=== PATIENT | female | born 1950 | race Caucasian/White ===

== ENCOUNTER 2024-04-16 15:10 | Inpatient (IN) ==
[2024-04-16 16:25] LABS: Basophils # (auto) 0.02 K/uL (0.00-0.20); Basophils % (auto) 0.2 %; Hematocrit (blood only) 40.9 % (37.0-47.0); Hemoglobin 13.5 g/dl (12.0-16.0); Immature Granulocytes # (auto) 0.09 K/uL (0.01-0.20); Immature Granulocytes % (auto) 0.8 %; Lymphocytes # (auto) 1.42 K/uL (1.20-3.40); Mean Corpuscular Volume 90.9 fL (80.0-100.0); Mean Platelet Volume 10.4 fL (9.4-12.4); Monocytes # (auto) 0.54 K/uL (0.11-0.59); Monocytes % (auto) 4.9 %; Neutrophils # (auto) 8.89 K/uL (1.40-6.50); Neutrophils % (auto) 81.1 %; Platelet Count 352 K/uL (130-400); RDW Coefficient of Variation 14.5 % (11.5-14.5); RDW Standard Deviation 48.3 fL (36.4-46.3); White Blood Count 10.96 K/ul (4.8-10.8)
--- NOTE | 2024-04-16 16:29 | XRay Report ---
Exam: Chest AP only. Reason for exam: Cough. Chest (AP only): No previous studies currently available. The heart is mildly enlarged. Lungs show no evidence of acute infiltrate, collapse or edema. No pleural effusion or pneumothorax is noted. IMPRESSION: Mild cardiomegaly. Otherwise negative for acute disease. Electronically signed by Rodrigo Pham 04-16-2024 4:29 PM
[2024-04-16 16:34] LABS: Albumin Globulin Ratio 1.5 (0.9-2); Albumin Level 4.6 gm/dl (3.4-5.0); BUN Creatinine Ratio 29.9 (10-20); Bilirubin,Total 1.1 mg/dl (0.2-1.0); Calcium 9.7 mg/dl (8.6-10.3); Creatinine Clr Calc Pharmacy 55.8 ml/min; Globulin 3.1 gm/dl (2.5-4.0); Potassium 3.7 mmol/L (3.5-5.1); Total Protein 7.7 gm/dl (6.0-8.3)
[2024-04-16 16:39] LABS: Troponin I High Sensitivity 7.1 pg/ml (0-14)
[2024-04-16 16:47] LABS: INR 0.9 (0.9-1.1); Partial Thromboplastin Ratio 0.8; Partial Thromboplastin Time 21 Seconds (21-31); Prothrombin Time 10.2 Seconds (9.0-12.0)
--- NOTE | 2024-04-16 17:18 | Cardiology Consultation ---
Date of Consultation April 16, 2024 Assessment & Plan (1) Acute heart failure with preserved ejection fraction (HFpEF): (2) Mitral valve prolapse: (3) Mitral regurgitation: Patient describes 5 to 6-week history of progressive dyspnea but also intermittent fevers. She was treated for pneumonia as an outpatient receiving course of antibiotics (azithromycin) on 03/21/2024, and recently prescribed a second course of (Augmentin and fluconazole) on 04/12/2024. The patient denies having had a past history of murmur until it had been detected at the time of recent PCP visit on 04/12/2024. A previous echocardiogram performed in 2018 revealed no significant mitral valve abnormality at that time per my review of the report. Sinus tachycardia noted on telemetry. EKG currently pending. Troponin negative x 1. Although the chest x-ray performed in the emergency department today has not overwhelmingly convincing for congestive heart failure, I reviewed the image of the previous chest x-ray performed as an outpatient on 04/12/2024 and I do think it was consistent with mild pulmonary edema. Will plan on admission to the telemetry unit. The patient describes nauseousness and currently has an emesis bag. I would like to administer 20 mg of IV furosemide for symptomatic relief however her potassium is a bit low to begin with. Will therefore start with supplementing her potassium with potassium chloride extended release 20 mill equivalents x 1 and a dose of Zofran to suppress her nauseousness. Proceed with metoprolol succinate 25 mg twice daily, first dose now, second dose tomorrow morning. If she tolerates the potassium Zofran and metoprolol, will reassess feasibility of starting furosemide this evening. She is hemodynamically stable at present, but I am concerned that her presentation is tenuous. Will plan on transesophageal echocardiogram once her respiratory status is stable enough to allow for sedation. Will plan to have her n.p.o. after midnight tonight, and she will be reassessed tomorrow to see whether or not her status allows for procedure tomorrow or if it needs to be delayed another 24 to 48 hours. Questions answered the patient and family's satisfaction. History of Present Illness History of Present Illness Julianna Dotson is a 73 year old female seen in cardiology consultation in the emergency department per the request of Dr Rogerio Heart for the evaluation of dyspnea on exertion and abnormal echocardiogram. The patient's with whom she lives as well as her daughter and son were present during my interview and examination. She denies any past cardiac history. Her recent symptoms date back to November, when she started noticing occasional lightheadedness and nauseousness. Right around the new year in March, she started experiencing progressive shortness of breath and would note that her heart would race especially when she was trying to lie flat. She had initially been treated as an outpatient for pneumonia with medications prescribed on 03/21/2024 including prednisone, a course of azithromycin, and a Xopenex inhaler. Her symptoms improved to a mild degree but have recurred prompting repeat evaluation that included a chest x-ray performed on 04/12/2024 at [facility] concerning for mild pulmonary edema versus atypical pneumonia. She went on to have a transthoracic echocardiogram performed at [facility] today. During the echocardiogram sinus tachycardia with rate around 110 bpm observed along with hyperdynamic left ventricular systolic function, LVEF in the range of 65-69%, with a partially flail posterior mitral valve leaflet visualized as well as focal calcification of the posterior annulus of the mitral valve. The study was somewhat technically limited but an eccentric mitral regurgitation jet was observed concerning for severe mitral regurgitation. Moderate tricuspid regurgitation was also noted with dilated inferior vena cava consistent with elevated right atrial pressure in the pulmonary artery systolic pressure was estimated to be over 60 mmHg (severely elevated). The patient was since referred to the emergency department for further assessment. Conversational dyspnea noted during my evaluation patient felt most comfortable sitting Upright. She notes recent concerns of feeling warm and cold at home and noted saturation of her bed clothes over the last few weeks with perspiration. Past Medical History Vitamin D deficiency Fibromyalgia Prediabetes Dyslipidemia for which patient is on rosuvastatin, most recent fasting lipid panel 03/28/2024 included total cholesterol 159, triglycerides 246, HDL 51, LDL 69 mg/dL Family History History of cancer in both of her parents, no history of heart disease Social History Non-smoker Works performing landscaping chores in the summertime Rare alcohol use Allergies Allergy/AdvReac Type Severity Reaction Status Date / Time Sulfa (Sulfonamide Allergy Mild Unverified 04/10/09 03:33 Antibiotics) Home Medications Medication Instructions Recorded Confirmed Type Diphenoxylate/Atropine (Lomotil) 1 - 2 tab PO Q8HR PRN ##10 07/02/07 Rx Estrogens, Conjugated Vag TW ##0 07/02/07 History (Premarin Vag *) Patient History Social History Smoking Status: Never smoker Preferred Language: Bulgarian Feels Safe at Home: Yes Review of Systems Review of Systems: All systems reviewed & are unremarkable except as noted in HPI & below Physical Exam Physical Exam: Temp Pulse Resp BP Pulse Ox O2 Del Method 36.6 C 112 H 24 145/90 H 93 Room Air 04/16/24 15:21 04/16/24 16:48 04/16/24 16:11 04/16/24 16:11 04/16/24 16:11 04/16/24 16:11 General:Ill in appearance without acute distress Eyes: conjunctiva are pink and non-injected, sclera clear Neck: normal jugular venous pulse, no hepatojugular reflux Chest: normal shape and normal respiratory effort, Tachypnea noted Lungs:Mildly decreased breath sounds at the bases Cardiac Exam: - Regular rhythm, tachycardic, 3/6 systolic murmur heard best over left sternal border and left apex, no jugular venous distention sitting straight up Abdomen: abdomen soft, non-tender, no abnormal masses and no hepatosplenomegaly Musculoskeletal: no gait disturbance, no weakness Extremities: no edema and no cyanosis Neuro:awake, conversant, follows commands, no focal motor deficits Psych: appropriate affect and insight. Results & Data Vital Signs (Past 12 Hours) Vital Signs Temp Pulse Pulse Resp BP BP Pulse Ox 04/16/24 16:48 112 H 04/16/24 16:11 111 H 24 145/90 H 93 04/16/24 15:21 36.6 C 114 H 22 146/78 H 95 O2 Del Method 04/16/24 16:48 04/16/24 16:11 Room Air 04/16/24 15:21 Room Air Laboratory Results Cardiac Enzymes 04/16/24 Range/Units 16:00 AST 29 (13-39) U/L Troponin I High Sens 7.1 (0-14) pg/ml Coagulation 04/16/24 Range/Units 16:00 PT 10.2 (9.0-12.0) Seconds APTT 21 (21-31) Seconds CBC 04/16/24 Range/Units 16:00 WBC 10.96 H (4.8-10.8) K/ul RBC 4.50 (4.20-5.40) M/uL Hgb 13.5 (12.0-16.0) g/dl Hct 40.9 (37.0-47.0) % Plt Count 352 (130-400) K/uL Neut # (Auto) 8.89 H (1.40-6.50) K/uL Lymph # (Auto) 1.42 (1.20-3.40) K/uL [place] # (Auto) 0.54 (0.11-0.59) K/uL Eos # (Auto) 0.00 (0.00-0.50) K/uL Baso # (Auto) 0.02 (0.00-0.20) K/uL Comprehensive Metabolic Panel 04/16/24 Range/Units 16:00 Sodium 141 (136-145) mmol/L Potassium 3.7 (3.5-5.1) mmol/L Chloride 106 (98-107) mmol/L Carbon Dioxide 23 (21-32) mmol/L BUN 23 (6-23) mg/dl Creatinine 0.77 (0.6-1.2) mg/dl Glucose 134 H (70-99(Fasting)) mg/dl Calcium 9.7 (8.6-10.3) mg/dl AST 29 (13-39) U/L ALT 35 (7-52) U/L Alkaline Phosphatase 81 (34-104) U/L Total Protein 7.7 (6.0-8.3) gm/dl Albumin 4.6 (3.4-5.0) gm/dl Intake and Output 04/16/24 04/16/24 04/16/24 06:59 14:59 22:59 Other: Weight 62.7 kg Weight Measurement Method Chair Scale Patient Weight 04/17/24 06:59 Weight 62.7 kg Diagnostic Findings Summary of echocardiogram performed as an outpatient today 04/16/2024 with images reviewed/interpreted independently: Sinus tachycardia Study of fair technical quality with echocardiogram window limitations The left ventricular cavity size is normal. The LV wall thickness is normal. The left ventricular wall motion is normal. The qualitative LV ejection fraction is 65-69% (normal). There is focal calcification of the posterior annulus. The posterior leaflet is partially flail There is severe mitral insufficiency in an eccentric jet not well quantified Moderate tricuspid regurgitation is present. The estimated pulmonary artery systolic pressure is >60mm Hg. Dilated IVC with reduced collapsability with sniff indicates an elevated right atrial pressure of 15 mmHg.
[2024-04-16 17:26] LABS: C Reactive Protein 1.37 mg/dl (0-0.5)
[2024-04-16] MEDS: POTASSIUM CHLORIDE CRTAB 20 MEQ TABCR PO STA (17:40)
[2024-04-16] MEDS: METOPROLOL SUCC 25MG EXT REL TAB PO STA (17:41)
[2024-04-16] MEDS: ONDANSETRON INJ 2 MG/ML 2 ML VIAL IV STA (17:41)
[2024-04-16] MEDS ORDERED: MAGNESIUM HYDROXIDE SUSP 30 ML UDC PO PRN (18:38)
[2024-04-16] MEDS ORDERED: ALUMINUM/MAGNESIUM SUSP 30 ML UDC PO PRN (18:38)
[2024-04-16] MEDS ORDERED: ONDANSETRON INJ 2 MG/ML 2 ML VIAL IV PRN (18:38)
[2024-04-16] MEDS ORDERED: LEVALBUTEROL 1.25 MG/3 ML NEB NEB PRN (18:58)
--- NOTE | 2024-04-16 19:01 | History & Physical Report ---
Date of Service April 16, 2024 Assessment & Plan (1) Mitral regurgitation: Plan Shortness of breath with exertion Dry cough Recent pneumonia Patient with complaint of cough with yellow sputum and shortness of breath about a month ago [employer], status post, treatment for pneumonia. See HPI. After first course of treatment, she had some improvement but again had increasing cough (this time dry cough) and SUAREZ. She was put on Augmentin and prednisone, on 04/12/2024 for pneumonia again. ESR wnl, CRP minimally elevated. CXR with no acute lung finding, bibasilar crackles on examination. Will get CT chest. Will continue with Augmentin. Labs in AM.Blood culture. Tesmichelle Murillo, Mucinex. xopenox prn. Severe mitral regurgitation: Noted in echo done on 04/16/2024. Cardiology on board, patient cardiac medications being optimized. Continue telemetry monitoring. N.p.o. midnight. Possible plan for BOUCHRA during this admission. Other chronic medical conditions: Continue with/resume home meds as when able. DVT prophylaxis: Heparin subcu Full code History of Present Illness Chief Complaint: Abnormal echocardiogram Primary Care Provider: Rogeiro Heart MD 73-year-old lady with PMH of prediabetes, vitamin D deficiency, fibromyalgia who was being treated for cough and shortness of breath as an outpatient. She has the symptoms for about 4 weeks now, she has received Zithromax and prednisone for possible walking pneumonia on 03/21/2024. Got mostly better but cough came back about 2 weeks later, no fever, but short of breath especially with exertion, mostly dry cough this time, associated with some wheezing when lying down at night. She was put on Augmentin for 10 days on 04/12/2024, steroid Rx and echocardiogram was ordered. Echocardiogram done 04/16/2024: EF of 65 to 69%, severe mitral insufficiency. Pulmonary artery systolic pressure more than 60 mmHg. Left ventricular wall motion is normal. Because of abnormal echocardiogram, patient was referred to the ED by cardiology after echo was done/read today. Patient denies sore throat, reports cough with clear sputum now, reports chest pain/pressure/tightness on and off for about 3 to 4 weeks, reports on and off palpitation, denies belly pain/nausea/vomiting. Reports appetite fair. Reports bowel okay. Patient denies smoking/alcohol use/recreational drug use. Medications reviewed with the patient at bedside. Plan of care discussed with the patient and her at bedside in detail. They voiced understanding. Full code Allergies Allergy/AdvReac Type Severity Reaction Status Date / Time Sulfa (Sulfonamide Allergy Mild Swelling Unverified 04/16/24 17:55 Antibiotics) of Lip/Tongue/Throat Home Medications Medication Instructions Recorded Confirmed Type amoxicillin 875 mg-potassium 1 tab PO BID 04/16/24 04/16/24 History clavulanate 125 mg tablet cholecalciferol (vitamin D3) 25 25 mcg PO DAILY 04/16/24 04/16/24 History mcg (1,000 unit) tablet (Vitamin D3) estradiol 10 mcg vaginal tablet 10 mcg vaginal 2XWK 04/16/24 04/16/24 History (Vagifem) levalbuterol tartrate 45 2 puff inhalation Q6H PRN Wheezing 04/16/24 04/16/24 History mcg/actuation aerosol inhaler potassium 99 mg tablet 99 mg PO DAILY 04/16/24 04/16/24 History rosuvastatin 10 mg tablet 10 mg PO QAM 04/16/24 04/16/24 History vitamin B complex 1 tab PO DAILY 04/16/24 04/16/24 History Past Med/Surg History Problem List (Updated 04/16/24 @ 17:24 by Scott James DO) Acute heart failure with preserved ejection fraction (HFpEF) Mitral regurgitation Mitral valve prolapse Dysuria Bladder pain Urinary symptom or sign Social History Smoking Status: Never smoker Preferred Language: Bulgarian Feels Safe at Home: Yes Review of Systems Review of Systems: Negative otherwise mentioned in HPI. Physical Exam Physical Exam: GENERAL: Alert and oriented x3. NAD, on RA. HEENT: No pallor, no icterus. Pupils equal, round and reactive to light. Oral mucosa moist. NECK: No JVD, no neck masses. HEART: S1 and S2 heard. Regular rate and rhythm. + systolic murmur, no gallop. RESPIRATORY SYSTEM: Normal AP diameter. No accessory muscle use. No wheezing, bb crackles. ABDOMEN: Soft, bowel sounds present, nontender, no distention. CENTRAL NERVOUS SYSTEM: No facial droop. Speech is clear. Obeys simple commands. Moves extremities. EXTREMITIES: No edema, no erythema seen. Results & Data Results & Data Vital Signs (Past 12 Hours) Vital Signs Temp Pulse Pulse Resp BP BP Pulse Ox 04/16/24 18:00 107 H 25 H 160/97 H 94 04/16/24 16:48 112 H 04/16/24 16:11 111 H 24 145/90 H 93 04/16/24 15:21 36.6 C 114 H 22 146/78 H 95 O2 Del Method 04/16/24 18:00 Room Air 04/16/24 16:48 04/16/24 16:11 Room Air 04/16/24 15:21 Room Air
--- NOTE | 2024-04-16 19:26 | Emergency Department Note ---
Impression & Plan Mitral valve prolapse, Mitral regurgitation, Acute heart failure with preserved ejection fraction (HFpEF), Pulmonary hypertension ED Provider Note NAME: RANDA DUGAN AGE: 73 SEX: F : 1950 ARRIVES VIA: Walk-In INFORMANT: Patient, ED PROVIDER(S): Lino Childers MD CHIEF COMPLAINT: Sent in for leaky heart valve HPI: This is a 73-year-old female presenting for mitral valve insufficiency. Patient was seen earlier today and had a echo. Patient has been having shortness of breath for the past few weeks with left-sided chest pain. She is seen by cardiology and scheduled for an echo. This morning echo was read as suggesting a flail posterior mitral valve leaflet with severe mitral insufficiency, severe pulmonary hypertension, possibility was also noted. Patient sent in by the knife finisher for admission. Patient currently feels vertiginous. She is vomiting. ROS: See above HPI for pertinent positives & negatives. A total of 10 systems reviewed and were otherwise negative. PAST MEDICAL HISTORY: See Below PAST SURGICAL HISTORY: See Below FAMILY HISTORY: See Below SOCIAL HISTORY: See Below HOME MEDICATIONS: See Below ALLERGIES: See Below VITALS: See Below PHYSICAL EXAMINATION: General: resting comfortably in no acute distress Head: Normocephalic and atraumatic Eyes: Normal inspection, extraocular muscles intact Ear, nose, throat: Normal external exam Neck: Normal range of motion Respiratory: lungs clear to auscultation bilaterally Cardiovascular: Regular rate/rhythm, significant murmur GI: soft, nontender, no guarding or rebound Extremities: nontender, moves all extremities Neuro: The patient awake and alert, appropriately conversive, no focal deficits, symmetric faces Skin: Warm, dry, and intact MEDICAL DECISION MAKING: This is a 73-year-old female present for mitral valve insufficiency. Patient has already been seen by cardiology prior to my arrival, medications such as potassium, Zofran placed by knife finisher. \ -Bloodwork is reviewed showing no significant leukocytosis, anemia, electrolyte or creatinine abnormality -Chest Xray independently interpreted by me showing cardiomegaly, no pneumothorax, focal opacity, or pleural effusions. -Patient admitted to hospitalist service for the outpatient ultrasound that revealed the mitral insufficiency, pulm hypertension. -Discussed with Dr. Jama for admission Differential diagnosis: Heart failure, mitral valve insufficiency, pneumonia Independent History obtained from: 3 family members, knife finisher Diagnostics interpreted by me: ECG: None Cardiac Monitoring: An order was placed for continuous cardiac monitoring. The monitor shows a rate of 107 with sinus rhythm. Past Med/Surg History Problem List (Updated 04/16/24 @ 20:43 by Lino Childers MD) Pulmonary hypertension (Acute) Acute heart failure with preserved ejection fraction (HFpEF) (Acute) Mitral regurgitation (Acute) Mitral valve prolapse (Acute) Dysuria Bladder pain Urinary symptom or sign Social History Smoking Status: Never smoker Preferred Language: Citizen Of [place] Feels Safe at Home: Yes Allergies Allergies Allergy/AdvReac Type Severity Reaction Status Date / Time Sulfa (Sulfonamide Allergy Mild Swelling Unverified 04/16/24 17:55 Antibiotics) of Lip/Tongue/Throat Home Meds Home Medications Medication Instructions Recorded Confirmed amoxicillin 875 mg-potassium 1 tab PO BID 04/16/24 04/16/24 clavulanate 125 mg tablet cholecalciferol (vitamin D3) 25 25 mcg PO DAILY 04/16/24 04/16/24 mcg (1,000 unit) tablet (Vitamin D3) estradiol 10 mcg vaginal tablet 10 mcg vaginal 2XWK 04/16/24 04/16/24 (Vagifem) levalbuterol tartrate 45 2 puff inhalation Q6H PRN Wheezing 04/16/24 04/16/24 mcg/actuation aerosol inhaler potassium 99 mg tablet 99 mg PO DAILY 04/16/24 04/16/24 rosuvastatin 10 mg tablet 10 mg PO QAM 04/16/24 04/16/24 vitamin B complex 1 tab PO DAILY 04/16/24 04/16/24 Results & Data (ED) Vital Signs Vital Signs - 24 hr 04/16/24 15:21 04/16/24 16:11 04/16/24 16:48 Temperature 36.6 C Temperature Source Skin Pulse Rate 114 H 112 H Pulse Rate [Apical] 111 H Respiratory Rate 22 24 Respiratory Effort / Characteristics Spontaneous Short of Breath Non-Labored Spontaneous Respiratory Depth Normal Respiratory Pattern Regular Blood Pressure 146/78 H Blood Pressure [Right Arm] 145/90 H Blood Pressure Mean 100 Blood Pressure Mean [Right Arm] 108 Blood Pressure Position [Right Arm] Semi-fowlers Pulse Oximetry 95 93 Oxygen Delivery Method Room Air Room Air Oxygen Flow Rate Sepsis Recent Fever Within 48 Hours No Sepsis New/Unexplained Change in Mental Status No Sepsis Action Taken by Nursing No Action Required Oxygen Flow Rate - Titration Pulse Oximetry Post Tiitration 04/16/24 18:00 04/16/24 19:29 Temperature Temperature Source Pulse Rate Pulse Rate [Apical] 107 H Respiratory Rate 25 H Respiratory Effort / Characteristics Non-Labored Spontaneous Respiratory Depth Normal Respiratory Pattern Blood Pressure Blood Pressure [Right Arm] 160/97 H Blood Pressure Mean Blood Pressure Mean [Right Arm] 118 Blood Pressure Position [Right Arm] Semi-fowlers Pulse Oximetry 94 87 L Oxygen Delivery Method Room Air Nasal Cannula Oxygen Flow Rate 0 Sepsis Recent Fever Within 48 Hours Sepsis New/Unexplained Change in Mental Status Sepsis Action Taken by Nursing Oxygen Flow Rate - Titration 2 Pulse Oximetry Post Tiitration 96 Laboratory Data 04/16/24 16:00 04/16/24 16:00 Lab Results 04/16/24 04/16/24 04/16/24 Range/Units 16:00 17:08 18:39 WBC 10.96 H (4.8-10.8) K/ul RBC 4.50 (4.20-5.40) M/uL Hgb 13.5 (12.0-16.0) g/dl Hct 40.9 (37.0-47.0) % MCV 90.9 (80.0-100.0) fL MCH 30.0 (25.0-34.0) pg MCHC 33.0 (32.0-36.0) g/dL RDW Std Deviation 48.3 H (36.4-46.3) fL RDW Coeff of Joselyn 14.5 (11.5-14.5) % Plt Count 352 (130-400) K/uL MPV 10.4 (9.4-12.4) fL Immature Gran % (Auto) 0.8 % Neut % (Auto) 81.1 % Lymph % (Auto) 13.0 % Prowers % (Auto) 4.9 % Eos % (Auto) 0.0 % Baso % (Auto) 0.2 % Neut # (Auto) 8.89 H (1.40-6.50) K/uL Lymph # (Auto) 1.42 (1.20-3.40) K/uL Prowers # (Auto) 0.54 (0.11-0.59) K/uL Eos # (Auto) 0.00 (0.00-0.50) K/uL Baso # (Auto) 0.02 (0.00-0.20) K/uL Immature Gran # (Auto) 0.09 (0.01-0.20) K/uL ESR 15 (0-30) mm/hr PT 10.2 (9.0-12.0) Seconds INR 0.9 (0.9-1.1) APTT 21 (21-31) Seconds PTT Ratio 0.8 Sodium 141 (136-145) mmol/L Potassium 3.7 (3.5-5.1) mmol/L Chloride 106 (98-107) mmol/L Carbon Dioxide 23 (21-32) mmol/L Anion Gap 12 H (3-11) BUN 23 (6-23) mg/dl Creatinine 0.77 (0.6-1.2) mg/dl Est Cr Clr Drug Dosing 55.8 ml/min eGFR 80.90 BUN/Creatinine Ratio 29.9 H (10-20) Glucose 134 H (70-99(Fasting)) mg/dl Calcium 9.7 (8.6-10.3) mg/dl Total Bilirubin 1.1 H (0.2-1.0) mg/dl AST 29 (13-39) U/L ALT 35 (7-52) U/L Alkaline Phosphatase 81 (34-104) U/L Troponin I High Sens 7.1 (0-14) pg/ml C-Reactive Protein 1.37 H (0-0.5) mg/dl Total Protein 7.7 (6.0-8.3) gm/dl Albumin 4.6 (3.4-5.0) gm/dl Globulin 3.1 (2.5-4.0) gm/dl Albumin/Globulin Ratio 1.5 (0.9-2) Adenovirus (PCR) Not Detected (NotDetected) B. pertussis DNA (PCR) Not Detected (NotDetected) B.parapertussis DNA PCR Not Detected (NotDetected) C. pneumoniae DNA (PCR) Not Detected (NotDetected) Coronavirus OC43 (PCR) Not Detected (NotDetected) Coronavirus HKU1 (PCR) Not Detected (NotDetected) Coronavirus 229E (PCR) Not Detected (NotDetected) SARS-CoV-2 (PCR) Not Detected (NotDetected) Coronavirus NL63 (PCR) Not Detected (NotDetected) Human Metapneumovir PCR Not Detected (NotDetected) Influenza Type A (PCR) Not Detected (NotDetected) Influenza Type B (PCR) Not Detected (NotDetected) M. pneumoniae (PCR) Not Detected (NotDetected) Parainfluenza 1 (PCR) Not Detected (NotDetected) Parainfluenza 2 (PCR) Not Detected (NotDetected) Parainfluenza 3 (PCR) Not Detected (NotDetected) Parainfluenza 4 (PCR) Not Detected (NotDetected) RSV (PCR) Not Detected (NotDetected) Entero/Rhino (PCR) Not Detected (NotDetected) Administered Medications Amoxicillin/Clavulanate Potassium (Amoxicillin/Clavulanate 875 Mg Tab) 1 tab PO BID [facility]; Protocol Stop: 04/21/24 20:59 Last Admin: 04/16/24 20:28 Dose: 1 tab Documented By: MARISOL Benzonatate (Benzonatate 100 Mg Capsule) 100 mg PO TID [facility] Stop: 05/16/24 20:59 Last Admin: 04/16/24 20:28 Dose: 100 mg Documented By: MARISOL Guaifenesin (Guaifenesin 600 Mg Tabcr) 600 mg PO Q12 [facility] Stop: 05/16/24 20:59 Last Admin: 04/16/24 20:28 Dose: 600 mg Documented By: MARISOL Heparin Sodium (Porcine) (Heparin Sod 5,000 Unit/0.5 Ml Vial) 5,000 units SQ Q12 [facility] Stop: 05/16/24 20:59 Last Admin: 04/16/24 20:28 Dose: 5,000 units Documented By: MARISOL Discontinued Medications Metoprolol Succinate (Metoprolol Succ 25mg Ext Rel Tab) 12.5 mg PO NOW STA Stop: 04/16/24 17:11 Last Admin: 04/16/24 17:41 Dose: 12.5 mg Documented By: RADHA Ondansetron HCl (Ondansetron Inj 2 Mg/Ml 2 Ml Vial) 4 mg IV NOW STA Stop: 04/16/24 17:11 Last Admin: 04/16/24 17:41 Dose: 4 mg Documented By: RADHA Potassium Chloride (Potassium Chloride Crtab 20 Meq Tabcr) 20 meq PO NOW STA Stop: 04/16/24 17:10 Last Admin: 04/16/24 17:40 Dose: 20 meq Documented By: MMF Imaging Data Radiologist's Impression: Chest X-Ray 04/16/24 15:26 Exam: Chest AP only. Reason for exam: Cough. Chest (AP only): No previous studies currently available. The heart is mildly enlarged. Lungs show no evidence of acute infiltrate, collapse or edema. No pleural effusion or pneumothorax is noted. IMPRESSION: Mild cardiomegaly. Otherwise negative for acute disease. Electronically signed by Rodrigo Pham 04-16-2024 4:29 PM Discharge Plan Visit Data Chief Complaint: Referred by Doctor Stated Complaint: LEAKING HEART VALVE ED Provider: Lino Childers Discharge Problem: Mitral valve prolapse, Mitral regurgitation, Acute heart failure with preserved ejection fraction (HFpEF), Pulmonary hypertension Forms Stand Alone Forms: Financial Guard Prescriptions Prescriptions: No Action amoxicillin-pot clavulanate 875-125 mg tablet 1 tab PO BID Rx Instructions: Start Date 04/12/24 x10 day supply rosuvastatin 10 mg tablet 10 mg PO QAM levalbuterol tartrate 45 mcg/actuation HFA aerosol inhaler 2 puff INHALATION Q6H PRN (Reason: Wheezing) estradiol [Vagifem] 10 mcg tablet 10 mcg vaginal 2XWK potassium 99 mg Tablet 99 mg PO DAILY vitamin B complex Tablet 1 tab PO DAILY cholecalciferol (vitamin D3) [Vitamin D3] 25 mcg (1,000 unit) Tablet 25 mcg PO DAILY Referrals Referrals: Rogerio Heart MD [Primary Care Provider] -
[2024-04-16 19:48] LABS: Adenovirus PCR Not Detected (NotDetected); Bordetella parapertussis PCR Not Detected (NotDetected); Bordetella pertussis PCR Not Detected (NotDetected); Chlamydia pneumoniae PCR Not Detected (NotDetected); Coronavirus 229E PCR Not Detected (NotDetected); Coronavirus CoV-2 (COVID19)PCR Not Detected (NotDetected); Coronavirus HKU1 PCR Not Detected (NotDetected); Coronavirus NL63 PCR Not Detected (NotDetected); Coronavirus OC43PCR Not Detected (NotDetected); Human Metapneumovirus PCR Not Detected (NotDetected); Influenza A PCR Not Detected (NotDetected); Influenza B PCR Not Detected (NotDetected); Mycoplasma pneumoniae PCR Not Detected (NotDetected); Parainfluenza Virus 1 PCR Not Detected (NotDetected); Parainfluenza Virus 2 PCR Not Detected (NotDetected); Parainfluenza Virus 3 PCR Not Detected (NotDetected); Parainfluenza Virus 4 PCR Not Detected (NotDetected); Respiratory Syncytial VirusPCR Not Detected (NotDetected); Rhinovirus/Enterovirus PCR Not Detected (NotDetected)
[2024-04-16] MEDS: AMOXICILLIN/CLAVULANATE 875 MG TAB PO SCH (20:28)
[2024-04-16] MEDS: BENZONATATE 100 MG CAPSULE PO SCH (20:28)
[2024-04-16] MEDS: guaiFENesin 600 MG TABCR PO SCH (20:28)
[2024-04-16] MEDS: HEPARIN SOD 5,000 UNIT/0.5 ML VIAL SQ SCH (20:28)
--- NOTE | 2024-04-16 21:13 | CT Scan Report ---
EXAM: CT chest diagnostic wo con CLINICAL HISTORY: cough, ? pna/reactive airway dz TECHNIQUE: Contiguous axial CT images of the chest were acquired without administration of intravenous contrast. Coronal and sagittal reconstructions were obtained. One of the following dose reduction techniques were utilized for this exam: Automated exposure control, adjustment of the mA and/or kV according to patient size, use of iterative reconstruction. DLP 231.99 COMPARISON: 04/16/2024 X ray FINDINGS: Lungs: Bilateral diffuse coarse pulmonary interstitium with interlobular septal thickening, prominent vascular markings and diffuse mosaic attenuation. Right lower lung lobe solid pulmonary nodule noted measuring 5 mm (Series 3 Image 32/57). Bilateral fibroatelectatic bands are noted. No evidence of consolidation, collapse, or focal lesions. No pulmonary masses are identified. No evidence of emphysema. Bilateral rim of pleural effusion. Mediastinum: The mediastinum is normal in size and contour. Prominent bilateral paratracheal, aortopulmonary and subcarinal lymph nodes with the largest in subcarinal location measuring 1.0 cm (short axis). Cardiomegaly. Hilar Structures: The hilar structures appear normal without enlargement or abnormality. Trachea and Main Bronchi: The trachea and main bronchi are patent without evidence of obstruction or abnormality. Chest Wall: The chest wall is unremarkable with no evidence of soft tissue or bony abnormalities. Upper Abdomen: Visualized portions of the liver show diffuse hypoattenuation, likely fatty infiltration. Visualized portions of the spleen, adrenal glands, and kidneys are unremarkable. Bones: Degenerative changes in the visualized spine, with marginal osteophytes. No evidence of fracture or lytic/sclerotic lesions. IMPRESSION: 1. Bilateral diffuse coarse pulmonary interstitium with interlobular septal thickening, prominent vascular markings and diffuse mosaic attenuation. Possible pulmonary edema, however inflammatory changes could not be totally excluded. Correlate clinically. 2. Enlarged mediastinal lymph nodes. 3. Cardiomegaly. 4. Right lower lung lobe solid pulmonary nodule noted measuring 5 mm. No routine follow-up is needed according to Fleischner Society Guidelines in low-risk patients, however, in high-risk patients follow-up CT may be recommended at 12 months 5. Compared to same day Xray, current findings are more in detail. Electronically signed by Liliya Clayton 04-16-2024 9:12 PM
[2024-04-16] MEDS: FUROSEMIDE INJ 20 MG/2 ML VIAL IV ONE (22:08)
[2024-04-16] MEDS: MECLIZINE HCL 25 MG TAB PO STA (22:45)
--- OUTSIDE RECORDS SUMMARY | 2024-04-17 03:15 | External Medical Summary | Summary of Care ---
Author Name Unknown Organization [facility] Address [address] [place] [address] Phone [phone] Care Team Providers Care Product Delivery Specialist Name Role Phone Rogerio Heart MD Primary Care Provide r Reason for Visit * Reason Onset Date Comments Advice 04/09/2024 Encounter Details Date Type Department Care Team (Late st Contact Info) Description 04/09/2024 Telephone Family Medicine [address] [phone] Rogerio Heart MD [address] [place] [id number] Advice Allergies Active Allergy Reactions Criticality Noted Date Comments Sulfa Antibiotics 03/24/2003 mouth ulcers documented as of this encounter (statuses as of 04/11/2024) Medications Cholecalciferol (VITAMIN D) 1000 UNITS Tablet One daily Active Magnesium 400 MG TABS One daily Active Meloxicam 15 MG Oral TabletIndications: Generalized osteoarthritis of multiple sites,Fibromyalgia TAKE 1 TABLET BY MOUTH DAILY FOR PAIN 90 Tablet 3 Active Clobetasol Propionate 0.05 % External Ointment (Temovate) Apply topically to affected area 2 times a day for 14 days. To affected area for up to two weeks 15 g 1 3 Active Cyclobenzaprine HCl 10 MG Oral Tablet (Flexeril)Indicati ons:Acute pain of left shoulder Take 1 Tablet by mouth 2 times a day as needed for Muscle spasms. 20 Tablet 3 Active Hydrocortisone (Perianal) 2.5 % External Cream (Anusol-HC)Indicat ions:Hemorrhoids, external without complications Administer into the rectum 2 times a day. 28 g 1 4 Active Rosuvastatin Calcium 10 MG Oral Tablet (Crestor) Take 1 Tablet by mouth in the morning. 90 Tablet 3 4 Active Vagifem 10 MCG Vaginal TabletIndications: Postmenopausal atrophic vaginitis INSERT ONE TABLET VAGINALLY AT BEDTIME FOR 7 DAYS IN A ROW AND THEN JUST TWICE WEEKLY 32 Tablet 2 4 Active Azithromycin 250 MG Oral Tablet (Zithromax Z-Otto)Indications: Walking pneumonia Take two tablets by mouth on first day, then 1 tablet daily until gone 6 Tablet 5 Active Levalbuterol Tartrate 45 MCG/ACT Inhalation Aerosol (Xopenex HFA)Indications:Wa lking pneumonia Inhale 2 Puffs by mouth every 6 hours as needed for Wheezing. 15 g 5 Active documented as of this encounter (statuses as of 04/11/2024) Active Problems Problem Noted Date Diagnosed Date Prediabetes 08/15/2022 Overview: Per Prediabetes protocol Fibromyalgia 06/29/2011 Vitamin D deficiency 07/07/2010 Postmenopausal atrophic vaginitis 10/10/2007 Headache Overview (05/27/2015): ICD-10 update of inactive term documented as of this encounter (statuses as of 04/11/2024) Resolved Problems Problem Noted Date Diagnosed Date Resolved Date Moderate episode of recurren t major depressive disorder 06/10/2019 12/01/2023 Hot flashes 12/03/2014 12/20/2019 Medial epicondylitis 10/10/2007 015 documented as of this encounter (statuses as of 04/11/2024) Immunizations Name Administration Dates Next Due COVID-19 mRNA, LNP-s, No Pre serve, 2-Dose Series ([facility]) 03/16/2021,02/23/2021 Pneumococcal Conjugate Vacc, 13 Valent (Prevnar) 12/21/2015 Pneumococcal Polysaccharide PPV23 (Pneumovax) Season Influenza, Quad, PF, Adjuvanted, 65+ Yrs, IM (FLUAD) 12/20/2019 Seasonal Influenza Vac., MDV, IM, 0.5 mL (Fluzon e) 01/04/2009 Seasonal Influenza, PF, 6 M & above, IM , (FluLaval or Fluzone) 02/22/2017 Seasonal Influenza, Quadrivalent Hd (Fluzone Hd) 02/22/2021 Seasonal Influenza, Quadrivalent, No Preserve, I M 12/08/2015 Seasonal Influenza, Trivalen t, Adjuvanted, 65+ YRS, PF, (Fluad) 12/07/2018 TDAP, Age 7 and older, IM (Adacel) 12/29/2013, Varicella Zoster Vaccine (Adult) 01/25/2016 documented as of this encounter Social History Tobacco Use Types Packs/Day Years Used Date Smoking Tobacco: Never Smokeless Tobacco: Never Alcohol Use Standard Drinks/Week Comments Yes 0 (1 standard drink = 0.6 oz pure alcohol) occ--less than 1 -2 wine coolers per wk PHQ-2 Answer Date Recorded PHQ-2 Score -1 12/20/2019 Hunger Vital Sign Answer Date Recorded Within the past 12 months, y ou worried that your food would run out before you got the money to buy more. Never true 02/25/20 23 Within the past 12 months, t he food you bought just didn't last and you didn't have money to get more. Never true 02/24/2023 Childcare Answer Date Recorded Do you feel overwhelmed with taking care of a child, family member or friend? No 02/24/2023 Does your family need help f inding childcare? (Household - for ages 0-17 years) Not on file 02/24/2023 Clothing Answer Date Recorded Have you been unable to get clothing when it was really needed? No 02/24/2023 Is your family able to get c lothes or diapers when needed? (Household - for ages 0-17 years) Not on file 02/24/2023 Personal Safety Answer Date Recorded Do you feel unsafe or have concerns for your saf ety? No 02/24/2023 Do you have concerns for you r family's safety? (Household - for ages 0-17 years) Not on file 02/24/2023 Utilities Answer Date Recorded Do you have trouble paying y our heating, water, or electric bill? No 02/24/2023 Is your family able to pay t he heat, water, or electric bill? (Household - for ages 0-17 years) Not on file 02/24/2023 Does your family have access to good internet? (Household - for ages 0-17 years) Not on file 02/24/2023 Employment Status Answer Date Recorded Are you unemployed or without regular income? No 02/24/2023 Does the household have a re gular source of income? (Household - for ages 0-17 years) Not on file 02/24/2023 Social Connections Answer Date Recorded How often do you feel lonely or isolated from those around you? Sometimes 02/24/2023 Financial Resource Strain Answer Date R ecorded Do you have any trouble payi ng for your medications, or do you think you might in the future? No 02/24/2023 Does your family have troubl e paying for medicine? (Household - for ages 0-17 years) Not on file 02/24/2023 Transportation Needs Answer Date Record ed READ ONLY Do you have troubl e getting a ride to medical visits or work? Never True 02/24/2023 Does your family have a hard time getting a ride to doctors visits? (Household - for ages 0-17 years) Not on file 02/24/2023 Has lack of transportation k ept you from medical appointments, meetings, work, or from getting things needed for daily living? Check all that apply. (Adult - for ages 18 years and over) Not on file 02/24/2023 Do you (or your family) have trouble finding or paying for a ride (transportation)? (Household - for ages 0-17 years) Not on file 02/24/2023 Housing Stability Answer Date Recorded Do you currently live in a s helter or have no steady place to sleep at night? No 02/24/2023 READ ONLY Do you think you a re at risk of becoming homeless? No 02/24/2023 Does your family worry about paying for your home or becoming homeless? (Household - for ages 0-17 years) Not on file 1 04/27/2022 Are you homeless or worried that you might be in the future? (Adult - for ages 18 years and over) Not on file Are you (or your family) magui eless or worried that you might be in the future? (Household - for ages 0-17 years) Not on file Food Insecurity Answer Date Recorded Do you need food for this week? No 02/24/2023 Are you able to get enough f ood for your family? (Household - for ages 0-17 years) Not on file 02/24/2023 Does your family need food t his week? (Household - for ages 0-17 years) Not on file 02/24/2023 Do you always have enough fo od for your family? 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 * Telephone Encounter - Susanne Desir RN - 04/09/2024 3:14 PM EST You saw pt on 03/21/24 * Telephone Encounter - Susanne Desir RN - 04/09/2024 3:14 PM EST COUGH: Yes Cough Symptoms: Dry How long has your cough lasted? 4 weeks Fever: No Patient's Action(s) What have you done or taken for this problem? Nyquil, claire's vapor rub, and cough drops. Patient states that she is using a saline spray for her nose because it feels dry. Patient states that she finished the medication that was prescribed during her appointment. Additional Comment(s) Additional Comments: Patient states that if she coughs up anything it is clear. Patient states thatsometimes she will have a coughing fit that will make her vomit from coughing so hard. Patient Request * Telephone Encounter - Cinthia Del Angel OSA - 04/09/2024 1:05 PM EST 1. When were you seen for this problem? 03/21/24 2. What provider did you see for this problem? Elicia NOVA 3. What medications are you presently taking? 4. What is it that is no better? Please refer to Call Details. documented in this encounter Plan of Treatment Health Maintenance Due Date Last Done Comments Hepatitis C Screening 1968 Colonoscopy 1994 Sigmoidoscopy 1994 Fecal Occult Blood Test 04/19/2011 04/19/2010 Depression Screening 12/19/2020 12/20/2019 COVID-19 Vaccine (3 - Pfizer risk series) 04/13/2021 03/16/2021, 02/23/2021 Mammogram 06/01/2023 05/31/2022, 12/04, 04/27/2017, Additional history exists Influenza Vaccine (FLU shot) (#1) 2023 02/22/2021, 02/22/2021, 12/20/2019, Additional history exists DTap/Tdap Vaccines (3 - Td or Tdap) 12/30/2023 12/29/2013, 10/10/2007, 07/04/1993 HbA1c 11/30/2024 12/01/2023, 07/06, 07/22/2021, Additional history exists DXA Scan 03/27/2026 03/27/2019 Cologuard 01/24/2027 01/25/2024, 01/04, 01/19/2024 Colorectal Cancer Screening 01/24/2027 Lipid Panel 03/28/2029 03/28/2024, 11/05, 08/02/2022, Additional history exists Pneumococcal Vaccine: 50+ Years Completed 05/16/2017, 12/21/2015 Zoster Vaccines Completed 07/22/2021, 05/04, 01/25/2016 HPV (Gardasil) Vaccine Aged Out No lo nger eligible based on patient's age to complete this topic Hepatitis B Vaccine Aged Out No longe r eligible based on patient's age to complete this topic MENINGOCOCCAL (MENACTRA/MENVEO) Aged Out No longer eligible based on patient's age to complete this topic documented as of this encounter Medical Devices Not on filedocumented as of this encounter Care Teams Product Delivery Specialist Relationship Specialty Start Date End Date Rogerio Heart MD [address] [place] [address] ROGER Martin [id number] PCP - General Family Medicine 01/29/24 documented as of this encounter
--- OUTSIDE RECORDS SUMMARY | 2024-04-17 03:15 | External Medical Summary | Summary of Care ---
Author Name Unknown Organization [facility] Address [address] [facility] [place] [address] Phone [phone] Care Team Providers Care Calculus Professor Name Role Phone Rogerio Heart MD Primary Care Provide r Encounter Details Date Type Department Care Team (Late st Contact Info) Description 04/16/2024 Orders Only PATIENT PORTAL DO NOT DELETE THIS DEPT USED BY [place] [id number] Allergies Active Allergy Reactions Criticality Noted Date Comments Sulfa Antibiotics 03/24/2003 mouth ulcers documented as of this encounter (statuses as of 04/16/2024) Medications Cholecalciferol (VITAMIN D) 1000 UNITS Tablet [...] TWICE WEEKLY 32 Tablet 2 4 Active Fenofibrate 145 MG Oral Tablet (Tricor) Take 1 Tablet by mouth in the morning. 30 Tablet 5 5 Active Amoxicillin-Pot Clavulanate 875-125 MG Oral Tablet (Augmentin)Indicat ions:Pneumonia of left lower lobe due to infectious organism Take 1 Tablet by mouth in the morning and 1 Tablet before bedtime. Do all this for 10 days. 20 Tablet 5 025 Active predniSONE 20 MG Oral Tablet (Deltasone)Indicat ions:Acute cough Take 2 Tablets by mouth in the morning for 5 days. 10 Tablet 5 025 Active Levalbuterol Tartrate 45 MCG/ACT Inhalation Aerosol (Xopenex HFA)Indications:Wa lking pneumonia Inhale 2 Puffs by mouth every 6 hours as needed for Wheezing. 15 g 5 Active documented as of this encounter (statuses as of 04/16/2024) Active Problems Problem Noted Date Diagnosed Date Prediabetes 08/15/2022 Overview: Per Prediabetes protocol Fibromyalgia 06/29/2011 Vitamin D deficiency 07/07/2010 Postmenopausal atrophic vaginitis 10/10/2007 Headache Overview (05/27/2015): ICD-10 update of inactive term documented as of this encounter (statuses as of 04/16/2024) Resolved Problems Problem Noted Date Diagnosed Date Resolved Date Moderate episode of recurren t major depressive disorder 06/10/2019 12/01/2023 Hot flashes 12/03/2014 12/20/2019 Medial epicondylitis 10/10/2007 015 documented as of this encounter (statuses as of 04/16/2024) Immunizations Name Administration Dates Next Due COVID-19 mRNA, LNP-s, No Pre serve, 2-Dose Series (Pfizer) 03/16/2021,02/23/2021 Pneumococcal Conjugate Vacc, 13 Valent (Prevnar) [...] on file documented as of this encounter Plan of Treatment Upcoming Encounters Date Type Department Care Team (Late st Contact Info) Description 04/16/2024 10:30 AM EST Cardiac Studies Cardiac Studies [address] [place] [id number] 11/22/2024 2:20 PM EDT Office Visit Family Medicine [address] [place] [phone] Rogerio Heart MD [address] [place] [address] [place] [id number] Health Maintenance Due Date Last Done Comments Hepatitis C Screening 1967 Colonoscopy 1994 Sigmoidoscopy 1994 Fecal Occult Blood Test 04/19/2011 04/19/2010 Depression Screening 12/19/2020 12/20/2019 COVID-19 Vaccine (3 - Pfizer risk series) 04/13/2021 03/16/2021, 02/23/2021 Influenza Vaccine (FLU shot) (#1) 2023 02/22/2021, 02/22/2021, 12/20/2019, Additional history exists DTap/Tdap Vaccines (3 - Td or Tdap) 12/30/2023 12/29/2013, 10/10/2007, 07/04/1993 HbA1c 11/30/2024 12/01/2023, 07/06, 07/22/2021, Additional history exists Mammogram 04/15/2025 04/15/2024, 05/05, 12/20/2019, Additional history exists DXA Scan 03/27/2026 03/27/2019 [...] filedocumented as of this encounter Care Teams Calculus Professor Relationship Specialty Start Date End Date Rogerio Heart MD [address] [place] [address] [place] [id number] PCP - General Family Medicine 01/29/24 documented as of this encounter
--- OUTSIDE RECORDS SUMMARY | 2024-04-17 03:15 | External Medical Summary | Summary of Care ---
Author Name Unknown Organization [facility] Address [address] [facility] [place] [address] Phone [phone] Care Team Providers Care Ward Nurse Name Role Phone Rogerio Heart MD Primary Care Provide r Reason for Visit * Reason Comments Outpatient Testing Encounter Details Date Type Department Care Team (Late st Contact Info) Description 04/16/2024 11:30 AM EST Laboratory Laboratory [address] [place] [phone] [place] [id number] Shortness of breath Allergies Active Allergy Reactions Criticality Noted Date [...] No 02/24/2023 Does the household have a [facility] source [facility]? (Household - for ages [...] Care Team (Late st Contact Info) Description 11/22/2024 2:20 PM EDT Office Visit Family Medicine [facility] [address] [place] [phone] Rogerio Heart MD [address] [place] [address] [place] [id number] Pending Results Name Type Priority Associated Diagnoses Date /Time BASIC METABOLIC PANEL Lab Routine Shortness of breath 04/16/2024 10:51 AM EST BNP, NT-PRO Lab Routine Shortness of breath 04/16/2024 10:51 AM EST Health Maintenance Due Date Last Done Comments [...] Not on filedocumented as of this encounter Visit Diagnoses Diagnosis Shortness of breath documented in this encounter Care Teams Ward Nurse Relationship Specialty Start Date End Date Rogerio Heart MD [address] [place] [address] [place] [phone] PCP - General Family Medicine 01/29/24 documented as of this encounter
--- OUTSIDE RECORDS SUMMARY | 2024-04-17 03:15 | External Medical Summary | Summary of Care ---
Author Name Unknown Organization [facility] Address [address] [place] [facility] [place] [address] Phone [phone] Care Team Providers Care Bagger Meat Name Role Phone Rogerio Medina MD Primary Care Provide r Reason for Visit * Reason Onset Date Comments Order Request 04/09/2024 Pt is having jason n and needs an US as well as a mammo Encounter Details Date Type Department Care Team (Late st Contact Info) Description 04/09/2024 Telephone Access Center, [place] [address] [facility] *DO NOT REMOVE THIS DEPARTMENT* [place] [address] Services, Scheduling [address] [place] [address] Order Request (Pt is having pain and needs... Allergies Active Allergy Reactions Criticality Noted Date [...] mRNA, LNP-s, No Pre serve, 2-Dose Series (Chat& (ChatAnd)) 03/16/2021,02/23/2021 Pneumococcal Conjugate Vacc, 13 Valent (Prevnar) [...] t, Adjuvanted, 65+ YRS, PF, (Fluad) 12/07/2018 TD - Tetanus/Diptheria (ADULT) 07/04/1993 TDAP, Age 7 and older, IM (Adacel) [...] encounter Miscellaneous Notes * Telephone Encounter - Carole Allen RN - 04/11/2024 3:01 PM EST Message to provider to make her aware. * Telephone Encounter - Agueda Ham OSA - 04/11/2024 1:41 PM EST Patient has been notified of the message. Patient has been scheduled for tomorrow 04/12/[address] medina for complete physical, cough and to discuss mammogram * Telephone Encounter - Carole Allen RN - 04/11/2024 1:28 PM EST Left message for the patient to call the office. * Telephone Encounter - Elicia Fung CRNP - 04/11/2024 9:47 AM EST Please have the patient schedule and appointment to be seen as I did not see her for this problem and in another encounter she is complaining of ongoing cough so can follow up on this as well. Agree she also needs to schedule routine visit with Dr. Medina for next available. Thanks! * Telephone Encounter - Juliocesar Desir RN - 04/10/2024 9:48 AM EST She will need to schedule a routine appt with Dr Medina, (first available) if she wants to continueto have her as PCP * Telephone Encounter - Mayra Mtz OSA - 04/09/2024 4:57 PM EST Patient returning call, no appointments available with Dr. Medina. Please contact patient to schedule: [phone] * Telephone Encounter - Lalita Rudd OSA - 04/09/2024 4:25 PM EST I spoke with patient. She states the "soreness" she has in her breast is actually radiating from her ribs/upper abdomen area. She is wondering if she doesn't have another hernia there as well. She states this pain is originating from the exact area she had problems with 3-4 yrs ago. Patient would like to continue with screening mammogram and possibly speak to a provider about the rib pain. Please place a screening mammogram order and I will call patient to schedule. Thank you * Addendum Note - Juliocesar Desir RN - 04/09/2024 3:20 PM ESTAddended by: JULIOCESAR DESIR on: 04/09/2024 03:20 PM Modules accepted: Orders * Telephone Encounter - Juliocesar Desir RN - 04/09/2024 3:17 PM EST Rayleen you saw this patient recently, will you order the ultrasound? Has a mammo scheduled for tomorrow for breast pain Melanie or BJ : please call pt and get her an appt for Dr Medina if she plans on keeping her as her PCP, last seen 2020 * Telephone Encounter - Rogerio Medina MD - 04/09/2024 1:33 PM EST I have not seen this patient since 2020. I am not sure what pain this message is talking about or what testing she is having or why. She has a mammogram order already in her chart. Is she still seeing me or did she change PCPs? * Telephone Encounter - Darcy Perea OSA - 04/09/2024 11:43 AM EST Hello! Pt stated that she is having pain in her breast, since she has that pain she will be getting a mammo and an US, would you be able to place an order for that mammo please? documented in this encounter Plan of Treatment Upcoming Encounters Date Type Department Care Team (Late st Contact Info) Description 04/12/2024 1:00 PM EST Office Visit [address] [phone] Rogerio Medina MD [address] [place] [address] [place] [address] Health Maintenance Due Date Last Done Comments [...] as of this encounter Visit Diagnoses Diagnosis Breast pain- Primary Mastodynia documented in this encounter Care Teams Bagger Meat Relationship Specialty Start Date End Date Rogerio Medina MD [address] [place] [address] [place] [phone] PCP - General Family Medicine 01/29/24 documented as of this encounter
--- OUTSIDE RECORDS SUMMARY | 2024-04-17 03:15 | External Medical Summary | Summary of Care ---
Author Name Unknown Organization [facility] Address [address] [place] [address] Phone [phone] Care Team Providers Care Carpentry Supervisor Name Role Phone Rogerio Medina MD Primary Care Provide r Reason for Visit * Reason Onset Date Comments Order Request 04/09/2024 Pt is having jason n and needs an US as well as a mammo Encounter Details Date Type Department Care Team (Late st Contact Info) Description 04/09/2024 Telephone Access Center, [place] [address] [facility] *DO NOT REMOVE THIS DEPARTMENT* [place] [address] Services, Scheduling [address] [place] [address] Order Request (Pt is having pain and [...] mRNA, LNP-s, No Pre serve, 2-Dose Series ([employer]) 03/16/2021,02/23/2021 Pneumococcal Conjugate Vacc, 13 Valent (Prevnar) [...] Dr. Medina. Please contact patient to schedule: [phone] * Telephone Encounter - Lalita Rudd OSA [...] Description 04/12/2024 1:00 PM EST Office Visit [address] [phone] Rogerio Medina MD [address] [place] [address] [place] [address] Health Maintenance Due Date Last Done Comments [...] Mastodynia documented in this encounter Care Teams Carpentry Supervisor Relationship Specialty Start Date End Date Rogerio Medina MD [address] [place] [address] [place] [phone] PCP - General Family Medicine 01/29/24 documented as of this encounter
--- OUTSIDE RECORDS SUMMARY | 2024-04-17 03:15 | External Medical Summary | Summary of Care ---
Author Name Unknown Organization [facility] Address [address] [address] Phone [phone] Care Team Providers Care Enterprise Security Architect Name Role Phone Rogerio Heart MD Primary Care Provide r Reason for Referral * Precert (Diagnostic Medical) (Within 10 days (routine)) - Authorized Specialty Diagnoses / Procedures Referred By Contac t Referred To Contact Cardiac Studies Diagnoses Undiagnosed cardiac murmurs Procedures ECHO, COMPLETE (2D), TRANS-THORACIC Rogerio Heart MD [address] [place] [address] [place] [address] Phone: tel: fax: Referral ID Status Reason Start Date Expiration Date V isits Requested Visits Authorized [id number] Authorized Precert 04/12/2024 999 999 Reason for Visit * Reason Comments Re-Check Physical-Exam Encounter Details Date Type Department Care Team (Late st Contact Info) Description 04/12/2024 1:00 PM EST Office Visit Family Medicine [address] [place] [phone] Rogerio Heart MD [address] [place] [address] [place] [id number] Pneumonia of left lower lobe due to infectious organism*; Acute cough; Undiagnosed cardiac murmurs; Ventral hernia without obstruction or gangrene; Prediabetes; Breast pain, left; Walking pneumonia; Rib pain on left side; Yeast vaginitis Allergies Active Allergy Reactions Criticality Noted Date Comments Sulfa Antibiotics 03/24/2003 mouth ulcers documented as of this encounter (statuses as of 04/12/2024) Medications Cholecalciferol (VITAMIN D) 1000 UNITS Tablet One daily Active Magnesium 400 MG TABS One daily Active Meloxicam 15 MG Oral TabletIndications :Generalized osteoarthritis of multiple sites,Fibromyalgi a TAKE 1 TABLET BY MOUTH DAILY FOR PAIN 90 Tablet 023 Active Clobetasol Propionate 0.05 % External Ointment (Temovate) Apply topically to affected area 2 times a day for 14 days. To affected area for up to two weeks 15 g 1 023 Active Cyclobenzaprine HCl 10 MG Oral Tablet (Flexeril)Indicat ions:Acute pain of left shoulder Take 1 Tablet by mouth 2 times a day as needed for Muscle spasms. 20 Tablet 023 Active Hydrocortisone (Perianal) 2.5 % External Cream (Anusol-HC)Indica tions:Hemorrhoids , external without complications Administer into the rectum 2 times a day. 28 g 1 024 Active Rosuvastatin Calcium 10 MG Oral Tablet (Crestor) Take 1 Tablet by mouth in the morning. 90 Tablet 3 024 Active Vagifem 10 MCG Vaginal TabletIndications :Postmenopausal atrophic vaginitis INSERT ONE TABLET VAGINALLY AT BEDTIME FOR 7 DAYS IN A ROW AND THEN JUST TWICE WEEKLY 32 Tablet 2 024 Active Fenofibrate 145 MG Oral Tablet (Tricor) Take 1 Tablet by mouth in the morning. 30 Tablet 5 025 Active Amoxicillin-Pot Clavulanate 875-125 MG Oral Tablet (Augmentin)Indica tions:Pneumonia of left lower lobe due to infectious organism Take 1 Tablet by mouth in the morning and 1 Tablet before bedtime. Do all this for 10 days. 20 Tablet 025 2024 Active predniSONE 20 MG Oral Tablet (Deltasone)Indica tions:Acute cough Take 2 Tablets by mouth in the morning for 5 days. 10 Tablet 025 2024 Active Fluconazole 150 MG Oral Tablet (Diflucan)Indicat ions:Yeast vaginitis Take 1 Tablet by mouth once for 1 dose. 1 Tablet 2 025 2024 Active Levalbuterol Tartrate 45 MCG/ACT Inhalation Aerosol (Xopenex HFA)Indications:W alking pneumonia Inhale 2 Puffs by mouth every 6 hours as needed for Wheezing. 15 g 025 Active Azithromycin 250 MG Oral Tablet (Zithromax Z-Otto)Indications :Walking pneumonia Take two tablets by mouth on first day, then 1 tablet daily until gone 6 Tablet 025 2024 Discontinued Levalbuterol Tartrate 45 MCG/ACT Inhalation Aerosol (Xopenex HFA)Indications:W alking pneumonia Inhale 2 Puffs by mouth every 6 hours as needed for Wheezing. 15 g 025 2024 Discontinued(R efill) documented as of this encounter (statuses as of 04/12/2024) Active Problems Problem Noted Date Diagnosed Date Prediabetes 08/15/2022 Overview: Per Prediabetes protocol Fibromyalgia 06/29/2011 Vitamin D deficiency 07/07/2010 Postmenopausal atrophic vaginitis 10/10/2007 Headache Overview (05/27/2015): ICD-10 update of inactive term documented as of this encounter (statuses as of 04/12/2024) Resolved Problems Problem Noted Date Diagnosed Date Resolved Date Moderate episode of recurren t major depressive disorder 06/10/2019 12/01/2023 Hot flashes 12/03/2014 12/20/2019 Medial epicondylitis 10/10/2007 015 documented as of this encounter (statuses as of 04/12/2024) Immunizations Name Administration Dates Next Due COVID-19 mRNA, LNP-s, No Pre serve, 2-Dose Series (Bounce Mobile) 03/16/2021,02/23/2021 Pneumococcal Conjugate Vacc, 13 Valent (Prevnar) [...] on file documented as of this encounter Last Filed Vital Signs Vital Sign Reading Time Taken Comments Blood Pressure 112/66 04/12/2024 12:56 PM EST Pulse 106 04/12/2024 12:56 PM EST Temperature 36.7 C (98.1 F) 04/12/2024 12:[address] Respiratory Rate - - Oxygen Saturation 96% 04/12/2024 12:56 PM EST Inhaled Oxygen Concentration - - Weight 62.6 kg (138 lb) 04/12/2024 12:56 PM EST Height - - Body Mass Index 24.45 11/22/2023 9:36 AM EDT documented in this encounter Progress Notes * oRgerio Heart MD - 04/12/2024 1:01 PM EST Subjective: Julianna Dotson is a 73 year old female. Chief Complaint Patient presents with Re-Check Physical-Exam HPI: Brief Clinical History Ms. Dotson is a 73 year old female last seen in Family Medicine [facility] on03/21/2024 by Elicia Fung. (Last seen by me in 2020). She has a h/o the following chronic conditions indicated on the problem list: Chronic Conditions None Has had a cough for almost a month now. Was seen here 03/21/24 and was given Zithromax and prednisone for possible walking pneumonia. Got mostly better but the cough came back about one week ago. Was also given Xopenex that did help but she is now out of it. No fever but has been getting sweats. Is feeling short of breath, especially with exertion. The cough is mostly dry. Chest and back are sore from coughing. Hears some wheezing when she lays down at night. Never smoked but both parents smokedheavily. No h/o asthma. Her was also sick but he has gotten better now. Has a rib under the left breast that tends to swell and get sore and radiates under her breast. Shestates her rib has hurt like a cramp quite often since an injury in 1992. Had a cyst taken out from the lower aspect of the left breast in the past. Feels that the lower part of the breast is harder and it is sore when the left rib pain radiates up through the breast. Was started on fenofibrate for elevated triglycerides on 04/10/24. Results for orders placed or performed in visit on 03/28/24 LIPID PANEL WITH DIRECT LDL IF TG IS HIGH Result Value Ref Range Triglycerides 246 (H) <=174 mg/dL Cholesterol 159 <200 mg/dL HDL Cholesterol 51 >49 mg/dL Non-HDL Cholesterol 108 <=159 mg/dL ALT Result Value Ref Range ALT 30 10 - 35 U/L LDL CHOLESTEROL (DIRECT MEASURE) Result Value Ref Range LDL Cholesterol (Direct Measure) 69 <=129 mg/dL Hemoglobin AIC Results: Lab Results Component Value Date/Time HEMOGLOBIN A1C - [facility] 6.0 (H) 12/01/2023 09:23 AM HEMOGLOBIN A1C - [facility] 6.1 (H) 08/02/2022 01:59 PM HEMOGLOBIN A1C - [facility] 5.7 (H) 07/22/2021 11:27 AM HEMOGLOBIN A1C - [facility] 5.5 05/25/2012 11:05 AM CBC Results: Results for orders placed or performed in visit on 08/02/22 CBC Result Value Ref Range WBC 6.65 4.00 - 10.80 K/uL RBC 4.60 3.85 - 5.15 M/uL HGB 13.5 12.0 - 15.3 g/dL HCT 43.1 36.0 - 45.2 % MCV 93.7 81.5 - 97.5 fL MCH 29.3 27.0 - 34.0 pg MCHC 31.3 32.0 - 36.0 g/dL RDW 13.8 11.5 - 15.5 % PLT 240 140 - 400 K/uL MPV 11.1 6.6 - 11.1 fL nRBCs 0 <=0 /100 WBCs PHM: Patient Active Problem List Diagnosis Headache Postmenopausal atrophic vaginitis Vitamin D deficiency Fibromyalgia Prediabetes Current Outpatient Medications Medication Sig Dispense Refill Cholecalciferol (VITAMIN D) 1000 UNITS Tablet One daily Magnesium 400 MG TABS One daily Meloxicam 15 MG Oral Tablet TAKE 1 TABLET BY MOUTH DAILY FOR PAIN 90 Tablet 0 Clobetasol Propionate 0.05 % External Ointment (Temovate) Apply topically to affected area 2 times a day for 14 days. To affected area for up to two weeks 15 g 1 Cyclobenzaprine HCl 10 MG Oral Tablet (Flexeril) Take 1 Tablet by mouth 2 times a day as needed forMuscle spasms. 20 Tablet 0 Hydrocortisone (Perianal) 2.5 % External Cream (Anusol-HC) Administer into the rectum 2 times a day. 28 g 1 Rosuvastatin Calcium 10 MG Oral Tablet (Crestor) Take 1 Tablet by mouth in the morning. 90 Tablet 3 Vagifem 10 MCG Vaginal Tablet INSERT ONE TABLET VAGINALLY AT BEDTIME FOR 7 DAYS IN A ROW AND THEN JUST TWICE WEEKLY 32 Tablet 2 Levalbuterol Tartrate 45 MCG/ACT Inhalation Aerosol (Xopenex HFA) Inhale 2 Puffs by mouth every 6 hours as needed for Wheezing. 15 g 0 Fenofibrate 145 MG Oral Tablet (Tricor) Take 1 Tablet by mouth in the morning. 30 Tablet 5 No current facility-administered medications for this visit. Past Medical History: Diagnosis Date Chronic sinusitis Endometriosis Postmenopausal atrophic vaginitis Tattoo left arm Vertigo 10/2023 Vitamin D deficiency Past Surgical History: Procedure Laterality Date CARPAL TUNNEL SURGERY 03/06/1981 right INCISION OF EARDRUM 03/06/2009 bilateral myringotomy tubes-Dr. Hendricks LAPAROSCOPY; CHOLECYSTECTOMY 03/06/1994 OTHER (INFORMATION) act 112 signed - Dr. Contreras REMOVAL OF TONSILS, UNDER AGE 12 Tonsils Removal,<12 Y/O SINUS SURGERY PROCEDURE NEC 03/06/2008 Dr. Hendricks TOTAL HYSTERECTOMY 03/06/1986 marysol/bso endometriosis US ABDOMEN LIMITED 02/14/2012 cholecystectomy, otherwise normal Social History Socioeconomic History Marital status: Spouse name: Gonzales Number of children: 3 Years of education: Not on file Highest education level: Not on file Occupational History Occupation: CUSTOMER SERVICE Employer: [employer] Comment: soo - quit this job Occupation: [employer] Tobacco Use Smoking status: Never Smokeless tobacco: Never Substance and Sexual Activity Alcohol use: Yes Comment: occ--less than 1 -2 wine coolers per wk Drug use: No Sexual activity: Yes Partners: Male Other Topics Concern Not on file Social History Narrative Graduated from [employer] 1968 Social Needs Financial Resource Strain: Low Risk (02/24/2023) Financial Resource Strain Do you have any trouble paying for your medications, or do you think you might in the future? (Adult - for ages 18 years and over): No Does your family have trouble paying for medicine? (Household - for ages 0-17 years): Not on file Food Insecurity: No Food Insecurity (02/24/2023) Food Insecurity Do you need food for this week? (Adult - for ages 18 years and over): No Are you able to get enough food for your family? (Household - for ages 0-17 years): Not on file Does your family need food this week? (Household - for ages 0-17 years): Not on file Do you always have enough food for your family? (Household - for ages 0-17 years): Not on file Transportation Needs: No Transportation Needs (02/24/2023) Transportation Needs Do you have trouble getting a ride to medical visits or work? (Adult - for ages 18 years and over):Never True Does your family have a hard time getting a ride to doctors visits? (Household - for ages 0-17 years): Not on file Has lack of transportation kept you from medical appointments, meetings, work, or from getting things needed for daily living? Check all that apply. (Adult - for ages 18 years and over): Not on file Do you (or your family) have trouble finding or paying for a ride (transportation)? (Household - for ages 0-17 years): Not on file Social Connections: Socially Integrated (02/24/2023) Social Connections How often do you feel lonely or isolated from those around you? (Adult - for ages 18 years and over): Sometimes Housing Stability: Low Risk (02/24/2023) Housing Stability Do you currently live in a group home or have no steady place to sleep at night? (Adult - for ages 18 years and over): No Do you think you are at risk of becoming homeless? (Adult - for ages 18 years and over): No Does your family worry about paying for your home or becoming homeless? (Household - for ages 0-17 years): Not on file Are you homeless or worried that you might be in the future? (Adult - for ages 18 years and over): Not on file Are you (or your family) homeless or worried that you might be in the future? (Household - for ages0-17 years): Not on file Review of patient's allergies indicates: Allergen Reactions Sulfa Antibiotics mouth ulcers Objective: BP 112/66 | Pulse 106 | Temp 98.1 F (36.7 C) (Tympanic) | Wt 138 lb (62.6 kg) | SpO2 96% | BMI 24.45 kg/m | BSA 1.67 m Physical Exam: General: alert, healthy, well nourished, well developed, and near constant dry cough Head: Normocephalic, No masses, lesions, tenderness or abnormalities Eye Exam: PERRLA, extraocular movements intact, conjunctiva are pink and non- injected, sclera clear Ears: External ears normal, Canals clear, TM's Normal Nose: no mucosal erythema, no mucosal edema, no purulent discharge Oropharynx: no exudate, no erythema, lips, buccal mucosa, and tongue normal, and mucous membranes are moist Neck: supple, no adenopathy, no bruits Heart: regular rate & rhythm, no gallops, and III/ harsh systolic murmur across precordium Lungs: chest symmetric with normal AP diameter, no chest deformities noted, no chest wall tenderness, lungs clear to auscultation Abdomen: + marked tenderness over left lower anterior ribs Extremities: no edema, no clubbing, no cyanosis Neuro Exam: alert & oriented x 3 with fluent speech, no focal motor/sensory deficits Breasts: Inspection negative, No nipple retraction or dimpling, No nipple discharge or bleeding, Noaxillary or supraclavicular adenopathy, Normal to palpation without dominant masses, +thickening/hardness of lower aspect of the left breast without discrete mass Extensive ROS Constitutional (f/c/wt/vision/hearing): see above hpi Resp (cough/sob/king): see above hpi CV (cp/palp/fluttering/diaphoresis/king/pnd):Negative GI (n/v/d/hrtburn): Negative Endo (hair/cold or heat intol/ 3 p's): +prediabetes Neuro (shaking/weak/fatigu/parasthesi/): Negative Skin (rash/easy bruis/xerosis): Negative Psy (si/hi/halluc/): Negative (nocturia/hesit/drib/sexual review): Negative Lymph (swollen glands/b sx's/: Negative ASSESSMENT: Pneumonia of left lower lobe due to infectious organism (Primary)--follow-up official read of chestx-ray but appears hazy at left base. Start Augmentin. Was improving after Zithromax and prednisone but cough worse again. - Amoxicillin-Pot Clavulanate 875-125 MG Oral Tablet (Augmentin); Take 1 Tablet by mouth in the morning and 1 Tablet before bedtime. Do all this for 10 days. Acute cough--as above. Prednisone burst and refilled Xopenex inhaler. - XR CHEST 2 VIEWS - predniSONE 20 MG Oral Tablet (Deltasone); Take 2 Tablets by mouth in the morning for 5 days. Undiagnosed cardiac murmurs--new murmur on exam. Check echo. - ECHO, COMPLETE (2D), TRANS-THORACIC; Future; Expected date: 04/12/2024 Ventral hernia without obstruction or gangrene--not currently bothering her. Had recent ultrasound showing small ventral hernia. Consider general surgery referral if worsens. Prediabetes--stable. Breast pain, left--patient with pain along lower aspect of left breast and some dense tissue in thearea, which could be from prior cyst removal. Will get diagnostic mammogram and left breast ultrasound. - US BREAST LIMITED LEFT; Future; Expected date: 04/12/2024 Walking pneumonia--refilled Xopenex. - Levalbuterol Tartrate 45 MCG/ACT Inhalation Aerosol (Xopenex HFA); Inhale 2 Puffs by mouth every 6 hours as needed for Wheezing. Rib pain on left side--longstanding. Likely flared by coughing for the last 1 month. Yeast vaginitis--gets yeast infections with antibiotics. - Fluconazole 150 MG Oral Tablet (Diflucan); Take 1 Tablet by mouth once for 1 dose. Follow Up: Return in about 6 months (around 10/10/2024) for Clinic Visit. | For: Clinic Visit PLAN: Continue present medication(s): Begin medication(s): Augmentin and prednisone as above. Refilled Xopenex to use for the cough. Study(ies) ordered: Chest x-ray done today and echocardiogram. Also, diagnostic bilateral mammogram(due for screening mamm) and left breast ultrasound due to left breast pain and thickened area along left lower breast. Patient education: discussed chest x-ray, Augmentin and prednisone for cough/pneumonia, Xopenex use. Discussed mammogram and breast ultrasound. Discussed new heart murmur noted on exam and echocardiogram. Follow up: in 6 month(s). Rogerio Heart MD documented in this encounter Nursing Notes * Lu Kam LPN - 04/12/2024 12:57 PM EST Still coughing very badly & discuss mammogram documented in this encounter Plan of Treatment Upcoming Encounters Date Type Department Care Team (Late st Contact Info) Description 04/15/2024 1:30 PM EST Imaging Radiology [facility] [address] [place] [phone] 04/15/2024 2:00 PM EST Imaging Radiology [facility] [address] [place] [phone] 04/16/2024 10:30 AM EST Cardiac Studies Cardiac Studies [address] [place] [address] 11/22/2024 2:20 PM EDT Office Visit Family Medicine [address] [place] [phone] Rogerio Heart MD [address] [place] [address] [place] [id number] Scheduled Orders Name Type Priority Associated Diagnoses Orde r Schedule US BREAST LIMITED LEFT Medical Imaging Routine Breast pain, left Expected: 04/12/2024, Expires: 05/10/2025 ECHO, COMPLETE (2D), TRANS-THORACIC Echocardiology Routine Undiagnosed cardiac murmurs Expected: 04/12/2024 (Approximate), Expires: 04/12/2025 Health Maintenance Due Date Last Done Comments [...] Completed 05/16/2017, 12/21/2015 Zoster Vaccines Completed 07/22/2021, 0308/2021, 01/25/2016 HPV (Gardasil) Vaccine Aged Out No [...] Not on filedocumented as of this encounter Procedures Procedure Name Priority Date/Time Associated Diagnosis Comments XR CHEST 2 VIEWS Routine 04/12/2024 1:39 PM EST Acute cough documented in this encounter Results * XR CHEST 2 VIEWS (04/12/2024 1:39 PM EST) Anatomical Region Laterality Modality Chest Computed Radiogr aphy 04/12/2024 2:02 PM EST Impressions 04/12/2024 1:59 PM EST IMPRESSION 1. Borderline cardiomegaly with lower lung septal thickening and ground-glass suspicious for mild pulmonary edema. Differential consideration would include atypical/viral pneumonia. Correlate with BNP, echocardiography as clinically indicated. 2. Additional findings as above. Narrative 04/12/2024 1:59 PM EST EXAM XR CHEST 2 VIEWS-04/12/2024 1:39 pm HISTORY prolonged cough COMPARISON No Comparison. TECHNIQUE Radiography of the chest. XR CHEST 2 VIEWS FINDINGS Lower lung ground-glass and septal thickening. Right greater than left. No pneumothorax. Possible trace bilateral pleural effusions. Borderline enlarged cardiomediastinal silhouette.No acute osseous abnormality. Procedure Note Nikita Boggs MD - 04/12/2024 EXAM XR CHEST 2 VIEWS-04/12/2024 1:39 pm HISTORY prolonged cough COMPARISON No Comparison. TECHNIQUE Radiography of the chest. XR CHEST 2 VIEWS FINDINGS Lower lung ground-glass and septal thickening. Right greater than left.No pneumothorax. Possible trace bilateral pleural effusions. Borderlineenlarged cardiomediastinal silhouette.No acute osseous abnormality. IMPRESSION IMPRESSION 1. Borderline cardiomegaly with lower lung septal thickening andground-glass suspicious for mild pulmonary edema. Differentialconsideration would include atypical/viral pneumonia. Correlate with BNP,echocardiography as clinically indicated. 2. Additional findings as above. us Rogerio Heart MD RADIOLOGY (RAD GENERA L) Final Result documented in this encounter Visit Diagnoses Diagnosis Pneumonia of left lower lobe due to infectious organism- Primary Acute cough Undiagnosed cardiac murmurs Ventral hernia without obstruction or gangrene Ventral hernia, unspecified, without mention of obstruction or gangrene Prediabetes Other abnormal glucose Breast pain, left Mastodynia Walking pneumonia Pneumonia, organism unspecified Rib pain on left side Chest pain, unspecified Yeast vaginitis Candidiasis of vulva and vagina documented in this encounter Care Teams Enterprise Security Architect Relationship Specialty Start Date End Date Rogerio Heart MD [address] [place] [address] [place] [id number] PCP - General Family Medicine 01/29/24 documented as of this encounter"
--- OUTSIDE RECORDS SUMMARY | 2024-04-17 03:15 | External Medical Summary | Summary of Care ---
Author Name Unknown Organization [facility] Address [address] [place] [address] Phone [phone] Care Team Providers Care Custom Bike Builder Name Role Phone Rogerio Medina MD Primary Care Provide r Reason for Visit * Reason Onset Date Comments Order Request 04/09/2024 Pt is having jason n and needs an US as well as a mammo Encounter Details Date Type Department Care Team (Late st Contact Info) Description 04/09/2024 Telephone Access Center, [place] [address] [facility] *DO NOT REMOVE THIS DEPARTMENT* [place] [address] Services, Scheduling [address] [place] [address] Order Request (Pt is having pain and [...] mRNA, LNP-s, No Pre serve, 2-Dose Series (3DVista) 03/16/2021,02/23/2021 Pneumococcal Conjugate Vacc, 13 Valent (Prevnar) [...] Dr. Medina. Please contact patient to schedule: [phone] * Telephone Encounter - Lalita Rudd OSA [...] accepted: Orders * Telephone Encounter - Juliocesar Deisr RN - 04/09/2024 3:17 PM EST Rayleen [...] Description 04/12/2024 1:00 PM EST Office Visit [address] [phone] Rogerio Medina MD [address] [place] [address] [place] [id number] Health Maintenance Due Date Last Done Comments [...] Mastodynia documented in this encounter Care Teams Custom Bike Builder Relationship Specialty Start Date End Date Rogerio Medina MD [address] [place] [address] [place] [phone] PCP - General Family Medicine 01/29/24 documented as of this encounter
--- OUTSIDE RECORDS SUMMARY | 2024-04-17 03:15 | External Medical Summary | Summary of Care ---
Author Name Unknown Organization [facility] Address [address] [facility] [place] [address] Phone [phone] Care Team Providers Care Head Sawyer Automatic Name Role Phone Rogerio Heart MD Primary Care Provide r Reason for Visit * Reason Comments Outpatient Testing Encounter Details Date Type Department Care Team (Late st Contact Info) Description 04/16/2024 11:30 AM EST Laboratory Laboratory [address] [place] [phone] [place] [address] Shortness of breath Allergies Active Allergy Reactions [...] No 02/24/2023 Does the household have a [facility] source of income? (Household - for [...] 2:20 PM EDT Office Visit Family Medicine [facility] [place] [place] [phone] Rogerio Heart MD [address] [place] [address] [place] [phone] Pending Results Name Type Priority Associated Diagnoses [...] breath documented in this encounter Care Teams Head Sawyer Automatic Relationship Specialty Start Date End Date Rogerio Heart MD [address] [place] [address] [place] [phone] PCP - General Family Medicine 01/29/24 documented as of this encounter
--- OUTSIDE RECORDS SUMMARY | 2024-04-17 03:16 | External Medical Summary | Summary of Care ---
Author Name Unknown Organization [facility] Address [address] [place] [address] Phone [phone] Care Team Providers Care Wood Tile Installer Name Role Phone Rogerio Heart MD Primary Care Provide r Reason for Visit * Reason Onset Date Comments Order Request 04/09/2024 Mammo/ US Encounter Details Date Type Department Care Team (Late st Contact Info) Description 04/09/2024 Telephone Access Center, [place] [address] [facility] *DO NOT REMOVE THIS DEPARTMENT* [place] [address] Services, Scheduling [address] [place] [address] Order Request (Mammo/ US) Allergies Active Allergy Reactions Criticality Noted Date Comments Sulfa Antibiotics 03/24/2003 mouth ulcers documented as of this encounter (statuses as of 04/10/2024) Medications Cholecalciferol (VITAMIN D) 1000 UNITS Tablet [...] as of this encounter (statuses as of 04/10/2024) Active Problems Problem Noted Date Diagnosed Date Prediabetes 08/15/2022 Overview: Per Prediabetes protocol Fibromyalgia 06/29/2011 Vitamin D deficiency 07/07/2010 Postmenopausal atrophic vaginitis 10/10/2007 Headache Overview (05/27/2015): ICD-10 update of inactive term documented as of this encounter (statuses as of 04/10/2024) Resolved Problems Problem Noted Date Diagnosed Date Resolved Date Moderate episode of recurren t major depressive disorder 06/10/2019 12/01/2023 Hot flashes 12/03/2014 12/20/2019 Medial epicondylitis 10/10/2007 015 documented as of this encounter (statuses as of 04/10/2024) Immunizations Name Administration Dates Next Due COVID-19 [...] 18 years and over) Not on file 3 Are you (or your family) magui eless [...] encounter Miscellaneous Notes * Telephone Encounter - Cira Henderson LPN - 04/10/2024 7:28 AM EST This was addressed in a separate telephone encounter. * Telephone Encounter - Darcy Perea OSA - 04/09/2024 3:02 PM EST Hello! This pt called in to schedule her mammogram and when going through the questioner she stated that she is having breast pain. Because she is having that pain we need to do a diagnostic mammogram and breast ultrasound on her. Would someone be able to put orders in for that? Our techs stated that theyare in need of those orders and her appt Is tomorrow. Thanks! documented in this encounter Plan of Treatment [...] filedocumented as of this encounter Care Teams Wood Tile Installer Relationship Specialty Start Date End Date Rogerio Heart MD [address] [place] [address] [place] [id number] PCP - General Family Medicine 01/29/24 documented as of this encounter
--- OUTSIDE RECORDS SUMMARY | 2024-04-17 03:16 | External Medical Summary | Summary of Care ---
Author Name Unknown Organization [facility] Address [address] [facility] [place] [address] Phone [phone] Care Team Providers Care Warp Yarn Sorter Name Role Phone Rogerio Heart MD Primary Care Provide r Reason for Visit * Reason Onset Date Comments Order Request 04/09/2024 Pt is having jason n and needs an US as well as a mammo Encounter Details Date Type Department Care Team (Late st Contact Info) Description 04/09/2024 Telephone Access Center, [place] [facility] [address] [facility] *DO NOT REMOVE THIS DEPARTMENT* [place] [address] Services, Scheduling [address] [place] [address] Order Request (Pt is having pain and [...] mRNA, LNP-s, No Pre serve, 2-Dose Series (Er[employer]) 03/16/2021,02/23/2021 Pneumococcal Conjugate Vacc, 13 Valent (Prevnar) [...] encounter Miscellaneous Notes * Telephone Encounter - Mayra Mtz OSA - 04/09/2024 4:57 PM EST Patient returning call, no appointments available with Dr. Heart. Please contact patient to schedule: [phone] * Telephone Encounter - Lalita Rudd OSA [...] and get her an appt for Dr Heart if she plans on keeping her as her PCP, last seen 2020 * Telephone Encounter - Rogerio Heart MD - 04/09/2024 1:33 PM EST I [...] Mastodynia documented in this encounter Care Teams Warp Yarn Sorter Relationship Specialty Start Date End Date Rogerio Heart MD [address] [place] [address] [place] [id number] PCP - General Family Medicine 01/29/24 documented as of this encounter
--- OUTSIDE RECORDS SUMMARY | 2024-04-17 03:16 | External Medical Summary | Summary of Care ---
Author Name Unknown Organization [facility] Address [address] [facility] [place] [address] Phone [phone] Care Team Providers Care Cigarette And Filter Chief Inspector Name Role Phone Rogerio Heart MD Primary Care Provide r Reason for Visit * Reason Comments Outpatient Testing Encounter Details Date Type Department Care Team (Late st Contact Info) Description 03/28/2024 9:50 AM EST Laboratory Laboratory [address] [place] [phone] [place] [address] Hyperlipidemia with target LDL less than 100 Allergies Active Allergy Reactions Criticality Noted Date Comments Sulfa Antibiotics 03/24/2003 mouth ulcers documented as of this encounter (statuses as of 03/28/2024) Medications Cholecalciferol (VITAMIN D) 1000 UNITS Tablet [...] as of this encounter (statuses as of 03/28/2024) Active Problems Problem Noted Date Diagnosed Date Prediabetes 08/15/2022 Overview: Per Prediabetes protocol Fibromyalgia 06/29/2011 Vitamin D deficiency 07/07/2010 Postmenopausal atrophic vaginitis 10/10/2007 Headache Overview (05/27/2015): ICD-10 update of inactive term documented as of this encounter (statuses as of 03/28/2024) Resolved Problems Problem Noted Date Diagnosed Date Resolved Date Moderate episode of recurren t major depressive disorder 06/10/2019 12/01/2023 Hot flashes 12/03/2014 12/20/2019 Medial epicondylitis 10/10/2007 015 documented as of this encounter (statuses as of 03/28/2024) Immunizations Name Administration Dates Next Due COVID-19 mRNA, LNP-s, No Pre serve, 2-Dose Series ([employer]) 03/16/2021,02/23/2021 Pneumococcal Conjugate Vacc, 13 Valent (Prevnar) [...] Upcoming Encounters Date Type Department Care Team (Latest Contact Info) Description 04/19/2024 9:40 AM EST Hospital Encounter OR [facility], Operating Room [facility] [address] [place] [phone] Reece Gastelum, [address] [place] [address] 04/19/2024 9:40 AM EST - 04/19/2024 10:05 AM EST Surgery OR [facility], Operating Room [facility] [address] [place] [phone] Reece Gastelum, [address] [place] [address] ARTHROCENTESIS OR INJECTION MAJOR JOINT 05/08/2024 9:30 AM EST Office Visit Otolaryngology [facility] [address] [place] [address] James Maldonado DO [address] [place] [address] Chrissy Lee Au.D. [address] [place] [address] Pending Results Name Type Priority Associated Diagnoses Date /Time LIPID PANEL WITH DIRECT LDL IF TG IS HIGH Lab Routine Hyperlipidemia with target LDL less than 100 03/28/2024 9:24 AM EST ALT Lab Routine Hyperlipidemia with target LDL less than 100 03/28/2024 9:24 AM EST Scheduled Procedures Name Priority Associated Diagnoses Date/Ti me ARTHROCENTESIS OR INJECTION MAJOR JOINT Arthritis of left shoulder region 04/19/2024 9:40 AM EST Health Maintenance Due Date Last [...] 01/19/2024 Colorectal Cancer Screening 01/24/2027 Lipid Panel 11/30/2028 12/01/2023, 07/06, 05/16/2017, Additional history exists Pneumococcal Vaccine: 50+ Years [...] as of this encounter Visit Diagnoses Diagnosis Hyperlipidemia with target LDL less than 100 Other and unspecified hyperlipidemia Arthritis of left shoulder region Unspecified arthropathy, shoulder region documented in this encounter Care Teams Cigarette And Filter Chief Inspector Relationship Specialty Start Date End Date Rogerio Heart MD [address] [place] [address] [place] [phone] PCP - General Family Medicine 01/29/24 documented as of this encounter
--- OUTSIDE RECORDS SUMMARY | 2024-04-17 03:16 | External Medical Summary | Summary of Care ---
Author Name Unknown Organization [facility] Address [address] [facility] [place] [address] Phone [phone] Care Team Providers Care Public Health Name Role Phone Rogerio Heart MD Primary Care Provide r Reason for Visit * Reason Onset Date Comments Order Request 04/09/2024 Pt is having jason n and needs an US as well as a mammo Encounter Details Date Type Department Care Team (Late st Contact Info) Description 04/09/2024 Telephone Access Center, [place] [address] [facility] *DO NOT REMOVE THIS DEPARTMENT* [place] [address] Services, Scheduling [address] [place] [address] Order Request (Pt is having pain and [...] mRNA, LNP-s, No Pre serve, 2-Dose Series ([email or web address]) 03/16/2021,02/23/2021 Pneumococcal Conjugate Vacc, 13 Valent (Prevnar) [...] Dr. Heart. Please contact patient to schedule: [phone] * Telephone Encounter - Lalita Rudd OSA [...] accepted: Orders * Telephone Encounter - Juliocesar Dseir RN - 04/09/2024 3:17 PM EST Rayleen [...] Mastodynia documented in this encounter Care Teams Public Health Relationship Specialty Start Date End Date Rogerio Heart MD [address] [place] [address] [place] [phone] PCP - General Family Medicine 01/29/24 documented as of this encounter
--- OUTSIDE RECORDS SUMMARY | 2024-04-17 03:16 | External Medical Summary | Summary of Care ---
Author Name Unknown Organization [facility] Address [address] [place] [address] Phone [phone] Care Team Providers Care Brake Operator Name Role Phone Rogerio Heart MD Primary Care Provide r Reason for Visit * Reason Onset Date Comments Order Request 04/09/2024 Pt is having jason n and needs an US as well as a mammo Encounter Details Date Type Department Care Team (Late st Contact Info) Description 04/09/2024 Telephone Access Center, [place] [address] [facility] *DO NOT REMOVE THIS DEPARTMENT* [place] [address] Services, Scheduling [address] [place] [address] Order Request (Pt is having pain and [...] mRNA, LNP-s, No Pre serve, 2-Dose Series ([employer]) 03/16/2021,02/23/2021 Pneumococcal Conjugate Vacc, 13 Valent (Prevnar) [...] encounter Miscellaneous Notes * Telephone Encounter - Juliocesar Desir RN - 04/10/2024 9:48 AM EST She will need to schedule a routine appt with Dr Heart, (first available) if she wants to continueto have her as PCP * Telephone Encounter - Mayra Mtz OSA - 04/09/2024 4:57 PM EST Patient returning call, no appointments available with Dr. Heart. Please contact patient to schedule: [phone] * Telephone Encounter - Lalita Rudd OSA [...] Mastodynia documented in this encounter Care Teams Brake Operator Relationship Specialty Start Date End Date Rogerio Heart MD [address] [place] [address] [place] [id number] PCP - General Family Medicine 01/29/24 documented as of this encounter
--- OUTSIDE RECORDS SUMMARY | 2024-04-17 03:16 | External Medical Summary | Summary of Care ---
Author Name Unknown Organization [facility] Address [address] [facility] [place] [address] Phone [phone] Care Team Providers Care Truck Driver Heavy Name Role Phone Rogerio Heart MD Primary Care Provide r Reason for Visit * Reason Onset Date Comments Order Request 04/09/2024 Pt is having jason n and needs an US as well as a mammo Encounter Details Date Type Department Care Team (Late st Contact Info) Description 04/09/2024 Telephone Access Center, [place] [address] [facility] *DO NOT REMOVE THIS DEPARTMENT* [place] [address] Services, Scheduling [address] [place] [address] Order Request (Pt is having pain and [...] mRNA, LNP-s, No Pre serve, 2-Dose Series ([employer]) 03/16/2021,02/23/2021 Pneumococcal Conjugate Vacc, 13 Valent (Prevnar) [...] needs to schedule routine visit with Dr. Heart for next available. Thanks! * Telephone Encounter [...] Dr. Heart. Please contact patient to schedule: [phone] * Telephone Encounter - Lalita Rudd, DONNIE - 04/09/2024 4:25 PM EST I spoke [...] Mastodynia documented in this encounter Care Teams Truck Driver Heavy Relationship Specialty Start Date End Date Rogerio Heart MD [address] [place] [address] [place] [id number] PCP - General Family Medicine 01/29/24 documented as of this encounter
--- OUTSIDE RECORDS SUMMARY | 2024-04-17 03:16 | External Medical Summary | Summary of Care ---
Author Name Unknown Organization [facility] Address [address] [facility] [address] Phone [phone] Care Team Providers Care Gymnastics Coach Name Role Phone Rogerio Heart MD Primary Care Provide r Reason for Visit * Reason Onset Date Comments Order Request 04/09/2024 Pt is having jason n and needs an US as well as a mammo Encounter Details Date Type Department Care Team (Late st Contact Info) Description 04/09/2024 Telephone Access Center, [place] [address] [facility] *DO NOT REMOVE THIS DEPARTMENT* [place] [address] Services, Scheduling [address] [place] [address] Order Request (Pt is having pain and needs... Allergies Active Allergy Reactions Criticality Noted Date Comments Sulfa Antibiotics 03/24/2003 mouth ulcers documented as of this encounter (statuses as of 04/09/2024) Medications Cholecalciferol (VITAMIN D) 1000 UNITS Tablet [...] as of this encounter (statuses as of 04/09/2024) Active Problems Problem Noted Date Diagnosed Date Prediabetes 08/15/2022 Overview: Per Prediabetes protocol Fibromyalgia 06/29/2011 Vitamin D deficiency 07/07/2010 Postmenopausal atrophic vaginitis 10/10/2007 Headache Overview (05/27/2015): ICD-10 update of inactive term documented as of this encounter (statuses as of 04/09/2024) Resolved Problems Problem Noted Date Diagnosed Date Resolved Date Moderate episode of recurren t major depressive disorder 06/10/2019 12/01/2023 Hot flashes 12/03/2014 12/20/2019 Medial epicondylitis 10/10/2007 015 documented as of this encounter (statuses as of 04/09/2024) Immunizations Name Administration Dates Next Due COVID-19 mRNA, LNP-s, No Pre serve, 2-Dose Series ([employer]) 03/16/2021,02/23/2021 Pneumococcal Conjugate Vacc, 13 Valent (Prevnar) [...] Dr. Heart. Please contact patient to schedule: [phone] * Telephone Encounter - Lalita Rudd OSA [...] Mastodynia documented in this encounter Care Teams Gymnastics Coach Relationship Specialty Start Date End Date Rogerio Heart MD [address] [place] [address] [place] [phone] PCP - General Family Medicine 01/29/24 documented as of this encounter
--- OUTSIDE RECORDS SUMMARY | 2024-04-17 03:16 | External Medical Summary | Summary of Care ---
Author Name Unknown Organization [facility] Address [address] [facility] [address] Phone [phone] Care Team Providers Care Molecular Biology Professor Name Role Phone Rogerio Heart MD Primary Care Provide r Reason for Visit * Reason Onset Date Comments Appointment 04/01/2024 Encounter Details Date Type Department Care Team (Late st Contact Info) Description 04/01/2024 Telephone Access Center, [place] [address] [facility] *DO NOT REMOVE THIS DEPARTMENT* [place] [address] Services, Scheduling [address] [place] [address] Appointment Allergies Active Allergy Reactions Criticality Noted Date Comments Sulfa Antibiotics 03/24/2003 mouth ulcers documented as of this encounter (statuses as of 04/08/2024) Medications Cholecalciferol (VITAMIN D) 1000 UNITS Tablet [...] as of this encounter (statuses as of 04/08/2024) Active Problems Problem Noted Date Diagnosed Date Prediabetes 08/15/2022 Overview: Per Prediabetes protocol Fibromyalgia 06/29/2011 Vitamin D deficiency 07/07/2010 Postmenopausal atrophic vaginitis 10/10/2007 Headache Overview (05/27/2015): ICD-10 update of inactive term documented as of this encounter (statuses as of 04/08/2024) Resolved Problems Problem Noted Date Diagnosed Date Resolved Date Moderate episode of recurren t major depressive disorder 06/10/2019 12/01/2023 Hot flashes 12/03/2014 12/20/2019 Medial epicondylitis 10/10/2007 015 documented as of this encounter (statuses as of 04/08/2024) Immunizations Name Administration Dates Next Due COVID-19 mRNA, LNP-s, No Pre serve, 2-Dose Series ([employer]) 03/16/2021,02/23/2021 Pneumococcal Conjugate Vacc, 13 Valent (Prevnar) [...] encounter Miscellaneous Notes * Telephone Encounter - Cande Young OSA - 04/08/2024 12:03 PM EST Spoke with patient she declined scheduling at this time as she has a prior bill from pain med and has some concerns about her out of pocket cost. Provided her with the billing # to call. I will touch base with her in a few days regarding scheduling in ortho with sports med for shoulderinjection Explained to her she would be charged office visit and injection fee * Telephone Encounter - Dianelys Zarate OSA - 04/03/2024 11:29 AM EST Was contacted by [facility] Finance Office. "She cancelled her shoulder injection coming up due to cost and wasn't sure why it was so much morethan the one she had previously but then realized that she was scheduled in the OR vs clinic like she was the first time. But now she cannot get a hold of them to find out more information. Can you reach out to patient to see what information she is requesting? Thank you. * Telephone Encounter - Yolanda Griffiths OSA - 04/01/2024 12:11 PM EST Pt calling to cancel procedure scheduled 04/19 due to bill she received. Per pt the cost was higher than the one she received prior so she just wants to cancel appointment. Please cancel appointment DONNIE Golden 04/01/2024 12:12 PM documented in this encounter Plan of Treatment Upcoming Encounters Date Type Department Care Team (Late st Contact Info) Description 04/10/2024 10:00 AM EST Imaging Radiology [facility] 1st Floor, [place] [address] [place] [address] 04/10/2024 10:30 AM EST Imaging Radiology [facility] [address] [place] [address] Health Maintenance Due Date Last Done Comments [...] filedocumented as of this encounter Care Teams Molecular Biology Professor Relationship Specialty Start Date End Date Rogerio Heart MD [address] [place] [address] [place] [id number] PCP - General Family Medicine 01/29/24 documented as of this encounter
--- OUTSIDE RECORDS SUMMARY | 2024-04-17 03:16 | External Medical Summary | Summary of Care ---
Author Name Unknown Organization [facility] Address [address] [facility] [place] [address] Phone [phone] Care Team Providers Care Produce Wrapper Name Role Phone Rogerio Heart MD Primary Care Provide r Reason for Visit * Reason Onset Date Comments Appointment 04/01/2024 Encounter Details Date Type Department Care Team (Late st Contact Info) Description 04/01/2024 Telephone Access Center, [place] [address] [facility] *DO NOT REMOVE THIS DEPARTMENT* [place] [address] Services, Scheduling [address] [place] [address] Appointment Allergies Active Allergy Reactions Criticality Noted [...] mRNA, LNP-s, No Pre serve, 2-Dose Series ([employer]) 03/16/2021,02/23/2021 Pneumococcal Conjugate Vacc, 13 Valent (Prevnar) [...] Telephone Encounter - Cande Young OSA - 04/10/2024 1:17 PM EST Pt is scheduled * Telephone Encounter - Cande Young OSA [...] 04/03/2024 11:29 AM EST Was contacted by [facility] Finance Office. "She cancelled her shoulder injection [...] filedocumented as of this encounter Care Teams Produce Wrapper Relationship Specialty Start Date End Date Rogerio Heart MD [address] [place] [address] [place] [id number] PCP - General Family Medicine 01/29/24 documented as of this encounter
--- OUTSIDE RECORDS SUMMARY | 2024-04-17 03:16 | External Medical Summary | Summary of Care ---
Author Name Unknown Organization [facility] Address [address] [place] [address] Phone [phone] Care Team Providers Care Landscape Designer Name Role Phone Rogerio Heart MD Primary Care Provide r Reason for Visit * Reason Onset Date Comments Advice 04/08/2024 Encounter Details Date Type Department Care Team (Late st Contact Info) Description 04/08/2024 Telephone Interventional Pain Center [facility] [address] [place] [phone] Services, Scheduling [address] [place] [address] Advice Allergies Active Allergy Reactions Criticality Noted [...] mRNA, LNP-s, No Pre serve, 2-Dose Series ([employer]) 03/16/2021,02/23/2021 Pneumococcal Conjugate Vacc, 13 Valent (Prevnar) [...] 18 years and over) Not on file 12/22/202 3 Are you (or your family) magui [...] Encounter - Cande Young OSA - 04/10/2024 1:16 PM EST Patient is scheduled * Telephone Encounter - Misa Persaud LPN - 04/08/2024 12:50 PM EST Patient misunderstood what she was being scheduled for. Explained to her that ortho can do injection quicker than we can. Please reach out to patient again to schedule her with sports med physicians. * Telephone Encounter - Skye Daly OSA - 04/08/2024 12:38 PM EST Pt calling ask if it is ok for her to get 2nd set of shot instead of going to the Surgeon.Please call pt at above number to advise Thanks documented in this encounter Plan of Treatment [...] filedocumented as of this encounter Care Teams Landscape Designer Relationship Specialty Start Date End Date Rogerio Heart MD [address] [place] [address] [place] [id number] PCP - General Family Medicine 01/29/24 documented as of this encounter
--- OUTSIDE RECORDS SUMMARY | 2024-04-17 03:16 | External Medical Summary | Summary of Care ---
Author Name Unknown Organization [facility] Address [address] [place] [facility] [place] [address] Phone [phone] Care Team Providers Care Test Engineering Intern Name Role Phone Rogerio Heart MD Primary Care Provide r Reason for Visit * Reason Onset Date Comments Order Request 04/09/2024 Pt is having jason n and needs an US as well as a mammo Encounter Details Date Type Department Care Team (Late st Contact Info) Description 04/09/2024 Telephone Access Center, [place] [address] [facility] *DO NOT REMOVE THIS DEPARTMENT* [place] [address] Services, Scheduling [address] [place] [address] Order Request (Pt is having pain and [...] mRNA, LNP-s, No Pre serve, 2-Dose Series ([employer]) 03/16/2021,02/23/2021 Pneumococcal Conjugate Vacc, 13 Valent (Prevnar) [...] Dr. Heart. Please contact patient to schedule: [phone] * Telephone Encounter - Lalita Rudd OSA [...] Mastodynia documented in this encounter Care Teams Test Engineering Intern Relationship Specialty Start Date End Date Rogerio Heart MD [address] [place] [address] [place] [phone] PCP - General Family Medicine 01/29/24 documented as of this encounter
--- OUTSIDE RECORDS SUMMARY | 2024-04-17 03:16 | External Medical Summary | Summary of Care ---
Author Name Unknown Organization [facility] Address [address] [place] [address] Phone [phone] Care Team Providers Care Quantitative Manager Name Role Phone Rogerio Heart MD Primary Care Provide r Reason for Visit * Reason Onset Date Comments Order Request 04/09/2024 Pt is having jason n and needs an US as well as a mammo Encounter Details Date Type Department Care Team (Late st Contact Info) Description 04/09/2024 Telephone Access Center, [place] [address] [facility] *DO NOT REMOVE THIS DEPARTMENT* [place] [address] Services, Scheduling [address] [place] [address] Order Request (Pt is having pain and [...] Active Azithromycin 250 MG Oral Tablet (Zithromax Z-Toto)Indications: Walking pneumonia Take two tablets by mouth [...] mRNA, LNP-s, No Pre serve, 2-Dose Series ([employer]) 03/16/2021,02/23/2021 Pneumococcal Conjugate Vacc, 13 Valent (Prevnar) [...] Dr. Heart. Please contact patient to schedule: [phone] * Telephone Encounter - Lalita Rudd OSA [...] Mastodynia documented in this encounter Care Teams Quantitative Manager Relationship Specialty Start Date End Date Rogerio Heart MD [address] [place] [address] [place] [phone] PCP - General Family Medicine 01/29/24 documented as of this encounter
--- OUTSIDE RECORDS SUMMARY | 2024-04-17 03:17 | External Medical Summary | Summary of Care ---
Author Name Unknown Organization [facility] Address [address] [facility] [address] Phone [phone] Care Team Providers Care Crime Scene Investigator Name Role Phone Rogerio Heart MD Primary Care Provide r Reason for Visit * Reason Comments Acute Encounter Details Date Type Department Care Team (Late st Contact Info) Description 03/21/2024 8:40 AM EST Office Visit Family Medicine [address] [phone] Elicia Fung [address] [place] [phone] Walking pneumonia*; Lipoma of torso; Skin nodule Allergies Active Allergy Reactions Criticality Noted Date Comments Sulfa Antibiotics 03/24/2003 mouth ulcers documented as of this encounter (statuses as of 03/21/2024) Medications Cholecalciferol (VITAMIN D) 1000 UNITS Tablet One daily Active Magnesium 400 MG TABS One daily Active Meloxicam 15 MG Oral TabletIndications: Generalized osteoarthritis of multiple sites,Fibromyalgia TAKE 1 TABLET BY MOUTH DAILY FOR PAIN 90 Tablet 04/15/19 23 Active Clobetasol Propionate 0.05 % External Ointment (Temovate) Apply topically to affected area 2 times a day for 14 days. To affected area for up to two weeks 15 g 1 06/22/19 23 Active Cyclobenzaprine HCl 10 MG Oral Tablet (Flexeril)Indicati ons:Acute pain of left shoulder Take 1 Tablet by mouth 2 times a day as needed for Muscle spasms. 20 Tablet 02/26/20 23 Active Hydrocortisone (Perianal) 2.5 % External Cream (Anusol-HC)Indicat ions:Hemorrhoids, external without complications Administer into the rectum 2 times a day. 28 g 1 11/22/19 24 Active Rosuvastatin Calcium 10 MG Oral Tablet (Crestor) Take 1 Tablet by mouth in the morning. 90 Tablet 3 12/25/19 24 Active Vagifem 10 MCG Vaginal TabletIndications: Postmenopausal atrophic vaginitis INSERT ONE TABLET VAGINALLY AT BEDTIME FOR 7 DAYS IN A ROW AND THEN JUST TWICE WEEKLY 32 Tablet 2 02/05/20 24 Active predniSONE 20 MG Oral Tablet (Deltasone)Indicat ions:Walking pneumonia Take 2 Tablets by mouth in the morning for 5 days. 10 Tablet 03/21/19 25 025 Active Azithromycin 250 MG Oral Tablet (Zithromax Z-Otto)Indications: Walking pneumonia Take two tablets by mouth on first day, then 1 tablet daily until gone 6 Tablet 03/21/19 25 Active Levalbuterol Tartrate 45 MCG/ACT Inhalation Aerosol (Xopenex HFA)Indications:Wa lking pneumonia Inhale 2 Puffs by mouth every 6 hours as needed for Wheezing. 15 g 03/21/19 25 Active Ciprofloxacin HCl 500 MG Oral Tablet (Cipro)Indications :Flank pain Take 1 Tablet by mouth in the morning and 1 Tablet before bedtime. Do all this for 7 days. 14 Tablet 12/01/19 24 025 Discontin ued(Medic ation List Clean Up) Amoxicillin-Pot Clavulanate 875-125 MG Oral Tablet (Augmentin)Indicat ions:Acute frontal sinusitis, recurrence not specified Take 1 Tablet by mouth in the morning and 1 Tablet before bedtime. Do all this for 7 days. 14 Tablet 01/29/20 24 025 Discontin ued(Medic ation List Clean Up) predniSONE 20 MG Oral Tablet (Deltasone)Indicat ions:Acute frontal sinusitis, recurrence not specified,Ear congestion, left Take 2 Tablets by mouth in the morning. 10 Tablet 02/16/20 24 025 Discontin ued(Medic ation List Clean Up) documented as of this encounter (statuses as of 03/21/2024) Active Problems Problem Noted Date Diagnosed Date Prediabetes 08/15/2022 Overview: Per Prediabetes protocol Fibromyalgia 06/29/2011 Vitamin D deficiency 07/07/2010 Postmenopausal atrophic vaginitis 10/10/2007 Headache Overview (05/27/2015): ICD-10 update of inactive term documented as of this encounter (statuses as of 03/21/2024) Resolved Problems Problem Noted Date Diagnosed Date Resolved Date Moderate episode of recurren t major depressive disorder 06/10/2019 12/01/2023 Hot flashes 12/03/2014 12/20/2019 Medial epicondylitis 10/10/2007 015 documented as of this encounter (statuses as of 03/21/2024) Immunizations Name Administration Dates Next Due COVID-19 mRNA, LNP-s, No Pre serve, 2-Dose Series (ZIRX) 03/16/2021,02/23/2021 Pneumococcal Conjugate Vacc, 13 Valent (Prevnar) [...] Sign Reading Time Taken Comments Blood Pressure 110/54 03/21/2024 8:40 AM EST Pulse 84 03/21/2024 8:40 AM EST Temperature 36.4 C (97.5 F) 03/21/2024 8:40 AM ES T Respiratory Rate 16 03/21/2024 8:40 AM EST Oxygen Saturation 98% 03/21/2024 8:40 AM EST Inhaled Oxygen Concentration - - Weight 62.1 kg (137 lb) 03/21/2024 8:40 AM EST Height - - Body Mass Index 24.27 11/22/2023 9:36 AM EDT documented in this encounter Nursing Notes * Mercedes Barriga LPN - 03/21/2024 8:37 AM EST C/o cough, a lot of phlegm. Going on for 10 days. Dizziness when she came back today. She said she has been dealing with this for awhile. C/o back issore from coughing so much. documented in this encounter Plan of Treatment Upcoming Encounters Date Type Department Care Team (Latest Contact Info) Description 04/19/2024 9:40 AM EST Hospital Encounter [facility], Operating Room [facility] [address] [place] [address] Reece Gastelum, [address] [place] [address] 04/19/2024 9:40 AM EST - 04/19/2024 10:05 AM EST Surgery OR [facility], Operating Room [facility] [address] [place] [address] Reece Gastelum, [address] [place] [address] ARTHROCENTESIS OR INJECTION MAJOR JOINT 05/08/2024 9:30 AM EST Office Visit Otolaryngology [facility] [address] [place] [address] James Maldonado DO [address] [place] [address] Chrissy Lee Au.D. [address] [place] [address] Scheduled Procedures Name Priority Associated Diagnoses Date/Ti [...] as of this encounter Visit Diagnoses Diagnosis Walking pneumonia- Primary Pneumonia, organism unspecified Lipoma of torso Skin nodule Localized superficial swelling, mass, or lump Arthritis of left shoulder region Unspecified arthropathy, shoulder region documented in this encounter Care Teams Crime Scene Investigator Relationship Specialty Start Date End Date Rogerio Heart MD [address] [place] [address] [place] [address] PCP - General Family Medicine 01/29/24 documented as of this encounter
--- OUTSIDE RECORDS SUMMARY | 2024-04-17 03:17 | External Medical Summary | Summary of Care ---
Author Name Unknown Organization [facility] Address [address] [facility] [address] Phone [phone] Care Team Providers Care Gas Plant Worker Name Role Phone Rogerio Heart MD Primary Care Provide r Reason for Visit * Reason Onset Date Comments Order Request 03/22/2024 Encounter Details Date Type Department Care Team (Late st Contact Info) Description 03/22/2024 Telephone Family Medicine [address] [phone] Elicia Fung [address] [place] [address] Order Request Allergies Active Allergy Reactions Criticality Noted Date Comments Sulfa Antibiotics 03/24/2003 mouth ulcers documented as of this encounter (statuses as of 03/27/2024) Medications Cholecalciferol (VITAMIN D) 1000 UNITS Tablet [...] WEEKLY 32 Tablet 2 02/05/20 24 Active Azithromycin 250 MG Oral Tablet (Zithromax Z-Otto)Indications: Walking pneumonia Take two tablets by mouth on first day, then 1 tablet daily until gone 6 Tablet 03/21/19 25 Active Levalbuterol Tartrate 45 MCG/ACT Inhalation Aerosol (Xopenex HFA)Indications:Wa lking pneumonia Inhale 2 Puffs by mouth every 6 hours as needed for Wheezing. 15 g 03/21/19 25 Active predniSONE 20 MG Oral Tablet (Deltasone)Indicat ions:Walking pneumonia Take 2 Tablets by mouth in the morning for 5 days. 10 Tablet 03/21/19 25 025 documented as of this encounter (statuses as of 03/27/2024) Active Problems Problem Noted Date Diagnosed Date Prediabetes 08/15/2022 Overview: Per Prediabetes protocol Fibromyalgia 06/29/2011 Vitamin D deficiency 07/07/2010 Postmenopausal atrophic vaginitis 10/10/2007 Headache Overview (05/27/2015): ICD-10 update of inactive term documented as of this encounter (statuses as of 03/27/2024) Resolved Problems Problem Noted Date Diagnosed Date Resolved Date Moderate episode of recurren t major depressive disorder 06/10/2019 12/01/2023 Hot flashes 12/03/2014 12/20/2019 Medial epicondylitis 10/10/2007 015 documented as of this encounter (statuses as of 03/27/2024) Immunizations Name Administration Dates Next Due COVID-19 [...] Telephone Encounter - Carole Allen RN - 03/27/2024 3:17 PM EST Patient notified she is scheduled for US tomorrow and order is already placed. * Telephone Encounter - Elicia Fung CRNP - 03/22/2024 1:39 PM EST I saw patient. I discussed the lump by her umbilicus is likely a lipoma. If this is what she if referring to wanting an ultrasound of I can order it, but just need to clarify. Thanks! * Telephone Encounter - Rogerio Heart MD - 03/22/2024 1:00 PM EST I'm not sure where this was for. * Telephone Encounter - Sandie Damon LPN - 03/22/2024 12:37 PM EST Sent to wrong pool. Please route to correct pool. * Telephone Encounter - Theresa Balbuena OSA - 03/22/2024 12:32 PM EST Patient calling back today she would like to get an order placed for the US in her stomach area Please call pt when order is placed documented in this encounter Plan of Treatment Upcoming Encounters Date Type Department Care Team (Latest Contact Info) Description 03/28/2024 9:00 AM EST Imaging Radiology [address] [place] [address] 04/19/2024 9:40 AM EST Hospital Encounter OR [facility], Operating Room [facility] [address] [place] [phone] Reece Gastelum, [address] [place] [phone] 04/19/2024 9:40 AM EST - 04/19/2024 10:05 AM EST Surgery OR [facility], Operating Room [facility] [address] [place] [phone] Reece Gastelum, [address] [place] [phone] ARTHROCENTESIS OR INJECTION MAJOR JOINT 05/08/2024 9:30 AM EST Office Visit Otolaryngology [facility] [address] [place] [address] James Maldonado DO [address] [place] [address] Chrissy Lee Au.D. [address] [place] [address] Scheduled Procedures Name Priority Associated Diagnoses Date/Ti [...] filedocumented as of this encounter Care Teams Gas Plant Worker Relationship Specialty Start Date End Date Rogerio Heart MD [address] [place] [address] [place] [address] PCP - General Family Medicine 01/29/24 documented as of this encounter
--- OUTSIDE RECORDS SUMMARY | 2024-04-17 03:17 | External Medical Summary | Summary of Care ---
Author Name Unknown Organization [facility] Address [address] [facility] [place] [address] Phone [phone] Care Team Providers Care Drapery Estimator Name Role Phone Rogerio Heart MD Primary Care Provide r Reason for Visit * Reason Comments Outpatient Testing Encounter Details Date Type Department Care Team (Late st Contact Info) Description 03/28/2024 9:50 AM EST Laboratory Laboratory [address] [place] [phone] [place] [address] Hyperlipidemia with target LDL less than 100 [...] mRNA, LNP-s, No Pre serve, 2-Dose Series (Practice Ignition) 03/16/2021,02/23/2021 Pneumococcal Conjugate Vacc, 13 Valent (Prevnar) [...] Operating Room [facility] [address] [place] [phone] Reece Gastelum, [address] [place] [address] 04/19/2024 9:40 AM EST - 04/19/2024 10:05 AM EST Surgery OR [facility], Operating Room [facility] [address] [place] [phone] Reece Gastelum, [address] [place] [address] ARTHROCENTESIS OR INJECTION MAJOR JOINT 05/08/2024 9:30 AM EST Office Visit Otolaryngology [facility] [address] [place] [address] James Maldonado DO [address] [place] [address] Chrissy Lee Au.D. [address] [place] [address] Pending Results Name Type Priority Associated Diagnoses [...] region documented in this encounter Care Teams Drapery Estimator Relationship Specialty Start Date End Date Rogerio Heart MD [address] [place] [address] [place] [phone] PCP - General Family Medicine 01/29/24 documented as of this encounter
--- OUTSIDE RECORDS SUMMARY | 2024-04-17 03:17 | External Medical Summary | Summary of Care ---
Author Name Unknown Organization [facility] [address] [facility] [address] Phone [phone] Care Team Providers Care Manager Risk Name Role Phone Rogerio Heart MD Primary Care Provide r Reason for Visit * Reason Comments Acute Encounter Details Date Type Department Care Team (Late st Contact Info) Description 03/21/2024 8:40 AM EST Office Visit Family Medicine [address] [phone] Elicia Fung [address] [place] [phone] Walking pneumonia*; Lipoma of torso; Skin nodule [...] mRNA, LNP-s, No Pre serve, 2-Dose Series (Hark) 03/16/2021,02/23/2021 Pneumococcal Conjugate Vacc, 13 Valent (Prevnar) [...] Room [facility] [address] [place] [address] Reece Gastelum, [address] [place] [address] 04/19/2024 9:40 AM EST - 04/19/2024 10:05 AM EST Surgery OR [facility], Operating Room [facility] [address] [place] [address] Reece Gastelum, [address] [place] [address] ARTHROCENTESIS OR INJECTION MAJOR JOINT 05/08/2024 9:30 AM EST Office Visit Otolaryngology [facility] [address] [place] [address] James Maldonado DO [address] [place] [address] Chrissy Lee Au.D. [address] [place] [address] Scheduled Procedures Name Priority Associated Diagnoses Date/Ti [...] region documented in this encounter Care Teams Manager Risk Relationship Specialty Start Date End Date Rogerio Heart MD [address] [place] [address] [place] [address] PCP - General Family Medicine 01/29/24 documented as of this encounter
--- OUTSIDE RECORDS SUMMARY | 2024-04-17 03:17 | External Medical Summary ---
Author Name Unknown Address Unknown Organization [id number]:[facility] [place] [address] [place] [address] Laboratory Report Ordering Provider Test Date Status NUHAALEXIS 03/28/2024 09:24:49 Final Observation Date Value Abnormality Reference (Units ) Status LDL, (direct) 03/28/2024 09:24:49 69 <=129 (mg/dL) Final LDL Cholesterol Reference Ra nges (mg/dL):
<70 Target level for high risk ASCVD patient
<100 Optimal for general population
100-129 Near optimal for general population
130-159 Borderline high
160-189 High
>=190 Very high Performing Location [facility] - [address] [place] [address]
--- OUTSIDE RECORDS SUMMARY | 2024-04-17 03:17 | External Medical Summary ---
Author Name Unknown Address Unknown Organization [id number]:[facility] [place] [address] [place] [address] Laboratory Report Ordering Provider Test Date Status VANESA BREEN 03/28/2024 09:24:49 Final Observation Date Value Abnormality Reference (Units ) Status Triglyceride 03/28/2024 09:24:49 246 Above high normal <=174 (mg/dL) Final Triglyceride Reference Range s (mg/dL):
<150 Acceptable
150-174 Borderline high
175-499 High
>=500 Very high Cholesterol 03/28/2024 09:24:49 159 <200 (mg /dL) Final Total Cholesterol Reference Ranges (mg/dL):
<200 Desirable
200-239 Borderline high
>=240 High HDL 03/28/2024 09:24:49 51 >49 (mg/dL ) Final HDL Cholesterol Reference Ra nges (mg/dL):
>=60 High (Desirable)
<50 Low (Undesirable) For Females
<40 Low (Undesirable) For Males NON-HDL CHOLESTEROL 03/28/2024 09:24:49 108 <=159 (mg/dL) Final Non-HDL Cholesterol Referenc e Range (mg/dL):
<100 Target level for high risk ASCVD patient
<130 Optimal for general population
130-159 Near optimal for general population
160-189 Borderline High
190-219 High
>=220 Very High Performing Location [facility] - [address] [place] [address]
--- OUTSIDE RECORDS SUMMARY | 2024-04-17 03:17 | External Medical Summary | Summary of Care ---
Author Name Unknown Organization [facility] Address [address] [facility] [address] Phone [phone] Care Team Providers Care Insulation Cutter Name Role Phone Rogerio Heart MD Primary Care Provide r Reason for Visit * Reason Onset Date Comments Order Request 03/22/2024 Encounter Details Date Type Department Care Team (Late st Contact Info) Description 03/22/2024 Telephone Family Medicine [address] [phone] Elicia Fung [address] [place] [address] Order Request Allergies Active Allergy Reactions Criticality Noted Date Comments Sulfa Antibiotics 03/24/2003 mouth ulcers documented as of this encounter (statuses as of 03/22/2024) Medications Cholecalciferol (VITAMIN D) 1000 UNITS Tablet [...] TWICE WEEKLY 32 Tablet 2 4 Active predniSONE 20 MG Oral Tablet (Deltasone)Indicat ions:Walking pneumonia Take 2 Tablets by mouth in the morning for 5 days. 10 Tablet 5 025 Active Azithromycin 250 MG Oral Tablet (Zithromax Z-Otto)Indications: Walking pneumonia Take two tablets by mouth on first day, then 1 tablet daily until gone 6 Tablet 5 Active Levalbuterol Tartrate 45 MCG/ACT Inhalation Aerosol (Xopenex HFA)Indications:Wa lking pneumonia Inhale 2 Puffs by mouth every 6 hours as needed for Wheezing. 15 g 5 Active documented as of this encounter (statuses as of 03/22/2024) Active Problems Problem Noted Date Diagnosed Date Prediabetes 08/15/2022 Overview: Per Prediabetes protocol Fibromyalgia 06/29/2011 Vitamin D deficiency 07/07/2010 Postmenopausal atrophic vaginitis 10/10/2007 Headache Overview (05/27/2015): ICD-10 update of inactive term documented as of this encounter (statuses as of 03/22/2024) Resolved Problems Problem Noted Date Diagnosed Date Resolved Date Moderate episode of recurren t major depressive disorder 06/10/2019 12/01/2023 Hot flashes 12/03/2014 12/20/2019 Medial epicondylitis 10/10/2007 015 documented as of this encounter (statuses as of 03/22/2024) Immunizations Name Administration Dates Next Due COVID-19 [...] OR [facility], Operating Room [facility] [address] [place] [address] Reece Gastelum, DO [address] [place] [phone] 04/19/2024 9:40 AM EST - 04/19/2024 10:05 AM EST Surgery OR [facility], Operating Room [facility] [address] [place] [address] Reece Gastelum, DO [address] [place] [address] ARTHROCENTESIS OR INJECTION MAJOR JOINT 05/08/2024 9:30 AM EST Office Visit Otolaryngology [facility] [address] [place] [address] James Maldonado, DO [address] [place] [address] Chrissy Lee Au.D. [address] [place] [address] Scheduled Procedures Name Priority Associated Diagnoses Date/Ti [...] filedocumented as of this encounter Care Teams Insulation Cutter Relationship Specialty Start Date End Date Rogerio Heart MD [address] [place] [address] [place] [phone] PCP - General Family Medicine 01/29/24 documented as of this encounter
--- OUTSIDE RECORDS SUMMARY | 2024-04-17 03:17 | External Medical Summary ---
Author Name Unknown Address Unknown Organization [id number][place] [place] [address] [place] [address] Laboratory Report Ordering Provider Test Date Status VANESA BREEN 03/28/2024 09:24:49 Final Observation Date Value Abnormality Reference (Units ) Status ALT (Alanine aminotransferase) 03/28/2024 09:24:49 30 10-35 (U/L) Final Performing Location [facility] - [address] [place] [address]
--- OUTSIDE RECORDS SUMMARY | 2024-04-17 03:18 | External Medical Summary | Summary of Care ---
Author Name Unknown Organization [facility] Address [address] [facility] [address] Phone [phone] Care Team Providers Care Coal Sample Tester Name Role Phone Rogerio Heart MD Primary Care Provide r Reason for Visit * Reason Comments Acute Encounter Details Date Type Department Care Team (Late st Contact Info) Description 01/29/2024 10:40 AM EST Office Visit Family Medicine [address] [phone] Davonte Mansfield MD [address] [place] [address] [place] [address] Acute frontal sinusitis, recurrence not specified*; Ear congestion, left Allergies Active Allergy Reactions Criticality Noted Date Comments Sulfa Antibiotics 03/24/2003 mouth ulcers documented as of this encounter (statuses as of 02/09/2024) Medications Cholecalciferol (VITAMIN D) 1000 UNITS Tablet One daily Active Magnesium 400 MG TABS One daily Active Meloxicam 15 MG Oral TabletIndications :Generalized osteoarthritis of multiple sites,Fibromyalgi a TAKE 1 TABLET BY MOUTH DAILY FOR PAIN 90 Tablet 023 Active Additional Information Patient not taking.Reported on 01/29/2024 Clobetasol Propionate 0.05 % External Ointment (Temovate) [...] AND THEN JUST TWICE WEEKLY 32 Tablet 5 024 2023 Discontinued(R efill) Fluticasone Propionate 50 MCG/ACT Nasal Suspension (Flonase)Indicati ons:Dysfunction of both eustachian tubes Administer 2 Sprays into each nostril in the morning. 18.2 mL 5 024 2023 Discontinued Amoxicillin-Pot Clavulanate 875-125 MG Oral Tablet (Augmentin)Indica tions:Acute frontal sinusitis, recurrence not specified Take 1 Tablet by mouth in the morning and 1 Tablet before bedtime. Do all this for 7 days. 14 Tablet 024 2023 predniSONE 20 MG Oral Tablet (Deltasone)Indica tions:Acute frontal sinusitis, recurrence not specified,Ear congestion, left Take 2 Tablets by mouth in the morning for 5 days. 10 Tablet 024 2023 Fluticasone Propionate 50 MCG/ACT Nasal Suspension (Flonase)Indicati ons:Acute frontal sinusitis, recurrence not specified,Ear congestion, left Administer 1 Garfield into each nostril in the morning and 1 Garfield before bedtime. Do all this for 5 days. 18.2 mL 024 2023 documented as of this encounter (statuses as of 02/09/2024) Active Problems Problem Noted Date Diagnosed Date Prediabetes 08/15/2022 Overview: Per Prediabetes protocol Fibromyalgia 06/29/2011 Vitamin D deficiency 07/07/2010 Postmenopausal atrophic vaginitis 10/10/2007 Headache Overview (05/27/2015): ICD-10 update of inactive term documented as of this encounter (statuses as of 02/09/2024) Resolved Problems Problem Noted Date Diagnosed Date Resolved Date Moderate episode of recurren t major depressive disorder 06/10/2019 12/01/2023 Hot flashes 12/03/2014 12/20/2019 Medial epicondylitis 10/10/2007 015 documented as of this encounter (statuses as of 02/09/2024) Immunizations Name Administration Dates Next Due COVID-19 mRNA, LNP-s, No Pre serve, 2-Dose Series (GridAnts) 03/16/2021,02/23/2021 Pneumococcal Conjugate Vacc, 13 Valent (Prevnar) [...] Sign Reading Time Taken Comments Blood Pressure 134/70 01/29/2024 10:47 AM EST Pulse 92 01/29/2024 10:47 AM EST Temperature 36.1 C (96.9 F) 01/29/2024 10:[address] Respiratory Rate - - Oxygen Saturation 97% 01/29/2024 10:47 AM EST Inhaled Oxygen Concentration - - Weight 61.5 kg (135 lb 9.6 oz) 01/29/2024 10:47 AM EST Height - - Body Mass Index 24.02 11/22/2023 9:36 AM EDT documented in this encounter Progress Notes * Davonte Mansfield MD - 01/29/2024 11:07 AM EST Subjective: HPI: Julianna Dotson is a 73 year old female with hx of Fibromyalgia, Depression, prediabetes seen for Pt has been having sinus symptoms for 2 months - recently started having sinus pressure, facial pain, L ear pain with intermittent vertigo symptoms - has been taking antihistamine and flonase - no help - denied any fever Patient Active Problem List Diagnosis Headache Postmenopausal atrophic vaginitis Vitamin D deficiency Fibromyalgia Prediabetes Current Outpatient Medications Medication Sig Dispense Refill Cholecalciferol (VITAMIN D) 1000 UNITS Tablet One daily Magnesium 400 MG TABS One daily Clobetasol Propionate 0.05 % External Ointment (Temovate) Apply topically to affected area 2 times a day for 14 days. To affected area for up to two weeks 15 g 1 Cyclobenzaprine HCl 10 MG Oral Tablet (Flexeril) Take 1 Tablet by mouth 2 times a day as needed forMuscle spasms. 20 Tablet 0 Vagifem 10 MCG Vaginal Tablet INSERT ONE TABLET VAGINALLY AT BEDTIME FOR 7 DAYS IN A ROW AND THEN JUST TWICE WEEKLY 32 Tablet 5 Hydrocortisone (Perianal) 2.5 % External Cream (Anusol-HC) Administer into the rectum 2 times a day. 28 g 1 Rosuvastatin Calcium 10 MG Oral Tablet (Crestor) Take 1 Tablet by mouth in the morning. 90 Tablet 3 Amoxicillin-Pot Clavulanate 875-125 MG Oral Tablet (Augmentin) Take 1 Tablet by mouth in the morning and 1 Tablet before bedtime. Do all this for 7 days. 14 Tablet 0 predniSONE 20 MG Oral Tablet (Deltasone) Take 2 Tablets by mouth in the morning for 5 days. 10 Tablet 0 Fluticasone Propionate 50 MCG/ACT Nasal Suspension (Flonase) Administer 1 Garfield into each nostril in the morning and 1 Garfield before bedtime. Do all this for 5 days. 18.2 mL 0 Meloxicam 15 MG Oral Tablet TAKE 1 TABLET BY MOUTH DAILY FOR PAIN (Patient not taking: Reported on 01/29/2024) 90 Tablet 0 No current facility-administered medications for this visit. Past Medical History: Diagnosis Date Chronic sinusitis Endometriosis Postmenopausal atrophic vaginitis Tattoo left arm Vitamin D deficiency Past Surgical History: Procedure Laterality Date CARPAL TUNNEL SURGERY 1982 right INCISION OF EARDRUM 2009 bilateral myringotomy tubes-Dr. Hendricks LAPAROSCOPY; CHOLECYSTECTOMY 1994 REMOVAL OF TONSILS, UNDER AGE 11 Tonsils Removal,<11 Y/O SINUS SURGERY PROCEDURE NEC 2008 Dr. Hendricks TOTAL HYSTERECTOMY 1986 marysol/bso endometriosis US ABDOMEN LIMITED 02/14/12 cholecystectomy, otherwise normal Review of patient's allergies indicates: Allergen Reactions Sulfa Antibiotics mouth ulcers Family History Problem Relation Name Age of Onset Cancer Mother uterine, colon Cancer Father ca on face--polyps in sinuses Allergies Father No Past Hx Brother No Past Hx Daughter No Past Hx Daughter No Past Hx Son Social History Tobacco Use Smoking status: Never Smokeless tobacco: Never Substance Use Topics Alcohol use: Yes Comment: occ--less than 1 -2 wine coolers per wk Vaping/E-Cigarette Use Vaping/E-Cigarette Substances Vaping/E-Cigarette Devices ROS: -Per HPI OBJECTIVE: BP 134/70 | Pulse 92 | Temp 96.9 F (36.1 C) | Wt 135 lb 9.6 oz (61.5 kg) | SpO2 97% | BMI 24.02kg/m | BSA 1.65 m PHYSICAL EXAM: Vitals are reviewed General:. NAD, well developed HEENT:. Normal b/l TM but fluids behind the TMs Lungs:. CTA, no wheezing or crackles MSK:. Normal gait Psych:. AAOx3, normal affect ASSESSMENT/PLAN: Acute frontal sinusitis, recurrence not specified (Primary) - Amoxicillin-Pot Clavulanate 875-125 MG Oral Tablet (Augmentin); Take 1 Tablet by mouth in the morning and 1 Tablet before bedtime. Do all this for 7 days. - predniSONE 20 MG Oral Tablet (Deltasone); Take 2 Tablets by mouth in the morning for 5 days. - Fluticasone Propionate 50 MCG/ACT Nasal Suspension (Flonase); Administer 1 Garfield into each nostril in the morning and 1 Garfield before bedtime. Do all this for 5 days. Ear congestion, left - predniSONE 20 MG Oral Tablet (Deltasone); Take 2 Tablets by mouth in the morning for 5 days. - Fluticasone Propionate 50 MCG/ACT Nasal Suspension (Flonase); Administer 1 Garfield into each nostril in the morning and 1 Garfield before bedtime. Do all this for 5 days. Davonte Mansfield MD Family medicine, [address] [address] documented in this encounter Nursing Notes * Katie Chisholm, HECTOR - 01/29/2024 10:45 AM EST She was seen by Dr. Lane in November and she gave her a nasal steroid. That didn't help. She is still having sinus congestion, facial tenderness, dental pain, headache, ear feels full thatcauses lightheadedness. The lightheadedness makes her feel like she will pass out. documented in this encounter Plan of Treatment Upcoming Encounters Date Type Department Care Team (Late st Contact Info) Description 02/12/2024 9:00 AM EST Office Visit Ophthalmology, [facility] [address] [place] [address] Shawn Contreras, DO [address] [place] [address] 04/19/2024 9:40 AM EST Hospital Encounter OR [facility], Operating Room [facility] [address] [place] [address] Reece Gastelum, DO [address] [place] [address] 04/19/2024 9:40 AM EST - 04/19/2024 10:05 AM EST Surgery OR [facility], Operating Room [facility] [address] [place] [address] Reece Gastelum, [address] [place] [phone] ARTHROCENTESIS OR INJECTION MAJOR JOINT 05/08/2024 9:30 AM EST Office Visit Otolaryngology [facility] [address] [place] [address] James Maldonado, DO [address] [place] [address] Chrissy Lee Au.D. [address] [place] [address] Scheduled Procedures Name Priority Associated Diagnoses Date/Ti [...] 07/06, 05/16/2017, Additional history exists Pneumococcal Vaccine: 65+ Years Completed 05/16/2017, 12/21/2015 Zoster Vaccines Completed [...] as of this encounter Visit Diagnoses Diagnosis Acute frontal sinusitis, recurrence not specified- Primary Ear congestion, left Arthritis of left shoulder region Unspecified arthropathy, shoulder region documented in this encounter Care Teams Coal Sample Tester Relationship Specialty Start Date End Date Rogerio Heart MD [address] [place] [address] [place] [address] PCP - General Family Medicine 01/29/24 documented as of this encounter"
--- OUTSIDE RECORDS SUMMARY | 2024-04-17 03:18 | External Medical Summary | Summary of Care ---
Author Name Unknown Organization [facility] Address [address] [place] [address] Phone [phone] Care Team Providers Care Job Recruiter Name Role Phone Rogerio Heart MD Primary Care Provide r Reason for Visit * Reason Onset Date Comments Appointment 02/08/2024 Encounter Details Date Type Department Care Team (Late st Contact Info) Description 02/08/2024 Telephone Otolaryngology [facility] [address] [place], [place] [phone] Services, Scheduling [address] [place] [address] Appointment Allergies Active Allergy Reactions Criticality Noted Date Comments Sulfa Antibiotics 03/24/2003 mouth ulcers documented as of this encounter (statuses as of 02/09/2024) Medications Cholecalciferol (VITAMIN D) 1000 UNITS Tablet One daily Active Magnesium 400 MG TABS One daily Active Meloxicam 15 MG Oral TabletIndications: Generalized osteoarthritis of multiple sites,Fibromyalgia TAKE 1 TABLET BY MOUTH DAILY FOR PAIN 90 Tablet 04/15/19 23 Active Additional Information Patient not taking.Reported on [...] WEEKLY 32 Tablet 2 02/05/20 24 Active documented as of this encounter (statuses [...] mRNA, LNP-s, No Pre serve, 2-Dose Series ([employer]) 03/16/2021,02/23/2021 Pneumococcal Conjugate Vacc, 13 Valent (Prevnar) [...] encounter Miscellaneous Notes * Telephone Encounter - Sofy Marcial PA-C - 02/09/2024 2:47 PM EST Next available appointment with any provider with matched audio, as hearing loss has been present for numerous months and documentation of middle ear effusion by PCP * Telephone Encounter - Vero Schwartz LPN - 02/09/2024 11:22 AM EST Patient notes she has ringing in her ear. She notes she had lost a significant hearing loss in [place] over the summer. Went to PCP was given nasal spray to use.She recently went back to PCP was given prednisone in January for left ear congestion. TMs has fluid behind them. She notes she had tubes as a child. Please advise if sooner appointment is necessary. * Telephone Encounter - Audra Jalloh OSA - 02/08/2024 10:44 AM EST Unfortunately no sooner appointments avail, we also don't treat dizziness in this office. * Telephone Encounter - Miriam Marino OSA - 02/08/2024 10:08 AM EST Pt called to reschedule due to the provider canceling her appt. She was very unhappy to hear is wasmoved out almost another month. She said she has tried everything and her ear is no better and it'smaking her lose her balance and make her dizzy. Please call pt if you can schedule her sooner. I schedule next avail. documented in this encounter Plan of Treatment Upcoming Encounters Date Type Department Care Team (Late st Contact Info) Description 02/12/2024 9:00 AM EST Office Visit Ophthalmology, [facility] [address] [place] [address] Shawn Contreras, DO [address] [place] [address] 04/19/2024 9:40 AM EST Hospital Encounter OR [facility], Operating Room [facility] [address] [place] [address] Reece Gastelum, DO [address] [place] [address] 04/19/2024 9:40 AM EST - 04/19/2024 10:05 AM EST Surgery OR [facility], Operating Room [facility] [address] [place] [address] Reece Gastelum, DO [address] [place] [address] ARTHROCENTESIS OR INJECTION MAJOR JOINT 05/08/2024 9:30 AM EST Office Visit Otolaryngology [facility] [address] [place] [address] James Maldonado DO [address] [place] [address] Chrissy Lee Au.D. [address] [place] [address] Scheduled Procedures Name Priority Associated Diagnoses Date/Ti [...] filedocumented as of this encounter Care Teams Job Recruiter Relationship Specialty Start Date End Date Rogerio Heart MD [address] [place] [address] [place] [address] PCP - General Family Medicine 01/29/24 documented as of this encounter
--- OUTSIDE RECORDS SUMMARY | 2024-04-17 03:18 | External Medical Summary | Summary of Care ---
Author Name Unknown Organization [facility] Address [address] [facility] [address] Phone [phone] Care Team Providers Care Photostat Operator Helper Name Role Phone Rogerio Heart MD Primary Care Provide r Reason for Visit * Reason Onset Date Comments Medication Refill 02/22/2024 Encounter Details Date Type Department Care Team (Late st Contact Info) Description 02/22/2024 Refill Family Medicine [address] [phone] Davonte Mansfield MD [address] [place], [place] [address] [address] Allergies Active Allergy Reactions Criticality Noted Date Comments Sulfa Antibiotics 03/24/2003 mouth ulcers documented as of this encounter (statuses as of 02/23/2024) Medications Cholecalciferol (VITAMIN D) 1000 UNITS Tablet [...] in the morning. 10 Tablet 02/16/20 24 Active documented as of this encounter (statuses as of 02/23/2024) Active Problems Problem Noted Date Diagnosed Date Prediabetes 08/15/2022 Overview: Per Prediabetes protocol Fibromyalgia 06/29/2011 Vitamin D deficiency 07/07/2010 Postmenopausal atrophic vaginitis 10/10/2007 Headache Overview (05/27/2015): ICD-10 update of inactive term documented as of this encounter (statuses as of 02/23/2024) Resolved Problems Problem Noted Date Diagnosed Date Resolved Date Moderate episode of recurren t major depressive disorder 06/10/2019 12/01/2023 Hot flashes 12/03/2014 12/20/2019 Medial epicondylitis 10/10/2007 015 documented as of this encounter (statuses as of 02/23/2024) Immunizations Name Administration Dates Next Due COVID-19 mRNA, LNP-s, No Pre serve, 2-Dose Series (Varentec) 03/16/2021,02/23/2021 Pneumococcal Conjugate Vacc, 13 Valent (Prevnar) [...] OR [facility], Operating Room [facility] [address] [place] [address] Reece Gastelum, [address] [place] [address] 04/19/2024 9:40 AM EST - 04/19/2024 10:05 AM EST Surgery OR [facility], Operating Room [facility] [address] [place] [phone] Reece Gastelum, [address] [place] [address] ARTHROCENTESIS OR INJECTION MAJOR JOINT 05/08/2024 9:30 AM EST Office Visit Otolaryngology [facility] [address] [place] [address] James Maldonado, [address] [place] [address] Chrissy Lee Au.D. [address] [place] [address] Scheduled Procedures Name Priority Associated Diagnoses Date/Ti [...] filedocumented as of this encounter Care Teams Photostat Operator Helper Relationship Specialty Start Date End Date Rogerio Heart MD [address] [place] [address] [place] [phone] PCP - General Family Medicine 01/29/24 documented as of this encounter
--- OUTSIDE RECORDS SUMMARY | 2024-04-17 03:18 | External Medical Summary | Summary of Care ---
Author Name Unknown Organization [facility] Address [address] [place] [address] Phone [phone] Care Team Providers Care Motorcycle Police Officer Name Role Phone Rogerio Heart MD Primary Care Provide r Reason for Visit * Reason Onset Date Comments Appointment 02/08/2024 Encounter Details Date Type Department Care Team (Late st Contact Info) Description 02/08/2024 Telephone Otolaryngology [facility] [address] [place], [place] [phone] Services, Scheduling [address] [place] [address] Appointment Allergies Active Allergy Reactions Criticality Noted [...] mRNA, LNP-s, No Pre serve, 2-Dose Series ([employer]) 03/16/2021,02/23/2021 Pneumococcal Conjugate Vacc, 13 Valent (Prevnar) [...] encounter Miscellaneous Notes * Telephone Encounter - Vero Schwartz LPN [...] 02/12/2024 9:00 AM EST Office Visit Ophthalmology, [facility] [address] [place] [address] Shawn Contreras, DO [address] [place] [address] 04/19/2024 9:40 AM EST Hospital Encounter OR [facility], Operating Room [facility] [address] [place] [address] Reece Gastelum, DO [address] [place] [address] 04/19/2024 9:40 AM EST - 04/19/2024 10:05 AM EST Surgery OR [facility], Operating Room [facility] [address] [place] [address] Reece Gastelum, DO [address] [place] [phone] ARTHROCENTESIS OR INJECTION MAJOR JOINT 05/08/2024 9:30 AM EST Office Visit Otolaryngology [facility] [address] [place] [address] James Maldonado, DO [address] [place] [address] Chrissy Lee Au.D. [address] [place] [address] Scheduled Procedures Name Priority Associated Diagnoses Date/Ti [...] filedocumented as of this encounter Care Teams Motorcycle Police Officer Relationship Specialty Start Date End Date Rogerio Heart MD [address] [place] [address] [place] [address] PCP - General Family Medicine 01/29/24 documented as of this encounter
--- OUTSIDE RECORDS SUMMARY | 2024-04-17 03:18 | External Medical Summary | Summary of Care ---
Author Name Unknown Organization [facility] Address [address] [place] [address] Phone [phone] Care Team Providers Care Pit Tanner Name Role Phone Rogerio Heart MD Primary Care Provide r Reason for Visit * Reason Onset Date Comments Appointment 02/08/2024 Encounter Details Date Type Department Care Team (Late st Contact Info) Description 02/08/2024 Telephone Otolaryngology [facility] [address] [place], [place] [phone] Services, Scheduling [address] [place] [address] Appointment Allergies Active Allergy Reactions Criticality Noted [...] mRNA, LNP-s, No Pre serve, 2-Dose Series ([employer]) 03/16/2021,02/23/2021 Pneumococcal Conjugate Vacc, 13 Valent (Prevnar) [...] PM EST Next available appointment with any provider, as hearing loss has been present for [...] 02/12/2024 9:00 AM EST Office Visit Ophthalmology, [facility] [address] [place] [address] Shawn Contreras, DO [address] [place] [address] 04/19/2024 9:40 AM EST Hospital Encounter OR [facility], Operating Room [facility] [address] [place] [address] Reece Gastelum, [address] [place] [address] 04/19/2024 9:40 AM EST - 04/19/2024 10:05 AM EST Surgery OR [facility], Operating Room [facility] [address] [place] [address] Reece Gastelum, [address] [place] [address] ARTHROCENTESIS OR INJECTION MAJOR JOINT 05/08/2024 9:30 AM EST Office Visit Otolaryngology [facility] [address] [place] [address] James Maldonado DO [address] [place] [address] Chrissy Lee Au.D. [address] [place] [address] Scheduled Procedures Name Priority Associated Diagnoses Date/Ti [...] filedocumented as of this encounter Care Teams Pit Tanner Relationship Specialty Start Date End Date Rogerio Heart MD [address] [place] [address] [place] [address] PCP - General Family Medicine 01/29/24 documented as of this encounter
--- OUTSIDE RECORDS SUMMARY | 2024-04-17 03:18 | External Medical Summary | Summary of Care ---
Author Name Unknown Organization [facility] Address [address] [address] [address] Phone [phone] Care Team Providers Care Fuel Assembler Name Role Phone Rogerio Heart MD Primary Care Provide r Reason for Visit * Reason Comments Acute Encounter Details Date Type Department Care Team (Late st Contact Info) Description 01/29/2024 10:40 AM EST Office Visit Family Medicine [address] [phone] Davonte Mansfield MD [address] [place] [address] [place] [id number] Acute frontal sinusitis, recurrence not specified*; Ear congestion, left Allergies Active Allergy Reactions Criticality Noted Date Comments Sulfa Antibiotics 03/24/2003 mouth ulcers documented as of this encounter (statuses as of 01/29/2024) Medications Cholecalciferol (VITAMIN D) 1000 UNITS Tablet [...] for Muscle spasms. 20 Tablet 023 Active Vagifem 10 MCG Vaginal TabletIndications :Postmenopausal atrophic vaginitis INSERT ONE TABLET VAGINALLY AT BEDTIME FOR 7 DAYS IN A ROW AND THEN JUST TWICE WEEKLY 32 Tablet 5 024 Active Hydrocortisone (Perianal) 2.5 % External Cream (Anusol-HC)Indica tions:Hemorrhoids , external without complications Administer into the rectum 2 times a day. 28 g 1 024 Active Rosuvastatin Calcium 10 MG Oral Tablet (Crestor) Take 1 Tablet by mouth in the morning. 90 Tablet 3 024 Active Amoxicillin-Pot Clavulanate 875-125 MG Oral Tablet (Augmentin)Indica tions:Acute frontal sinusitis, recurrence not specified Take 1 Tablet by mouth in the morning and 1 Tablet before bedtime. Do all this for 7 days. 14 Tablet 024 2023 Active predniSONE 20 MG Oral Tablet (Deltasone)Indica tions:Acute frontal sinusitis, recurrence not specified,Ear congestion, left Take 2 Tablets by mouth in the morning for 5 days. 10 Tablet 024 2023 Active Fluticasone Propionate 50 MCG/ACT Nasal Suspension (Flonase)Indicati ons:Acute frontal sinusitis, recurrence not specified,Ear congestion, left Administer 1 Sciota into each nostril in the morning and 1 Sciota before bedtime. Do all this for 5 days. 18.2 mL 024 2023 Active Fluticasone Propionate 50 MCG/ACT Nasal Suspension (Flonase)Indicati ons:Dysfunction of both eustachian tubes Administer 2 Sprays into each nostril in the morning. 18.2 mL 5 024 2023 Discontinued documented as of this encounter (statuses as of 01/29/2024) Active Problems Problem Noted Date Diagnosed Date Prediabetes 08/15/2022 Overview: Per Prediabetes protocol Fibromyalgia 06/29/2011 Vitamin D deficiency 07/07/2010 Postmenopausal atrophic vaginitis 10/10/2007 Headache Overview (05/27/2015): ICD-10 update of inactive term documented as of this encounter (statuses as of 01/29/2024) Resolved Problems Problem Noted Date Diagnosed Date Resolved Date Moderate episode of recurren t major depressive disorder 06/10/2019 12/01/2023 Hot flashes 12/03/2014 12/20/2019 Medial epicondylitis 10/10/2007 015 documented as of this encounter (statuses as of 01/29/2024) Immunizations Name Administration Dates Next Due COVID-19 mRNA, LNP-s, No Pre serve, 2-Dose Series ([employer]) 03/16/2021,02/23/2021 Pneumococcal Conjugate Vacc, 13 Valent (Prevnar) [...] the money to buy more. Never true 12/22/20 23 Within the past 12 months, t [...] 50 MCG/ACT Nasal Suspension (Flonase) Administer 1 Sciota into each nostril in the morning and 1 Sciota before bedtime. Do all this for 5 [...] 50 MCG/ACT Nasal Suspension (Flonase); Administer 1 Sciota into each nostril in the morning and 1 Sciota before bedtime. Do all this for 5 days. Ear congestion, left - predniSONE 20 MG Oral Tablet (Deltasone); Take 2 Tablets by mouth in the morning for 5 days. - Fluticasone Propionate 50 MCG/ACT Nasal Suspension (Flonase); Administer 1 Sciota into each nostril in the morning and 1 Sciota before bedtime. Do all this for 5 days. Davonte Mansfield MD Family medicine, [place] [phone] documented in this encounter Nursing Notes * [...] [facility], Operating Room [facility] [address] [place] [address] Reece Gastelum, [address] [place] [address] 04/19/2024 9:40 AM EST - 04/19/2024 10:05 AM EST Surgery OR [facility], Operating Room [facility] [address] [place] [phone] Reece Gastelum, [address] [place] [address] ARTHROCENTESIS OR INJECTION MAJOR JOINT Scheduled Procedures Name Priority Associated Diagnoses Date/Ti [...] region documented in this encounter Care Teams Fuel Assembler Relationship Specialty Start Date End Date Rogerio Heart MD [address] [place] [address] [place] [id number] PCP - General Family Medicine 01/29/24 documented as of this encounter"
--- OUTSIDE RECORDS SUMMARY | 2024-04-17 03:18 | External Medical Summary | Summary of Care ---
Author Name Unknown Organization [facility] Address [address] [facility] [address] Phone [phone] Care Team Providers Care Hypnotherapist Name Role Phone Mili Medina MD Primary Care Provide r Reason for Visit * Reason Onset Date Comments Medication Refill 02/04/2024 Encounter Details Date Type Department Care Team (Late st Contact Info) Description 02/04/2024 Refill Family Medicine [address] [phone] Tasneem Medina MD [address] [place] [address] [place] [address] Postmenopausal atrophic vaginitis Allergies Active Allergy Reactions Criticality Noted Date Comments Sulfa Antibiotics 03/24/2003 mouth ulcers documented as of this encounter (statuses as of 02/05/2024) Medications Cholecalciferol (VITAMIN D) 1000 UNITS Tablet [...] morning. 90 Tablet 3 12/25/19 24 Active Amoxicillin-Pot Clavulanate 875-125 MG Oral Tablet (Augmentin)Indicat ions:Acute frontal sinusitis, recurrence not specified Take 1 Tablet by mouth in the morning and 1 Tablet before bedtime. Do all this for 7 days. 14 Tablet 01/29/20 24 024 Active Vagifem 10 MCG Vaginal TabletIndications: Postmenopausal atrophic vaginitis INSERT ONE TABLET VAGINALLY AT BEDTIME FOR 7 DAYS IN A ROW AND THEN JUST TWICE WEEKLY 32 Tablet 2 02/05/20 24 Active Vagifem 10 MCG Vaginal TabletIndications: Postmenopausal atrophic vaginitis INSERT ONE TABLET VAGINALLY AT BEDTIME FOR 7 DAYS IN A ROW AND THEN JUST TWICE WEEKLY 32 Tablet 5 08/28/19 24 024 Discontin ued(Refil l) documented as of this encounter (statuses as of 02/05/2024) Active Problems Problem Noted Date Diagnosed Date Prediabetes 08/15/2022 Overview: Per Prediabetes protocol Fibromyalgia 06/29/2011 Vitamin D deficiency 07/07/2010 Postmenopausal atrophic vaginitis 10/10/2007 Headache Overview (05/27/2015): ICD-10 update of inactive term documented as of this encounter (statuses as of 02/05/2024) Resolved Problems Problem Noted Date Diagnosed Date Resolved Date Moderate episode of recurren t major depressive disorder 06/10/2019 12/01/2023 Hot flashes 12/03/2014 12/20/2019 Medial epicondylitis 10/10/2007 015 documented as of this encounter (statuses as of 02/05/2024) Immunizations Name Administration Dates Next Due COVID-19 [...] encounter Miscellaneous Notes * Telephone Encounter - Mili Medina MD - 02/05/2024 10:58 AM EST Signed Prescriptions: Disp Refills Vagifem 10 MCG Vaginal Tablet 32 Tab*2 Sig: INSERT ONE TABLET VAGINALLY AT BEDTIME FOR 7 DAYS IN A ROW AND THEN JUST TWICE WEEKLY Authorizing Provider: MILI MEDINA * Telephone Encounter - Katerina Rahman CMA - 02/05/2024 10:17 AM EST Pending Prescriptions: Disp Refills Vagifem 10 MCG Vaginal Tablet 32 Tab*2 Sig: INSERT ONE TABLET VAGINALLY AT BEDTIME FOR 7 DAYS IN A ROW AND THEN JUST TWICE WEEKLY * Telephone Encounter - Katerina Rahman CMA - 02/05/2024 10:11 AM EST Did you pend patient's preferred pharmacy and medication before forwarding?yes Pharmacy: [id number] Pending Prescriptions: Disp Refills Vagifem 10 MCG Vaginal Tablet 32 Tab*5 Sig: INSERT ONE TABLET VAGINALLY AT BEDTIME FOR 7 DAYS IN A ROW AND THEN JUST TWICE WEEKLY Last Visit: 01/29/2024 (in office), Visit date not found (telemedicine) Next Visit: Visit date not found If no future appointments scheduled, and last appointment is greater than a year ago, please schedule patient for a follow-up appointment Last date the medication was ordered: 08/28/23 Is this request for a controlled substance?No Urine Drug Screen:No results found for this or any previous visit. Patient Phone Numbers [employer] [phone] Labs: Lab Results Component Value Date/Time CREAT 0.9 12/01/2023 09:23 AM CREAT 0.9 12/20/2019 08:45 AM POTASSIUM 4.3 12/01/2023 09:23 AM POTASSIUM 4.6 12/20/2019 08:45 AM POTASSIUM 3.7 06/03/1996 08:50 AM TSH 3.78 05/23/2017 09:40 AM LDL 142 (H) 12/01/2023 09:23 AM LDL 141 (H) 05/16/2017 03:29 PM LDL NOT APPLICABLE 05/16/2017 03:29 PM ALT 31 12/01/2023 09:23 AM ALT 34 12/20/2019 08:45 AM HGBA1C 6.0 (H) 12/01/2023 09:23 AM HGBA1C 5.5 05/25/2012 11:05 AM Sent Myg message advising need to scheduled visit with Dr medina * Telephone Encounter - Benny Castrejon - 02/05/2024 9:31 AM ESTPending Prescriptions: Disp Refills Vagifem 10 MCG Vaginal Tablet 32 Tab*5 Sig: INSERT ONE TABLET VAGINALLY AT BEDTIME FOR 7 DAYS IN A ROW AND THEN JUST TWICE WEEKLY documented in this encounter Plan of Treatment Upcoming Encounters Date Type Department Care Team (Late st Contact Info) Description 02/12/2024 9:00 AM EST Office Visit Ophthalmology, [facility] [address] [place] [address] Shawn Contreras, [address] [place] [address] 04/19/2024 9:40 AM EST Hospital Encounter OR [facility], Operating Room [facility] [address] [place] [phone] Reece Gastelum, [address] [place] [address] 04/19/2024 9:40 AM EST - 04/19/2024 10:05 AM EST Surgery OR [facility], Operating Room [facility] [address] [place] [address] Reece Gastelum, DO [address] [place] [address] ARTHROCENTESIS OR INJECTION MAJOR JOINT 04/22/2024 12:30 PM EST Office Visit Otolaryngology [facility] [address] [place] [address] James Maldonado, DO [address] [place] [address] Chrissy Lee Au.D. [address] [place] [address] Scheduled Procedures Name Priority Associated Diagnoses Date/Ti [...] as of this encounter Visit Diagnoses Diagnosis Postmenopausal atrophic vaginitis Arthritis of left shoulder region Unspecified arthropathy, shoulder region documented in this encounter Care Teams Hypnotherapist Relationship Specialty Start Date End Date Mili Medina MD [address] [place] [address] [place] [phone] PCP - General Family Medicine 01/29/24 documented as of this encounter
--- OUTSIDE RECORDS SUMMARY | 2024-04-17 03:18 | External Medical Summary | Summary of Care ---
Author Name Unknown Organization [facility] Address [address] [place] [address] Phone [phone] Care Team Providers Care Beef Trimmer Name Role Phone Rogerio Heart MD Primary Care Provide r Reason for Visit * Reason Onset Date Comments Appointment 02/08/2024 Encounter Details Date Type Department Care Team (Late st Contact Info) Description 02/08/[address] [facility] [address] [place], [place] [phone] Services, Scheduling [address] [place] [address] Appointment Allergies Active Allergy Reactions Criticality Noted [...] mRNA, LNP-s, No Pre serve, 2-Dose Series ([employer]) 03/16/2021,02/23/2021 Pneumococcal Conjugate Vacc, 13 Valent (Prevnar) [...] 02/12/2024 9:00 AM EST Office Visit Ophthalmology, [facility] [address] [place] [address] Shawn Contreras, DO [address] [place] [address] 04/19/2024 9:40 AM EST Hospital Encounter OR [facility], Operating Room [facility] [address] [place] [phone] Reece Gastelum, DO [address] [place] [address] 04/19/2024 9:40 AM EST - 04/19/2024 10:05 AM EST Surgery OR [facility], Operating Room [facility] [address] [place] [phone] Reece Gastelum, DO [address] [place] [address] ARTHROCENTESIS OR INJECTION MAJOR JOINT 05/08/2024 9:30 AM EST Office Visit Otolaryngology [facility] [address] [place] [address] James Maldonado DO [address] [place] [address] Chrissy Lee Au.D. [address] [place] [address] Scheduled Procedures Name Priority Associated Diagnoses Date/Ti [...] filedocumented as of this encounter Care Teams Beef Trimmer Relationship Specialty Start Date End Date Rogerio Heart MD [address] [place] [address] [place] [address] PCP - General Family Medicine 01/29/24 documented as of this encounter
--- OUTSIDE RECORDS SUMMARY | 2024-04-17 03:18 | External Medical Summary | Summary of Care ---
Author Name Unknown Organization [facility] Address [address] [place] [address] Phone [phone] Care Team Providers Care Solution Lead Name Role Phone Rogerio Heart MD Primary Care Provide r Reason for Visit * Reason Onset Date Comments Appointment 02/08/2024 Encounter Details Date Type Department Care Team (Late st Contact Info) Description 02/08/2024 Telephone Otolaryngology [facility] [address] [place], [place] [phone] Services, Scheduling [address] [place] [address] Appointment Allergies Active Allergy Reactions Criticality Noted Date Comments Sulfa Antibiotics 03/24/2003 mouth ulcers documented as of this encounter (statuses as of 02/08/2024) Medications Cholecalciferol (VITAMIN D) 1000 UNITS Tablet [...] as of this encounter (statuses as of 02/08/2024) Active Problems Problem Noted Date Diagnosed Date Prediabetes 08/15/2022 Overview: Per Prediabetes protocol Fibromyalgia 06/29/2011 Vitamin D deficiency 07/07/2010 Postmenopausal atrophic vaginitis 10/10/2007 Headache Overview (05/27/2015): ICD-10 update of inactive term documented as of this encounter (statuses as of 02/08/2024) Resolved Problems Problem Noted Date Diagnosed Date Resolved Date Moderate episode of recurren t major depressive disorder 06/10/2019 12/01/2023 Hot flashes 12/03/2014 12/20/2019 Medial epicondylitis 10/10/2007 015 documented as of this encounter (statuses as of 02/08/2024) Immunizations Name Administration Dates Next Due COVID-19 mRNA, LNP-s, No Pre serve, 2-Dose Series ([employer]) 03/16/2021,02/23/2021 Pneumococcal Conjugate Vacc, 13 Valent (Prevnar) [...] encounter Miscellaneous Notes * Telephone Encounter - Audra Jalloh OSA [...] 02/12/2024 9:00 AM EST Office Visit Ophthalmology, [facility] [address] [place] [address] Shawn Contreras, DO [address] [place] [address] 04/19/2024 9:40 AM EST Hospital Encounter OR [facility], Operating Room [facility] [address] [place] [address] Reece Gastelum, DO [address] [place] [phone] 04/19/2024 9:40 AM EST - 04/19/2024 10:05 AM EST Surgery OR [facility], Operating Room [facility] [address] [place] [address] Reece Gastelum, DO [address] [place] [address] ARTHROCENTESIS OR INJECTION MAJOR JOINT 05/08/2024 9:30 AM EST Office Visit Otolaryngology [facility] [address] [place] [address] James Maldonado, DO [address] [place] [address] Chrissy Lee Au.D. [address] [place] [address] Scheduled Procedures Name Priority Associated Diagnoses Date/Ti [...] filedocumented as of this encounter Care Teams Solution Lead Relationship Specialty Start Date End Date Rogerio Heart MD [address] [place] [address] [place] [phone] PCP - General Family Medicine 01/29/24 documented as of this encounter
--- OUTSIDE RECORDS SUMMARY | 2024-04-17 03:18 | External Medical Summary | Summary of Care ---
Author Name Unknown Organization [facility] Address [address] [place] [place] [facility] [place] [address] Phone [phone] Care Team Providers Care Contact Center Rep Name Role Phone Mili Heart MD Primary Care Provide r Reason for Visit * Reason Onset Date Comments Medication Refill 02/16/2024 Encounter Details Date Type Department Care Team (Late st Contact Info) Description 02/16/2024 Refill Family Medicine [address] [phone] Mili Heart MD [address] [place] [phone] Acute frontal sinusitis, recurrence not specified; Ear congestion, left Allergies Active Allergy Reactions Criticality Noted Date Comments Sulfa Antibiotics 03/24/2003 mouth ulcers documented as of this encounter (statuses as of 02/19/2024) Medications Cholecalciferol (VITAMIN D) 1000 UNITS Tablet [...] the morning. 10 Tablet 02/16/20 24 Active predniSONE 20 MG Oral Tablet (Deltasone)Indicat ions:Acute frontal sinusitis, recurrence not specified,Ear congestion, left Take 2 Tablets by mouth in the morning for 5 days. 10 Tablet 01/29/20 24 024 Discontin ued(Refil l) documented as of this encounter (statuses as of 02/19/2024) Active Problems Problem Noted Date Diagnosed Date Prediabetes 08/15/2022 Overview: Per Prediabetes protocol Fibromyalgia 06/29/2011 Vitamin D deficiency 07/07/2010 Postmenopausal atrophic vaginitis 10/10/2007 Headache Overview (05/27/2015): ICD-10 update of inactive term documented as of this encounter (statuses as of 02/19/2024) Resolved Problems Problem Noted Date Diagnosed Date Resolved Date Moderate episode of recurren t major depressive disorder 06/10/2019 12/01/2023 Hot flashes 12/03/2014 12/20/2019 Medial epicondylitis 10/10/2007 015 documented as of this encounter (statuses as of 02/19/2024) Immunizations Name Administration Dates Next Due COVID-19 [...] encounter Miscellaneous Notes * Telephone Encounter - Katie Chisholm CMA - 02/19/2024 9:00 AM ESTSigned Prescriptions: Disp Refills predniSONE 20 MG Oral Tablet (Deltasone) 10 Tab*0 Sig: Take 2 Tablets by mouth in the morning. Authorizing Provider: MILI HEART * Telephone Encounter - Mili Heart MD - 02/16/2024 4:35 PM EST Sent prednisone refill. Recommend she schedule an appointment for recheck. I have not seen her since 2020. * Telephone Encounter - Juhi Mendieta, ent consultant - 02/16/2024 4:23 PM EST Pt is still having issues with ear aches Did you pend patient's preferred pharmacy and medication before forwarding?yes Pharmacy: [id number] [id number] [facility] Pending Prescriptions: Disp Refills predniSONE 20 MG Oral Tablet (Deltasone) 10 Tab*0 Sig: Take 2 Tablets by mouth in the morning. Last Visit: 01/29/2024 (in office), Visit date not found (telemedicine) Next Visit: Visit date not found If no future appointments scheduled, and last appointment is greater than a year ago, please schedule patient for a follow-up appointment Last date the medication was ordered: Is this request for a controlled substance?No Urine Drug Screen:No results found for this or any previous visit. Patient Phone Numbers Labs: Lab Results Component Value Date/Time CREAT [...] 09:23 AM HGBA1C 5.5 05/25/2012 11:05 AM documented in this encounter Plan of Treatment Upcoming Encounters Date Type Department Care Team (Latest Contact Info) Description 04/19/2024 9:40 AM EST Hospital Encounter OR [facility], Operating Room [facility] [address] [place] [address] Reece Gastelum, DO [address] [place] [phone] 04/19/2024 9:40 AM EST - 04/19/2024 10:05 AM EST Surgery OR [facility], Operating Room [facility] [address] [place] [address] Reece Gastelum, DO [address] [place] [address] ARTHROCENTESIS OR INJECTION MAJOR JOINT 05/08/2024 9:30 AM EST Office Visit Otolaryngology [facility] [address] [place] [address] James Maldonado, DO [address] [place] [address] Chrissy Lee Au.D. [address] [place] [address] Scheduled Procedures Name Priority Associated Diagnoses Date/Ti [...] Diagnoses Diagnosis Acute frontal sinusitis, recurrence not specified Ear congestion, left Arthritis of left shoulder region Unspecified arthropathy, shoulder region documented in this encounter Care Teams Contact Center Rep Relationship Specialty Start Date End Date Mili Heart MD [address] [place] [address] [place] [id number] PCP - General Family Medicine 01/29/24 documented as of this encounter
--- OUTSIDE RECORDS SUMMARY | 2024-04-17 03:18 | External Medical Summary | Summary of Care ---
Author Name Unknown Organization [facility] Address [address] [place] [address] Phone [phone] Care Team Providers Care Milk Collector Name Role Phone Unavailable Primary Care Provider Unavailabl e Reason for Visit * Reason Comments Acute Pt c/o left flank pa in, a lot of pressure. Encounter Details Date Type Department Care Team (Late st Contact Info) Description 12/01/2023 8:30 AM EDT Office Visit Family Medicine [address] [phone] [address] [place] [address] Flank pain*; Lipid screening; Prediabetes; Vitamin D deficiency; Dysfunction of both eustachian tubes; Screening for colon cancer; MyCode Research Other*[id number] Allergies Active Allergy Reactions Criticality Noted Date Comments Sulfa Antibiotics 03/24/2003 mouth ulcers documented as of this encounter (statuses as of 01/26/2024) Medications Cholecalciferol (VITAMIN D) 1000 UNITS Tablet [...] Muscle spasms. 20 Tablet 02/26/20 23 Active Vagifem 10 MCG Vaginal TabletIndications: Postmenopausal atrophic vaginitis INSERT ONE TABLET VAGINALLY AT BEDTIME FOR 7 DAYS IN A ROW AND THEN JUST TWICE WEEKLY 32 Tablet 5 08/28/19 24 Active Hydrocortisone (Perianal) 2.5 % External Cream (Anusol-HC)Indicat ions:Hemorrhoids, external without complications Administer into the rectum 2 times a day. 28 g 1 11/22/19 24 Active Fluticasone Propionate 50 MCG/ACT Nasal Suspension (Flonase)Indicatio ns:Dysfunction of both eustachian tubes Administer 2 Sprays into each nostril in the morning. 18.2 mL 5 12/01/19 24 Active Ciprofloxacin HCl 500 MG Oral Tablet (Cipro)Indications :Flank pain Take 1 Tablet by mouth in the morning and 1 Tablet before bedtime. Do all this for 7 days. 14 Tablet 12/01/19 24 024 documented as of this encounter (statuses as of 01/26/2024) Active Problems Problem Noted Date Diagnosed Date Prediabetes 08/15/2022 Overview: Per Prediabetes protocol Fibromyalgia 06/29/2011 Vitamin D deficiency 07/07/2010 Postmenopausal atrophic vaginitis 10/10/2007 Headache Overview (05/27/2015): ICD-10 update of inactive term documented as of this encounter (statuses as of 01/26/2024) Resolved Problems Problem Noted Date Diagnosed Date Resolved Date Moderate episode of recurren t major depressive disorder 06/10/2019 12/01/2023 Hot flashes 12/03/2014 12/20/2019 Medial epicondylitis 10/10/2007 015 documented as of this encounter (statuses as of 01/26/2024) Immunizations Name Administration Dates Next Due COVID-19 mRNA, LNP-s, No Pre serve, 2-Dose Series ([employer]) 03/16/2021,02/23/2021 Pneumococcal Conjugate Vacc, 13 Valent [...] 02/24/2023 Does the household have a re lar source of income? (Household - for ages [...] Sign Reading Time Taken Comments Blood Pressure 112/70 12/01/2023 8:36 AM EDT Pulse 76 12/01/2023 8:36 AM EDT Temperature - - Respiratory Rate - - Oxygen Saturation 98% 12/01/2023 8:36 AM EDT Inhaled Oxygen Concentration - - Weight 63.1 kg (139 lb 3.2 oz) 12/01/2023 8:36 A M EDT Height - - Body Mass Index 24.66 11/22/2023 9:36 AM EDT documented in this encounter Progress Notes * Carole Allen RN - 01/26/2024 8:48 AM EST Contact: Letter Contact Type: Test Results Provider In-Basket: Yes Outcome: see letter sent in mail Face to face time spent with Patient (minutes): 0 Total Time including non face to face (minutes): 10 E Cinthia Lan, DO - 12/01/2023 8:33 AM EDT Subjective: Julianna Dotson is a 73 year old female. Chief Complaint Patient presents with Acute Pt c/o left flank pain, a lot of pressure. HPI: Julianna Dotson presents today for evaluation of left flank pain and suprapubic pain x 1 day. (+) fevers and chills for the past few days. (+) sweats. No nausea or vomiting. No history of kidney stones. She has atrophic vaginitis and uses vagifem twice a week. She also finds that she has pressure in her left ear and feels lightheaded. She has not been seen for routine follow up in some time. PMH: Patient Active Problem List Diagnosis Headache Postmenopausal [...] 2 times a day. 28 g 1 No current facility-administered medications for this visit. Review of patient's allergies indicates: Allergen Reactions Sulfa Antibiotics mouth ulcers Objective: BP 112/70 | Pulse 76 | Wt 63.1 kg (139 lb 3.2 oz) | SpO2 98% | BMI 24.66 kg/m | BSA 1.67 m General: alert, healthy, no distress, well nourished, and well developed Ears: some cerumen, TMs are normal Neck: supple, no adenopathy, thyroid normal size, non-tender, without nodularity Heart: regular rate & rhythm and no murmur Lungs: chest symmetric with normal AP diameter, no chest deformities noted, normal respiratory rateand rhythm, lungs clear to auscultation Abdomen: abdomen soft and (+) some suprapubic tenderness, no flank tenderness Extremities: no joint deformities, effusion, or inflammation, no edema Neuro Exam: alert & oriented x 3 with fluent speech, no focal motor/sensory deficits, gait normal Skin: skin color, texture, turgor are normal, no rashes or significant lesions ASSESSMENT/PLAN: Flank pain (Primary) - UA suggestive of UTI. Send for culture. Start Cipro. Labs as below. - URINALYSIS, POINT OF CARE (ENTER/EDIT) - COMPREHENSIVE METABOLIC PANEL; Future; Expected date: 12/01/2023 - CBC WITH WBC DIFFERENTIAL AND ANEMIA REFLEX WORKUP; Future; Expected date: 12/01/2023 - CULTURE, URINE, QUANTITATIVE - Ciprofloxacin HCl 500 MG Oral Tablet (Cipro); Take 1 Tablet by mouth in the morning and 1 Tablet before bedtime. Do all this for 7 days. Lipid screening - LIPID PANEL WITH DIRECT LDL IF TG IS HIGH; Future; Expected date: 12/01/2023 Prediabetes - HEMOGLOBIN A1C; Future; Expected date: 12/01/2023 Vitamin D deficiency - 25-HYDROXY VITAMIN D; Future; Expected date: 12/01/2023 Dysfunction of both eustachian tubes - Fluticasone Propionate 50 MCG/ACT Nasal Suspension (Flonase); Administer 2 Sprays into each nostril in the morning. Screening for colon cancer - COLOGUARD Check-out note: Labs today. Schedule to establish with new provider. Cinthia Lane DO documented in this encounter Plan of Treatment Upcoming Encounters Date Type Department Care Team (Latest Contact Info) Description 04/19/2024 9:40 AM EST Hospital Encounter OR [facility], Operating Room [facility] [address] [facility] [place] [phone] Reece Gastelum DO [address] [place] [phone] 04/19/2024 9:40 AM EST - 04/19/2024 10:05 AM EST Surgery OR [facility], Operating Room [facility] [address] [place] [phone] Reece Gastelum, DO [address] [place] [phone] ARTHROCENTESIS OR INJECTION MAJOR JOINT Scheduled Orders Name Type Priority Associated Diagnoses Orde r Schedule URINALYSIS, POINT OF CARE (ENTER/EDIT) Point of Care Testing Routine Flank pain Ordered: 12/01/2023 Scheduled Procedures Name Priority Associated Diagnoses Date/Ti [...] history exists DXA Scan 03/27/2026 03/27/2019 Cologuard 01/18/2027 01/19/2024 Colorectal Cancer Screening 01/18/2027 Lipid Panel 11/30/2028 12/01/2023, 07/06, 05/16/2017, Additional [...] Procedure Name Priority Date/Time Associated Diagnosis Comments COLOGUARD Unrestricted Lab 01/19/2024 8:30 AM EST Screening for colon cancer MYCODE SST1 Routine 12/01/2023 9:23 AM EDT MyCode Research Other*[id number] MYCODE INITIAL ADULT-2SST Routine 12/01/2023 9:23 AM EDT MyCode Research Other*[id number] ANEMIA REFLEX CHEMISTRY HOLD Routine 12/01/2023 9:23 AM EDT Flank pain ANEMIA CBC Routine 12/01/2023 9:23 AM EDT Flank pain DIFFERENTIAL, AUTOMATED Routine 12/01/2023 9:23 AM EDT Flank pain MYCODE SUBSEQUENT ADULT Routine 12/01/2023 9:23 AM EDT MyCode Research Other*[id number] DIFFERENTIAL, AUTOMATED Routine 12/01/2023 9:23 AM EDT Flank pain LIPID PANEL WITH DIRECT LDL IF TG IS HIGH Routine 12/01/2023 9:23 AM EDT Lipid screening 25-HYDROXY VITAMIN D Routine 12/01/2023 9:23 AM EDT Vitamin D deficiency HEMOGLOBIN A1C Routine 12/01/2023 9:23 AM EDT Prediabetes COMPREHENSIVE METABOLIC PANEL Routine 12/01/2023 9:23 AM EDT Flank pain CULTURE, URINE, QUANTITATIVE Routine 12/01/2023 8:49 AM EDT Flank pain documented in this encounter Results * COLOGUARD (01/19/2024 8:30 AM EST) COLOGUARD Negative Negative [facility] (CLIA #:[id number]) Comment: NEGATIVE TEST RESULT. A negative Cologuard result indicates a low likelihood that a colorectal cancer (CRC) or advanced adenoma (adenomatous polyps with more advanced pre-malignant features) is present. The chance that a person with a negative Cologuard test has a colorectal cancer is less than 1 in 1500 (negative predictive value >99.9%) or has an advanced adenoma is less than 5.3% (negative predictive value 94.7%). These data are based on a prospective cross-sectional study of 10,000 individuals at average risk for colorectal cancer who were screened with both Cologuard and colonoscopy. (Drew Sherwood et al, N Engl J Med 2014;370(14):1286- 1297) The normal value (reference range) for this assay is negative. COLOGUARD RE-SCREENING RECOMMENDATION: Periodic colorectal cancer screening is an important part of preventive healthcare for asymptomatic individuals at average risk for colorectal cancer. Following a negative Cologuard result, the [place] [employer] Society and U.S. Multi-Society Task Force screening guidelines recommend a Cologuard re-screening interval of 3 years. References: [place] [employer] Guideline for Colorectal Cancer Screening: https://www.cancer.org/cancer/pzyev-jiielm-ekyaua/vkbnjapzg-obvfykoru-drrzism/ac s-rec ommendations.html.; Ravin DK, Mer CR, Michelle HahnK, Colorectal Cancer Screening: Recommendations for Physicians and Patients from the U.S. Multi-Society Task Force on Colorectal Cancer Screening , Am J Gastroenterology 2017; 112:1739-7869. TEST DESCRIPTION: Composite algorithmic analysis of stool DNA-biomarkers with hemoglobin immunoassay. Quantitative values of individual biomarkers are not reportable and are not associated with individual biomarker result reference ranges. Cologuard is intended for colorectal cancer screening of adults of either sex, 45 years or older, who are at average-risk for colorectal cancer (CRC). Cologuard has been approved for use by the U.S. FDA. The performance of Cologuard was established in a cross sectional study of average-risk adults aged 50-84. Cologuard performance in patients ages 45 to 49 years was estimated by sub-group analysis of near-age groups. Colonoscopies performed for a positive result may find as the most clinically significant lesion: colorectal cancer [4.0%], advanced adenoma (including sessile serrated polyps greater than or equal to 1cm diameter) [20%] or non- advanced adenoma [31%]; or no colorectal neoplasia [45%]. These estimates are derived from a prospective cross-sectional screening study of 10,000 individuals at average risk for colorectal cancer who were screened with both Cologuard and colonoscopy. (Drew Sherwood et al, N Engl J Med 2014;370(14):4957-4972.) Cologuard may produce a false negative or false positive result (no colorectal cancer or precancerous polyp present at colonoscopy follow up). A negative Cologuard test result does not guarantee the absence of CRC or advanced adenoma (pre-cancer). The current Cologuard screening interval is every 3 years. ([place] [employer] and U.S. Multi-Society Task Force). Cologuard performance data in a 10,000 patient pivotal study using colonoscopy as the reference method can be accessed at the following location: www.[employer]results. Additional description of the Cologuard test process, warnings and precautions can be found at [email or web address].[email or web address]. Stool 01/19/2024 8:30 AM EST 01/20/2024 7:29 AM EST us Cinthia Lane DO LAB FLUID AND STOOL ORDERABL ES Final Result [employer] [facility] [address], [address] [place] [address], [place] [employer] (CLIA #:[id number]) [address] [place] [address] * ANEMIA REFLEX CHEMISTRY HOLD (12/01/2023 9:23 AM EDT) Blood Venous blood specimen / Unknown Venipuncture / Unknown 12/01/2023 9:23 AM EDT 12/01/2023 9:[address] DO LAB BLOOD ORDERABLES Final R esult [facility] [address] [place] [address] * DIFFERENTIAL, AUTOMATED (12/01/2023 9:23 AM EDT) WBC 6.93 4.00 - 10.80 K/uL 12/01/2023 11:31 PM EDT [facility] Neutrophils % 53.1 40.0 - 75.0 % 12/01/2023 11:31 PM EDT [facility] Lymphocytes % 34.1 18.0 - 42.0 % 12/01/2023 11:31 PM EDT [facility] Monocytes % 8.9 1.0 - 11.0 % 12/01/2023 11:31 PM EDT [facility] Eosinophils % 2.6 0.0 - 6.0 % 12/01/2023 11:31 PM EDT [facility] Basophils % 0.9 0.0 - 2.0 % 12/01/2023 11:31 PM EDT [facility] Immature Granulocytes % 0.4 0.0 - 2.0 % 12/01/2023 11:31 PM EDT [facility] Absolute Neutrophils 3.68 1.80 - 7.70 K/uL 12/01/2023 11:31 PM EDT [facility] Absolute Lymphocytes 2.36 1.00 - 4.80 K/ul 12/01/2023 11:31 PM EDT [facility] Absolute Monocytes 0.62 0.00 - 1.10 K/uL 12/01/2023 11:31 PM EDT [facility] Absolute Eosinophils 0.18 0.00 - 0.70 K/uL 12/01/2023 11:31 PM EDT [facility] Absolute Basophils 0.06 0.00 - 0.20 K/uL 12/01/2023 11:31 PM EDT [facility] Absolute Immature Granulocytes 0.03 0.00 - 0.20 K/uL 12/01/2023 11:31 PM EDT [facility] Blood Venous blood specimen / Unknown Venipuncture / Unknown 12/01/2023 9:23 AM EDT 12/01/2023 9:23 AM EDT Cinthia Balderramaannette Lane DO LAB BLOOD ORDERABLES Final R esult [facility] [address] [place] [address] * ANEMIA CBC (12/01/2023 9:23 AM EDT) WBC 6.93 4.00 - 10.80 K/uL 12/01/2023 11:31 PM EDT [facility] RBC 4.52 3.85 - 5.15 M/uL 12/01/2023 11:31 PM EDT [facility] HGB 13.7 12.0 - 15.3 g/dL 12/01/2023 11:31 PM EDT [facility] Comment: Anemia reflex testing triggers on a HGB < 12.0 for Females and HGB < 13.0 for Males in accordance with the WHO Anemia Guidelines Anemia reflex testing triggers on a HGB < 12.0 for Females and HGB < 13.0 for Males in accordance with the WHO Anemia Guidelines HCT 43.8 36.0 - 45.2 % 12/01/2023 11:31 PM EDT [facility] MCV 96.9 81.5 - 97.5 fL 12/01/2023 11:31 PM EDT [facility] MCH 30.3 27.0 - 34.0 pg 12/01/2023 11:31 PM EDT [facility] MCHC 31.3 32.0 - 36.0 g/dL 12/01/2023 11:31 PM EDT [facility] RDW 13.4 11.5 - 15.5 % 12/01/2023 11:31 PM EDT [facility] PLT 295 140 - 400 K/uL 12/01/2023 11:31 PM EDT [facility] MPV 10.5 6.6 - 11.1 fL 12/01/2023 11:31 PM EDT [facility] nRBCs 0 <=0 /100 WBCs 12/01/2023 11:31 PM EDT LABORATORY C Blood Venous blood specimen / Unknown Venipuncture / Unknown 12/01/2023 9:23 AM EDT 12/01/2023 9:23 AM EDT us Cinthia Contreras Domingo DO LAB BLOOD ORDERABLES Final R esult Performing Organization Address City/[facility]/ZIP Co de Phone Number [facility] [address] [place] [address] * MYCODE SST2 (12/01/2023 9:23 AM EDT) MyCode Specimen Freezing of extracted DNA, whole blood and/or serum. 12/04/2023 10:01 AM EDT [facility] Blood Venous blood specimen / Unknown Venipuncture / Unknown 12/01/2023 9:23 AM EDT 12/01/2023 9:23 AM EDT us Idania Swain CHRA LAB BLOOD ORDERABLES Michelle l Result Performing Organization Address [facility] de Phone Number [facility] [address] [place] [address] * MYCODE SST1 (12/01/2023 9:23 AM EDT) MyCode Specimen Freezing of extracted DNA, whole blood and/or serum. 12/04/2023 10:01 AM EDT [facility] Blood Venous blood specimen / Unknown Venipuncture / Unknown 12/01/2023 9:23 AM EDT 12/01/2023 9:23 AM EDT Idania Ritchie [employer] CHRA LAB BLOOD ORDERABLES Michelle l Result Performing Organization Address City/[facility] Co de Phone Number [facility] [address] [place] [address] * 25-HYDROXY VITAMIN D (12/01/2023 9:23 AM EDT) Pathologist [facility] [place] 25-Hydroxy Vitamin D 30 >19 ng/mL 12/02/2023 1:39 AM EDT [facility] Blood Venous blood specimen / Unknown Venipuncture / Unknown 12/01/2023 9:23 AM EDT 12/01/2023 9:23 AM EDT Narrative [facility] - 12/02/2023 1:39 AM EDT Deficient: <20 ng/mL Insufficient: 20-29 ng/mL Recommended/Optimum:30-50 ng/mL Vitamin D intoxication is rare. If suspicious of Vitamin D toxicity, evaluation of serum Calcium and PTH is recommended. Cinthia Lane LAB BLOOD ORDERABLES Final R esult Performing Organization Address [facility] de Phone Number LABORATORY [address] [address] * (ABNORMAL) HEMOGLOBIN A1C (12/01/2023 9:23 AM EDT) [facility] Hemoglobin A1C 6.0(H) 4.0 - 5.6 % 12/02/2023 1:30 AM EDT [facility] Comment:The use of HbA1c to monitor glycemic status is based on normal hemoglobin and HbA composition. This test should not be used in patients with abnormal hemoglobin that affects the half life of the red blood cell or the in vivo glycation rates. Estimated Average Glucose 126(H) <126 mg/dL 12/02/2023 1:30 AM EDT [facility] Blood Venous blood specimen / Unknown Venipuncture / Unknown 12/01/2023 9:23 AM EDT 12/01/2023 9:[address] DO LAB BLOOD ORDERABLES Final R esult Performing Organization Address [facility] Co de Phone Number LABORATORY [address] [phone] * COMPREHENSIVE METABOLIC PANEL (12/01/2023 9:23 AM EDT) BUN 12 6 - 20 mg/dL 12/02/2023 1:00 AM EDT [facility] CREATININE 0.9 0.5 - 1.0 mg/dL 12/02/2023 1:00 AM EDT [facility] EGFR 72 >=60 mL/min 12/02/2023 1:00 AM EDT [facility] Comment:eGFR is calculated b ased on the CKD-EPI 2020 equation. SODIUM 141 135 - 146 mmol/L 12/02/2023 1:00 AM EDT [facility] POTASSIUM 4.3 3.5 - 5.1 mmol/L 12/02/2023 1:00 AM EDT [facility] CHLORIDE 102 98 - 107 mmol/L 12/02/2023 1:00 AM EDT [facility] CO2 27 22 - 32 mmol/L 12/02/2023 1:00 AM EDT [facility] ANION GAP 12 7 - 15 mmol/L 12/02/2023 1:00 AM EDT [facility] GLUCOSE 93 70 - 120 mg/dL 12/02/2023 1:00 AM EDT [facility] Albumin 4.4 3.8 - 5.0 g/dL 12/02/2023 1:00 AM EDT [facility] AST 26 10 - 35 U/L 12/02/2023 1:00 AM EDT [facility] Alkaline Phosphatase 95 35 - 130 U/L 12/02/2023 1:00 AM EDT [facility] Bilirubin, Total 0.7 <=1.2 mg/dL 12/02/2023 1:00 AM EDT [facility] CALCIUM 10.0 8.4 - 10.2 mg/dL 12/02/2023 1:00 AM EDT [facility] Protein 6.7 6.0 - 8.3 g/dL 12/02/2023 1:00 AM EDT [facility] ALT 31 10 - 35 U/L 12/02/2023 1:00 AM EDT [facility] Blood Venous blood specimen / Unknown Venipuncture / Unknown 12/01/2023 9:23 AM EDT 12/01/2023 9:[address] DO LAB BLOOD ORDERABLES Final R esult [facility] [address] [place] [address] * (ABNORMAL) LIPID PANEL WITH DIRECT LDL IF TG IS HIGH (12/01/2023 9:23 AM EDT) Triglycerides 233(H) <=174 mg/dL 12/02/2023 1:00 AM EDT [facility] Comment: Triglyceride Reference Ranges (mg/dL): <150 Acceptable 150-174 Borderline high 175-499 High >=500 Very high Cholesterol 245(H) <200 mg/dL 12/02/2023 1:00 AM EDT [facility] Comment: Total Cholesterol Reference Ranges (mg/dL): <200 Desirable 200-239 Borderline high >=240 High HDL Cholesterol 56 >49 mg/dL 1:00 AM EDT [facility] Comment: HDL Cholesterol Reference Ranges (mg/dL): >=60 High (Desirable) <50 Low (Undesirable) For Females <40 Low (Undesirable) For Males Non-HDL Cholesterol 189(H) <=159 mg/dL 12/02/2023 1:00 AM EDT [facility] Comment: Non-HDL Cholesterol Reference Range (mg/dL): <100 Target level for high risk ASCVD patient <130 Optimal for general population 130-159 Near optimal for general population 160-189 Borderline High 190-219 High >=220 Very High LDL Cholesterol 142(H) <=129 mg/dL 12/02/2023 1:00 AM EDT [facility] Comment: LDL Cholesterol Reference Ranges (mg/dL): <70 Target level for high risk ASCVD patient <100 Optimal for general population 100-129 Near optimal for general population 130-159 Borderline high 160-189 High >=190 Very high Blood Venous blood specimen / Unknown Venipuncture / Unknown 12/01/2023 9:23 AM EDT 12/01/2023 9:[address] DO LAB BLOOD ORDERABLES Final R esult [facility] [address] [place] [address] * CULTURE, URINE, QUANTITATIVE (12/01/2023 8:49 AM EDT) Culture Growth No significant growth 12/02/2023 4:20 PM EDT [facility] Urine Urine specimen obtained by clean catch procedure / Unknown Non-blood Collection / Unknown 12/01/2023 8:49 AM EDT 12/01/2023 11:[address] DO LAB MICRO - GENERAL ORDERABL ES Final Result [facility] [address] [place] [address] documented in this encounter Visit Diagnoses Diagnosis Flank pain- Primary Abdominal pain, unspecified site Lipid screening Screening for lipoid disorders Prediabetes Other abnormal glucose Vitamin D deficiency Unspecified vitamin D deficiency Dysfunction of both eustachian tubes Dysfunction of Eustachian tube Screening for colon cancer Special screening for malignant neoplasms, colon MyCode Research Other*[id number] Arthritis of left shoulder region Unspecified arthropathy, shoulder region documented in this encounter"
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
--- OUTSIDE RECORDS SUMMARY | 2024-04-17 03:18 | External Medical Summary | Summary of Care ---
Author Name Unknown Organization [facility] Address [address] [facility] [address] Phone [phone] Care Team Providers Care Manufacturing Systems Engineer Name Role Phone Rogerio Heart MD Primary Care Provide r Reason for Referral * Evaluate & Treat - Unlimited Visits (Within 10 days (routine)) - Authorized Specialty Diagnoses / Procedures Referred By Kathy de la torre Referred To Contact Ophthalmology Diagnoses Posterior vitreous detachment of left eye Tunnel vision, bilateral Visual distortions of shape and size Lila Tsang OD [address] [facility] [address] Phone: tel: fax: Referral ID Status Reason Start Date Expiration Date Visits Requested Visits Authorized [id number] Authorized Specialty Services Required 4 [phone] Question Answer Referral Priority Within 10 days (routine) Where should this appointment be scheduled? [facility] Referring for: Ophthalmology Conditions Ophthalmology Conditions Other Ophthalmology (comment) Encounter Details Date Type Department Care Team ([facility] st Contact Info) Description 01/30/2024 Orders Only [facility] [place], [address] Ext *DO NOT REMOVE THIS DEPARTMENT* [place] [id number] Request, External Referral Posterior vitreous detachment of left eye*; Tunnel vision, bilateral; Visual distortions of shape and size Allergies Active Allergy Reactions Criticality Noted Date Comments Sulfa Antibiotics 03/24/2003 mouth ulcers documented as of this encounter (statuses as of 01/30/2024) Medications Cholecalciferol (VITAMIN D) 1000 UNITS Tablet [...] days. 14 Tablet 01/29/20 24 024 Active predniSONE 20 MG Oral Tablet (Deltasone)Indicat ions:Acute frontal sinusitis, recurrence not specified,Ear congestion, left Take 2 Tablets by mouth in the morning for 5 days. 10 Tablet 01/29/20 24 024 Active Fluticasone Propionate 50 MCG/ACT Nasal Suspension (Flonase)Indicatio ns:Acute frontal sinusitis, recurrence not specified,Ear congestion, left Administer 1 [place] into each nostril in the morning and 1 [place] before bedtime. Do all this for 5 days. 18.2 mL 01/29/20 24 024 Active documented as of this encounter (statuses as of 01/30/2024) Active Problems Problem Noted Date Diagnosed Date Prediabetes 08/15/2022 Overview: Per Prediabetes protocol Fibromyalgia 06/29/2011 Vitamin D deficiency 07/07/2010 Postmenopausal atrophic vaginitis 10/10/2007 Headache Overview (05/27/2015): ICD-10 update of inactive term documented as of this encounter (statuses as of 01/30/2024) Resolved Problems Problem Noted Date Diagnosed Date Resolved Date Moderate episode of recurren t major depressive disorder 06/10/2019 12/01/2023 Hot flashes 12/03/2014 12/20/2019 Medial epicondylitis 10/10/2007 015 documented as of this encounter (statuses as of 01/30/2024) Immunizations Name Administration Dates Next Due COVID-19 mRNA, LNP-s, No Pre serve, 2-Dose Series (Flashnotes) 03/16/2021,02/23/2021 Pneumococcal Conjugate Vacc, 13 Valent (Prevnar) [...] [facility], Operating Room [facility] [address] [place] [address] Reece Gastelum, [address] [place] [address] 04/19/2024 9:40 AM EST - 04/19/2024 10:05 AM EST Surgery OR [facility], Operating Room [facility] [address] [place] [address] Reece Gastelum, [address] [place] [address] ARTHROCENTESIS OR INJECTION MAJOR JOINT Scheduled Procedures Name Priority Associated Diagnoses Date/Ti me ARTHROCENTESIS OR INJECTION MAJOR JOINT Arthritis of left shoulder region 04/19/2024 9:40 AM EST Scheduled Referrals Name Type Priority Associated Diagnoses Orde r Schedule ADULT/PEDS OPHTHALMOLOGY/OPTOM [facility] REFERRAL OP Referral Within 10 days (routine) Posterior vitreous detachment of left eye Tunnel vision, bilateral Visual distortions of shape and size Ordered: 01/30/2024 Health Maintenance Due Date Last Done Comments [...] Visit Diagnoses Diagnosis Posterior vitreous detachment of left eye- Primary Vitreous degeneration Tunnel vision, bilateral Visual distortions of shape and size Arthritis of left shoulder region Unspecified arthropathy, shoulder region documented in this encounter Care Teams Manufacturing Systems Engineer Relationship Specialty Start Date End Date Rogerio Heart MD [address] [place] [address] [place] [address] PCP - General Family Medicine 01/29/24 documented as of this encounter
--- OUTSIDE RECORDS SUMMARY | 2024-04-17 03:19 | External Medical Summary ---
Author Name Unknown Address Unknown Organization [id number]:[facility] - [address] [place] [address] Laboratory Report Ordering Provider Test Date Status GIGI WILLIS 12/01/2023 09:23:36 Final Observation Date Value Abnormality Reference (Units ) Status MYCODE SPECIMEN-SST 12/01/2023 09:23:36 Freezing of extracted DNA, whole blood and/or serum. Final Performing Location [facility] - [address] [place] [address]
--- OUTSIDE RECORDS SUMMARY | 2024-04-17 03:19 | External Medical Summary | Summary of Care ---
Author Name Unknown Organization [facility] Address [address] [place] [address] Phone [phone] Care Team Providers Care Nail Machine Operator Name Role Phone Unavailable Primary Care Provider Unavailabl e Reason for Referral * Evaluate & Treat - Unlimited Visits (Within 10 days (routine)) - Authorized Specialty Diagnoses / Procedures Referred By Kathy de la torre Referred To Contact Physical Therapy / Physical Medicine And Rehab Diagnoses Cervical disc disorder with radiculopathy Evaristo Le MD [address] [place] [address] Referral ID Status Reason Start Date Expiration Date Visits Requested Visits Authorized [id number] Authorized Specialty Services Required 10/26/2023 [id number] Question Answer Referral Priority Within 10 days (routine) Where should this appointment be scheduled? [facility] Comments Cervical radiculopathy Left shoulder Rotator cuff tendinitis Neck school Modalities as needed 2 to 3 times a week for 4-6 weeks * Evaluate & Treat - Unlimited Visits (Within 30 days (routine)) - Authorized Specialty Diagnoses / Procedures Referred By Kathy de la torre Referred To Contact Pain Management / Pain Medicine Diagnoses Cervical disc disorder with radiculopathy Evaristo Le MD [address] [place] [address] Referral ID Status Reason Start Date Expiration Date Visits Requested Visits Authorized [id number] Authorized Specialty Services Required 10/26/2023 999 [id number] Question Answer Referral Priority Within 30 days (routine) Where should this appointment be scheduled? [facility] Reason for referral? Interventional Pain Management - (Injection) What condition is the patient being referred for? Cervical Radiculopathy What is the preferred location to have this test performed? [facility] Comments Patient Name: Julianna Dotson Date of : 1950 Department Phone Number: : [phone] (if unable to have a MRI) is recommended if any of the following apply: 1. Patient has neck or back pain with radiation to extremities. A previous MRI will be accepted if symptoms unchanged since prior MRI. 2. Spinal surgery since last MRI. If yes, order a MRI with and without contrast. 3. Hx or ongoing cancer treatment. Patient will need spine x-ray (Ap/Lat) for axial neck or back pain if not done previously. Fax No. [facility] [phone] or contact front line supervisor [phone] Fax No. [facility] [phone] or contact front line supervisor [phone] Fax No. [facility] [phone] or contact front line supervisor [phone] Reason for Visit * Reason Comments Joint Pain Left shoulder * Evaluate & Treat - Unlimited Visits (Within 10 days (routine)) - Authorized Specialty Diagnoses / Procedures Referred By Kathy de la torre Referred To Contact Orthopaedic Surgery / Orthopedics Diagnoses Chronic left shoulder pain Gertrudis Wei DO [address] [place] [address] Referral ID Status Reason Start Date Expiration Date Visits Requested Visits Authorized [id number] Authorized Specialty Services Required 10/25/2023 [id number] Encounter Details Date Type Department Care Team (Late st Contact Info) Description 10/26/2023 9:30 AM EDT Office Visit Orthopaedics [facility] [address] [place] [address] Evaristo Le MD [address] [place] [phone] Cervical disc disorder with radiculopathy*; Rotator cuff impingement syndrome of left shoulder Allergies Active Allergy Reactions Criticality Noted Date Comments Sulfa Antibiotics 03/24/2003 mouth ulcers documented as of this encounter (statuses as of 10/26/2023) Medications Medication Sig Dispensed Refills Start Date End Date Status Cholecalciferol (VITAMIN D) 1000 UNITS Tablet One daily Active Magnesium 400 MG TABS One daily Act luz marina Meloxicam 15 MG Oral TabletIndications:Gen eralized osteoarthritis of multiple sites,Fibromyalgia TAKE 1 TABLET BY MOUTH DAILY FOR PAIN 90 Tablet 04/15/2022 Active Clobetasol Propionate 0.05 % External Ointment (Temovate) Apply topically to affected area 2 times a day for 14 days. To affected area for up to two weeks 15 g 1 06/21/2022 Active Hydrocortisone (Perianal) 2.5 % External Cream (Anusol-HC)Indication s:Hemorrhoids, external without complications Administer into the rectum 2 times a day. 28 g 1 08/02/2022 Active predniSONE 20 MG Oral Tablet (Deltasone)Indication s:Acute pain of left shoulder 2 tablets daily for 5 days then 1 tablet daily 15 Tablet 01/18/2023 Active Additional Information Patient not taking.Reported on 02/25/2023 Cyclobenzaprine HCl 10 MG Oral Tablet (Flexeril)Indications :Acute pain of left shoulder Take 1 Tablet by mouth 2 times a day as needed for Muscle spasms. 20 Tablet 02/25/2023 Active Vagifem 10 MCG Vaginal TabletIndications:Pos tmenopausal atrophic vaginitis INSERT ONE TABLET VAGINALLY AT BEDTIME FOR 7 DAYS IN A ROW AND THEN JUST TWICE WEEKLY 32 Tablet 5 08/28/2023 Active documented as of this encounter (statuses as of 10/26/2023) Active Problems Problem Noted Date Diagnosed Date Prediabetes 08/15/2022 Overview: Per Prediabetes protocol Moderate episode of recurrent major depressive d isorder 06/10/2019 Fibromyalgia 06/29/2011 Vitamin D deficiency 07/07/2010 Postmenopausal atrophic vaginitis 10/10/2007 Headache Overview: ICD-10 update of inactive term documented as of this encounter (statuses as of 10/26/2023) Resolved Problems Problem Noted Date Diagnosed Date Resolved Date Hot flashes 12/03/2014 12/20/2019 Medial epicondylitis 10/10/2007 015 documented as of this encounter (statuses as of 10/26/2023) Immunizations Name Administration Dates Next Due COVID-19 mRNA, LNP-s, No Pre serve, 2-Dose Series (Pfizer) 03/16/2021,02/23/2021 Pneumococcal Conjugate Vacc, 13 Valent (Prevnar) 12/21/2015 Pneumococcal Polysaccharide PPV23 (Pneumovax) Season Influenza, Quad, PF, Adjuvanted, 65+ Yrs, IM (FLUAD) 12/20/2019 Seasonal Influenza, PF, 6 M & above, IM , (FluLaval or Fluzone) 02/22/2017 Seasonal Influenza, Quadrivalent Hd (Fluzone Hd) 02/22/2021 Seasonal Influenza, Quadrivalent, No Preserve, I M 12/08/2015 Seasonal Influenza, Split, IIV3, With Preserve, Inj 01/04/2009 Seasonal Influenza, Trivalent, Adjuvanted, 65+ y rs 12/07/2018 TDAP, Age 7 and older, IM [...] No 02/24/2023 Does the household have a karmanos cancer centerr source of income? (Household - for ages [...] ages 0-17 years) Not on file 02/24/2023 Sex and Gender Information Value Date Recorded Sex Assigned at Female 02/24/2023 11:50 AM EST Gender Identity Female 02/24/2023 11:50 AM EST Sexual Orientation Straight 02/24/2023 11 :50 AM EST Job Start Date Occupation Industry Not on file Not on file Not on file documented as of this encounter Progress Notes * Evaristo Le MD - 10/26/2023 1:49 PM EDT CHIEF COMPLAINT: Chief Complaint Patient presents with Joint Pain Left shoulder Impression: (M50.10) Cervical disc disorder with radiculopathy (primary encounter diagnosis) (M75.42) Rotator cuff impingement syndrome of left shoulder Plan: We discussed the diagnosis and treatment options with the patient today. The patient's symptoms are consistent with cervical radiculopathy'. We will recommend that this time that the patient undergo a course of physical therapy for her neck and her arm. Patient would benefit from seeing non operative spine for evaluation and treatment management of the cervical radiculopathy. Follow Up: Return for Referral to nonoperative spine. | For: Referral to nonoperative spine There are no Patient Instructions on file for this visit. HISTORY OF PRESENT ILLNESS: Julianna Dotson is a 73 year old right hand dominant female who presents to orthopedic Sports Medicine for consultation at the request of Dr. Wei to us with a history of left shoulder pain and arm numbness. Patient states she has had burning in the arm and pain in the shoulder region. She denies any recent injury. Patient states that she did fall in December when she started having symptoms. She states she was falling from a ladder and grabbed an object and held on with her left arm. Since then she has had pain. Patient was seen by her primary care and underwent x-rays and a recent MRIscan. Wakes at night? yes. Physical Therapy? no. Injections? no. Nursing Notes: Skye Oropeza LPN 10/26/23 0932 Signed Ref by Gertrudis Wei DO for left shoulder pain. States she fell last DEC 2022. Pt is RHD. MRI 10/13/23. Pt enjoys working in her yard. Skye Abdi LPN Past Surgical History: Procedure Laterality Date CARPAL TUNNEL SURGERY 1981 right INCISION OF EARDRUM 2009 bilateral myringotomy tubes-Dr. Hendricks LAPAROSCOPY; CHOLECYSTECTOMY 1994 REMOVAL OF TONSILS, UNDER AGE 11 Tonsils Removal,<12 Y/O SINUS SURGERY PROCEDURE NEC 2008 Dr. Hendricks TOTAL HYSTERECTOMY 1987 marysol/bso endometriosis US ABDOMEN LIMITED 02/14/12 cholecystectomy, otherwise normal Review of patient's allergies indicates: Allergen Reactions Sulfa Antibiotics mouth ulcers Current Outpatient Medications Medication Sig Dispense Refill [...] up to two weeks 15 g 1 Hydrocortisone (Perianal) 2.5 % External Cream (Anusol-HC) Administer into the rectum 2 times a day. 28 g 1 predniSONE 20 MG Oral Tablet (Deltasone) 2 tablets daily for 5 days then 1 tablet daily (Patient not taking: Reported on 02/25/2023) 15 Tablet 0 Cyclobenzaprine HCl 10 MG Oral Tablet (Flexeril) Take 1 Tablet by mouth 2 times a day as needed forMuscle spasms. 20 Tablet 0 Vagifem 10 MCG Vaginal Tablet INSERT ONE TABLET VAGINALLY AT BEDTIME FOR 7 DAYS IN A ROW AND THEN JUST TWICE WEEKLY 32 Tablet 5 No current facility-administered medications for this visit. Social History Socioeconomic History Marital status: Spouse name: Gonzales Number of children: 3 Occupational History Occupation: CUSTOMER SERVICE Employer: [employer] Comment: soo - quit this job Occupation: [employer] Tobacco Use Smoking status: Never Smokeless tobacco: Never Substance and Sexual Activity Alcohol use: Yes Comment: occ--less than 1 -2 wine coolers per wk Drug use: No Sexual activity: Yes Partners: Male Social History Narrative Graduated from [employer] 1968 Social Determinants of Health Financial Resource Strain: Low Risk (02/24/2023) Financial Resource Strain Do you have any trouble paying for your medications, or do you think you might in the future? (Adult - for ages 18 years and over): No Food Insecurity: No Food Insecurity (02/24/2023) Food Insecurity Do you need food for this week? (Adult - for ages 18 years and over): No Transportation Needs: No Transportation Needs (02/24/2023) Transportation Needs Do you have trouble getting a ride to medical visits or work? (Adult - for ages 18 years and over):Never True Social Connections: Socially Integrated (02/24/2023) Social Connections How often do you feel lonely or isolated from those around you? (Adult - for ages 18 years and over): Sometimes Housing Stability: Low Risk (02/24/2023) Housing Stability Do you currently live in a mcfp or have no steady place to sleep at night? (Adult - for ages 18 years and over): No Do you think you are at risk of becoming homeless? (Adult - for ages 18 years and over): No Family History Problem Relation Name Age of Onset Cancer Mother uterine, colon Cancer Father ca on face--polyps in sinuses Allergies Father No Past Hx Brother No Past Hx Daughter No Past Hx Daughter No Past Hx Son Past Medical History: Diagnosis Date Chronic sinusitis Endometriosis Postmenopausal atrophic vaginitis Tattoo left arm Vitamin D deficiency ROS: Constitional: No change in weight, No weakness, No fatigue, and No fevers, sweats, or chills Skin: No edema, No rash, and No itching Psychiatric: No depression, No anxiety, and No psychosis Xray: I personally reviewed the xrays. The patient underwent appropriate outlet Y and true AP of the shoulder x-rays today. Those x-rays show no evidence fracture, no dislocation, no evidence of loose bodies. No evidence of proximal humeral head migration. There is evidence of mild inferior humeralhead osteophyte formation consistent with mild degenerative changes. Patient underwent x-rays of the cervical spine today. The x-rays of the cervical spine show evidence of significant disc degeneration at C4-5, C5-6 and C6-7. There is no evidence of retrolisthesis noevidence of fracture no evidence of spondylolisthesis MRI: Patient underwent an MRI scan of the left shoulder on 10/13/2023 by her primary care. The MRI scan shows evidence of rotator cuff tendinopathy without any evidence of tearing. There is mild glenohumeral degenerative changes. PHYSICAL EXAM: General: generally well-nourished and in no acute distress HEENT: normocephalic, atraumatic, EOMI, sclera anicteric. Psych: mood and affect normal , cooperative Card: Peripheral pulses: normal in affected extremity (s) Resp: equal chest rise, non-tachypneic, non-labored breathing Skin: no rash, normal Neuro: Coordination: normal; Sensation: normal on affected extremity (s) Skin: normal. C-Spine evaluation: Does patient have neck symptoms and/or numbness/tingling in upper extremities: yes - Pain with active ROM: Yes Pain with palpation of the C-Spine: Yes Compression test: No Inspection: bilateral and symmetrical without apparent abnormality Shoulder ROM: ABD (170') - Right - 170 degrees Left - 140 degrees ER (40') - Bilateral and equal Passive ER -Bilateral and equal IR (T10) - right T12 left L5 FF (180') - Right - 170 degrees Left - 100 degrees Scapular elevation with forward flexion:negativeBilateral Tenderness/Location: yes - SS and Traps/Levs Inspection AC Joint Prominence: normal Cross-arm maneuver: positive Impingement sign: positive Sulcus sign: negative Lift-off test: negative Apprehension:negative [place]'s test: negative Load and shift: negative Speed's test: negative Drop-arm test: negative Instability Testing: Shoulder instability testing: not examined negative scapular winging negative scapular dyskinesis Strength: ABD: Right - 5/5 Left - 5/5 ER: Right - 5/5 Left - 5/5 IR: Right - 5/5 Left - 5/5 Biceps: Right - 5/5 Left - 5/5 "Empty can": Right - 5/5 Left - 5/5 Neurovascular assessment: negative for deficit Neck ROM: Extension 10 degree with pain Flexion to the chest Spurlings test: Right positive Left positive Lateral bending and rotation pain: right positive left positive TTP: negative Ligamentous laxity testing: negative Bilateral Evaristo Le MD Orthopaedics [address] [address] Orthopedic Sports Medicine Surgery 10/26/2023 1:49 PM This chart was completed in part utilizing [employer] Speech Voice Recognition Software. Grammatical errors, random word insertions, pronoun errors, and incomplete sentences are an occasional consequence of this system due to software limitations, ambient noise, and hardware issues. Any formal questions or concerns about the content, text, or information contained within the body of this dictation should be directly addressed to the provider for clarification. documented in this encounter Nursing Notes * Skye Oropeza LPN - 10/26/2023 9:28 AM EDT Ref by Gertrudis Wei DO for left shoulder pain. States she fell last DEC 2022. Pt is RHD. MRI 10/13/23. Pt enjoys working in her yard. Skye Abdi LPN documented in this encounter Plan of Treatment Upcoming Encounters Date Type Department Care Team (Late st Contact Info) Description 11/22/2023 9:40 AM EDT Office Visit Family Medicine [address] [place] [phone] Ayaka Sewell PA-C [address] [place] [address] [place] [address] 12/21/2023 1:30 PM EDT Office Visit [facility], [facility] [address] [place] [address] Reece Gastelum DO [address] [place] [address] Pending Results Name Type Priority Associated Diagnoses Date /Time XR SHOULDER, 2 OR MORE VIEWS Medical Imaging Routine 10/26/2023 9:42 AM EDT XR C SPINE 4-5 VIEWS Medical Imaging Routine 10/26/2023 10:30 AM EDT Scheduled Referrals Name Type Priority Associated Diagnoses Orde r Schedule PAIN MEDICINE REFERRAL OP Referral Within 30 days (routine) Cervical disc disorder with radiculopathy Ordered: 10/26/2023 PHYSICAL THERAPY REFERRAL OP Referral Within 10 days (routine) Cervical disc disorder with radiculopathy Ordered: 10/26/2023 Health Maintenance Due Date Last Done Comments Hepatitis C Screening 1967 Cologuard 1994 Colonoscopy 1994 Sigmoidoscopy 1994 Colorectal Cancer Screening 04/19/2011 Fecal Occult Blood Test 04/19/2011 04/19/2010 Depression Monitoring 12/19/2020 12/20/2019 COVID-19 Vaccine (3 - Pfizer risk series) 04/13/2021 03/16/2021, 02/23/2021 Mammogram 06/01/2023 05/31/2022, 12/04, 04/27/2017, Additional history exists HbA1c 08/03/2023 08/02/2022, 07/04, 06/08/2021, Additional history exists Influenza Vaccine (FLU shot) (#1) 2023 02/22/2021, 12/20/2019, 12/07/2018, Additional history exists DTaP,Tdap,and Td Vaccines (3 - Td or Tdap) 12/30/2023 12/29/2013, 10/10/2007, 07/04/1993 DXA Scan 03/27/2026 03/27/2019 Lipid Panel 08/03/2027 08/02/2022, 05/04, 02/10/2010, Additional history exists Pneumococcal Vaccine: 65+ Years [...] as of this encounter Visit Diagnoses Diagnosis Cervical disc disorder with radiculopathy- Primary Brachial neuritis or radiculitis nos Rotator cuff impingement syndrome of left shoulder documented in this encounter
--- OUTSIDE RECORDS SUMMARY | 2024-04-17 03:19 | External Medical Summary | Summary of Care ---
Author Name Unknown Organization [facility] Address [address] [place] [address] Phone [phone] Care Team Providers Care Rn Hospice Name Role Phone Unavailable Primary Care Provider Unavailabl e Reason for Referral * Precert (Within 10 days (routine)) - Authorized Specialty Diagnoses / Procedures Referred By Contac t Referred To Contact Pain Medicine Diagnoses Arthropathy of left shoulder Procedures ARTHROCENT ASP &/OR INJ MAJOR JX/BURSA W/O Candy Lau MD [address] [place] [address] Referral ID Status Reason Start Date Expiration Date V isits Requested Visits Authorized [id number] Authorized 01/10/2024 999 [id number] Reason for Visit * Reason Comments Pain * Precert (Within 30 days (routine)) - Authorized Specialty Diagnoses / Procedures Referred By Contac t Referred To Contact Pain Medicine Diagnoses Primary osteoarthritis, left shoulder Procedures [place] ARTHROCENTESIS ASPIR&/INJ MAJOR JT/BURSA W/O Candy Lau MD [address] [place] [address] [facility] [address] [place] [address] Referral ID Status Reason Start Date Expiration Date V isits Requested Visits Authorized [id number] Authorized Precert 12/15/2023 03/16/2024 999 [id number] Encounter Details Date Type Department Care Team (Late st Contact Info) Description 01/10/2024 11:25 AM EST Office Visit [facility] [address] [place] [address] Candy Rose MD [address] [place] [address] [place] [address] Arthropathy of left shoulder* Allergies Active Allergy Reactions Criticality Noted Date Comments Sulfa Antibiotics 03/24/2003 mouth ulcers documented as of this encounter (statuses as of 01/10/2024) Medications Medication Sig Dispensed Refills Start Date [...] two weeks 15 g 1 06/21/2022 Active Cyclobenzaprine HCl 10 MG Oral Tablet (Flexeril)Indications :Acute pain of left shoulder Take 1 Tablet by mouth 2 times a day as needed for Muscle spasms. 20 Tablet 02/25/2023 Active Vagifem 10 MCG Vaginal TabletIndications:Pos tmenopausal atrophic vaginitis INSERT ONE TABLET VAGINALLY AT BEDTIME FOR 7 DAYS IN A ROW AND THEN JUST TWICE WEEKLY 32 Tablet 5 08/28/2023 Active Hydrocortisone (Perianal) 2.5 % External Cream (Anusol-HC)Indication s:Hemorrhoids, external without complications Administer into the rectum 2 times a day. 28 g 1 11/22/2023 Active Fluticasone Propionate 50 MCG/ACT Nasal Suspension (Flonase)Indications: Dysfunction of both eustachian tubes Administer 2 Sprays into each nostril in the morning. 18.2 mL 5 12/01/2023 Active Rosuvastatin Calcium 10 MG Oral Tablet (Crestor) Take 1 Tablet by mouth in the morning. 90 Tablet 3 12/25/2023 Active documented as of this encounter (statuses as of 01/10/2024) Active Problems Problem Noted Date Diagnosed Date Prediabetes 08/15/2022 Overview: Per Prediabetes protocol Fibromyalgia 06/29/2011 Vitamin D deficiency 07/07/2010 Postmenopausal atrophic vaginitis 10/10/2007 Headache Overview: ICD-10 update of inactive term documented as of this encounter (statuses as of 01/10/2024) Resolved Problems Problem Noted Date Diagnosed Date Resolved Date Moderate episode of recurren t major depressive disorder 06/10/2019 12/01/2023 Hot flashes 12/03/2014 12/20/2019 Medial epicondylitis 10/10/2007 015 documented as of this encounter (statuses as of 01/10/2024) Immunizations Name Administration Dates Next Due COVID-19 [...] as of this encounter Progress Notes * Candy Rose MD - 01/10/2024 11:59 AM EST Julianna Dotson : 1950 Today's date: 01/10/24 PREOP DIAGNOSIS: Severe shoulder pain and bursitis POSTOP DIAGNOSIS: Same. Procedure Date: 01/10/24 PROCEDURE: Left shoulder SA/SD bursa injection with steroid. ANESTHESIA: Local. SURGEON: Yemi Rose M.D. INDICATION: Pt has chronic left shoulder pain from arthritis and bursitis. Has tried all conservative treatment without significant relief. Therefore presented for SA/SD bursa injection with steroid. CONSENT: Discussed the risk versus benefit of the procedure. Risks are including but not limiting to infection, bleeding, inadvertent intravenous injection of local anesthetic, severe allergic reaction and failure to relief the pain. Patient fully understood and signed the consent prior to procedure. DESCRIPTION OF PROCEDURE; After informed consent was obtained, patient was positioned in seated position with affected arm relaxed and flexed. Posterolateral subacrominal tuberosity was palpated and marked. Marked area is then prepped and draped in standard sterile fashion. Identified subacrominal s pace. Then inserted 25 ga, 1.5 inches long needle into subacrominal bursa using an in plane approach in an anteromedial direction. Aspiration showed no blood. Injected 40 mg of Kenelog mixed with 3 cc of 0.5% bupivacaine without difficulty into the subacromial bursa. The needle was then withdrawn and no bleeding was noted. The area was then dressed appropriately. COMPLICATIONS: None documented in this encounter Nursing Notes * Misa Persaud LPN - 01/10/2024 11:40 AM EST Patient here for left shoulder bursa injection documented in this encounter Plan of Treatment Upcoming Encounters Date Type Department Care Team (Latest Contact Info) Description 04/19/2024 9:40 AM EST Hospital Encounter [facility], Operating [facility] [address] [place] [address] Reece Gastelum, DO [address] [place] [address] 04/19/2024 9:40 AM EST - 04/19/2024 10:05 AM EST Surgery OR [facility], Operating [facility] [address] [place] [phone] Reece Gastelum, DO [address] [place] [address] ARTHROCENTESIS OR INJECTION MAJOR JOINT Scheduled Orders Name Type Priority Associated Diagnoses Orde r Schedule ARTHROCENT ASP &/OR INJ MAJOR JX/BURSA W/O US Procedures Routine Arthropathy of left shoulder Ordered: 01/10/2024 Scheduled Procedures Name Priority Associated Diagnoses Date/Ti [...] Additional history exists DXA Scan 03/27/2026 03/27/2019 Lipid Panel 11/30/2028 12/01/2023, 07/06, 05/16/2017, Additional [...] as of this encounter Visit Diagnoses Diagnosis Arthropathy of left shoulder- Primary Arthritis of left shoulder region Unspecified arthropathy, shoulder region documented in this encounter
--- OUTSIDE RECORDS SUMMARY | 2024-04-17 03:19 | External Medical Summary | Summary of Care ---
Author Name Unknown Organization [facility] Address [address] [place] [address] Phone [phone] Care Team Providers Care Battery Technician Name Role Phone Unavailable Primary Care Provider Unavailabl e Reason for Visit * Reason Comments Acute Pt c/o left flank pa in, a lot of pressure. Encounter Details Date Type Department Care Team (Late st Contact Info) Description 12/01/2023 8:30 AM EDT Office Visit Family Medicine [address] [phone] [address] [place] [address] Flank pain*; Lipid screening; Prediabetes; Vitamin D deficiency; Dysfunction of both eustachian tubes; Screening for colon cancer; MyCode Research Other*[id number] Allergies Active Allergy Reactions Criticality Noted Date Comments Sulfa Antibiotics 03/24/2003 mouth ulcers documented as of this encounter (statuses as of 12/01/2023) Medications Medication Sig Dispensed Refills Start Date [...] a day. 28 g 1 11/22/2023 Active Ciprofloxacin HCl 500 MG Oral Tablet (Cipro)Indications:Fl ank pain Take 1 Tablet by mouth in the morning and 1 Tablet before bedtime. Do all this for 7 days. 14 Tablet 12/01/2023 12/08/2023 Active Fluticasone Propionate 50 MCG/ACT Nasal Suspension (Flonase)Indications: Dysfunction of both eustachian tubes Administer 2 Sprays into each nostril in the morning. 18.2 mL 5 12/01/2023 Active documented as of this encounter (statuses as of 12/01/2023) Active Problems Problem Noted Date Diagnosed Date Prediabetes 08/15/2022 Overview: Per Prediabetes protocol Fibromyalgia 06/29/2011 Vitamin D deficiency 07/07/2010 Postmenopausal atrophic vaginitis 10/10/2007 Headache Overview: ICD-10 update of inactive term documented as of this encounter (statuses as of 12/01/2023) Resolved Problems Problem Noted Date Diagnosed Date Resolved Date Moderate episode of recurren t major depressive disorder 06/10/2019 12/01/2023 Hot flashes 12/03/2014 12/20/2019 Medial epicondylitis 10/10/2007 015 documented as of this encounter (statuses as of 12/01/2023) Immunizations Name Administration Dates Next Due COVID-19 mRNA, LNP-s, No Pre serve, 2-Dose Series ([employer]) 03/16/2021,02/23/2021 Pneumococcal Conjugate Vacc, 13 Valent (Prevnar) 12/21/2015 Pneumococcal Polysaccharide PPV23 (Pneumovax) Season Influenza, Quad, PF, Adjuvanted, 65+ Yrs, IM (FLUAD) 12/20/2019 Seasonal Influenza, PF, 6 M & above, IM , (FluLaval or Fluzone) 02/22/2017 Seasonal Influenza, Quadrivalent Hd (Fluzone Hd) 02/22/2021 Seasonal Influenza, Quadrivalent, No Preserve, I M 12/08/2015 Seasonal Influenza, Trivalen t, (IIV3), with Preserv, (Fluzone) 01/04/2009 Seasonal Influenza, Trivalen t, Adjuvanted, 65+ YRS, [...] documented in this encounter Progress Notes * Cinthia Lane, - 12/01/2023 8:33 AM EDT Subjective: Julianna [...] AM EST Office Visit Interventional Pain Center, [facility] [address] [facility] [place] [address] Candy Rose MD [address] [place], [place] [address] [address] Pending Results Name Type Priority Associated Diagnoses Date /Time LIPID PANEL WITH DIRECT LDL IF TG IS HIGH Lab Routine Lipid screening 12/01/2023 9:23 AM EDT COMPREHENSIVE METABOLIC PANEL Lab Routine Flank pain 12/01/2023 9:23 AM EDT HEMOGLOBIN A1C Lab Routine Prediabetes 12/01/2023 9:23 AM EDT CBC WITH WBC DIFFERENTIAL AND ANEMIA REFLEX WORKUP Lab Routine Flank pain 12/01/2023 9:23 AM EDT 25-HYDROXY VITAMIN D Lab Routine Vitamin D deficiency 12/01/2023 9:23 AM EDT MYCODE SUBSEQUENT ADULT Lab Routine My[employer] Research Other*[id number] 12/01/2023 9:23 AM EDT MYCODE SST1 Lab Routine [employer] Research Other*[id number] 12/01/2023 9:23 AM EDT MYCODE SST2 Lab Routine My[employer] Research Other*[id number] 12/01/2023 9:23 AM EDT ANEMIA CBC Lab Routine Flank pain 12/01/2023 9:23 AM EDT DIFFERENTIAL, AUTOMATED Lab Routine Flank pain 12/01/2023 9:23 AM EDT ANEMIA REFLEX CHEMISTRY HOLD Lab Routine Flank pain 12/01/2023 9:23 AM EDT Scheduled Orders Name Type Priority Associated Diagnoses Order Schedule URINALYSIS, POINT OF CARE (ENTER/EDIT) Point of Care Testing Routine Flank pain Ordered: 12/01/2023 LIPID PANEL WITH DIRECT LDL IF TG IS HIGH Lab Routine Lipid screening Expected: 12/01/2023, Expires: 11/30/2024 COMPREHENSIVE METABOLIC PANEL Lab Routine Flank pain Expected: 12/01/2023 (Approximate), Expires: 11/30/2024 HEMOGLOBIN A1C Lab Routine Prediabetes Expected: 12/01/2023 (Approximate), Expires: 11/30/2024 CBC WITH WBC DIFFERENTIAL AND ANEMIA REFLEX WORKUP Lab Routine Flank pain Expected: 12/01/2023 (Approximate), Expires: 11/30/2024 25-HYDROXY VITAMIN D Lab Routine Vitamin D deficiency Expected: 12/01/2023 (Approximate), Expires: 11/30/2024 CULTURE, URINE, QUANTITATIVE Lab Routine Flank pain Ordered: 12/01/2023 COLOGUARD Lab Unrestricted Lab Screening for colon cancer Ordered: 12/01/2023 Health Maintenance Due Date Last Done Comments [...] as of this encounter Visit Diagnoses Diagnosis Flank pain- Primary Abdominal pain, unspecified site Lipid screening Screening for lipoid disorders Prediabetes Other abnormal glucose Vitamin D deficiency Unspecified vitamin D deficiency Dysfunction of both eustachian tubes Dysfunction of Eustachian tube Screening for colon cancer Special screening for malignant neoplasms, colon MyCode Research Other*[id number] documented in this encounter"
--- OUTSIDE RECORDS SUMMARY | 2024-04-17 03:19 | External Medical Summary | Summary of Care ---
Author Name Unknown Organization [facility] Address [address] [facility] [address] Phone [phone] Care Team Providers Care Collar Setter Overlock Name Role Phone Unavailable Primary Care Provider Unavailabl e Reason for Visit * Reason Onset Date Comments Advice 12/19/2023 Encounter Details Date Type Department Care Team (Late st Contact Info) Description 12/19/2023 Telephone Family Medicine [address] [phone] [address] [place] [address] Advice Allergies Active Allergy Reactions Criticality Noted Date Comments Sulfa Antibiotics 03/24/2003 mouth ulcers documented as of this encounter (statuses as of 12/20/2023) Medications Medication Sig Dispensed Refills Start Date [...] the morning. 18.2 mL 5 12/01/2023 Active Atorvastatin Calcium 20 MG Oral Tablet (Lipitor) Take 1 Tablet by mouth in the morning. 90 Tablet 3 12/05/2023 Active documented as of this encounter (statuses as of 12/20/2023) Active Problems Problem Noted Date Diagnosed Date Prediabetes 08/15/2022 Overview: Per Prediabetes protocol Fibromyalgia 06/29/2011 Vitamin D deficiency 07/07/2010 Postmenopausal atrophic vaginitis 10/10/2007 Headache Overview: ICD-10 update of inactive term documented as of this encounter (statuses as of 12/20/2023) Resolved Problems Problem Noted Date Diagnosed Date Resolved Date Moderate episode of recurren t major depressive disorder 06/10/2019 12/01/2023 Hot flashes 12/03/2014 12/20/2019 Medial epicondylitis 10/10/2007 015 documented as of this encounter (statuses as of 12/20/2023) Immunizations Name Administration Dates Next Due COVID-19 mRNA, LNP-s, No Pre serve, 2-Dose Series ([employer]) 03/16/2021,02/23/2021 Pneumococcal Conjugate Vacc, 13 Valent (Prevnar) [...] encounter Miscellaneous Notes * Telephone Encounter - Susanne Desir RN - 12/20/2023 7:47 AM EDT We have some trainees at the desktop publishing specialist currently, but the desktop publishing specialist staff would have sent it out.It may take a few weeks to get the results * Telephone Encounter - Yris Vaughan OSA - 12/19/2023 12:59 PM EDT Pt calling in states she did a cologuard test, handed it in the very same day it was ordered (12.01.2023) at the [facility] publishing [facility] like she was told, and states now she's getting messages stating ben never received the cologuard. She's just trying to figure out what's going on because when she handed it to the tower hand, the tower hand didn't know what to do with it. documented in this encounter Plan of Treatment Upcoming Encounters Date Type Department Care Team (Late st Contact Info) Description 01/10/2024 11:25 AM EST Office Visit [facility] Center, [address] [place] [address] Candy Rose MD [address] [place] [address] [place] [address] Health Maintenance Due Date Last Done Comments [...]
--- OUTSIDE RECORDS SUMMARY | 2024-04-17 03:19 | External Medical Summary | Summary of Care ---
Author Name Unknown Organization [facility] Address [address] [place] [address] Phone [phone] Care Team Providers Care Retail Customer Service Specialist Name Role Phone Unavailable Primary Care Provider Unavailabl e Encounter Details Date Type Department Care Team (Late st Contact Info) Description 11/21/2023 Orders Only Outcomes Research Department [address] [place], [place] [phone] Idania Swain CHRA [employer] Research Other*[id number] Allergies Active Allergy Reactions Criticality Noted Date Comments Sulfa Antibiotics 03/24/2003 mouth ulcers documented as of this encounter (statuses as of 11/21/2023) Medications Medication Sig Dispensed Refills Start Date [...] a day. 28 g 1 08/02/2022 Active Cyclobenzaprine HCl 10 MG Oral Tablet [...] as of this encounter (statuses as of 11/21/2023) Active Problems Problem Noted Date Diagnosed Date Prediabetes 08/15/2022 Overview: Per Prediabetes protocol Moderate episode of recurrent major depressive d isorder 06/10/2019 Fibromyalgia 06/29/2011 Vitamin D deficiency 07/07/2010 Postmenopausal atrophic vaginitis 10/10/2007 Headache Overview: ICD-10 update of inactive term documented as of this encounter (statuses as of 11/21/2023) Resolved Problems Problem Noted Date Diagnosed Date Resolved Date Hot flashes 12/03/2014 12/20/2019 Medial epicondylitis 10/10/2007 015 documented as of this encounter (statuses as of 11/21/2023) Immunizations Name Administration Dates Next Due COVID-19 [...] 9:40 AM EDT Office Visit Family Medicine [address] [place] [phone] Ayaka Sewell PA-C [address] [place] [address] [place] [address] 01/10/2024 11:25 AM EST Office Visit Interventional Pain Center, [facility] [address] [facility] [place] [address] Candy Rose MD [address] [place] [address] [place] [address] Scheduled Orders Name Type Priority Associated Diagnoses Orde r Schedule MYCODE SUBSEQUENT ADULT Lab Routine MyCode Research Other*[id number] Every 6 Months for 2 Occurrences starting 11/21/2023 until 12/10/2024 Health Maintenance Due Date Last Done Comments [...] 2023 02/22/2021, 12/20/2019, 12/07/2018, Additional history exists DTap/Tdap Vaccines (3 - [...] as of this encounter Visit Diagnoses Diagnosis MyCode Research Other*[id number] documented in this encounter
--- OUTSIDE RECORDS SUMMARY | 2024-04-17 03:19 | External Medical Summary ---
Author Name Unknown Address Unknown Organization K01:[facility] - [address] [place] [id number] Laboratory Report Ordering Provider Test Date Status VANESA BREEN 12/01/2023 08:49:09 Final Observation Date Value Abnormality Reference (Units) Status Bacteria identified in Specimen by Culture 12/01/2023 08:49:09 No significant growth Final Test: Culture, Urine, Quanti tative
Specimen Source: Urine, Clean Catch
Specimen Type: Urine
Specimen Date: 12/01/2023 0849
Result Date: 12/02/2023 1620
Result Status: Final result
Resulting Lab: [facility]
[address]
[place] [address]

CULTURE

No significant growth

null Performing Location [facility] - [address] [facility] [address]
--- OUTSIDE RECORDS SUMMARY | 2024-04-17 03:19 | External Medical Summary | Summary of Care ---
Author Name Unknown Organization [facility] Address [address] [facility] [address] Phone [phone] Care Team Providers Care Computer Systems Integrator Name Role Phone Unavailable Primary Care Provider Unavailabl e Reason for Visit * Reason Comments Acute Pt c/o left flank pa in, a lot of pressure. Encounter Details Date Type Department Care Team (Late st Contact Info) Description 12/01/2023 8:30 AM EDT Office Visit Family Medicine [address] [phone] [address] [place] [address] Flank pain*; Lipid screening; Prediabetes; Vitamin D deficiency; Dysfunction of both eustachian tubes; Screening for colon cancer; MyCode Research Other*[id number] Allergies Active Allergy Reactions Criticality Noted Date [...] mRNA, LNP-s, No Pre serve, 2-Dose Series ([employer]) 03/16/2021,02/23/2021 Pneumococcal Conjugate Vacc, 13 Valent (Prevnar) [...] AM EST Office Visit Interventional Pain Center, [facility] [address] [facility] [place] [address] Candy Rose MD [address] [place], [place] [address] [address] Pending Results Name Type Priority Associated [...] MYCODE SUBSEQUENT ADULT Lab Routine MyCode Research Other*[id number] 12/01/2023 9:23 AM EDT MYCODE SST1 Lab Routine My[employer] Research Other*[id number] 12/01/2023 9:23 AM EDT MYCODE SST2 Lab Routine MyCode Research Other*[id number] 12/01/2023 9:23 AM EDT ANEMIA CBC Lab [...] screening for malignant neoplasms, colon MyCode Research Other*[id number] documented in this encounter"
--- OUTSIDE RECORDS SUMMARY | 2024-04-17 03:19 | External Medical Summary | Summary of Care ---
Author Name Unknown Organization [facility] Address [address] [facility] [place] [address] Phone [phone] Care Team Providers Care Legal Practice Manager Name Role Phone Unavailable Primary Care Provider Unavailabl e Reason for Visit * Reason Comments Re-Check Encounter Details Date Type Department Care Team (Late st Contact Info) Description 11/22/2023 9:40 AM EDT Office Visit Family Medicine [address] [place] [phone] Ayaka Sewell PA-C [address] [place] [address] [place] [address] Hemorrhoids, external without complications* Allergies Active Allergy Reactions Criticality Noted Date Comments Sulfa Antibiotics 03/24/2003 mouth ulcers documented as of this encounter (statuses as of 11/22/2023) Medications Medication Sig Dispensed Refills Start Date End Date Status Cholecalciferol (VITAMIN D) 1000 UNITS Tablet One daily Active Magnesium 400 MG TABS One daily Active Meloxicam 15 MG Oral TabletIndications:Ge neralized osteoarthritis of multiple sites,Fibromyalgia TAKE 1 TABLET BY MOUTH DAILY FOR PAIN 90 Tablet 04/15/2022 Active Clobetasol Propionate 0.05 % External Ointment (Temovate) Apply topically to affected area 2 times a day for 14 days. To affected area for up to two weeks 15 g 1 06/21/2022 Active Cyclobenzaprine HCl 10 MG Oral Tablet (Flexeril)Indication s:Acute pain of left shoulder Take 1 Tablet by mouth 2 times a day as needed for Muscle spasms. 20 Tablet 02/25/2023 Active Vagifem 10 MCG Vaginal TabletIndications:Po stmenopausal atrophic vaginitis INSERT ONE TABLET VAGINALLY AT BEDTIME FOR 7 DAYS IN A ROW AND THEN JUST TWICE WEEKLY 32 Tablet 5 08/28/2023 Active Hydrocortisone (Perianal) 2.5 % External Cream (Anusol-HC)Indicatio ns:Hemorrhoids, external without complications Administer into the rectum 2 times a day. 28 g 1 11/22/2023 Active Hydrocortisone (Perianal) 2.5 % External Cream (Anusol-HC)Indicatio ns:Hemorrhoids, external without complications Administer into the rectum 2 times a day. 28 g 1 08/02/2022 Discontinue d(Refill) documented as of this encounter (statuses as of 11/22/2023) Active Problems Problem Noted Date Diagnosed Date Prediabetes 08/15/2022 Overview: Per Prediabetes protocol Moderate episode of recurrent major depressive d isorder 06/10/2019 Fibromyalgia 06/29/2011 Vitamin D deficiency 07/07/2010 Postmenopausal atrophic vaginitis 10/10/2007 Headache Overview: ICD-10 update of inactive term documented as of this encounter (statuses as of 11/22/2023) Resolved Problems Problem Noted Date Diagnosed Date Resolved Date Hot flashes 12/03/2014 12/20/2019 Medial epicondylitis 10/10/2007 015 documented as of this encounter (statuses as of 11/22/2023) Immunizations Name Administration Dates Next Due COVID-19 mRNA, LNP-s, No Pre serve, 2-Dose Series ([employer]) 03/16/2021,02/23/2021 Pneumococcal Conjugate Vacc, 13 Valent (Prevnar) [...] Sign Reading Time Taken Comments Blood Pressure 132/72 11/22/2023 9:36 AM EDT Pulse 81 11/22/2023 9:36 AM EDT Temperature 36.1 C (97 F) 11/22/2023 9:36 AM EDT Respiratory Rate - - Oxygen Saturation 96% 11/22/2023 9:36 AM EDT Inhaled Oxygen Concentration - - Weight 62.6 kg (138 lb) 11/22/2023 9:36 AM EDT Height 160 cm (5' 3") 11/22/2023 9:36 AM EDT Body Mass Index 24.45 11/22/2023 9:36 AM EDT documented in this encounter Progress Notes * Ayaka Sewell PA-C - 11/22/2023 10:17 AM EDT Nursing Notes: Lu Kam LPN 11/22/23 0945 Signed Work physical Failed at work due to glucose. Pt here today to have form filled out for work. She states that her sugar was high at her wellness screening. Sugar was 91 and A1C was 5.4. All other labs were ok. Review of patient's allergies indicates: Allergen Reactions Sulfa Antibiotics mouth ulcers Current Outpatient Medications Medication Sig Dispense Refill Hydrocortisone (Perianal) 2.5 % External Cream (Anusol-HC) Administer into the rectum 2 times a day. 28 g 1 Cholecalciferol (VITAMIN D) 1000 UNITS Tablet One [...] vaginitis Tattoo left arm Vitamin D deficiency Social History Socioeconomic History Marital status: Spouse name: Gonzales Number of children: 3 Years of education: Not on file Highest education level: Not on file Occupational History Occupation: [employer] Employer: [employer] Comment: [employer] - quit this job Occupation: [employer] Tobacco Use Smoking status: Never Smokeless tobacco: Never Substance and Sexual Activity Alcohol use: Yes Comment: occ--less than 1 -2 wine coolers per wk Drug use: No Sexual activity: Yes Partners: Male Other Topics Concern Not on file Social History Narrative Graduated from [employer] 1968 Social Determinants of Health Financial Resource [...] Stability Do you currently live in a long term or have no steady place to sleep [...] - for ages0-17 years): Not on file O:Blood pressure 132/72, pulse 81, temperature 36.1 C (97 F), temperature source Tympanic, height 1.6 m (5' 3"), weight 62.6 kg (138 lb), SpO2 96%. GENERAL: alert, healthy, and no distress A:Hemorrhoids, external without complications (Primary) - Hydrocortisone (Perianal) 2.5 % External Cream (Anusol-HC); Administer into the rectum 2 times a day. Form filled out. Any questions/problems, please call. Labs were ok. Follow Up: Return if symptoms worsen or fail to improve. Ayaka Sewell PA-C documented in this encounter Nursing Notes * Lu Kam LPN - 11/22/2023 9:36 AM EDT Work physical Failed at work due to glucose. documented in this encounter Plan of Treatment Upcoming Encounters Date Type Department Care Team (Late st Contact Info) Description 01/10/2024 11:25 AM EST Office Visit Interventional Pain Center, [facility] [address] [facility] [place] [address] Candy Rose MD [address] [place] [address] [place] [address] Health Maintenance Due Date Last Done [...] as of this encounter Visit Diagnoses Diagnosis Hemorrhoids, external without complications- Primary External hemorrhoids without mention of complication documented in this encounter
--- OUTSIDE RECORDS SUMMARY | 2024-04-17 03:19 | External Medical Summary | Summary of Care ---
Author Name Unknown Organization [facility] Address [address] [place] [address] Phone [phone] Care Team Providers Care Content Editor Name Role Phone Unavailable Primary Care Provider Unavailabl e Reason for Referral * Evaluate & Treat - Unlimited Visits (Within 10 days (routine)) - Authorized Specialty Diagnoses / Procedures Referred By Kathy de la torre Referred To Contact Orthopaedic Surgery / Orthopedics Diagnoses Chronic left shoulder pain Gertrudis Wei DO [address] [place] [address] Referral ID Status Reason Start Date Expiration Date Visits Requested Visits Authorized [id number] Authorized Specialty Services Required 10/25/[phone] Question Answer Referral Priority Within 10 days (routine) Where should this appointment be scheduled? [facility] What body part is the patient being seen for? Shoulder What condition is the patient being seen for? Sprain/Strain/Tear/Other Reason for Visit * Reason Onset Date Comments Med Request 10/23/2023 Appointment 10/23/2023 Ortho Encounter Details Date Type Department Care Team (Late st Contact Info) Description 10/23/2023 Telephone Family Medicine [address] [place] [phone] Rogerio Medina MD [address] [place] [address] [place] [phone] Med Request; Appointment (Ortho ) Allergies Active Allergy Reactions Criticality Noted Date [...] Influenza, Trivalent, Adjuvanted, 65+ y rs 12/07/2018 TD - Tetanus/Diptheria (ADULT) 07/04/1993 TDAP, [...] No 02/24/2023 Does the household have a [facility] source [facility] income? (Household - for [...] encounter Miscellaneous Notes * Telephone Encounter - Tiffani Durand OSA - 10/26/2023 8:43 AM EDT Done.10/26/2023 * Telephone Encounter - Pina Grant OSA - 10/25/2023 2:53 PM EDT I left message on patient's VM to call me (RE: Scheduling ortho appt). * Telephone Encounter - Gertrudis Wei DO - 10/25/2023 2:43 PM EDT Referral sent to ortho Her shoulder MRI shows some arthritis. To use tylenol for pain until she sees ortho * Telephone Encounter - Reina Pelayo LPN - 10/24/2023 2:32 PM EDT Routed to Dr. Wei who is at the [facility], not at . * Telephone Encounter - Rogerio Medina MD - 10/23/2023 3:37 PM EDT Ordered by Dr. Gertrudis Wei * Telephone Encounter - Susanne Desir RN - 10/23/2023 2:56 PM EDT Melanie, please call pt, she needs an appt with Dr Medina or establish with another PCP if she prefers ( last seen [address] medina) she saw Dr Wei 02/2023 * Telephone Encounter - Rogerio Medina MD - 10/23/2023 12:08 PM EDT I have not seen this patient since 2020 and did not order the MRI * Telephone Encounter - Narayan Dillon CMA - 10/23/2023 9:10 AM EDT Pt is having pain related to shoulder, requesting to have a medication prescribed for pain. Resultsfor shoulder MRI have not been relayed, please advise. * Telephone Encounter - Fatemeh Hernandez OSA - 10/23/2023 8:38 AM EDT The patient is asking if there is any medication hat she can get sent to the [facility] pharmacy. She is having a lot of pain in her shoulder. She had an MRI 10/13/23. She sis not get any call about followingup from the MRI. documented in this encounter Plan of Treatment Upcoming Encounters Date Type Department Care Team (Late st Contact Info) Description 10/26/2023 9:30 AM EDT Office Visit Orthopaedics [facility] [address] [place] [address] Evaristo Le MD [address] [place] [phone] 11/22/2023 9:40 AM EDT Office Visit Family Medicine [address] [place] [phone] Ayaka Sewell PA-C [address] [place] [address] [place] [address] Scheduled Referrals Name Type Priority Associated Diagnoses Order Schedule ORTHOPAEDICS REFERRAL OP Referral Within 10 days (routine) Chronic left shoulder pain Ordered: 10/25/2023 Health Maintenance Due Date Last Done Comments [...] as of this encounter Visit Diagnoses Diagnosis Chronic left shoulder pain- Primary Pain in joint, shoulder region documented in this encounter
--- OUTSIDE RECORDS SUMMARY | 2024-04-17 03:19 | External Medical Summary | Summary of Care ---
Author Name Unknown Organization [facility] Address [address] [facility] [place] [address] Phone [phone] Care Team Providers Care Fur Grader Name Role Phone Unavailable Primary Care Provider Unavailabl e Reason for Visit * Reason Comments NEW PATIENT Pain Left shoulder/ neck pain constant dull/sharp radiates down left arm to the finger tips under arm and into left breast. Numbness/tingling/burning in left arm . No trauma. X 1 year * Evaluate & Treat - Unlimited Visits (Within 30 days (routine)) - Authorized Specialty Diagnoses / Procedures Referred By Contac t Referred To Contact Pain Management / Pain Medicine Diagnoses Cervical disc disorder with radiculopathy Evaristo Le MD [address] [place] [address] Referral ID Status Reason Start Date Expiration Date Visits Requested Visits Authorized [id number] Authorized Specialty Services Required 10/26/[phone] Encounter Details Date Type Department Care Team (Late st Contact Info) Description 10/31/2023 9:30 AM EDT Office Visit Interventional Pain Center, [facility] [address] [place] [phone] Candy Rose MD [address] [facility] [place] [address] Arthropathy of left shoulder*; Cervical radiculopathy; Cervical spondylosis Allergies Active Allergy Reactions Criticality Noted Date Comments Sulfa Antibiotics 03/24/2003 mouth ulcers documented as of this encounter (statuses as of 10/31/2023) Medications Medication Sig Dispensed Refills Start Date End Date Status Cholecalciferol (VITAMIN D) 1000 UNITS Tablet One daily Active Magnesium 400 MG TABS One daily Active Meloxicam 15 MG Oral TabletIndications:G eneralized osteoarthritis of multiple sites,Fibromyalgia TAKE 1 TABLET BY MOUTH DAILY FOR PAIN 90 Tablet 04/15/2022 Active Clobetasol Propionate 0.05 % External Ointment (Temovate) Apply topically to affected area 2 times a day for 14 days. To affected area for up to two weeks 15 g 1 06/21/2022 Active Hydrocortisone (Perianal) 2.5 % External Cream (Anusol-HC)Indicati ons:Hemorrhoids, external without complications Administer into the rectum 2 times a day. 28 g 1 08/02/2022 Active Cyclobenzaprine HCl 10 MG Oral Tablet (Flexeril)Indicatio ns:Acute pain of left shoulder Take 1 Tablet by mouth 2 times a day as needed for Muscle spasms. 20 Tablet 02/25/2023 Active Vagifem 10 MCG Vaginal TabletIndications:P ostmenopausal atrophic vaginitis INSERT ONE TABLET VAGINALLY AT BEDTIME FOR 7 DAYS IN A ROW AND THEN JUST TWICE WEEKLY 32 Tablet 5 08/28/2023 Active predniSONE 20 MG Oral Tablet (Deltasone)Indicati ons:Acute pain of left shoulder 2 tablets daily for 5 days then 1 tablet daily 15 Tablet 01/18/2023 10/31/19 24 Discontinued documented as of this encounter (statuses as of 10/31/2023) Active Problems Problem Noted Date Diagnosed Date Prediabetes 08/15/2022 Overview: Per Prediabetes protocol Moderate episode of recurrent major depressive d isorder 06/10/2019 Fibromyalgia 06/29/2011 Vitamin D deficiency 07/07/2010 Postmenopausal atrophic vaginitis 10/10/2007 Headache Overview: ICD-10 update of inactive term documented as of this encounter (statuses as of 10/31/2023) Resolved Problems Problem Noted Date Diagnosed Date Resolved Date Hot flashes 12/03/2014 12/20/2019 Medial epicondylitis 10/10/2007 015 documented as of this encounter (statuses as of 10/31/2023) Immunizations Name Administration Dates Next Due COVID-19 [...] Progress Notes * Candy Rose MD - 10/31/2023 9:40 AM EDT Subjective: Thank you for the opportunity to see your patient. As you know Julianna Dotson is a 73 year old female who presents to our clinic with a chief complaint of NEW PATIENT and Pain (Left shoulder/ neck pain constant dull/sharp radiates down left arm to the finger tips under arm and into left breast. Numbness/tingling/burning in left arm . No trauma. X 1 year ) She states the onset of left shoulder/arm starting approximately 1 year ago. States she was on a ladder, which fell and she grabbed onto the side of her roof for a few seconds before falling. Hope immediate left shoulder pain with radiation into the hand with associated numbness/paresthesias. Pain increases with vibration, wood working, sfdc consultant, reaching overhead, moving her arm. No clear alleviating factors. Has tried pain patches, OTC ointments, NSAIDs. Has not yet participated in therapy.Was seen by orthopedics for evaluation of shoulder and was determined to have symptoms more consistent with cervical radiculopathy. She was therefore referred to us. The patient is is able to do their ADLs. Providers: PCP: No primary care provider on file. Referring provider: Evaristo Le MD Investigations performed: Xray cervical spine 10/26/23 shows diffuse degenerative changes MRI left shoulder 10/13/23 shows four tendon tendonopathy without tear. Moderate OA. Images reviewed by my interpretation Medications and Allergies: Current Outpatient Medications Medication Instructions Cholecalciferol (VITAMIN D) 1000 UNITS Tablet One daily Clobetasol Propionate 0.05 % External Ointment (Temovate) Apply topically to affected area 2 times a day for 14 days. To affected area for up to two weeks cyclobenzaprine (FLEXERIL) 10 mg, Oral, BID PRN Hydrocortisone (Perianal) 2.5 % External Cream (Anusol-HC) Rectal, BID (.AM/PM) Magnesium 400 MG TABS One daily Meloxicam 15 MG Oral Tablet TAKE 1 TABLET BY MOUTH DAILY FOR PAIN predniSONE 20 MG Oral Tablet (Deltasone) 2 tablets daily for 5 days then 1 tablet daily Vagifem 10 MCG Vaginal Tablet INSERT ONE TABLET VAGINALLY AT BEDTIME FOR 7 DAYS IN A ROW AND THEN JUST TWICE WEEKLY Review of patient's allergies indicates: Allergen Reactions Sulfa Antibiotics mouth ulcers Past Medical History: Past Medical History: Diagnosis Date Chronic sinusitis Endometriosis Postmenopausal atrophic vaginitis Tattoo left arm Vitamin D deficiency Past Surgical History: Past Surgical History: Procedure Laterality Date CARPAL TUNNEL SURGERY 1981 right INCISION OF EARDRUM 2010 bilateral myringotomy tubes-Dr. Hendricks LAPAROSCOPY; CHOLECYSTECTOMY 1994 REMOVAL OF TONSILS, UNDER AGE 11 Tonsils Removal,<11 Y/O SINUS SURGERY PROCEDURE NEC 2008 Dr. Hendricks TOTAL HYSTERECTOMY 1986 marysol/bso endometriosis US ABDOMEN LIMITED 02/14/12 cholecystectomy, otherwise normal Family History: Family History Problem Relation Name Age of Onset Cancer Mother uterine, colon Cancer Father ca on face--polyps in sinuses Allergies Father No Past Hx Brother No Past Hx Daughter No Past Hx Daughter No Past Hx Son Social History: Social History Socioeconomic History Marital status: Spouse name: Gonzales Number of children: 3 Years of education: Not on file Highest education level: Not on file Occupational History Occupation: CUSTOMER SERVICE Employer: [employer] Shira Comment: soo - quit this job Occupation: [employer] Tobacco Use Smoking status: Never Smokeless tobacco: Never Substance and Sexual Activity Alcohol use: Yes Comment: occ--less than 1 -2 wine coolers per wk Drug use: No Sexual activity: Yes Partners: Male Other Topics Concern Not on file Social History Narrative Graduated from [employer] Social Determinants of Health Financial Resource Strain: [...] Stability Do you currently live in a prison or have no steady place to sleep [...] - for ages0-17 years): Not on file ROS: A comprehensive ROS was peformed and negative except as stated above. Objective: There were no vitals filed for this visit. GENERAL APPEARANCE: Well-developed, well-nourished, in no acute distress. HEENT: Normocephalic and atraumatic. No scleral icterus. Pupils are equal.No conjunctival injectionis noted. LUNGS: Symmetric. No wheezes, rhonchi, or rales appreciated HEART: Regular rate and rhythm. ABDOMEN: Non-tender, non-distended. Bowel sounds are present. EXTREMITIES: No cyanosis, clubbing, or edema. NEUROLOGIC: Gait is normal. Cranial nerves II through XII are grossly intact. PSYCHIATRIC: The patient is awake, alert, and oriented x3. Appropriate mood and affect. SKIN: Warm, dry, and well perfused. Good turgor. No lesions, nodules or rashes are noted on exposedskin. MSK: Upon initial assessment, the patient is seated in a comfortable position. Upon inspection there is scoliosis of the thoracolumbar spine. Muscle bulk appears adequate. ROM cervical spine and left shoulde ris limited and otherwise grossly intact at the elbow, wrist, and thoracic spine. Motor strength exam reveals: Shoulder abduction R 5/5, L 5/5 Biceps flexion R 5/5, L 5/5 Triceps extension R 5/5, L 5/5 Wrist extension R 5/5, L 5/5 Wrist flexion R 5/5, L 5/5 Finger abduction R 5/5, L 5/5 Deep tendon reflexes: 2+ biceps, 2+ Triceps. Left arm movements limited by pain. TTP cervical facet column bilaterally. Increased pain with cervical translation. Paresthesias to light touch left arm circumferencially Assessment: 73 year old year-old female presents with: Mixed picture cervical radicular pain with spondylosis as well as left shoulder rotator cuff arthropathy Plan: Interventions: - Consider left shoulder injection vs KAYLI. Would need MRI prior to KAYLI.Will authorize shoulder injection for now. Referrals: - Agree with PT Follow Up: - 6-8 weeks. Can consider shoulder injection with steroid for diagnostic and therapeutic purposes at that time vs pursuing cervical MRI Thank you for you allowing us to participate in the care of your patient. If you have any questions, please feel free to contact us. documented in this encounter Nursing Notes * Abby Strong LPN - 10/31/2023 9:30 AM EDT Chief Complaint Patient presents with NEW PATIENT Pain Left shoulder/ neck pain constant dull/sharp radiates down left arm to the finger tips under arm and into left breast. Numbness/tingling/burning in left arm . No trauma. X 1 year Aggravating factors / limitations: extending left arm, vibration to left arm Alleviating factors: nothing specific Imaging: XR C Spine 10/26/23 Previous Injections: None Neck/spine Surgery: none Joint replacement Surgery: none Pain medications: Flexeril, salon Pas, Voltaren Blood thinners: none Diabetic: Pre-diabetic AIC Results: 6.1 08/02/22 Physical Therapy: not started waiting for a call to start Bright vann Consults: Dr. Le Ortho Referred by:Dr. Le documented in this encounter Plan of Treatment Upcoming Encounters Date Type Department Care Team (Late st Contact Info) Description 11/22/2023 9:40 AM EDT Office Visit Family Medicine [address] [place] [phone] Ayaka Sewell PA-C [address] [place] [address] [place] [address] 01/10/2024 11:25 AM EST Office Visit Interventional Pain Center, [facility] [address] [place] [address] Candy Rose MD [address] [place], [place] [address] [address] Scheduled Orders Name Type Priority Associated Diagnoses Orde r Schedule ARTHROCENT ASP &/OR INJ MAJOR JX/BURSA W/O US Procedures Routine Arthropathy of left shoulder Ordered: 10/31/2023 Health Maintenance Due Date Last Done Comments [...] Diagnoses Diagnosis Arthropathy of left shoulder- Primary Cervical radiculopathy Brachial neuritis or radiculitis nos Cervical spondylosis Cervical spondylosis without myelopathy documented in this encounter
--- OUTSIDE RECORDS SUMMARY | 2024-04-17 03:19 | External Medical Summary ---
Author Name Unknown Address Unknown Organization [id number] [facility] [place] [address] [facility] [address] Laboratory Report Ordering Provider Test Date Status VANESA BREEN 12/01/2023 09:23:36 Final Observation Date Value Abnormality Reference (Units ) Status SYNC LEUKOCYTES IN BLOOD BY AUTOMATED COUNT 12/01/2023 09:23:36 6.93 4.00-10.80 (K/uL) Final Segs 12/01/2023 09:23:36 53.1 40.0-75.0 (%) Final Lymphs % 12/01/2023 09:23:36 34.1 18.0-42.0 (%) Final Monos 12/01/2023 09:23:36 8.9 1.0-11.0 (%) Final Eosinophils 12/01/2023 09:23:36 2.6 0.0-6.0 (%) Final Basos 12/01/2023 09:23:36 0.9 0.0-2.0 (%) Final Immature Granulocyte, Percent 12/01/2023 09:23:36 0.4 0.0-2.0 (%) Final Absolute Segs 12/01/2023 09:23:36 3.68 1.80-7.70 (K/uL) Final Lymphs, absolute 12/01/2023 09:23:36 2.36 1.00-4.80 (K/ul) Final Monos, Abs 12/01/2023 09:23:36 0.62 0.00-1.10 (K/uL) Final Eos, Abs 12/01/2023 09:23:36 0.18 0.00-0.70 (K/uL) Final Basos, Abs 12/01/2023 09:23:36 0.06 0.00-0.20 (K/uL) Final Immature Granulocytes, Number 12/01/2023 09:23:36 0.03 0.00-0.20 (K/uL) Final [place]forming Location [facility] [place] [address] [facility] [address]
--- OUTSIDE RECORDS SUMMARY | 2024-04-17 03:19 | External Medical Summary | Summary of Care ---
Author Name Unknown Organization [facility] Address [address] [facility] [address] Phone [phone] Care Team Providers Care General Lot Attendant Name Role Phone Unavailable Primary Care Provider Unavailabl e Encounter Details Date Type Department Care Team (Late st Contact Info) Description 10/27/2023 Patient Reported Data Patient Survey Ortho OBERD Allergies Active Allergy Reactions Criticality Noted Date Comments Sulfa Antibiotics 03/24/2003 mouth ulcers documented as of this encounter (statuses as of 10/27/2023) Medications Medication Sig Dispensed Refills Start Date [...] as of this encounter (statuses as of 10/27/2023) Active Problems Problem Noted Date Diagnosed Date Prediabetes 08/15/2022 Overview: Per Prediabetes protocol Moderate episode of recurrent major depressive d isorder 06/10/2019 Fibromyalgia 06/29/2011 Vitamin D deficiency 07/07/2010 Postmenopausal atrophic vaginitis 10/10/2007 Headache Overview: ICD-10 update of inactive term documented as of this encounter (statuses as of 10/27/2023) Resolved Problems Problem Noted Date Diagnosed Date Resolved Date Hot flashes 12/03/2014 12/20/2019 Medial epicondylitis 10/10/2007 015 documented as of this encounter (statuses as of 10/27/2023) Immunizations Name Administration Dates Next Due COVID-19 mRNA, LNP-s, No Pre serve, 2-Dose Series (AMS VariCode) 03/16/2021,02/23/2021 Pneumococcal Conjugate Vacc, 13 Valent (Prevnar) [...] Upcoming Encounters Date Type Department Care Team ([facility] st Contact Info) Description 11/16/2023 12:30 PM EDT Office Visit Interventional Pain [facility] [address] [facility] [place] [address] Neyr Kwong PA-C [address] [facility] [place] [address] 11/22/2023 9:40 AM EDT Office Visit Family Medicine [address] [phone] Ayaka Sewell PA-C [address] [place] [address] [place] [address] Health Maintenance Due Date Last Done Comments [...]
--- OUTSIDE RECORDS SUMMARY | 2024-04-17 03:19 | External Medical Summary ---
Author Name Unknown Address Unknown Organization [id number]:[facility] [place] - [address] [facility] [place] [address] Laboratory Report Ordering Provider Test Date Status VANESA BREEN 12/01/2023 09:23:36 Final Observation Date Value Abnormality Reference (Units ) Status BUN 12/01/2023 09:23:36 12 6-20 (mg/dL) Final Creatinine 12/01/2023 09:23:36 0.9 0.5-1.0 (mg/dL) Final Glomerular filtration rate/1.73 sq M.predicted [Volume Rate/Area] in Serum, Plasma or Blood by Creatinine-based formula (CKD-EPI) 12/01/2023 09:23:36 72 >=60 (mL/min) Final eGFR is calculated based on the CKD-EPI 2020 equation. Sodium 12/01/2023 09:23:36 141 135-146 (m mol/L) Final Potassium 12/01/2023 09:23:36 4.3 3.5-5.1 (m mol/L) Final Cl 12/01/2023 09:23:36 102 98-107 (mm ol/L) Final CO2 12/01/2023 09:23:36 27 22-32 (mmo l/L) Final Anion gap 12/01/2023 09:23:36 12 7-15 (mmol /L) Final Glucose 12/01/2023 09:23:36 93 70-120 (mg /dL) Final Albumin 12/01/2023 09:23:36 4.4 3.8-5.0 (g /dL) Final AST (Aspartate aminotransferase) 12/01/2023 09:23:36 26 10-35 (U/L) Final Alk Phos 12/01/2023 09:23:36 95 35-130 (U/ L) Final Bilirubin, Total 12/01/2023 09:23:36 0.7 <=1 .2 (mg/dL) Final Calcium 12/01/2023 09:23:36 10.0 8.4-10.2 ( mg/dL) Final Protein 12/01/2023 09:23:36 6.7 6.0-8.3 (g /dL) Final ALT (Alanine aminotransferase) 12/01/2023 09:23:36 31 10-35 (U/L) Final Performing Location [facility] [place] - [address] [facility] [address]
--- OUTSIDE RECORDS SUMMARY | 2024-04-17 03:19 | External Medical Summary ---
Author Name Unknown Address Unknown Organization [id number]:[facility]AT[facility] - [address] [place] [address] Laboratory Report Ordering Provider Test Date Status VANESA BREEN 12/01/2023 09:23:36 Final Observation Date Value Abnormality Reference (Units ) Status WBC, Total 12/01/2023 09:23:36 6.93 4.00-10.8 0 (K/uL) Final RBC 12/01/2023 09:23:36 4.52 3.85-5.15 (M/uL) Final Hemoglobin 12/01/2023 09:23:36 13.7 12.0-15.3 (g/dL) Final Anemia reflex testing trigge rs on a HGB < 12.0 for Females and HGB < 13.0 for Males in accordance with the WHO Anemia Guidelines
Anemia reflex testing triggers on a HGB < 12.0 for Females and HGB < 13.0 for Males in accordance with the WHO Anemia Guidelines HCT 12/01/2023 09:23:36 43.8 36.0-45.2 (%) Final MCV 12/01/2023 09:23:36 96.9 81.5-97.5 (fL) Final MCH 12/01/2023 09:23:36 30.3 27.0-34.0 (pg) Final MCHC 12/01/2023 09:23:36 31.3 32.0-36.0 (g/dL) Final RDW 12/01/2023 09:23:36 13.4 11.5-15.5 (%) Final Platelets 12/01/2023 09:23:36 295 140-400 (K /uL) Final MPV 12/01/2023 09:23:36 10.5 6.6-11.1 ( fL) Final Nucleated erythrocytes/100 leukocytes [Ratio] in Blood by Automated count 12/01/2023 09:23:36 0 <=0 (/100 WBCs) [facility] Performing Location [facility] - [address] [facility] [address]
--- OUTSIDE RECORDS SUMMARY | 2024-04-17 03:19 | External Medical Summary ---
Author Name Unknown Address Unknown Organization [id number]:[facility] [place] [address] [facility] [place] [address] Laboratory Report Ordering Provider Test Date Status VANESA BREEN 12/01/2023 09:23:36 Final Observation Date Value Abnormality Reference (Units ) Status Triglyceride 12/01/2023 09:23:36 233 Above high normal <=174 (mg/dL) Final Triglyceride Reference Range s (mg/dL):
<150 Acceptable
150-174 Borderline high
175-499 High
>=500 Very high Cholesterol 12/01/2023 09:23:36 245 Above high normal <200 (mg/dL) Final Total Cholesterol Reference Ranges (mg/dL):
<200 Desirable
200-239 Borderline high
>=240 High HDL 12/01/2023 09:23:36 56 >49 (mg/dL ) Final HDL Cholesterol Reference Ra nges (mg/dL):
>=60 High (Desirable)
<50 Low (Undesirable) For Females
<40 Low (Undesirable) For Males NON-HDL CHOLESTEROL 12/01/2023 09:23:36 189 Above high normal <=159 (mg/dL) Final Non-HDL Cholesterol Referenc e Range (mg/dL):
<100 Target level for high risk ASCVD patient
<130 Optimal for general population
130-159 Near optimal for general population
160-189 Borderline High
190-219 High
>=220 Very High LDL, (calculated) 12/01/2023 09:23:36 142 Above high n ormal <=129 (mg/dL) Final LDL Cholesterol Reference Ra nges (mg/dL):
<70 Target level for high risk ASCVD patient
<100 Optimal for general population
100-129 Near optimal for general population
130-159 Borderline high
160-189 High
>=190 Very high Performing Location [facility] [place] [address] [facility] [address]
--- OUTSIDE RECORDS SUMMARY | 2024-04-17 03:19 | External Medical Summary ---
Author Name Unknown Address Unknown Organization [id number]:[facility] [place] - [address] [facility] [address] Laboratory Report Ordering Provider Test Date Status NUHAALEXIS 12/01/2023 09:23:36 Final Observation Date Value Abnormality Reference (Units ) Status HbA1C 12/01/2023 09:23:36 6.0 Above high normal 4. 0-5.6 (%) Final The use of HbA1c to monitor glycemic status is based on normal hemoglobin and HbA composition. This test should not be used in patients with abnormal hemoglobin that affects the half life of the red blood cell or the in vivo glycation rates. Glucose, estimated average 12/01/2023 09:23:36 126 Above high normal <126 (mg/dL) Eric ritter Performing Location LAB[facility] [place] - [address] [place] [address]
--- OUTSIDE RECORDS SUMMARY | 2024-04-17 03:20 | External Medical Summary | Summary of Care ---
Author Name Unknown Organization [facility] Address [address] [place] [address] Phone [phone] Care Team Providers Care Electric Knife Operator Name Role Phone Unavailable Primary Care Provider Unavailabl e Reason for Referral * Evaluate & Treat - Unlimited Visits (Within 10 days (routine)) - Authorized Specialty Diagnoses / Procedures Referred By Kathy de la torre Referred To Contact Orthopaedic Surgery / Orthopedics Diagnoses Chronic left shoulder pain Gertrudis Wei DO [address] [place] [address] Referral ID Status Reason Start Date Expiration Date Visits Requested Visits Authorized [id number] Authorized Specialty Services Required 10/25/[phone] [...] Contact Info) Description 10/23/2023 Telephone Family Medicine [address] [place] [address] Rogerio Medina MD [address] [place] [address] [place] [phone] Med Request; Appointment (Ortho ) Allergies Active Allergy Reactions Criticality Noted Date Comments Sulfa Antibiotics 03/24/2003 mouth ulcers documented as of this encounter (statuses as of 10/25/2023) Medications Medication Sig Dispensed Refills Start Date [...] as of this encounter (statuses as of 10/25/2023) Active Problems Problem Noted Date Diagnosed Date Prediabetes 08/15/2022 Overview: Per Prediabetes protocol Moderate episode of recurrent major depressive d isorder 06/10/2019 Fibromyalgia 06/29/2011 Vitamin D deficiency 07/07/2010 Postmenopausal atrophic vaginitis 10/10/2007 Headache Overview: ICD-10 update of inactive term documented as of this encounter (statuses as of 10/25/2023) Resolved Problems Problem Noted Date Diagnosed Date Resolved Date Hot flashes 12/03/2014 12/20/2019 Medial epicondylitis 10/10/2007 015 documented as of this encounter (statuses as of 10/25/2023) Immunizations Name Administration Dates Next Due COVID-19 [...] No 02/24/2023 Does the household have a up health systemr source of income? (Household - for ages [...] encounter Miscellaneous Notes * Telephone Encounter - Pina Grant OSA [...] to Dr. Wei who is at the [facility], not at . * Telephone Encounter [...] hat she can get sent to the [facility] pharmacy. She is having a lot of pain in her shoulder. She had an MRI 10/13/23. She sis not get any call about followingup from the MRI. documented in this encounter Plan of Treatment Upcoming Encounters Date Type Department Care Team (Late st Contact Info) Description 11/22/2023 9:40 AM EDT Office Visit Family Medicine [address] [place] [phone] Ayaka Sewell PA-C [address] [place] [address] [place] [id number] Scheduled Referrals Name Type Priority Associated Diagnoses [...]
--- OUTSIDE RECORDS SUMMARY | 2024-04-17 03:20 | External Medical Summary | Summary of Care ---
Author Name Unknown Organization [facility] Address [address] [place] [address] Phone [phone] Care Team Providers Care Metaphysician Name Role Phone Unavailable Primary Care Provider Unavailabl e Reason for Referral * Evaluate & Treat - Unlimited Visits (Within 10 days (routine)) - Authorized Specialty Diagnoses / Procedures Referred By Kathy de la torre Referred To Contact Orthopaedic Surgery / Orthopedics Diagnoses Chronic left shoulder pain Gertrudis Wei DO [address] [place] [address] Referral ID Status Reason Start Date Expiration Date Visits Requested Visits Authorized [id number] Authorized Specialty Services Required 10/25/2023 999 999 [...] Contact Info) Description 10/23/2023 Telephone Family Medicine [address] [place] [phone] Rogerio Medina MD [address] [place] [address] [place] [phone] Med Request; Appointment (Ortho ) Allergies Active [...] No 02/24/2023 Does the household have a [facility] source [facility] income? (Household - for [...] to Dr. Wei who is at the [facility], not at . * Telephone Encounter [...] hat she can get sent to the [facility] pharmacy. She is having a lot of pain in her shoulder. She had an MRI 10/13/23. She sis not get any call about followingup from the MRI. documented in this encounter Plan of Treatment Upcoming Encounters Date Type Department Care Team (Late st Contact Info) Description 11/22/2023 9:40 AM EDT Office Visit Family Medicine [address] [place] [phone] Ayaka Sewell PA-C [address] [place] [address] [place] [id number] Scheduled Referrals Name Type Priority Associated Diagnoses [...]
[2024-04-17 07:16] LABS: Hematocrit (blood only) 37.8 % (37.0-47.0); Hemoglobin 12.3 g/dl (12.0-16.0); Mean Corpuscular Hemoglobin 29.9 pg (25.0-34.0); Mean Corpuscular Hgb Conc 32.5 g/dL (32.0-36.0); Mean Corpuscular Volume 91.7 fL (80.0-100.0); Mean Platelet Volume 10.6 fL (9.4-12.4); Platelet Count 329 K/uL (130-400); RDW Coefficient of Variation 14.4 % (11.5-14.5); RDW Standard Deviation 48.5 fL (36.4-46.3); Red Blood Count 4.12 M/uL (4.20-5.40); White Blood Count 12.19 K/ul (4.8-10.8)
[2024-04-17 07:40] LABS: BUN Creatinine Ratio 28.2 (10-20); Calcium 8.5 mg/dl (8.6-10.3); Creatinine Clr Calc Pharmacy 45.9 ml/min; Magnesium 2.1 mg/dl (1.7-2.4); Phosphorus 4.1 mg/dl (2.5-4.9); Potassium 3.8 mmol/L (3.5-5.1)
[2024-04-17] MEDS: CHOLECALCIFEROL 25 MCG (1000 UNITS) TAB PO SCH (07:56)
[2024-04-17] MEDS: ROSUVASTATIN CALCIUM 10 MG TAB PO SCH (07:57)
[2024-04-17] MEDS: METOPROLOL SUCC 25MG EXT REL TAB PO SCH (08:55)
[2024-04-17] MEDS: POTASSIUM CHLORIDE CRTAB 20 MEQ TABCR PO STA ×2 (08:55→14:56)
--- NOTE | 2024-04-17 10:11 | Cardiology Progress Note ---
Date of Service April 17, 2024 Assessment & Plan (1) Acute heart failure with preserved ejection fraction (HFpEF): (2) Mitral valve prolapse: (3) Mitral regurgitation: Plan: CT chest performed last night suggestive of pulmonary edema. Very small left > right pleural effusions also noted. * Supplement potassium * Continue low dose metoprolol succinate 12.5 mg BID * Proceed with another dose of furosemide 20 mg IV x 1 now (documented allergy to sulfa antibiotics, however tolerated furosemide without problem on 04/16/24) * SQ heparin for DVT prophylaxis * Advance diet today. Feel respiratory status still needs to be optimized prior to consideration of BOUCHRA tomorrow. Admission and Anticipated Discharge Date Admission Date: April 16, 2024 Subjective Patient seen in follow up. Appears less short of breath and less orthopneic. Laying flat. She states she rested poorly last night due to noise and having to use bathroom due to diarrhea and to urinate related to the dose of furosemide she received. Telemetry reveals SR in the 90s at rest this am. Trended toward improvement with sinus tachycardia in the 110s noted at rest on presentation to the ED. Physical Exam Physical Exam: Temp Pulse Resp BP Pulse Ox O2 Del Method 36.6 C 112 H 24 145/90 H 93 Room Air 04/16/24 15:21 04/16/24 16:48 04/16/24 16:11 04/16/24 16:11 04/16/24 16:11 04/16/24 16:11 General:Ill in appearance without acute distress Eyes: conjunctiva are pink and non-injected, sclera clear Neck: normal jugular venous pulse, no hepatojugular reflux Chest: normal shape and normal respiratory effort, Tachypnea noted Lungs:Mildly decreased breath sounds at the bases Cardiac Exam: - Regular rhythm, tachycardic, 3/6 systolic murmur heard best over left sternal border and left apex, no jugular venous distention sitting straight up Abdomen: abdomen soft, non-tender, no abnormal masses and no hepatosplenomegaly Musculoskeletal: no gait disturbance, no weakness Extremities: no edema and no cyanosis Neuro:awake, conversant, follows commands, no focal motor deficits Psych: appropriate affect and insight. Results & Data Vital Signs (Past 12 Hours) Vital Signs Temp Pulse Pulse Resp BP Pulse Ox O2 Del Method 04/17/24 07:20 36.6 C 101 H 18 96/56 L 97 Nasal Cannula 04/17/24 03:27 36.6 C 99 H 18 121/74 90 Nasal Cannula 04/16/24 23:38 36.6 C 100 H 18 113/68 92 Nasal Cannula 04/16/24 22:38 96 H O2 Flow Rate 04/17/24 07:20 1.0 04/17/24 03:27 1.0 04/16/24 23:38 1.0 04/16/24 22:38 Laboratory Results Abnormal lab results 04/16/24 04/17/24 Range/Units 16:00 06:28 WBC 10.96 H 12.19 H (4.8-10.8) K/ul RBC 4.12 L (4.20-5.40) M/uL RDW Std Deviation 48.3 H 48.5 H (36.4-46.3) fL Neut # (Auto) 8.89 H (1.40-6.50) K/uL Anion Gap 12 H (3-11) BUN 24 H (6-23) mg/dl BUN/Creatinine Ratio 29.9 H 28.2 H (10-20) Glucose 134 H 102 H (70-99(Fasting)) mg/dl Calcium 8.5 L (8.6-10.3) mg/dl Total Bilirubin 1.1 H (0.2-1.0) mg/dl C-Reactive Protein 1.37 H (0-0.5) mg/dl
[2024-04-17] MEDS: FUROSEMIDE INJ 20 MG/2 ML VIAL IV ONE ×2 (10:18→14:57)
[2024-04-17] MEDS: MECLIZINE 12.5 MG TAB PO PRN (11:20)
--- NOTE | 2024-04-17 12:40 | Electrocardiogram Report ---
Test Reason : Blood Pressure : */* mmHG Vent. Rate : 120 BPM Atrial Rate : 120 BPM P-R Int : 132 ms QRS Dur : 84 ms QT Int : 326 ms P-R-T Axes : 72 8 65 degrees QTcB Int : 460 ms Sinus tachycardia Nonspecific ST abnormality Abnormal ECG Confirmed by Lebron Barker ([id number]) on 04/17/2024 12:40:10 PM Referred By: REFERRED SELF Confirmed By: Lebron Barker
--- NOTE | 2024-04-17 12:45 | Electrocardiogram Report ---
Test Reason : Blood Pressure : */* mmHG Vent. Rate : 101 BPM Atrial Rate : 101 BPM P-R Int : 126 ms QRS Dur : 84 ms QT Int : 352 ms P-R-T Axes : 73 -8 56 degrees QTcB Int : 456 ms Sinus tachycardia with Premature atrial complexes Otherwise normal ECG When compared with ECG of 16-Apr-2024 15:36, (unconfirmed) Premature atrial complexes are now Present Confirmed by Lebron Barker ([id number]) on 04/17/2024 12:44:53 PM Referred By: REFERRED SELF Confirmed By: Lebron Barker
--- NOTE | 2024-04-17 14:15 | Communication Note ---
Date of Service: April 17, 2024 Patient reassessed. Respiratory status improved compared to when I had seen her in the ED last evening. Procal is normal. CRP only minimally elevated and not suggestive of infection. Blood cultures without growth thus far. Viral respiratory panel is normal. Proceed with another dose of furosemide 20 mg IV x 1 now. Informed consent for BOUCHRA obtained. Pt elects to proceed. Plan for procedure tomorrow am. Family's questions answered to there satisfaction. Jovani James, DO
--- NOTE | 2024-04-17 14:37 | Hospitalist Progress Note ---
Date of Service April 17, 2024 Assessment & Plan (1) Mitral regurgitation: Plan Shortness of breath with exertion, Cough Severe MR- new diagnosis vs. Persistent Pneumonia Patient with complaint of cough with yellow sputum and shortness of breath about a month ago [employer], status post, treatment for pneumonia. See HPI. After first course of treatment, she had some improvement but again had increasing cough (this time dry cough) and SUAREZ. She was put on Augmentin and prednisone, on 04/12/2024 for pneumonia again. ESR wnl, CRP minimally elevated. CXR with no acute lung finding, bibasilar crackles on examination. Will get CT chest. Will continue with Augmentin. Labs in AM.Blood culture. Cam Bal. xopenox prn. 04/17 persistent cough despite receiving Azithromycin, then Augmentin cough now only with white sputum CT chest: 1. Bilateral diffuse coarse pulmonary interstitium with interlobular septal thickening, prominent vascular markings and diffuse mosaic attenuation. Possible pulmonary edema, however inflammatory changes could not be totally excluded. Correlate clinically. 2. Enlarged mediastinal lymph nodes. 3. Cardiomegaly. 4. Right lower lung lobe solid pulmonary nodule noted measuring 5 mm. No routine follow-up is needed according to Fleischner Society Guidelines in low-risk patients, however, in high-risk patients follow-up CT may be recommended at 12 months 5. Compared to same day Xray, current findings are more in detail. Lasix IV ordered by Cardiology service for BOUCHRA tomorrow procal negative sputum culture ordered on Augmentin BID which was started 04/12/24, complete the course Other chronic medical conditions: Continue with/resume home meds as when able. DVT prophylaxis: Heparin subcu Full code Disposition lives at home Admission and Anticipated Discharge Date Admission Date: April 16, 2024 Subjective ff up for persistent cough, severe MR- newly diagnosed, etc seen resting in bed, comfortable states she feels about the same as yesterday has cough with white sputum no fever/chills no other symptoms Review of Systems Review of Systems: all noted and negative except for above Physical Exam Physical Exam: General- oriented x 3, not in distress, speaks in sentences with no effort or accessory muscle use Eyes- anicteric Neck- no JVD Lungs- (+) faint rales at the bases Heart- normal rate, regular rhythm; grade 2-3/6 systolic murmur Abdomen- normal bowel sounds, nondistended, soft, nontender Extremities- no pretibial edema, no calf tenderness Neuro- alert, oriented x 3; no gross focal neurologic deficits Skin- warm & dry Results & Data Results & Data Vital Signs (Past 12 Hours) Vital Signs Temp Pulse Pulse Resp BP Pulse Ox O2 Del Method 04/17/24 11:29 36.8 C 91 H 19 118/77 91 Nasal Cannula 04/17/24 10:14 97 H 04/17/24 07:59 Room Air 04/17/24 07:20 36.6 C 101 H 18 96/56 L 97 Nasal Cannula 04/17/24 03:27 36.6 C 99 H 18 121/74 90 Nasal Cannula O2 Flow Rate 04/17/24 11:29 1.0 04/17/24 10:14 04/17/24 07:59 04/17/24 07:20 1.0 04/17/24 03:27 1.0 all noted and reviewed including below
[2024-04-17] MEDS: ACETAMINOPHEN 325 MG TAB PO PRN (15:01)
[2024-04-18 06:14] LABS: Eosinophils # (auto) 0.46 K/uL (0.00-0.50); Eosinophils % (auto) 4.4 %; Hematocrit (blood only) 41.4 % (37.0-47.0); Hemoglobin 13.4 g/dl (12.0-16.0); Immature Granulocytes # (auto) 0.23 K/uL (0.01-0.20); Immature Granulocytes % (auto) 2.2 %; Lymphocytes # (auto) 4.32 K/uL (1.20-3.40); Lymphocytes % (auto) 41.6 %; Mean Corpuscular Hemoglobin 29.7 pg (25.0-34.0); Mean Corpuscular Hgb Conc 32.4 g/dL (32.0-36.0); Mean Corpuscular Volume 91.8 fL (80.0-100.0); Mean Platelet Volume 10.9 fL (9.4-12.4); Monocytes # (auto) 0.68 K/uL (0.11-0.59); Monocytes % (auto) 6.6 %; Neutrophils # (auto) 4.59 K/uL (1.40-6.50); Neutrophils % (auto) 44.2 %; Platelet Count 247 K/uL (130-400); RDW Coefficient of Variation 14.3 % (11.5-14.5); RDW Standard Deviation 47.9 fL (36.4-46.3); Red Blood Count 4.51 M/uL (4.20-5.40); White Blood Count 10.38 K/ul (4.8-10.8)
[2024-04-18 06:26] LABS: BUN Creatinine Ratio 29.3 (10-20); Calcium 9.1 mg/dl (8.6-10.3); Creatinine Clr Calc Pharmacy 42.4 ml/min; Potassium 4.6 mmol/L (3.5-5.1)
--- NOTE | 2024-04-18 07:20 | History & Physical Bridge Note ---
Date of Service April 18, 2024 History & Physical Bridge Note I have examined the patient, reviewed the History & Physical and in the interval since the performance of the History & Physical I have noted the following changes of clinical significance: no changes noted
--- NOTE | 2024-04-18 07:24 | Anesthesiology Consultation ---
Date of Service April 18, 2024 Assessment & Plan (1) Encounter for pre-operative examination: Chart Review Chart Review: Acceptable Risk for Surgery, Patient NOT seen in Pre Admission Testing and medical charge entry specialist initiated Consults Requested none ASA ASA3 Proposed Anesthesia Anesthesia Type: MAC Risk / Benefits Reviewed With: PT / POA / Parent / Guardian, Accepts Plan and Informed Consent Obtained History Surgery Operation Date: 04/18/24 07:30 Proposed Procedures p Transesophageal Echo w/Anesthesia - Scott James DO Height/Weight Height: 5 ft 2 in Weight: 59.2 kg Allergies Allergy/AdvReac Type Severity Reaction Status Date / Time Sulfa (Sulfonamide Allergy Mild Swelling Unverified 04/16/24 17:55 Antibiotics) of Lip/Tongue/Throat Medications Home Medications Medication Instructions Recorded Confirmed Last Taken amoxicillin 875 mg-potassium 1 tab PO BID 04/16/24 04/16/24 04/16/24 clavulanate 125 mg tablet cholecalciferol (vitamin D3) 25 25 mcg PO DAILY 04/16/24 04/16/24 04/15/24 mcg (1,000 unit) tablet (Vitamin D3) estradiol 10 mcg vaginal tablet 10 mcg vaginal 2XWK 04/16/24 04/16/24 Unknown (Vagifem) levalbuterol tartrate 45 2 puff inhalation Q6H PRN Wheezing 04/16/24 04/16/24 Unknown mcg/actuation aerosol inhaler potassium 99 mg tablet 99 mg PO DAILY 04/16/24 04/16/24 04/15/24 rosuvastatin 10 mg tablet 10 mg PO QAM 04/16/24 04/16/24 04/15/24 vitamin B complex 1 tab PO DAILY 04/16/24 04/16/24 04/15/24 Active Medications Generic Name Dose Route Start Last Admin Trade Name Freq PRN Reason Stop Dose Admin Acetaminophen 650 mg 04/16/24 18:38 04/17/24 15:01 Acetaminophen 325 Mg Tab PO 05/16/24 18:37 650 mg Q4H PRN Administration Pain or Fever Amoxicillin/Clavulanate Potassium 1 tab 04/16/24 21:00 04/17/24 20:48 Amoxicillin/Clavulanate 875 Mg Tab PO 04/21/24 20:59 1 tab BID ALEA Administration Protocol Benzonatate 100 mg 04/16/24 21:00 04/17/24 20:56 Benzonatate 100 Mg Capsule PO 05/16/24 20:59 100 mg TID ALEA Administration Guaifenesin 600 mg 04/16/24 21:00 04/17/24 20:48 Guaifenesin 600 Mg Tabcr PO 05/16/24 20:59 600 mg Q12 ALEA Administration Heparin Sodium (Porcine) 5,000 units 04/16/24 21:00 04/17/24 20:56 Heparin Sod 5,000 Unit/0.5 Ml Vial SQ 05/16/24 20:59 5,000 units Q12 ALEA Administration Meclizine HCl 12.5 mg 04/17/24 09:58 04/17/24 22:50 Meclizine 12.5 Mg Tab PO 05/17/24 09:57 12.5 mg Q6H PRN Administration Dizziness or Vertigo Metoprolol Succinate 12.5 mg 04/17/24 09:00 04/17/24 20:57 Metoprolol Succ 25mg Ext Rel Tab PO 05/17/24 08:59 12.5 mg BID ALEA Administration Rosuvastatin Calcium 10 mg 04/17/24 09:00 04/17/24 07:57 Rosuvastatin Calcium 10 Mg Tab PO 05/17/24 08:59 10 mg QAM ALEA Administration Vitamin D 25 mcg 04/17/24 09:00 04/17/24 07:56 Cholecalciferol 25 Mcg (1000 Units) Tab PO 05/17/24 08:59 25 mcg DAILY ALEA Administration NPO Date Last Intake of Fluids: 04/17/24 Time Last Intake of Fluids: 22:00 Date Last Intake of Solids: 04/17/24 Time Last Intake of Solids: 19:00 Exercise / Class Metabolic Activity III < 4 Walking/Shop/Light housework Past Anesthesia History No Hx of Anesthesia Complications and No Family Hx of Anesthesia Complications History of PONV History of PONV (gave zofran preop) and Hx of Motion Sickness Social History Smoking Status: Never smoker Hx Alcohol Use: No Hx Substance Use: No substance use type: does not use Physical Exam Vital Signs Last Vital Signs Temp 36.6 C 04/18/24 07:07 Pulse 95 H 04/18/24 07:07 Resp 18 04/18/24 07:07 BP 122/77 04/18/24 07:07 Pulse Ox 95 04/18/24 07:07 O2 Del Method Room Air 04/18/24 07:07 O2 Flow Rate 1.0 04/17/24 19:55 Constitutional no acute distress ENMT Mouth: no chipped teeth and no loose teeth Thyromental Distance: > or= 3.5 Finger Breadths Mallampati Class: II Neck normal visual inspection and trachea midline; neck extension not limited Respiratory normal respiratory effort; no respiratory distress Auscultation: lungs clear to auscultation bilaterally; no crackles, no rhonchi and no wheezes Cardiovascular Rate/Rhythm: regular rate and regular rhythm Heart Sounds: + murmur; no gallop and no cardiac rub Musculoskeletal Head/Neck/Chest: full ROM of neck Neurologic moves all extremities and awake Psychiatric Orientation: alert and oriented x 3 Testing Laboratory Results 04/18/24 05:55 04/18/24 05:55 PT 10.2 Seconds (9.0-12.0) 04/16/24 16:00 INR 0.9 (0.9-1.1) 04/16/24 16:00 APTT 21 Seconds (21-31) 04/16/24 16:00 04/16/24 18:54 Aerobic Blood Culture - Preliminary Blood No growth in Aerobic bottle after 24 hours. Anaerobic Blood Culture - Preliminary No growth in Anaerobic bottle after 24 hours. 04/16/24 18:54 Aerobic Blood Culture - Preliminary Blood No growth in Aerobic bottle after 24 hours. Anaerobic Blood Culture - Preliminary No growth in Anaerobic bottle after 24 hours.
[2024-04-18] MEDS ORDERED: LIDOCAINE 2% 2 ML VIAL/AMP(20MG/ML) INFIL ONE (08:28)
[2024-04-18] MEDS ORDERED: ePHEDrine sulfate 50 MG/5 ML SYR ONE (08:28)
[2024-04-18] MEDS ORDERED: PROPOFOL IV EMULSION 10 MG/ML 20 ML VIAL IV ONE (08:28)
[2024-04-18] MEDS ORDERED: PHENYLEPHRINE 100MCG/ML 5ML SYR ONE (08:28)
--- NOTE | 2024-04-18 08:30 | Post Operative Brief Note ---
Cardiology Brief Post Op Date of Surgery April 18, 2024 Pre & Post Diagnosis Operation Date: 04/18/24 07:30 Procedure Preprocedure diagnosis: Mitral regurgitation, tricuspid regurgitation Post procedure diagnosis: Severe mitral regurgitation, severe tricuspid regurgitation Transesophageal echocardiogram procedure: The patient's vital signs were monitored via the standard fashion. After informed consent was obtained and a timeout was performed the patient was sedated with the assistance of the anesthesia service. Ruptured mitral valve chordae observed with flail P2 scallop of the posterior mitral valve leaflet and resultant eccentric anteriorly directed jet of mitral regurgitation. Severe mitral regurgitation is present. The posterior mitral annulus was moderately calcified. Severe tricuspid regurgitation observed with central malcoaptation and no prolapse. Doppler findings suggestive of moderate to severe pulmonary pretension. The left ventricular ejection fraction is normal hyperdynamic, LVEF in the range of 65 to 69%. Probate Clerk Scott James DO Change Booth Attendant Chastity Dhillon, [facility] Estimated Blood Loss 0 Findings Consistent with Post-Op Diagnosis Anesthesia Type MAC Complications none
[2024-04-18] MEDS: POTASSIUM CHLORIDE CRTAB 20 MEQ TABCR PO SCH (09:31)
[2024-04-18] MEDS: BENZOCAINE/TETRACAIN/BUTAM 50 APPLN/5 GM CAN EXT ONE (09:49)
--- NOTE | 2024-04-18 10:56 | Cardiology Progress Note ---
Date of Service April 18, 2024 Assessment & Plan (1) Acute heart failure with preserved ejection fraction (HFpEF): (2) Mitral valve prolapse: (3) Mitral regurgitation: Plan: BOUCHRA with findings of flail P2 scallop of the posterior leaflet of the mitral valve with severe MR. Severe TR also noted , RVSP estimated to be 56 mm Hg. Infectious work up negative thus far. Results discussed at length with patient and her , Mike. Patient has moderate posterior mitral annular calcification but otherwise , valve appears amenable to repair. Recommend transfer to tertiary center for expedited CT surgery evaluation. Case discussed with Dr Sally Rausch , cash applications coordinator for inpatient cardiology at [facility] who accepts patient in transfer pending bed availability. Will reassess need for another dose of furosemide later today. (4) Dizziness: Plan: Dizziness noted since November,. Proceed with MRI of the brain for further evaluation. Admission and Anticipated Discharge Date Admission Date: April 16, 2024 Subjective Patient seen in cardiology follow up prior to , during, and after BOUCHRA. Tolerated the procedure well. Noted dizziness and nausea during elevator right to the BOUCHRA procedure room and received a dose of Zofran before BOUCHRA and received propofol for sedation for procedure. Less short of breath overnight. Review of Systems Review of Systems: All systems reviewed & are unremarkable except as noted in HPI & below Physical Exam Physical Exam: Temp Pulse Resp BP Pulse Ox O2 Del Method O2 Flow Rate 36.6 C 87 17 105/69 100 Room Air 1.0 04/18/24 09:11 04/18/24 09:51 04/18/24 09:11 04/18/24 09:11 04/18/24 09:11 04/18/24 09:11 04/17/24 19:55 General:Ill in appearance without acute distress Eyes: conjunctiva are pink and non-injected, sclera clear Neck: normal jugular venous pulse, no hepatojugular reflux Chest: normal shape and normal respiratory effort, Tachypnea noted Lungs:Mildly decreased breath sounds at the bases Cardiac Exam: - Regular rhythm, tachycardic, 3/6 systolic murmur heard best over left sternal border and left apex, no jugular venous distention sitting straight up Abdomen: abdomen soft, non-tender, no abnormal masses and no hepatosplenomegaly Musculoskeletal: no gait disturbance, no weakness Extremities: no edema and no cyanosis Neuro:awake, conversant, follows commands, no focal motor deficits Psych: appropriate affect and insight. Results & Data Vital Signs (Past 12 Hours) Vital Signs Temp Pulse Pulse Resp BP Pulse Ox O2 Del Method 04/18/24 09:51 87 04/18/24 09:11 36.6 C 88 17 105/69 100 Room Air 04/18/24 08:45 88 18 95/45 L 98 Room Air 04/18/24 08:25 96 H 18 100/59 L 98 Room Air 04/18/24 07:07 36.6 C 95 H 18 122/77 95 Room Air 04/18/24 03:08 36.9 C 91 H 16 115/72 92 Room Air 04/17/24 23:56 96 H 04/17/24 22:53 36.3 C L 94 H 18 107/72 93 Room Air Laboratory Results CBC 04/18/24 Range/Units 05:55 WBC 10.38 (4.8-10.8) K/ul RBC 4.51 (4.20-5.40) M/uL Hgb 13.4 (12.0-16.0) g/dl Hct 41.4 (37.0-47.0) % Plt Count 247 (130-400) K/uL Neut # (Auto) 4.59 (1.40-6.50) K/uL Lymph # (Auto) 4.32 H (1.20-3.40) K/uL Love # (Auto) 0.68 H (0.11-0.59) K/uL Eos # (Auto) 0.46 (0.00-0.50) K/uL Baso # (Auto) 0.10 (0.00-0.20) K/uL Comprehensive Metabolic Panel 04/18/24 Range/Units 05:55 Sodium 139 (136-145) mmol/L Potassium 4.6 D (3.5-5.1) mmol/L Chloride 106 (98-107) mmol/L Carbon Dioxide 26 (21-32) mmol/L BUN 27 H (6-23) mg/dl Creatinine 0.92 (0.6-1.2) mg/dl Glucose 104 H (70-99(Fasting)) mg/dl Calcium 9.1 (8.6-10.3) mg/dl Intake and Output 04/17/24 04/18/24 04/18/24 22:59 06:59 14:59 Intake Total 400 / 600 Output Total 750 / 1500 150 / 1500 Balance -350 / -900 -150 / -900 Intake: Oral 400 / 600 Output: Urine 750 / 1500 150 / 1500 Other: Other Intake Source NPO Weight 59.2 kg 59.2 kg Weight Measurement Method Built in [facility] Patient Weight 04/19/24 06:59 Weight 59.2 kg
--- NOTE | 2024-04-18 11:44 | Anesthesiology Progress Note ---
Date of Service April 18, 2024 Anesthesia Post Procedure Vital Signs Vital Signs: Temp Pulse Pulse Resp BP Pulse Ox O2 Del Method 04/18/24 09:51 87 04/18/24 09:11 36.6 C 88 17 105/69 100 Room Air 04/18/24 08:45 88 18 95/45 L 98 Room Air 04/18/24 08:25 96 H 18 100/59 L 98 Room Air 04/18/24 07:07 36.6 C 95 H 18 122/77 95 Room Air 04/18/24 03:08 36.9 C 91 H 16 115/72 92 Room Air 04/17/24 23:56 96 H 04/17/24 22:53 36.3 C L 94 H 18 107/72 93 Room Air 04/17/24 21:07 Room Air 04/17/24 19:55 36.6 C 88 16 102/67 92 Nasal Cannula 04/17/24 16:25 94 H 04/17/24 15:15 36.5 C 92 H 18 102/64 96 Nasal Cannula O2 Flow Rate 04/18/24 09:51 04/18/24 09:11 04/18/24 08:45 04/18/24 08:25 04/18/24 07:07 04/18/24 03:08 04/17/24 23:56 04/17/24 22:53 04/17/24 21:07 04/17/24 19:55 1.0 04/17/24 16:25 04/17/24 15:15 1.0 Transfer of Care Handoff Completed per policy Notes Mental Status: alert / awake / arousable and participated in evaluation Patient Amnestic to Procedure: Yes Nausea / Vomiting: adequately controlled Pain: adequately controlled Airway Patency, RR, SpO2: stable & adequate BP & HR: stable & adequate Hydration State: stable & adequate Anesthetic Complications: no major complications apparent
--- NOTE | 2024-04-18 13:47 | Hospitalist Progress Note ---
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 After first course of treatment, she had some improvement but again had increasing cough (this time dry cough) and SUAREZ. She was put on Augmentin and prednisone, on 04/12/2024 for pneumonia again. ESR wnl, CRP minimally elevated. CT chest was concerning for pulmonary edema. Was found to have right lower lung lobe nodule of 5 mm Patient underwent BOUCHRA on 04/18/2024; found to have rupture chordae with a flail P2 scallop of posterior mitral valve leaflet with severe mitral regurgitation. Severe tricuspid regurgitation present Given the finding on the BOUCHRA; patient to be transferred to [facility] [place]. Discussed with patient who is agreeable. Continue diuretics as per cardiology Continue Augmentin; plan to treat for 5 days Plan to obtain MRI brain without contrast for persistent dizziness Other chronic medical conditions: Continue with/resume home meds as when able. DVT prophylaxis: Heparin subcu Full code Disposition lives at home Time spent evaluating patient, direct bedside care, chart review, placing orders, interpretation of diagnostic studies, discussion with consultants, patient, and family members, as well as other required patient management activities is 50 minutes Please note the above document was generated using voice recognition software. It may contain grammatical, syntax or spelling errors. Any formal questions or concerns about the content, text or information contained within the body of this dictation should be directly addressed to the provider for clarification Admission and Anticipated Discharge Date Admission Date: April 16, 2024 Subjective Patient seen and examined at bedside She continues report of dizziness. Reports that her shortness of breath has improved No significant events overnight Review of Systems Review of Systems: All systems reviewed & are unremarkable except as noted in Subjective Physical Exam Physical Exam: General- oriented x 3, not in distress, speaks in sentences with no effort or accessory muscle use Eyes- anicteric Neck- no JVD Lungs- b/l basal crackles present Heart- normal rate, regular rhythm; grade 2-3/6 systolic murmur Abdomen- normal bowel sounds, nondistended, soft, nontender Extremities- no pretibial edema, no calf tenderness Neuro- alert, oriented x 3; no gross focal neurologic deficits Skin- warm & dry Results & Data Results & Data Vital Signs (Past 12 Hours) Vital Signs Temp Pulse Pulse Resp BP Pulse Ox O2 Del Method 04/18/24 11:49 36.3 C L 88 20 95/61 L 95 Room Air 04/18/24 09:51 87 04/18/24 09:11 36.6 C 88 17 105/69 100 Room Air 04/18/24 08:45 88 18 95/45 L 98 Room Air 04/18/24 08:25 96 H 18 100/59 L 98 Room Air 04/18/24 07:07 36.6 C 95 H 18 122/77 95 Room Air 04/18/24 03:08 36.9 C 91 H 16 115/72 92 Room Air
--- NOTE | 2024-04-18 13:57 | Discharge Summary ---
Date of Service April 18, 2024 Admission HPI Per Admitting Provider 73-year-old lady with PMH of prediabetes, vitamin D deficiency, fibromyalgia who was being treated for cough and shortness of breath as an outpatient. She has the symptoms for about 4 weeks now, she has received Zithromax and prednisone for possible walking pneumonia on 03/21/2024. Got mostly better but cough came back about 2 weeks later, no fever, but short of breath especially with exertion, mostly dry cough this time, associated with some wheezing when lying down at night. She was put on Augmentin for 10 days on 04/12/2024, steroid Rx and echocardiogram was ordered. Echocardiogram done 04/16/2024: EF of 65 to 69%, severe mitral insufficiency. Pulmonary artery systolic pressure more than 60 mmHg. Left ventricular wall motion is normal. Because of abnormal echocardiogram, patient was referred to the ED by cardiology after echo was done/read today. Patient denies sore throat, reports cough with clear sputum now, reports chest pain/pressure/tightness on and off for about 3 to 4 weeks, reports on and off palpitation, denies belly pain/nausea/vomiting. Reports appetite fair. Reports bowel okay. Patient denies smoking/alcohol use/recreational drug use. Medications reviewed with the patient at bedside. Plan of care discussed with the patient and her at bedside in detail. They voiced understanding. Full code Discharge Exam General- oriented x 3, not in distress, speaks in sentences with no effort or accessory muscle use Eyes- anicteric Neck- no JVD Lungs- b/l basal crackles present Heart- normal rate, regular rhythm; grade 2-3/6 systolic murmur Abdomen- normal bowel sounds, nondistended, soft, nontender Extremities- no pretibial edema, no calf tenderness Neuro- alert, oriented x 3; no gross focal neurologic deficits Skin- warm & dry Discharge Data Allergies Allergy/AdvReac Type Severity Reaction Status Date / Time Sulfa (Sulfonamide Allergy Mild Swelling Unverified 04/16/24 17:55 Antibiotics) of Lip/Tongue/Throat Consultations 04/16/24 18:38 Consult Cardiology Routine 04/17/24 10:52 Consult Anesthesiology Routine Procedures Performed Operation Date: 04/18/24 07:30 Actual Procedures p Echo Transesophageal - DO devon Roberts Echo Doppler Complete - DO devon Roberts Echo Color Flow - Scott James DO Ordered Studies 04/16/24 18:57 CT chest diagnostic wo con Routine 04/18/24 10:50 MRI Brain [MR brain wo con] Routine Hospital Course (1) Mitral regurgitation: Plan Acute pulmonary edema secondary to severe mitral regurgitation Possible pneumonia Patient with complaint of cough with yellow sputum and 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 After first course of treatment, she had some improvement but again had increasing cough (this time dry cough) and SUAREZ. She was put on Augmentin and prednisone, on 04/12/2024 for pneumonia again. ESR wnl, CRP minimally elevated. CT chest was concerning for pulmonary edema. Was found to have right lower lung lobe nodule of 5 mm Patient underwent BOUCHRA on 04/18/2024; found to have rupture chordae with a flail P2 scallop of posterior mitral valve leaflet with severe mitral regurgitation. Severe tricuspid regurgitation present Given the finding on the BOUCHRA; patient to be transferred to [facility] [place]. Discussed with patient who is agreeable. Continue diuretics as per cardiology Continue Augmentin; plan to treat for 5 days Plan to obtain MRI brain without contrast for persistent dizziness Other chronic medical conditions: Continue with/resume home meds as when able. DVT prophylaxis: Heparin subcu Full code Disposition lives at home Time spent evaluating patient, direct bedside care, chart review, placing orders, interpretation of diagnostic studies, discussion with consultants, patient, and family members, as well as other required patient management activities is 50 minutes Please note the above document was generated using voice recognition software. It may contain grammatical, syntax or spelling errors. Any formal questions or concerns about the content, text or information contained within the body of this dictation should be directly addressed to the provider for clarification Discharge Plan Discharge Items Patient Disposition: Transfer Acute Care Hospital Reason For Visit: REFERRAL FROM CARDIAC OFFICE Discharge Diagnosis: Severe MR Activity: Resume your previous activity Non-emergency contact: Primary Care Provider Call non-emergency contact if: you have any medication questions and your symptoms worsen Follow-up/Referrals: Rogerio Heart MD [Primary Care Provider] - Diet: Regular Addtl Attending Provider Instructions: Follow-up with PCP after discharge from the hospital Obtain CT chest in 12 months to monitor right lower lobe pulmonary nodule Pending Studies at Discharge: No Stand-Alone Forms: My [facility] Skilled Items Patient informed of condition?: Yes DNR: No Discharge Level of Care: Other Communicable Disease: No Discharge Prognosis: Stable Lines: Peripheral IV Urinary Catheter: No Medications and DC Order Prescriptions: Continued amoxicillin-pot clavulanate 875-125 mg tablet 1 tab PO BID Rx Instructions: Start Date 04/12/24 x10 day supply rosuvastatin 10 mg tablet 10 mg PO QAM levalbuterol tartrate 45 mcg/actuation HFA aerosol inhaler 2 puff INHALATION Q6H PRN (Reason: Wheezing) estradiol [Vagifem] 10 mcg tablet 10 mcg vaginal 2XWK potassium 99 mg Tablet 99 mg PO DAILY vitamin B complex Tablet 1 tab PO DAILY cholecalciferol (vitamin D3) [Vitamin D3] 25 mcg (1,000 unit) Tablet 25 mcg PO DAILY Admission Data Admit Date/Time: 04/16/24 18:38 Attending Provider: Conner Patrick Admit Provider: Rhona Jama Primary Care Provider: Rogerio Heart Other Providers: Scott James; Yosvany Perez
--- NOTE | 2024-04-18 17:52 | Magnetic Resonance Report ---
MRI of the brain performed without IV contrast History: Dizziness Comparison: None Technique: Sagittal T1-weighted and axial T2-weighted, T2/FLAIR and diffusion-weighted with ADC map images of the brain were obtained without IV contrast. Findings: No evidence for intracranial mass lesion, mass-effect, midline shift, or abnormal extra-axial fluid collection. The ventricles and sulci are within normal limits for age. Mild, scattered high signal intensity foci on T2/FLAIR throughout the white matter, most suggestive of chronic small vessel ischemic disease. No abnormally reduced diffusion or evidence for acute infarct. Normal intravascular flow voids. Impression: Normal brain MRI Electronically signed by Shawn Lazo 04-18-2024 5:52 PM
[2024-04-18] MEDS: FUROSEMIDE INJ 20 MG/2 ML VIAL IV ONE (17:56)
[2024-04-19 07:16] LABS: Basophils # (auto) 0.09 K/uL (0.00-0.20); Basophils % (auto) 0.9 %; Eosinophils % (auto) 7.8 %; Hematocrit (blood only) 41.8 % (37.0-47.0); Hemoglobin 13.7 g/dl (12.0-16.0); Immature Granulocytes # (auto) 0.21 K/uL (0.01-0.20); Lymphocytes # (auto) 3.92 K/uL (1.20-3.40); Lymphocytes % (auto) 38.1 %; Mean Corpuscular Hemoglobin 30.2 pg (25.0-34.0); Mean Corpuscular Hgb Conc 32.8 g/dL (32.0-36.0); Mean Corpuscular Volume 92.1 fL (80.0-100.0); Mean Platelet Volume 10.1 fL (9.4-12.4); Monocytes # (auto) 0.77 K/uL (0.11-0.59); Monocytes % (auto) 7.5 %; Neutrophils # (auto) 4.51 K/uL (1.40-6.50); Neutrophils % (auto) 43.7 %; Platelet Count 337 K/uL (130-400); RDW Coefficient of Variation 14.4 % (11.5-14.5); RDW Standard Deviation 48.9 fL (36.4-46.3); Red Blood Count 4.54 M/uL (4.20-5.40)
[2024-04-19 07:34] LABS: BUN Creatinine Ratio 25.3 (10-20); Calcium 9.1 mg/dl (8.6-10.3); Creatinine Clr Calc Pharmacy 44.9 ml/min
--- NOTE | 2024-04-19 09:50 | Hospitalist Progress Note ---
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 After first course of treatment, she had some improvement but again had increasing cough (this time dry cough) and SUAREZ. She was put on Augmentin and prednisone, on 04/12/2024 for pneumonia again. ESR wnl, CRP minimally elevated. CT chest was concerning for pulmonary edema. Was found to have right lower lung lobe nodule of 5 mm Patient underwent BOUCHRA on 04/18/2024; found to have rupture chordae with a flail P2 scallop of posterior mitral valve leaflet with severe mitral regurgitation. Severe tricuspid regurgitation present Given the finding on the BOUCHRA; patient to be transferred to [facility] [place]. Awaiting bed placement. Continue diuretics as per cardiology Continue Augmentin; plan to treat for 5 days MRI of the brain was done for persistent dizziness; no acute finding Other chronic medical conditions: Continue with/resume home meds as when able. DVT prophylaxis: Heparin subcu Full code Disposition lives at home Please note the above document was generated using voice recognition software. It may contain grammatical, syntax or spelling errors. Any formal questions or concerns about the content, text or information contained within the body of this dictation should be directly addressed to the provider for clarification Admission and Anticipated Discharge Date Admission Date: April 16, 2024 Subjective Patient seen and examined at bedside. She reports some anxiety Reports that her shortness of breath has improved No significant events overnight Physical Exam Physical Exam: General- oriented x 3, not in distress, speaks in sentences with no effort or accessory muscle use Eyes- anicteric Neck- no JVD Lungs- b/l basal crackles present Heart- normal rate, regular rhythm; grade 2-3/6 systolic murmur Abdomen- normal bowel sounds, nondistended, soft, nontender Extremities- no pretibial edema, no calf tenderness Neuro- alert, oriented x 3; no gross focal neurologic deficits Skin- warm & dry Results & Data Results & Data Vital Signs (Past 12 Hours) Vital Signs Temp Pulse Pulse Resp BP BP Pulse Ox 04/19/24 09:14 89 04/19/24 08:06 107/71 04/19/24 08:00 36.4 C L 87 16 98/66 L 97 04/19/24 07:47 04/19/24 03:29 36.2 C L 90 18 108/70 94 04/18/24 23:16 90 04/18/24 23:13 36.7 C 91 H 16 100/66 94 O2 Del Method 04/19/24 09:14 04/19/24 08:06 04/19/24 08:00 Room Air 04/19/24 07:47 Room Air 04/19/24 03:29 Room Air 04/18/24 23:16 04/18/24 23:13 Room Air
--- NOTE | 2024-04-19 10:24 | Cardiology Progress Note ---
Date of Service April 19, 2024 Assessment & Plan (1) Acute heart failure with preserved ejection fraction (HFpEF): (2) Mitral valve prolapse: (3) Mitral regurgitation: Plan: BOUCHRA with findings of flail P2 scallop of the posterior leaflet of the mitral valve with severe MR. Severe TR also noted , RVSP estimated to be 56 mm Hg. Infectious work up negative thus far. Blood cultures from 04/17/24 negative. Results discussed at length with patient and her , Mike. Patient has moderate posterior mitral annular calcification but otherwise , valve appears amenable to repair. Recommend transfer to tertiary center for expedited CT surgery evaluation. On 04/18/24, case discussed with Dr Sally Rausch , supervisor travel information center for inpatient cardiology at [facility] [place] who accepts patient in transfer pending bed availability. Proceed with another dose of IV furosemide 20 mg (04/29/24). DVT prophylaxis: SQ heparin. (4) Dizziness: Plan: Dizziness noted since November,. MRI of the brain is normal. Admission and Anticipated Discharge Date Admission Date: April 16, 2024 Subjective Patient seen in cardiology follow up. Denies acute complaints. Breathing improved compared to how she felt in the ED. Still with dizziness. Telemetry reveals SR in the 90s . Physical Exam Physical Exam: Temp Pulse Resp BP Pulse Ox O2 Del Method O2 Flow Rate 36.6 C 87 17 105/69 100 Room Air 1.0 04/18/24 09:11 04/18/24 09:51 04/18/24 09:11 04/18/24 09:11 04/18/24 09:11 04/18/24 09:11 04/17/24 19:55 General:Ill in appearance without acute distress Eyes: conjunctiva are pink and non-injected, sclera clear Neck: normal jugular venous pulse, no hepatojugular reflux Chest: normal shape and normal respiratory effort, Tachypnea noted Lungs:Mildly decreased breath sounds at the bases Cardiac Exam: - Regular rhythm, tachycardic, 3/6 systolic murmur heard best over left sternal border and left apex, no jugular venous distention sitting straight up Abdomen: abdomen soft, non-tender, no abnormal masses and no hepatosplenomegaly Musculoskeletal: no gait disturbance, no weakness Extremities: no edema and no cyanosis Neuro:awake, conversant, follows commands, no focal motor deficits Psych: appropriate affect and insight. Results & Data Vital Signs (Past 12 Hours) Vital Signs Temp Pulse Pulse Resp BP BP Pulse Ox 04/19/24 09:14 89 04/19/24 08:06 107/71 04/19/24 08:00 36.4 C L 87 16 98/66 L 97 04/19/24 07:47 04/19/24 03:29 36.2 C L 90 18 108/70 94 04/18/24 23:16 90 04/18/24 23:13 36.7 C 91 H 16 100/66 94 O2 Del Method 04/19/24 09:14 04/19/24 08:06 04/19/24 08:00 Room Air 04/19/24 07:47 Room Air 04/19/24 03:29 Room Air 04/18/24 23:16 04/18/24 23:13 Room Air
[2024-04-19] MEDS: FUROSEMIDE INJ 20 MG/2 ML VIAL IV ONE (10:29)
[2024-04-19] MEDS: ALPRAZolam 0.25 MG TABLET PO ONE (10:53)
--- NOTE | 2024-04-19 13:20 | Discharge Summary ---
Date of Service April 19, 2024 Admission HPI Per Admitting Provider 73-year-old lady with PMH of prediabetes, vitamin D deficiency, fibromyalgia who was being treated for cough and shortness of breath as an outpatient. She has the symptoms for about 4 weeks now, she has received Zithromax and prednisone for possible walking pneumonia on 03/21/2024. Got mostly better but cough came back about 2 weeks later, no fever, but short of breath especially with exertion, mostly dry cough this time, associated with some wheezing when lying down at night. She was put on Augmentin for 10 days on 04/12/2024, steroid Rx and echocardiogram was ordered. Echocardiogram done 04/16/2024: EF of 65 to 69%, severe mitral insufficiency. Pulmonary artery systolic pressure more than 60 mmHg. Left ventricular wall motion is normal. Because of abnormal echocardiogram, patient was referred to the ED by cardiology after echo was done/read today. Patient denies sore throat, reports cough with clear sputum now, reports chest pain/pressure/tightness on and off for about 3 to 4 weeks, reports on and off palpitation, denies belly pain/nausea/vomiting. Reports appetite fair. Reports bowel okay. Patient denies smoking/alcohol use/recreational drug use. Medications reviewed with the patient at bedside. Plan of care discussed with the patient and her at bedside in detail. They voiced understanding. Full code Admission Exam Per Admitting Provider GENERAL: Alert and oriented x3. NAD, on RA. HEENT: No pallor, no icterus. Pupils equal, round and reactive to light. Oral mucosa moist. NECK: No JVD, no neck masses. HEART: S1 and S2 heard. Regular rate and rhythm. + systolic murmur, no gallop. RESPIRATORY SYSTEM: Normal AP diameter. No accessory muscle use. No wheezing, bb crackles. ABDOMEN: Soft, bowel sounds present, nontender, no distention. CENTRAL NERVOUS SYSTEM: No facial droop. Speech is clear. Obeys simple commands. Moves extremities. EXTREMITIES: No edema, no erythema seen. Principal Diagnosis Acute pulmonary edema secondary to severe mitral regurgitation Possible pneumonia Discharge Exam General- oriented x 3, not in distress, speaks in sentences with no effort or accessory muscle use Eyes- anicteric Neck- no JVD Lungs- b/l basal crackles present Heart- normal rate, regular rhythm; grade 2-3/6 systolic murmur Abdomen- normal bowel sounds, nondistended, soft, nontender Extremities- no pretibial edema, no calf tenderness Neuro- alert, oriented x 3; no gross focal neurologic deficits Skin- warm & dry Discharge Data Allergies Allergy/AdvReac Type Severity Reaction Status Date / Time Sulfa (Sulfonamide Allergy Mild Swelling Unverified 04/16/24 17:55 Antibiotics) of Lip/Tongue/Throat Consultations 04/16/24 18:38 Consult Cardiology Routine 04/17/24 10:52 Consult Anesthesiology Routine Procedures Performed Operation Date: 04/18/24 07:30 Actual Procedures p Echo Transesophageal - DO devon Roberts Echo Doppler Complete - DO devon Roberts Echo Color Flow - Scott James DO Ordered Studies 04/16/24 18:57 CT chest diagnostic wo con Routine 04/18/24 10:50 MRI Brain [MR brain wo con] Routine Hospital Course (1) Mitral regurgitation: Plan Acute pulmonary edema secondary to severe mitral regurgitation Possible pneumonia Patient with complaint of cough with yellow sputum and 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 After first course of treatment, she had some improvement but again had increasing cough (this time dry cough) and SUAREZ. She was put on Augmentin and prednisone, on 04/12/2024 for pneumonia again. ESR wnl, CRP minimally elevated. CT chest was concerning for pulmonary edema. Was found to have right lower lung lobe nodule of 5 mm Patient underwent BOUCHRA on 04/18/2024; found to have rupture chordae with a flail P2 scallop of posterior mitral valve leaflet with severe mitral regurgitation. Severe tricuspid regurgitation present Given the finding on the BOUCHRA; patient to be transferred to [facility] [place]. Continue diuretics as per cardiology Continue Augmentin; plan to treat for 5 days MRI of the brain was done for persistent dizziness; no acute finding Other chronic medical conditions: Continue with/resume home meds as when able. DVT prophylaxis: Heparin subcu Full code Disposition lives at home Time spent evaluating patient, direct bedside care, chart review, placing orders, interpretation of diagnostic studies, discussion with consultants, patient, and family members, as well as other required patient management activities is 50 minutes Please note the above document was generated using voice recognition software. It may contain grammatical, syntax or spelling errors. Any formal questions or concerns about the content, text or information contained within the body of this dictation should be directly addressed to the provider for clarification Total Time Total Time Spent Total Time Spent (In Minutes): 45 Total Time Includes: Examination of the Patient, Discharge Planning, Medication Reconciliation, Communication With Other Providers and Other Discharge Plan Discharge Items Patient Disposition: Transfer Acute Care Hospital Reason For Visit: REFERRAL FROM CARDIAC OFFICE Discharge Diagnosis: Severe MR Activity: Resume your previous activity Non-emergency contact: Primary Care Provider Call non-emergency contact if: you have any medication questions and your symptoms worsen Follow-up/Referrals: Rogerio Heart MD [Primary Care Provider] - Diet: Regular Addtl Attending Provider Instructions: Follow-up with PCP after discharge from the hospital Obtain CT chest in 12 months to monitor right lower lobe pulmonary nodule Pending Studies at Discharge: No Stand-Alone Forms: My [facility] Skilled Items Patient informed of condition?: Yes DNR: No Discharge Level of Care: Other Communicable Disease: No Discharge Prognosis: Stable Lines: Peripheral IV Urinary Catheter: No Medications and DC Order Prescriptions: Continued amoxicillin-pot clavulanate 875-125 mg tablet 1 tab PO BID Rx Instructions: Start Date 04/12/24 x10 day supply rosuvastatin 10 mg tablet 10 mg PO QAM levalbuterol tartrate 45 mcg/actuation HFA aerosol inhaler 2 puff INHALATION Q6H PRN (Reason: Wheezing) estradiol [Vagifem] 10 mcg tablet 10 mcg vaginal 2XWK potassium 99 mg Tablet 99 mg PO DAILY vitamin B complex Tablet 1 tab PO DAILY cholecalciferol (vitamin D3) [Vitamin D3] 25 mcg (1,000 unit) Tablet 25 mcg PO DAILY Admission Data Admit Date/Time: 04/16/24 18:38 Attending Provider: Conner Patrick Admit Provider: Rhona Jama Primary Care Provider: Rogerio Heart Other Providers: Scott James; Yosvany Perez
[2024-04-20 08:35] LABS: BUN Creatinine Ratio 26.7 (10-20); Calcium 9.3 mg/dl (8.6-10.3); Creatinine Clr Calc Pharmacy 49.3 ml/min; Potassium 4.2 mmol/L (3.5-5.1)
[2024-04-20] MEDS: ALPRAZolam 0.25 MG TABLET PO PRN (09:50)
--- NOTE | 2024-04-20 10:03 | Cardiology Progress Note ---
Date of Service April 20, 2024 Assessment & Plan (1) Acute heart failure with preserved ejection fraction (HFpEF): (2) Mitral valve prolapse: (3) Mitral regurgitation: Plan: BOUCHRA with findings of flail P2 scallop of the posterior leaflet of the mitral valve with severe MR. Severe TR also noted , RVSP estimated to be 56 mm Hg. Infectious work up negative thus far. Blood cultures from 04/17/24 negative. Patient has moderate posterior mitral annular calcification but otherwise , valve appears amenable to repair. Recommend transfer to tertiary center for expedited CT surgery evaluation. On 04/18/24, case discussed with Dr Sally Rausch , ornamental ironworker helper for inpatient cardiology at [facility] [place] [facility] who accepts patient in transfer pending bed availability. Proceed with another dose of IV furosemide 20 mg (04/20/24). DVT prophylaxis: SQ heparin. (4) Dizziness: Plan: Dizziness noted since November,. MRI of the brain is normal. Admission and Anticipated Discharge Date Admission Date: April 16, 2024 Subjective Patient seen in follow up. No acute complaints. Telemetry reveals SR in the 90s. Physical Exam Physical Exam: Temp Pulse Resp BP Pulse Ox O2 Del Method O2 Flow Rate 36.8 C 82 18 119/58 L 94 Room Air 1.0 04/20/24 08:00 04/20/24 08:38 04/20/24 08:00 04/20/24 08:00 04/20/24 08:00 04/20/24 08:00 04/17/24 19:55 General:Ill in appearance without acute distress Eyes: conjunctiva are pink and non-injected, sclera clear Neck: normal jugular venous pulse, no hepatojugular reflux Chest: normal shape and normal respiratory effort, Tachypnea noted Lungs:Mildly decreased breath sounds at the bases Cardiac Exam: - Regular rhythm, tachycardic, 3/6 systolic murmur heard best over left sternal border and left apex, no jugular venous distention sitting straight up Abdomen: abdomen soft, non-tender, no abnormal masses and no hepatosplenomegaly Musculoskeletal: no gait disturbance, no weakness Extremities: no edema and no cyanosis Neuro:awake, conversant, follows commands, no focal motor deficits Psych: appropriate affect and insight. Results & Data Vital Signs (Past 12 Hours) Vital Signs Temp Pulse Pulse Resp BP Pulse Ox O2 Del Method 04/20/24 08:38 82 04/20/24 08:00 36.8 C 78 18 119/58 L 94 Room Air 04/20/24 03:29 36.8 C 86 16 100/62 93 Room Air 04/19/24 23:30 36.8 C 90 16 103/65 95 Room Air 04/19/24 22:41 Room Air 04/19/24 22:05 92 H Laboratory Results Comprehensive Metabolic Panel 04/20/24 Range/Units 07:01 Sodium 139 (136-145) mmol/L Potassium 4.2 (3.5-5.1) mmol/L Chloride 106 (98-107) mmol/L Carbon Dioxide 27 (21-32) mmol/L BUN 23 (6-23) mg/dl Creatinine 0.86 (0.6-1.2) mg/dl Glucose 113 H (70-99(Fasting)) mg/dl Calcium 9.3 (8.6-10.3) mg/dl Intake and Output 04/19/24 04/20/24 04/20/24 22:59 06:59 14:59 Intake Total 790 / 790 Output Total Balance 789 / 289 Intake: Oral 790 / 790 Output: Urine Other: Weight 61 kg Weight Measurement Method Built in [facility]
[2024-04-20] MEDS: FUROSEMIDE INJ 20 MG/2 ML VIAL IV ONE (11:08)
--- NOTE | 2024-04-20 12:29 | Hospitalist Progress Note ---
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 After first course of treatment, she had some improvement but again had increasing cough (this time dry cough) and SUAREZ. She was put on Augmentin and prednisone, on 04/12/2024 for pneumonia again. ESR wnl, CRP minimally elevated. CT chest was concerning for pulmonary edema. Was found to have right lower lung lobe nodule of 5 mm Patient underwent BOUCHRA on 04/18/2024; found to have rupture chordae with a flail P2 scallop of posterior mitral valve leaflet with severe mitral regurgitation. Severe tricuspid regurgitation present Given the finding on the BOUCHRA; patient to be transferred to [facility]. Awaiting bed placement. Continue diuretics as per cardiology Continue Augmentin; plan to treat for 5 days MRI of the brain was done for persistent dizziness; no acute finding Other chronic medical conditions: Continue with/resume home meds as when able. DVT prophylaxis: Heparin subcu Full code Disposition lives at home. awaiting bed placement at [facility] Please note the above document was generated using voice recognition software. It may contain grammatical, syntax or spelling errors. Any formal questions or concerns about the content, text or information contained within the body of this dictation should be directly addressed to the provider for clarification Admission and Anticipated Discharge Date Admission Date: April 16, 2024 Subjective Patient seen and examined at bedside. She is comfortable; not in distress Reports that her shortness of breath has improved No significant events overnight Review of Systems Review of Systems: All systems reviewed & are unremarkable except as noted in Subjective Physical Exam Physical Exam: General- oriented x 3, not in distress, speaks in sentences with no effort or accessory muscle use Eyes- anicteric Neck- no JVD Lungs- b/l basal crackles present, improved Heart- normal rate, regular rhythm; grade 2-3/6 systolic murmur Abdomen- normal bowel sounds, nondistended, soft, nontender Extremities- no pretibial edema, no calf tenderness Neuro- alert, oriented x 3; no gross focal neurologic deficits Skin- warm & dry Results & Data Results & Data Vital Signs (Past 12 Hours) Vital Signs Temp Pulse Pulse Resp BP Pulse Ox O2 Del Method 04/20/24 11:51 36.6 C 68 20 125/62 95 Room Air 04/20/24 08:38 82 04/20/24 08:00 36.8 C 78 18 119/58 L 94 Room Air 04/20/24 03:29 36.8 C 86 16 100/62 93 Room Air
[2024-04-21 07:47] LABS: Hematocrit (blood only) 40.8 % (37.0-47.0); Hemoglobin 13.4 g/dl (12.0-16.0); Mean Corpuscular Hemoglobin 29.9 pg (25.0-34.0); Mean Corpuscular Hgb Conc 32.8 g/dL (32.0-36.0); Mean Corpuscular Volume 91.1 fL (80.0-100.0); Platelet Count 339 K/uL (130-400); RDW Coefficient of Variation 14.2 % (11.5-14.5); RDW Standard Deviation 47.6 fL (36.4-46.3); Red Blood Count 4.48 M/uL (4.20-5.40); White Blood Count 10.14 K/ul (4.8-10.8)
[2024-04-21 08:17] LABS: Calcium 9.3 mg/dl (8.6-10.3); Creatinine Clr Calc Pharmacy 54.8 ml/min; Potassium 4.1 mmol/L (3.5-5.1)
[2024-04-21] MEDS: FUROSEMIDE INJ 20 MG/2 ML VIAL IV ONE (09:23)
--- NOTE | 2024-04-21 12:48 | Hospitalist Progress Note ---
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 After first course of treatment, she had some improvement but again had increasing cough (this time dry cough) and SUAREZ. She was put on Augmentin and prednisone, on 04/12/2024 for pneumonia again. ESR wnl, CRP minimally elevated. CT chest was concerning for pulmonary edema. Was found to have right lower lung lobe nodule of 5 mm Patient underwent BOUCHRA on 04/18/2024; found to have rupture chordae with a flail P2 scallop of posterior mitral valve leaflet with severe mitral regurgitation. Severe tricuspid regurgitation present Given the finding on the BOUCHRA; patient to be transferred to [facility]. Awaiting bed placement. Continue diuretics as per cardiology Continue Augmentin; treated for 5 days. last dose to be on pm dose on 04/21. MRI of the brain was done for persistent dizziness; no acute finding Other chronic medical conditions: Continue with/resume home meds as when able. DVT prophylaxis: Heparin subcu Full code Disposition lives at home. awaiting bed placement at [facility] Please note the above document was generated using voice recognition software. It may contain grammatical, syntax or spelling errors. Any formal questions or concerns about the content, text or information contained within the body of this dictation should be directly addressed to the provider for clarification Admission and Anticipated Discharge Date Admission Date: April 16, 2024 Subjective Patient seen and examined at bedside. She is comfortable; not in distress Vital signs are stable and she is saturating well on room air Review of Systems Review of Systems: All systems reviewed & are unremarkable except as noted in Subjective Physical Exam Physical Exam: General- oriented x 3, not in distress, speaks in sentences with no effort or accessory muscle use Eyes- anicteric Neck- no JVD Lungs- b/l basal crackles present, improved Heart- normal rate, regular rhythm; grade 2-3/6 systolic murmur Abdomen- normal bowel sounds, nondistended, soft, nontender Extremities- no pretibial edema, no calf tenderness Neuro- alert, oriented x 3; no gross focal neurologic deficits Skin- warm & dry Results & Data Results & Data Vital Signs (Past 12 Hours) Vital Signs Temp Pulse Pulse Pulse Resp BP Pulse Ox 04/21/24 11:00 36.8 C 98 H 81 18 132/62 96 04/21/24 10:35 81 04/21/24 08:16 04/21/24 08:00 36.8 C 97 H 74 18 119/74 96 04/21/24 03:22 36.7 C 82 16 106/69 95 O2 Del Method 04/21/24 11:00 Room Air 04/21/24 10:35 04/21/24 08:16 Room Air 04/21/24 08:00 Room Air 04/21/24 03:22 Room Air
--- NOTE | 2024-04-21 18:22 | Cardiology Progress Note ---
Date of Service April 21, 2024 Assessment & Plan (1) Acute heart failure with preserved ejection fraction (HFpEF): (2) Mitral valve prolapse: (3) Mitral regurgitation: Plan: BOUCHRA with findings of flail P2 scallop of the posterior leaflet of the mitral valve with severe MR. Severe TR also noted , RVSP estimated to be 56 mm Hg. Infectious work up negative thus far. Blood cultures from 04/17/24 negative. Patient has moderate posterior mitral annular calcification but otherwise , valve appears amenable to repair. Recommend transfer to tertiary center for expedited CT surgery evaluation. On 04/18/24, case discussed with Dr Sally Rausch , material handler floorperson for inpatient cardiology at [facility] who accepts patient in transfer pending bed availability. Received an additional dose of furosemide 20 mg morning of 04/21/2024. Recently received word that bed has become available at [facility] and transport available. Plan for transferred, ACLS ground for left and right heart catheterization and expedited CT surgery evaluation for mitral valve intervention. DVT prophylaxis: SQ heparin. (4) Dizziness: Plan: Dizziness noted since November,. MRI of the brain is normal. Admission and Anticipated Discharge Date Admission Date: April 16, 2024 Subjective Patient without acute complaint. Dyspnea has improved compared to when she was initially admitted to the hospital. Dizziness persists but better. Telemetry reveals sinus rhythm in the 90s. Physical Exam Physical Exam: General:Ill in appearance without acute distress Eyes: conjunctiva are pink and non-injected, sclera clear Neck: normal jugular venous pulse, no hepatojugular reflux Chest: normal shape and normal respiratory effort, Tachypnea noted Lungs:Mildly decreased breath sounds at the bases Cardiac Exam: - Regular rhythm, tachycardic, 3/6 systolic murmur heard best over left sternal border and left apex, no jugular venous distention sitting straight up Abdomen: abdomen soft, non-tender, no abnormal masses and no hepatosplenomegaly Musculoskeletal: no gait disturbance, no weakness Extremities: no edema and no cyanosis Neuro:awake, conversant, follows commands, no focal motor deficits Psych: appropriate affect and insight. Results & Data Vital Signs (Past 12 Hours) Vital Signs Temp Pulse Pulse Pulse Resp BP BP 04/21/24 17:34 36.8 C 98 H 81 18 132/62 107/71 04/21/24 14:23 88 04/21/24 11:00 36.8 C 98 H 81 18 132/62 04/21/24 10:35 81 04/21/24 08:16 04/21/24 08:00 36.8 C 97 H 74 18 119/74 Pulse Ox O2 Del Method 04/21/24 17:34 96 04/21/24 14:23 04/21/24 11:00 96 Room Air 04/21/24 10:35 04/21/24 08:16 Room Air 04/21/24 08:00 96 Room Air
[2024-04-21 19:29] VITALS: PULSE 99; RESP 16; TEMP 97.3; O2SAT 95
[2024-04-21 20:05] VITALS: BP 107/71
--- NOTE | 2024-04-22 08:00 | Discharge Summary ---
Date of Service April 21, 2024 Admission HPI Per Admitting Provider 73-year-old lady with PMH of prediabetes, vitamin D deficiency, fibromyalgia who was being treated for cough and shortness of breath as an outpatient. She has the symptoms for about 4 weeks now, she has received Zithromax and prednisone for possible walking pneumonia on 03/21/2024. Got mostly better but cough came back about 2 weeks later, no fever, but short of breath especially with exertion, mostly dry cough this time, associated with some wheezing when lying down at night. She was put on Augmentin for 10 days on 04/12/2024, steroid Rx and echocardiogram was ordered. Echocardiogram done 04/16/2024: EF of 65 to 69%, severe mitral insufficiency. Pulmonary artery systolic pressure more than 60 mmHg. Left ventricular wall motion is normal. Because of abnormal echocardiogram, patient was referred to the ED by cardiology after echo was done/read today. Patient denies sore throat, reports cough with clear sputum now, reports chest pain/pressure/tightness on and off for about 3 to 4 weeks, reports on and off palpitation, denies belly pain/nausea/vomiting. Reports appetite fair. Reports bowel okay. Patient denies smoking/alcohol use/recreational drug use. Medications reviewed with the patient at bedside. Plan of care discussed with the patient and her at bedside in detail. They voiced understanding. Full code Admission Exam Per Admitting Provider GENERAL: Alert and oriented x3. NAD, on RA. HEENT: No pallor, no icterus. Pupils equal, round and reactive to light. Oral mucosa moist. NECK: No JVD, no neck masses. HEART: S1 and S2 heard. Regular rate and rhythm. + systolic murmur, no gallop. RESPIRATORY SYSTEM: Normal AP diameter. No accessory muscle use. No wheezing, bb crackles. ABDOMEN: Soft, bowel sounds present, nontender, no distention. CENTRAL NERVOUS SYSTEM: No facial droop. Speech is clear. Obeys simple commands. Moves extremities. EXTREMITIES: No edema, no erythema seen. Principal Diagnosis Acute pulmonary edema secondary to severe mitral regurgitation Possible pneumonia Discharge Exam General- oriented x 3, not in distress, speaks in sentences with no effort or accessory muscle use Eyes- anicteric Neck- no JVD Lungs- b/l basal crackles present, improved Heart- normal rate, regular rhythm; grade 2-3/6 systolic murmur Abdomen- normal bowel sounds, nondistended, soft, nontender Extremities- no pretibial edema, no calf tenderness Neuro- alert, oriented x 3; no gross focal neurologic deficits Skin- warm & dry Discharge Data Allergies Allergy/AdvReac Type Severity Reaction Status Date / Time Sulfa (Sulfonamide Allergy Mild Swelling Unverified 04/16/24 17:55 Antibiotics) of Lip/Tongue/Throat Consultations 04/16/24 18:38 Consult Cardiology Routine 04/17/24 10:52 Consult Anesthesiology Routine 04/20/24 07:53 Burn CD for patient Stat Procedures Performed Operation Date: 04/18/24 07:30 Actual Procedures p Echo Transesophageal - DO devon Roberts Echo Doppler Complete - DO devon Roberts Echo Color Flow - Scott James DO Ordered Studies 04/16/24 18:57 CT chest diagnostic wo con Routine 04/18/24 10:50 MRI Brain [MR brain wo con] Routine Hospital Course (1) Mitral regurgitation: Plan Acute pulmonary edema secondary to severe mitral regurgitation Possible pneumonia Patient with complaint of cough with yellow sputum and shortness of breath 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 After first course of treatment, she had some improvement but again had increasing cough (this time dry cough) and SUAREZ. She was put on Augmentin and prednisone, on 04/12/2024 for pneumonia again. ESR wnl, CRP minimally elevated. CT chest was concerning for pulmonary edema. Was found to have right lower lung lobe nodule of 5 mm Patient underwent BOUCHRA on 04/18/2024; found to have rupture chordae with a flail P2 scallop of posterior mitral valve leaflet with severe mitral regurgitation. Severe tricuspid regurgitation present Given the finding on the BOUCHRA; patient was transferred to [facility]. She was diuresed during the hospitalization by cardiology. Continue Augmentin; treated for 5 days. last dose to be on pm dose on 04/21. MRI of the brain was done for persistent dizziness; no acute finding Please note the above document was generated using voice recognition software. It may contain grammatical, syntax or spelling errors. Any formal questions or concerns about the content, text or information contained within the body of this dictation should be directly addressed to the provider for clarification Total Time Total Time Spent Total Time Spent (In Minutes): 45 Total Time Includes: Examination of the Patient, Discharge Planning, Medication Reconciliation, Communication With Other Providers and Other Discharge Plan Discharge Items Patient Disposition: Transfer Acute Care Hospital Reason For Visit: REFERRAL FROM CARDIAC OFFICE Discharge Diagnosis: Severe MR Activity: Resume your previous activity Non-emergency contact: Primary Care Provider Call non-emergency contact if: you have any medication questions and your symptoms worsen Follow-up/Referrals: Rogerio Heart MD [Primary Care Provider] - Diet: Regular Addtl Attending Provider Instructions: Follow-up with PCP after discharge from the hospital Obtain CT chest in 12 months to monitor right lower lobe pulmonary nodule Pending Studies at Discharge: No Stand-Alone Forms: My [employer] Skilled Items Patient informed of condition?: Yes DNR: No Discharge Level of Care: Other Communicable Disease: No Discharge Prognosis: Stable Lines: Peripheral IV Urinary Catheter: No Medications and DC Order Prescriptions: Continued amoxicillin-pot clavulanate 875-125 mg tablet 1 tab PO BID Rx Instructions: Start Date 04/12/24 x10 day supply rosuvastatin 10 mg tablet 10 mg PO QAM levalbuterol tartrate 45 mcg/actuation HFA aerosol inhaler 2 puff INHALATION Q6H PRN (Reason: Wheezing) estradiol [Vagifem] 10 mcg tablet 10 mcg vaginal 2XWK potassium 99 mg Tablet 99 mg PO DAILY vitamin B complex Tablet 1 tab PO DAILY cholecalciferol (vitamin D3) [Vitamin D3] 25 mcg (1,000 unit) Tablet 25 mcg PO DAILY Discharge Orders: Discharge Order (Routine); Ordered 04/21/24 Ordered By: Conner Patrick Admission Data Admit Date/Time: 04/16/24 18:38 Attending Provider: Conner Patrick Admit Provider: Rhona Jama Primary Care Provider: Rogerio Heart Other Providers: Scott James; Yosvany Perez Other Interventions: Discharge Summary Assessment (RN) Last Done: 04/21/24 20:00
--- NOTE | 2024-04-22 12:52 | Electrocardiogram Report ---
Test Reason : Blood Pressure : */* mmHG Vent. Rate : 89 BPM Atrial Rate : 89 BPM P-R Int : 136 ms QRS Dur : 84 ms QT Int : 378 ms P-R-T Axes : 67 -19 57 degrees QTcB Int : 459 ms Normal sinus rhythm Normal ECG When compared with ECG of 16-Apr-2024 20:50, Premature atrial complexes are no longer Present Confirmed by Shawn Chao ([id number]) on 04/22/2024 12:52:30 PM Referred By: REFERRED SELF Confirmed By: Shawn Chao
== END 2024-04-21 20:05 | disposition short-term general hospital (02) | DRG 306 ==
LOC: ED 15:10 → 2S 18:38 → SUATTDRO 18:38 → 2S 20:54

== ENCOUNTER 2024-11-28 13:31 | Inpatient (IN) ==
--- NOTE | 2024-11-28 14:02 | Emergency Department Note ---
Impression & Plan Pulmonary embolism, SUAREZ (dyspnea on exertion), Abnormal EKG, Elevated troponin I level ED Provider Note NAME: RANDA DUGAN AGE: 74 SEX: F : 1950 ARRIVES VIA: Walk-In INFORMANT: Patient, ED PROVIDER(S): Lebron Gonzalez DO CHIEF COMPLAINT: Shortness of breath HPI: The patient is a 74-year-old female who presented to the emergency department for an evaluation of shortness of breath. The patient's noted shortness of breath and chest pain course the last several days. It got worse over the last few days. She called her pulmonary doctor. She was advised to come the emergency department. She has had some abdominal pain as well as vomiting up some white frothy sputum. She denies having any hemoptysis. She denies having any leg swelling or leg pain. The patient does not take any oral anticoagulants. ROS: See above HPI for pertinent positives & negatives. A total of 10 systems reviewed and were otherwise negative. PAST MEDICAL HISTORY: See Below PAST SURGICAL HISTORY: See Below FAMILY HISTORY: See Below SOCIAL HISTORY: See Below HOME MEDICATIONS: See Below ALLERGIES: See Below VITALS: See Below PHYSICAL EXAMINATION: GENERAL: Patient is awake alert in no acute distress patient is resting comfortably and showing no signs of anxiety EYES: The conjunctivae are clear. The pupils are round and reactive. EARS, NOSE, MOUTH AND THROAT: The nose is without any evidence of any deformity. NECK: The neck is nontender and supple. RESPIRATORY: Slight Rales were noted at the left base. Tachypnea or conversational dyspnea. CARDIOVASCULAR: Regular rate and rhythm noted there no murmurs rubs or gallops normal S1 normal S2. GASTROINTESTINAL: The abdomen is soft. Abdomen is nontender. MUSCULOSKELETAL/EXTREMITIES: There is no evidence of gross deformity full range of motion is noted in the hips and shoulders. SKIN: There is no obvious evidence of any rash. There are no petechiae, pallor or cyanosis noted. NEUROLOGIC: Patient is awake alert and oriented x3 MEDICAL DECISION MAKING: The patient is a 74-year-old female who presented to the emergency department for an evaluation of difficulty breathing. The patient is status post valvular heart repair. The patient did have a cardiac catheterization at that time which did not show any lesions requiring intervention. The patient started having shortness of breath as well as chest pain with exertion over the course the last few days. She has had similar episodes over the last several weeks. I discussed the patient's laboratory and radiographic studies with her. She was found to have pulmonary embolism on CT imaging. She was started on IV heparin. The patient was reevaluated multiple times. I discussed her condition with the on-call [facility]. They were notified and will evaluate the patient in the emergency department. Triage Nursing notes reviewed. Prior medical records reviewed Vital Signs: reviewed and remarkable for no significant abnormalities Differential diagnosis: Reactive airway disease, pneumonia, pneumothorax, COPD, CHF, infections, cardiac ischemia, pulmonary embolism, musculoskeletal, gastrointestinal, as well as other pathologies. ER treatment provided: See below Diagnostics interpreted by me: ECG: EKG was obtained in the emergency department. My interpretation is sinus rhythm at 94 bpm. There is no ectopy. Nonspecific ST and T wave abnormalities are noted especially in the anterior and lower lateral leads. This was compared to a tracing from April 21, 2024. The changes appear new compared to the previous tracing. Cardiac Monitoring: An order was placed for continuous cardiac monitoring. The monitor shows a rate of 83 bpm with sinus rhythm. Laboratory studies: As stated above and show below. Imaging studies: See below. Radiographic imaging was reviewed by myself Consultation(s): I discussed this case with Nina who is on-call for the [facility] group. ED COURSE: Procedures: none Critical Care: I have personally spent greater than 45 minutes of critical care time in the direct management of this patient. This includes bedside care, interpretation of diagnostic studies, and testing, discussion with consultants, patient, and family members, and other required patient management activities. This 45 minutes is in excess of all separately billable procedures. Past Med/Surg History Problem List (Updated 11/28/24 @ 16:26 by Lebron Gonzalez DO) Elevated troponin I level (Acute) Abnormal EKG (Acute) SUAREZ (dyspnea on exertion) (Acute) Pulmonary embolism (Acute) Pulmonary hypertension (Acute) Acute heart failure with preserved ejection fraction (HFpEF) (Acute) Mitral regurgitation (Acute) Mitral valve prolapse (Acute) Dysuria Bladder pain Urinary symptom or sign Medical History Dizziness Social History Smoking Status: Never smoker Hx Alcohol Use: No Hx Substance Use: No Preferred Language: Togolese Communication Ability: Effective Beliefs That Will Affect Care: None Current Living Situation: Spouse Current Living Situation Comment: lives in house with steps Feels Safe at Home: Yes Assistive Devices: None Allergies Allergies Allergy/AdvReac Type Severity Reaction Status Date / Time Sulfa (Sulfonamide Allergy Mild Swelling Unverified 04/16/24 17:55 Antibiotics) of Lip/Tongue/Throat Home Meds Home Medications Medication Instructions Recorded Confirmed amoxicillin 875 mg-potassium 1 tab PO BID 04/16/24 04/16/24 clavulanate 125 mg tablet cholecalciferol (vitamin D3) 25 25 mcg PO DAILY 04/16/24 04/16/24 mcg (1,000 unit) tablet (Vitamin D3) estradiol 10 mcg vaginal tablet 10 mcg vaginal 2XWK 04/16/24 04/16/24 (Vagifem) levalbuterol tartrate 45 2 puff inhalation Q6H PRN Wheezing 04/16/24 04/16/24 mcg/actuation aerosol inhaler potassium 99 mg tablet 99 mg PO DAILY 04/16/24 04/16/24 rosuvastatin 10 mg tablet 10 mg PO QAM 04/16/24 04/16/24 vitamin B complex 1 tab PO DAILY 04/16/24 04/16/24 Results & Data (ED) Vital Signs Vital Signs - 24 hr 11/28/24 13:34 11/28/24 13:51 11/28/24 14:03 Temperature 36.8 C Temperature Source Temporal Artery Scan Pulse Rate 98 H 89 Pulse Rate [Apical] Respiratory Rate 20 Respiratory Effort / Characteristics Non-Labored Respiratory Depth Normal Respiratory Pattern Regular Blood Pressure 114/75 Blood Pressure [Left Arm] Blood Pressure Mean 88 Blood Pressure Mean [Left Arm] Pulse Oximetry 96 Oxygen Delivery Method Room Air Room Air Sepsis Recent Fever Within 48 Hours No Sepsis New/Unexplained Change in Mental Status No Sepsis Action Taken by Nursing No Action Required 11/28/24 14:03 11/28/24 14:03 11/28/24 14:03 Temperature Temperature Source Pulse Rate 83 Pulse Rate [Apical] 83 Respiratory Rate 16 16 Respiratory Effort / Characteristics Respiratory Depth Respiratory Pattern Blood Pressure Blood Pressure [Left Arm] 123/73 Blood Pressure Mean Blood Pressure Mean [Left Arm] 89 Pulse Oximetry 95 95 95 Oxygen Delivery Method Room Air Room Air Room Air Sepsis Recent Fever Within 48 Hours Sepsis New/Unexplained Change in Mental Status Sepsis Action Taken by Nursing 11/28/24 16:00 Temperature Temperature Source Pulse Rate Pulse Rate [Apical] 91 H Respiratory Rate 22 Respiratory Effort / Characteristics Respiratory Depth Respiratory Pattern Blood Pressure Blood Pressure [Left Arm] 144/69 H Blood Pressure Mean Blood Pressure Mean [Left Arm] 94 Pulse Oximetry 95 Oxygen Delivery Method Room Air Sepsis Recent Fever Within 48 Hours Sepsis New/Unexplained Change in Mental Status Sepsis Action Taken by Intermediate Medications Current Medication List: was personally reviewed by me Laboratory Data Attestation: I reviewed the patient's lab results. 11/28/24 14:01 11/28/24 14:01 Lab Results 11/28/24 11/28/24 11/28/24 Range/Units 14:01 14:18 14:37 WBC 8.76 (4.8-10.8) K/ul RBC 5.01 (4.20-5.40) M/uL Hgb 15.6 (12.0-16.0) g/dl Hct 46.0 (37.0-47.0) % MCV 91.8 (80.0-100.0) fL MCH 31.1 (25.0-34.0) pg MCHC 33.9 (32.0-36.0) g/dL RDW Std Deviation 43.9 (36.4-46.3) fL RDW Coeff of Joselyn 13.0 (11.5-14.5) % Plt Count 276 (130-400) K/uL MPV 10.5 (9.4-12.4) fL Immature Gran % (Auto) 0.3 % Neut % (Auto) 72.5 % Lymph % (Auto) 19.5 % Stan[place] % (Auto) 6.2 % Eos % (Auto) 0.9 % Baso % (Auto) 0.6 % Neut # (Auto) 6.35 (1.40-6.50) K/uL Lymph # (Auto) 1.71 (1.20-3.40) K/uL Stan[place] # (Auto) 0.54 (0.11-0.59) K/uL Eos # (Auto) 0.08 (0.00-0.50) K/uL Baso # (Auto) 0.05 (0.00-0.20) K/uL Immature Gran # (Auto) 0.03 (0.01-0.20) K/uL PT 11.0 (9.0-12.0) Seconds INR 1.0 (0.9-1.1) APTT 22 (21-31) Seconds PTT Ratio 0.8 D-Dimer 7070 H* (0-500) ug/L FEU Sodium 142 (136-145) mmol/L Potassium 4.1 (3.5-5.1) mmol/L Chloride 104 (98-107) mmol/L Carbon Dioxide 27 (21-32) mmol/L Anion Gap 11 (3-11) BUN 16 (6-23) mg/dl Creatinine 1.14 (0.6-1.2) mg/dl Est Cr Clr Drug Dosing 33.7 ml/min eGFR 50.20 BUN/Creatinine Ratio 14.0 (10-20) Glucose 137 H (70-99(Fasting)) mg/dl Calcium 10.3 (8.6-10.3) mg/dl Magnesium 2.2 (1.7-2.4) mg/dl Total Bilirubin 0.8 (0.2-1.0) mg/dl AST 28 (13-39) U/L ALT 28 (7-52) U/L Alkaline Phosphatase 67 (34-104) U/L Troponin I High Sens 52.8 H* (0-14) pg/ml B-Natriuretic Peptide 278 H (0-100) pg/ml Total Protein 8.5 H (6.0-8.3) gm/dl Albumin 4.9 (3.4-5.0) gm/dl Globulin 3.6 (2.5-4.0) gm/dl Albumin/Globulin Ratio 1.4 (0.9-2) Urine Color Urine Appearance (Clear) Urine pH (4.5-7.5) Ur Specific [place] (1.000-1.030) Urine Protein (Negative) Urine Glucose (UA) (Negative) Urine Ketones (Negative) Urine Blood (Negative) Urine Nitrite (Negative) Urine Bilirubin (Negative) Urine Urobilinogen (Negative) Ur Leukocyte Esterase (Negative) Urine WBC (Auto) (0-5) /hpf Urine RBC (Auto) (0-2) /hpf U Hyaline Cast (Auto) (0-2) /lpf U Epithel Cells (Auto) (0-2) /hpf Urine Bacteria (Auto) (None Seen) Hyaline Casts (None Presnt) /lpf Urine Comment SARS-CoV-2 (PCR) NEGATIVE (Negative) Influenza Type A (PCR) Negative (Neg) Influenza Type B (PCR) Negative (Neg) RSV (RT-PCR) Negative (Neg) 11/28/24 Range/Units 15:21 WBC (4.8-10.8) K/ul RBC (4.20-5.40) M/uL Hgb (12.0-16.0) g/dl Hct (37.0-47.0) % MCV (80.0-100.0) fL MCH (25.0-34.0) pg MCHC (32.0-36.0) g/dL RDW Std Deviation (36.4-46.3) fL RDW Coeff of Joselyn (11.5-14.5) % Plt Count (130-400) K/uL MPV (9.4-12.4) fL Immature Gran % (Auto) % Neut % (Auto) % Lymph % (Auto) % [place] % (Auto) % Eos % (Auto) % Baso % (Auto) % Neut # (Auto) (1.40-6.50) K/uL Lymph # (Auto) (1.20-3.40) K/uL [place] # (Auto) (0.11-0.59) K/uL Eos # (Auto) (0.00-0.50) K/uL Baso # (Auto) (0.00-0.20) K/uL Immature Gran # (Auto) (0.01-0.20) K/uL PT (9.0-12.0) Seconds INR (0.9-1.1) APTT (21-31) Seconds PTT Ratio D-Dimer (0-500) ug/L FEU Sodium (136-145) mmol/L Potassium (3.5-5.1) mmol/L Chloride (98-107) mmol/L Carbon Dioxide (21-32) mmol/L Anion Gap (3-11) BUN (6-23) mg/dl Creatinine (0.6-1.2) mg/dl Est Cr Clr Drug Dosing ml/min eGFR BUN/Creatinine Ratio (10-20) Glucose (70-99(Fasting)) mg/dl Calcium (8.6-10.3) mg/dl Magnesium (1.7-2.4) mg/dl Total Bilirubin (0.2-1.0) mg/dl AST (13-39) U/L ALT (7-52) U/L Alkaline Phosphatase (34-104) U/L Troponin I High Sens (0-14) pg/ml B-Natriuretic Peptide (0-100) pg/ml Total Protein (6.0-8.3) gm/dl Albumin (3.4-5.0) gm/dl Globulin (2.5-4.0) gm/dl Albumin/Globulin Ratio (0.9-2) Urine Color Yellow Urine Appearance Clear (Clear) Urine pH 7.5 (4.5-7.5) Ur Specific [place] 1.025 (1.000-1.030) Urine Protein 1+ H (Negative) Urine Glucose (UA) Negative (Negative) Urine Ketones Trace H (Negative) Urine Blood Negative (Negative) Urine Nitrite Negative (Negative) Urine Bilirubin Negative (Negative) Urine Urobilinogen Negative (Negative) Ur Leukocyte Esterase 2+ H (Negative) Urine WBC (Auto) 11-20 H (0-5) /hpf Urine RBC (Auto) 6-10 H (0-2) /hpf U Hyaline Cast (Auto) 6-10 H (0-2) /lpf U Epithel Cells (Auto) 3-5 H (0-2) /hpf Urine Bacteria (Auto) None Seen (None Seen) Hyaline Casts Present A (None Presnt) /lpf Urine Comment SARS-CoV-2 (PCR) (Negative) Influenza Type A (PCR) (Neg) Influenza Type B (PCR) (Neg) RSV (RT-PCR) (Neg) Administered Medications Heparin Sodium/Dextrose (Heparin 18133 Unit/500 Ml D5w) 25,000 units in 500 mls @ 19 mls/hr IV .Q24H [facility]; Protocol Stop: 12/28/24 15:59 Last Admin: 11/28/24 16:05 Dose: 950 units/hr, 19 mls/hr Documented By: JASON Co-signed By: JW Discontinued Medications Aspirin (Aspirin Chew 324 Mg) 324 mg PO NOW STA Stop: 11/28/24 15:08 Last Admin: 11/28/24 15:17 Dose: 324 mg Documented By: JASON Heparin Sodium (Porcine) (Heparin Sod (Porcine) 1000 Unit/Ml) 4,000 units IV NOW ONE Stop: 11/28/24 16:16 Last Admin: 11/28/24 16:06 Dose: 4,000 units Documented By: JASON Co-signed By: TOÑO Heparin Sodium/Dextrose (Heparin Iv Adult Wt-Based Standard W/ Initial Bolus Protocol) 1 each IV NOW STA; Protocol Stop: 11/28/24 15:43 Last Admin: 11/28/24 16:02 Dose: Not Given Documented By: JASON Ioversol (Optiray 320 125ml) 115 ml IV ONCE ONE Stop: 11/28/24 15:35 Last Admin: 11/28/24 15:34 Dose: 1 ml Documented By: ABS Imaging Data Attestation: I personally reviewed and interpreted this imaging study as follows: My Impression: CT of the chest was obtained in the emergency department. My interpretation is bilateral pulmonary embolism with very proximal clot noted, final report below. Radiologist's Impression: Chest X-Ray 11/28/24 13:58 XR chest 1V portable CLINICAL HISTORY: Dyspnea COMPARISON STUDY: 04/16/2024 FINDINGS: There is interval cardiac valve repair. Heart size and pulmonary vasculature are normal. Stable mildly hyperexpanded lungs. No consolidation or pleural effusion. No pneumothorax. IMPRESSION: No acute findings. ACT 112: Negative or not required by law. Electronically signed by: Rodrigo Aiken M.D. 11/28/2024 2:27 PM Chest CTA 11/28/24 15:21 CT ANGIOGRAM OF THE CHEST CLINICAL HISTORY: Dyspnea COMPARISON STUDY: Chest CT dated 04/16/2024. Chest x-ray dated 11/28/2024 TECHNIQUE: Following the IV administration of 115 cc of Optiray 320, CT angiogram of the chest was performed from the upper abdomen to the thoracic inlet utilizing the pulmonary embolus protocol. Images are reviewed in the axial, sagittal, and coronal planes. 3-D MIPS images are created and assessed. IV contrast was administered without complication. A dose lowering technique was utilized adhering to the principles of ALARA. CT DOSE: 329.86 mGy.cm FINDINGS: Thyroid: Imaged portions of the thyroid gland are normal in size and attenuation. Thoracic aorta: There is atherosclerotic calcification of the thoracic aorta, which is normal in caliber and demonstrates standard 3-vessel arch anatomy. No dissection is seen. Pulmonary vasculature: The main pulmonary arteries are mildly dilated suggesting pulmonary artery hypertension. There is extensive bilateral pulmonary embolus. There is thrombus within the right main pulmonary artery which extends into the right upper, middle, and lower lobe pulmonary arteries and the segmental and subsegmental branches. There is also thrombus within the distal left main pulmonary artery. This extends into the left lower lobe pulmonary artery into segmental and subsegmental branches. Segmental and subsegmental pulmonary emboli are seen within branches of the left upper lobe and lingular pulmonary artery. Heart: The patient is status post midline sternotomy. There is evidence of previous tricuspid and mitral valve surgery. The heart is enlarged and without pericardial effusion. Flattening of the interventricular septum suggests right heart strain. Lungs and pleural spaces: Evaluation of the lung parenchyma is degraded by motion artifact. There is no airspace consolidation or pleural effusion. Mild scarring/atelectasis is noted at the lung bases. The trachea and central airways are clear. A 61 the right lower lobe pulmonary nodule on image #109 and a 5 mm right lower lobe pulmonary nodule on image #142 are unchanged, as is a 2 mm pleural-based nodule in the left lower lobe on image #113. Mediastinum: There is no mediastinal lymphadenopathy. Wendy: Clear. Axillae: There is no axillary lymphadenopathy. Upper abdomen: The liver is steatotic. Cholecystectomy clips are noted. There is a small hiatal hernia. Skeletal structures: The skeletal structures are osteopenic. No lytic or blastic bony lesions are seen. Arthritic change is seen in the shoulders. IMPRESSION: 1. Extensive bilateral pulmonary embolus as above. 2. Cardiomegaly. 3. Flattening of the interventricular septum suggests right heart strain. 4. There is no airspace consolidation or pleural effusion. 5. Scattered pulmonary nodules measure up to 6 mm. These are unchanged from 04/16/2024 and if warranted can be followed as per the Fleischner criteria. See below. 6. Hepatic steatosis. 7. Additional findings as above. Please refer to below summary of Fleischner criteria recommendations for follow- up of incidental CT nodules (Alexa Juan, Guidelines for management of small pulmonary nodules detected on CT scans: A statement from the Fleischner Society, Radiology 237: [phone].) SOLID NODULES Solitary nodule size: <6 mm * low risk patients: no follow-up needed * high risk patients: optional CT at 12 months Solitary nodule size: 6-8 mm * low risk patients: follow-up at 6-12 months, then consider further follow-up at 18-24 months * high risk patients: initial follow-up CT at 6-12 months and then at 18-24 months if no change Solitary nodule size: >8 mm * either low or high risk patients - consider follow-up CT at 3 months, and/or CT-PET, and/or biopsy Multiple nodules size: <6 mm * low risk patients: no routine follow-up * high risk patients: optional CT at 12 months Multiple nodules size: 6-8 mm * low risk patients: follow-up at 3-6 months, then consider further follow-up at 18-24 months * high risk patients: follow-up at 3-6 months, then at 18-24 months if no change Multiple nodules size: >8 mm * low risk patients: follow-up at 3-6 months, then consider further follow-up at 18-24 months * high risk patients: follow-up at 3-6 months, then at 18-24 months if no change Note: newly detected indeterminate nodule in persons 35 years of age or older. * low risk patients: minimal or absent history of smoking and/or other known risk factors * high risk patients: history of smoking or of other known risk factors (e.g. first degree relative with lung cancer, or exposure to asbestos, radon, uranium) * if a nodule up to 8 mm is partly solid or is ground glass further follow-up is required after 24 months to exclude possible slow growing adenocarcinoma ([place]AG[place]) SUBSOLID NODULES Solitary pure ground-glass nodule * nodule size <6 mm - no CT follow-up required * nodule size >=6 mm - follow-up CT at 6-12 months, then every 2 years until 5 years Solitary part-solid nodule * nodule size <6 mm - no CT follow-up required * nodule size >=6 mm - follow-up CT at 3-6 months. If unchanged, and solid component remains <6 mm, then annual follow-up for 5 years Multiple subsolid nodules * nodule size <6 mm - follow-up CT at 3-6 months, consider further follow-up at 2 and 4 years if stable * nodule size >=6 mm - follow-up CT at 3-6 months, subsequent management based on the most suspicious nodule(s) ACT 112: Negative or not required by law. Electronically signed by: Daron Sutherland M.D. 11/28/2024 3:52 PM Discharge Plan Visit Data Chief Complaint: Shortness of Breath/Dyspnea Stated Complaint: SOB, VOMITING ED Provider: Lebron Gonzalez Discharge Problem: Pulmonary embolism, USAREZ (dyspnea on exertion), Abnormal EKG, Elevated troponin I level Patient Disposition: Being Evaluated by Hospitalist Condition: Fair Forms Stand Alone Forms: [facility] [employer] Prescriptions Prescriptions: No Action amoxicillin-pot clavulanate 875-125 mg tablet 1 tab PO BID Rx Instructions: Start Date 04/12/24 x10 day supply rosuvastatin 10 mg tablet 10 mg PO QAM levalbuterol tartrate 45 mcg/actuation HFA aerosol inhaler 2 puff INHALATION Q6H PRN (Reason: Wheezing) estradiol [Vagifem] 10 mcg tablet 10 mcg vaginal 2XWK potassium 99 mg Tablet 99 mg PO DAILY vitamin B complex Tablet 1 tab PO DAILY cholecalciferol (vitamin D3) [Vitamin D3] 25 mcg (1,000 unit) Tablet 25 mcg PO DAILY Referrals Referrals: Rogerio Heart MD [Primary Care Provider] -
[2024-11-28 14:26] LABS: Hematocrit (blood only) 46.0 % (37.0-47.0); Hemoglobin 15.6 g/dl (12.0-16.0); Immature Granulocytes # (auto) 0.03 K/uL (0.01-0.20); Immature Granulocytes % (auto) 0.3 %; Mean Corpuscular Hemoglobin 31.1 pg (25.0-34.0); Mean Corpuscular Volume 91.8 fL (80.0-100.0); Platelet Count 276 K/uL (130-400); RDW Standard Deviation 43.9 fL (36.4-46.3); Red Blood Count 5.01 M/uL (4.20-5.40); White Blood Count 8.76 K/ul (4.8-10.8)
--- NOTE | 2024-11-28 14:28 | XRay Report ---
XR chest 1V portable CLINICAL HISTORY: Dyspnea COMPARISON STUDY: 04/16/2024 FINDINGS: There is interval cardiac valve repair. Heart size and pulmonary vasculature are normal. St able mildly hyperexpanded lungs. No consolidation or pleural effusion. No pneumothorax. IMPRESSION: No acute findings. ACT 112: Negative or not required by law. Electronically signed by: Rodrigo Aiken M.D. 11/28/2024 2:27 PM
[2024-11-28 14:42] LABS: Alanine Aminotransferase 28.0 U/L (7-52); Albumin Globulin Ratio 1.4 (0.9-2); Albumin Level 4.9 gm/dl (3.4-5.0); Alkaline Phosphatase 67.0 U/L (34-104); Anion Gap 11.0 (3-11); Bilirubin,Total 0.8 mg/dl (0.2-1.0); Blood Urea Nitrogen 16.0 mg/dl (6-23); Calcium 10.3 mg/dl (8.6-10.3); Carbon Dioxide 27.0 mmol/L (21-32); Chloride 104.0 mmol/L (98-107); Creatinine Clr Calc Pharmacy 33.7 ml/min; Globulin 3.6 gm/dl (2.5-4.0); Glucose 137.0 mg/dl (70-99(Fasting)); Magnesium 2.2 mg/dl (1.7-2.4); Potassium 4.1 mmol/L (3.5-5.1); Sodium 142.0 mmol/L (136-145); Total Protein 8.5 gm/dl (6.0-8.3)
[2024-11-28 15:00] LABS: INR 1.0 (0.9-1.1); Partial Thromboplastin Time 22 Seconds (21-31); Prothrombin Time 11.0 Seconds (9.0-12.0)
[2024-11-28] MEDS: ASPIRIN CHEW 324 MG PO STA (15:17)
[2024-11-28 15:23] LABS: Influenza A virus by PCR Negative (Neg); Influenza B virus by PCR Negative (Neg); SARS CoV2 RNA(COVID-19) Ceph NEGATIVE (Negative)
[2024-11-28] MEDS: OPTIRAY 320 125ml IV ONE (15:34)
[2024-11-28 15:40] LABS: Appearance Urine Clear (Clear); Bacteria Urine Automated None Seen (None Seen); Glucose Urine UA Negative (Negative)
--- NOTE | 2024-11-28 15:54 | CT Scan Report ---
CT ANGIOGRAM OF THE CHEST CLINICAL HISTORY: Dyspnea COMPARISON STUDY: Chest CT dated 04/16/2024. Chest x-ray dated 11/28/2024 TECHNIQUE: Following the IV administration of 115 cc of Optiray 320, CT angiogram of the chest was pe rformed from the upper abdomen to the thoracic inlet utilizing the pulmonary embolus protocol. Images are reviewed in the axial, sagittal, and coronal planes. 3-D MIPS images are created and assessed. I V contrast was administered without complication. A dose lowering technique was utilized adhering to the principles of ALARA. CT DOSE: 329.86 mGy.cm FINDINGS: Thyroid: Imaged portions of the thyroid gland are normal in size and attenuation. Thoracic aorta: There is atherosclerotic calcification of the thoracic aorta, which is normal in david garett and demonstrates standard 3-vessel arch anatomy. No dissection is seen. Pulmonary vasculature: The main pulmonary arteries are mildly dilated suggesting pulmonary artery hyp ertension. There is extensive bilateral pulmonary embolus. There is thrombus within the right main pu lmonary artery which extends into the right upper, middle, and lower lobe pulmonary arteries and the segmental and subsegmental branches. There is also thrombus within the distal left main pulmonary art julio c. This extends into the left lower lobe pulmonary artery into segmental and subsegmental branches. Segmental and subsegmental pulmonary emboli are seen within branches of the left upper lobe and ling ular pulmonary artery. Heart: The patient is status post midline sternotomy. There is evidence of previous tricuspid and gina ral valve surgery. The heart is enlarged and without pericardial effusion. Flattening of the interven tricular septum suggests right heart strain. Lungs and pleural spaces: Evaluation of the lung parenchyma is degraded by motion artifact. There is no airspace consolidation or pleural effusion. Mild scarring/atelectasis is noted at the lung bases. The trachea and central airways are clear. A 61 the right lower lobe pulmonary nodule on image #109 a nd a 5 mm right lower lobe pulmonary nodule on image #142 are unchanged, as is a 2 mm pleural-based n odule in the left lower lobe on image #113. Mediastinum: There is no mediastinal lymphadenopathy. Wendy: Clear. Axillae: There is no axillary lymphadenopathy. Upper abdomen: The liver is steatotic. Cholecystectomy clips are noted. There is a small hiatal herni a. Skeletal structures: The skeletal structures are osteopenic. No lytic or blastic bony lesions are see n. Arthritic change is seen in the shoulders. IMPRESSION: 1. Extensive bilateral pulmonary embolus as above. 2. Cardiomegaly. 3. Flattening of the interventricular septum suggests right heart strain. 4. There is no airspace consolidation or pleural effusion. 5. Scattered pulmonary nodules measure up to 6 mm. These are unchanged from 04/16/2024 and if warrante d can be followed as per the Fleischner criteria. See below. 6. Hepatic steatosis. 7. Additional findings as above. Please refer to below summary of Fleischner criteria recommendations for follow-up of incidental CT n odules (Alexa Juan, Guidelines for management of small pulmonary nodules detected on CT scans: A sta tement from the Fleischner Society, Radiology 237: [phone].) SOLID NODULES Solitary nodule size: <6 mm * low risk patients: no follow-up needed * high risk patients: optional CT at 12 months Solitary nodule size: 6-8 mm * low risk patients: follow-up at 6-12 months, then consider further follow-up at 18-24 months * high risk patients: initial follow-up CT at 6-12 months and then at 18-24 months if no change Solitary nodule size: >8 mm * either low or high risk patients - consider follow-up CT at 3 months, and/or CT-PET, and/or biopsy Multiple nodules size: <6 mm * low risk patients: no routine follow-up * high risk patients: optional CT at 12 months Multiple nodules size: 6-8 mm * low risk patients: follow-up at 3-6 months, then consider further follow-up at 18-24 months * high risk patients: follow-up at 3-6 months, then at 18-24 months if no change Multiple nodules size: >8 mm * low risk patients: follow-up at 3-6 months, then consider further follow-up at 18-24 months * high risk patients: follow-up at 3-6 months, then at 18-24 months if no change Note: newly detected indeterminate nodule in persons 35 years of age or older. * low risk patients: minimal or absent history of smoking and/or other known risk factors * high risk patients: history of smoking or of other known risk factors (e.g. first degree relative with lung cancer, or exposure to asbestos, radon, uranium) * if a nodule up to 8 mm is partly solid or is ground glass further follow-up is required after 24 m onths to exclude possible slow growing adenocarcinoma (CHAGO) SUBSOLID NODULES Solitary pure ground-glass nodule * nodule size <6 mm - no CT follow-up required * nodule size >=6 mm - follow-up CT at 6-12 months, then every 2 years until 5 years Solitary part-solid nodule * nodule size <6 mm - no CT follow-up required * nodule size >=6 mm - follow-up CT at 3-6 months. If unchanged, and solid component remains <6 mm, then annual follow-up for 5 years Multiple subsolid nodules * nodule size <6 mm - follow-up CT at 3-6 months, consider further follow-up at 2 and 4 years if sta ble * nodule size >=6 mm - follow-up CT at 3-6 months, subsequent management based on the most suspiciou s nodule(s) ACT 112: Negative or not required by law. Electronically signed by: Daron Sutherland M.D. 11/28/2024 3:52 PM
[2024-11-28] MEDS ORDERED: HEPARIN SOD (PORCINE) 1000 UNIT/ML IV ONE (15:57)
[2024-11-28] MEDS: Heparin IV Adult Wt-Based Standard w/ INITIAL Bolus Protocol IV STA (16:02)
[2024-11-28] MEDS: HEPARIN 25000 UNIT/500 ML D5W 25,000 UNITS/500 ML BAG IV SCH (16:05)
[2024-11-28] MEDS: HEPARIN SOD (PORCINE) 1000 UNIT/ML IV ONE (16:06)
--- NOTE | 2024-11-28 16:45 | History & Physical Report ---
Date of Service November 28, 2024 Assessment & Plan (1) Elevated troponin I level: (2) Abnormal EKG: (3) SUAREZ (dyspnea on exertion): (4) Pulmonary embolism: (5) Pulmonary hypertension: (6) Mitral regurgitation: (7) Mitral valve prolapse: (8) Dizziness: Plan Patient is a 74-year-old female who presented to the ED on 11/28/2024 with complaints of worsening shortness of breath and chest pain found to have bilateral PE Extensive bilateral pulmonary emboli Noted in chest CTA, right heart strain also noted Check echo, trend troponin, slowly trending up No hypoxia noted, pulmonology consulted Check venous duplex bilateral lower extremities to rule out DVT Hx severe mitral valve regurg s/p valve repair April 2024: -Continue aspirin 81 mg, metoprolol, fenofibrate, digoxin Hx CHF/HLD: Continue furosemide A total of 55 minutes were spent on chart review/reviewing diagnostic data/facilitating plan of care/discussion with consultants Full code DVT prophylaxis: Heparin drip History of Present Illness Chief Complaint: Shortness of breath, chest plan Primary Care Provider: Rogerio Heart MD The patient is a 74-year-old female with a past medical history of prediabetes, vitamin D deficiency, fibromyalgia, severe mitral valve regurgitation who presented to the ED on 11/28/2024 with complaints of shortness of breath/dizziness/chest pain and some vomiting. The patient was recently hospitalized and April 2024 for cough and shortness of breath. She had an echocardiogram done at that time that showed a EF of 65 to 69% with severe mitral insufficiency. The patient was admitted due to abnormal echocardiogram, patient underwent BOUCHRA on 04/18/2024 that showed a ruptured chordae with a flail P2 scallop of the posterior mitral valve leaflet with severe mitral regurgitation. Severe tricuspid regurgitation was also noted. At this time the patient was transferred to [facility] management by cardiology. MRI of the brain was done at that time that was negative She subsequently underwent mitral valve replacement at [facility] and her cardiac meds were adjusted. She was started on aspirin, metoprolol, fenofibrate, furosemide, digoxin, rosuvastatin and remained on Coumadin for 4 months until August 2024 p ostoperatively. She reports that she has had some shortness of breath ongoing since her surgery which she was told is normal postoperatively. She reported the shortness of breath continued to worsen especially over the past 3 days so she came to the ER. She denies any fever/chills. Denies any abdominal pain. Reports some vomiting over the past 24 hours On arrival to the ED, D-dimer was elevated at 7070, troponin was also elevated at 58, repeat 71 BNP mildly elevated at 278 Urinalysis was positive, patient asymptomatic Viral panel negative Chest x-ray was negative Chest CTA showed extensive bilateral pulmonary embolus, cardiomegaly, right heart strain: The main pulmonary arteries are mildly dilated suggesting pulmonary artery hypertension. There is extensive bilateral pulmonary embolus. There is thrombus within the right main pulmonary artery which extends into the right upper, middle, and lower lobe pulmonary arteries and the segmental and subsegmental branches. There is also thrombus within the distal left main pulmonary artery. This extends into the left lower lobe pulmonary artery into segmental and subsegmental branches. Segmental and subsegmental pulmonary emboli are seen within branches of the left upper lobe and lingular pulmonary artery. The patient remained hemodynamically stable and will be admitted for further management for PE, heparin drip was initiated in the ER, no hypoxia noted Allergies Allergy/AdvReac Type Severity Reaction Status Date / Time Sulfa (Sulfonamide Allergy Mild Swelling Unverified 04/16/24 17:55 Antibiotics) of Lip/Tongue/Throat Home Medications Medication Instructions Recorded Confirmed Type amoxicillin 875 mg-potassium 1 tab PO BID 04/16/24 04/16/24 History clavulanate 125 mg tablet cholecalciferol (vitamin D3) 25 25 mcg PO DAILY 04/16/24 04/16/24 History mcg (1,000 unit) tablet (Vitamin D3) estradiol 10 mcg vaginal tablet 10 mcg vaginal 2XWK 04/16/24 04/16/24 History (Vagifem) levalbuterol tartrate 45 2 puff inhalation Q6H PRN Wheezing 04/16/24 04/16/24 History mcg/actuation aerosol inhaler potassium 99 mg tablet 99 mg PO DAILY 04/16/24 04/16/24 History rosuvastatin 10 mg tablet 10 mg PO QAM 04/16/24 04/16/24 History vitamin B complex 1 tab PO DAILY 04/16/24 04/16/24 History Past Med/Surg History Problem List (Updated 11/28/24 @ 16:26 by Lebron Gonzalez DO) Elevated troponin I level (Acute) Abnormal EKG (Acute) SUAREZ (dyspnea on exertion) (Acute) Pulmonary embolism (Acute) Pulmonary hypertension (Acute) Acute heart failure with preserved ejection fraction (HFpEF) (Acute) Mitral regurgitation (Acute) Mitral valve prolapse (Acute) Dysuria Bladder pain Urinary symptom or sign Medical History Dizziness Social History Smoking Status: Never smoker Hx Alcohol Use: No Hx Substance Use: No Preferred Language: Armenian Communication Ability: Effective Beliefs That Will Affect Care: None Current Living Situation: Spouse Current Living Situation Comment: lives in house with steps Feels Safe at Home: Yes Assistive Devices: None Review of Systems Review of Systems: All systems reviewed & are unremarkable except as noted in HPI & below Physical Exam Physical Exam: Please see addendum Results & Data Results & Data Vital Signs (Past 12 Hours) Vital Signs Temp Pulse Pulse Resp BP BP Pulse Ox 11/28/24 16:00 91 H 22 144/69 H 95 11/28/24 14:03 83 16 95 11/28/24 14:03 83 16 123/73 95 11/28/24 14:03 95 11/28/24 14:03 11/28/24 13:51 89 11/28/24 13:34 36.8 C 98 H 20 114/75 96 O2 Del Method 11/28/24 16:00 Room Air 11/28/24 14:03 Room Air 11/28/24 14:03 Room Air 11/28/24 14:03 Room Air 11/28/24 14:03 Room Air 11/28/24 13:51 11/28/24 13:34 Room Air Laboratory Results Laboratory Results WBC 8.76 K/ul (4.8-10.8) 11/28/24 14:01 RBC 5.01 M/uL (4.20-5.40) 11/28/24 14:01 Hgb 15.6 g/dl (12.0-16.0) 11/28/24 14:01 Hct 46.0 % (37.0-47.0) 11/28/24 14:01 MCV 91.8 fL (80.0-100.0) 11/28/24 14:01 MCH 31.1 pg (25.0-34.0) 11/28/24 14:01 MCHC 33.9 g/dL (32.0-36.0) 11/28/24 14:01 RDW Std Deviation 43.9 fL (36.4-46.3) 11/28/24 14:01 RDW Coeff of Joselyn 13.0 % (11.5-14.5) 11/28/24 14:01 Plt Count 276 K/uL (130-400) 11/28/24 14:01 MPV 10.5 fL (9.4-12.4) 11/28/24 14:01 Immature Gran % (Auto) 0.3 % 11/28/24 14:01 Neut % (Auto) 72.5 % 11/28/24 14:01 Lymph % (Auto) 19.5 % 11/28/24 14:01 [place] % (Auto) 6.2 % 11/28/24 14:01 Eos % (Auto) 0.9 % 11/28/24 14:01 Baso % (Auto) 0.6 % 11/28/24 14:01 Neut # (Auto) 6.35 K/uL (1.40-6.50) 11/28/24 14:01 Lymph # (Auto) 1.71 K/uL (1.20-3.40) 11/28/24 14:01 [place] # (Auto) 0.54 K/uL (0.11-0.59) 11/28/24 14:01 Eos # (Auto) 0.08 K/uL (0.00-0.50) 11/28/24 14:01 Baso # (Auto) 0.05 K/uL (0.00-0.20) 11/28/24 14:01 Immature Gran # (Auto) 0.03 K/uL (0.01-0.20) 11/28/24 14:01 PT 11.0 Seconds (9.0-12.0) 11/28/24 14:01 INR 1.0 (0.9-1.1) 11/28/24 14:01 APTT 22 Seconds (21-31) 11/28/24 14:01 PTT Ratio 0.8 11/28/24 14:01 D-Dimer 7070 ug/L FEU (0-500) H* 11/28/24 14:01 Sodium 142 mmol/L (136-145) 11/28/24 14:01 Potassium 4.1 mmol/L (3.5-5.1) 11/28/24 14:01 Chloride 104 mmol/L (98-107) 11/28/24 14:01 Carbon Dioxide 27 mmol/L (21-32) 11/28/24 14:01 Anion Gap 11 (3-11) 11/28/24 14:01 BUN 16 mg/dl (6-23) 11/28/24 14:01 Creatinine 1.14 mg/dl (0.6-1.2) 11/28/24 14:01 Est Cr Clr Drug Dosing 33.7 ml/min 11/28/24 14:01 eGFR 50.20 11/28/24 14:01 BUN/Creatinine Ratio 14.0 (10-20) 11/28/24 14:01 Glucose 137 mg/dl (70-99(Fasting)) H 11/28/24 14:01 Calcium 10.3 mg/dl (8.6-10.3) 11/28/24 14:01 Magnesium 2.2 mg/dl (1.7-2.4) 11/28/24 14:01 Total Bilirubin 0.8 mg/dl (0.2-1.0) 11/28/24 14:01 AST 28 U/L (13-39) 11/28/24 14:01 ALT 28 U/L (7-52) 11/28/24 14:01 Alkaline Phosphatase 67 U/L (34-104) 11/28/24 14:01 Troponin I High Sens 71.6 pg/ml (0-14) H* D 11/28/24 16:20 B-Natriuretic Peptide 278 pg/ml (0-100) H 11/28/24 14:37 Total Protein 8.5 gm/dl (6.0-8.3) H 11/28/24 14:01 Albumin 4.9 gm/dl (3.4-5.0) 11/28/24 14:01 Globulin 3.6 gm/dl (2.5-4.0) 11/28/24 14:01 Albumin/Globulin Ratio 1.4 (0.9-2) 11/28/24 14:01 Urine Color Yellow 11/28/24 15:21 Urine Appearance Clear (Clear) 11/28/24 15:21 Urine pH 7.5 (4.5-7.5) 11/28/24 15:21 Ur Specific Fisher 1.025 (1.000-1.030) 11/28/24 15:21 Urine Protein 1+ (Negative) H 11/28/24 15:21 Urine Glucose (UA) Negative (Negative) 11/28/24 15:21 Urine Ketones Trace (Negative) H 11/28/24 15:21 Urine Blood Negative (Negative) 11/28/24 15:21 Urine Nitrite Negative (Negative) 11/28/24 15:21 Urine Bilirubin Negative (Negative) 11/28/24 15:21 Urine Urobilinogen Negative (Negative) 11/28/24 15:21 Ur Leukocyte Esterase 2+ (Negative) H 11/28/24 15:21 Urine WBC (Auto) 11-20 /hpf (0-5) H 11/28/24 15:21 Urine RBC (Auto) 6-10 /hpf (0-2) H 11/28/24 15:21 U Hyaline Cast (Auto) 6-10 /lpf (0-2) H 11/28/24 15:21 U Epithel Cells (Auto) 3-5 /hpf (0-2) H 11/28/24 15:21 Urine Bacteria (Auto) None Seen (None Seen) 11/28/24 15:21 Hyaline Casts Present /lpf (None Presnt) A 11/28/24 15:21 Urine Comment 11/28/24 15:21 SARS-CoV-2 (PCR) NEGATIVE (Negative) 11/28/24 14:18 Influenza Type A (PCR) Negative (Neg) 11/28/24 14:18 Influenza Type B (PCR) Negative (Neg) 11/28/24 14:18 RSV (RT-PCR) Negative (Neg) 11/28/24 14:18 Impressions Chest X-Ray 11/28/24 13:58 XR chest 1V portable CLINICAL HISTORY: Dyspnea COMPARISON STUDY: 04/16/2024 FINDINGS: There is interval cardiac valve repair. Heart size and pulmonary vasculature are normal. Stable mildly hyperexpanded lungs. No consolidation or pleural effusion. No pneumothorax. IMPRESSION: No acute findings. ACT 112: Negative or not required by law. Electronically signed by: Rodrigo Aiken M.D. 11/28/2024 2:27 PM Chest CTA 11/28/24 15:21 CT ANGIOGRAM OF THE CHEST CLINICAL HISTORY: Dyspnea COMPARISON STUDY: Chest CT dated 04/16/2024. Chest x-ray dated 11/28/2024 TECHNIQUE: Following the IV administration of 115 cc of Optiray 320, CT angiogram of the chest was performed from the upper abdomen to the thoracic inlet utilizing the pulmonary embolus protocol. Images are reviewed in the axial, sagittal, and coronal planes. 3-D MIPS images are created and assessed. IV contrast was administered without complication. A dose lowering technique was utilized adhering to the principles of ALARA. CT DOSE: 329.86 mGy.cm FINDINGS: Thyroid: Imaged portions of the thyroid gland are normal in size and attenuation. Thoracic aorta: There is atherosclerotic calcification of the thoracic aorta, which is normal in caliber and demonstrates standard 3-vessel arch anatomy. No dissection is seen. Pulmonary vasculature: The main pulmonary arteries are mildly dilated suggesting pulmonary artery hypertension. There is extensive bilateral pulmonary embolus. There is thrombus within the right main pulmonary artery which extends into the right upper, middle, and lower lobe pulmonary arteries and the segmental and subsegmental branches. There is also thrombus within the distal left main pulmonary artery. This extends into the left lower lobe pulmonary artery into segmental and subsegmental branches. Segmental and subsegmental pulmonary emboli are seen within branches of the left upper lobe and lingular pulmonary artery. Heart: The patient is status post midline sternotomy. There is evidence of previous tricuspid and mitral valve surgery. The heart is enlarged and without pericardial effusion. Flattening of the interventricular septum suggests right heart strain. Lungs and pleural spaces: Evaluation of the lung parenchyma is degraded by motion artifact. There is no airspace consolidation or pleural effusion. Mild scarring/atelectasis is noted at the lung bases. The trachea and central airways are clear. A 61 the right lower lobe pulmonary nodule on image #109 and a 5 mm right lower lobe pulmonary nodule on image #142 are unchanged, as is a 2 mm pleural-based nodule in the left lower lobe on image #113. Mediastinum: There is no mediastinal lymphadenopathy. Wendy: Clear. Axillae: There is no axillary lymphadenopathy. Upper abdomen: The liver is steatotic. Cholecystectomy clips are noted. There is a small hiatal hernia. Skeletal structures: The skeletal structures are osteopenic. No lytic or blastic bony lesions are seen. Arthritic change is seen in the shoulders. IMPRESSION: 1. Extensive bilateral pulmonary embolus as above. 2. Cardiomegaly. 3. Flattening of the interventricular septum suggests right heart strain. 4. There is no airspace consolidation or pleural effusion. 5. Scattered pulmonary nodules measure up to 6 mm. These are unchanged from 04/16/2024 and if warranted can be followed as per the Fleischner criteria. See below. 6. Hepatic steatosis. 7. Additional findings as above. Please refer to below summary of Fleischner criteria recommendations for follow- up of incidental CT nodules (Alexa Juan, Guidelines for management of small pulmonary nodules detected on CT scans: A statement from the Fleischner Society, Radiology 237: [phone].) SOLID NODULES Solitary nodule size: <6 mm * low risk patients: no follow-up needed * high risk patients: optional CT at 12 months Solitary nodule size: 6-8 mm * low risk patients: follow-up at 6-12 months, then consider further follow-up at 18-24 months * high risk patients: initial follow-up CT at 6-12 months and then at 18-24 months if no change Solitary nodule size: >8 mm * either low or high risk patients - consider follow-up CT at 3 months, and/or CT-PET, and/or biopsy Multiple nodules size: <6 mm * low risk patients: no routine follow-up * high risk patients: optional CT at 12 months Multiple nodules size: 6-8 mm * low risk patients: follow-up at 3-6 months, then consider further follow-up at 18-24 months * high risk patients: follow-up at 3-6 months, then at 18-24 months if no change Multiple nodules size: >8 mm * low risk patients: follow-up at 3-6 months, then consider further follow-up at 18-24 months * high risk patients: follow-up at 3-6 months, then at 18-24 months if no change Note: newly detected indeterminate nodule in persons 35 years of age or older. * low risk patients: minimal or absent history of smoking and/or other known risk factors * high risk patients: history of smoking or of other known risk factors (e.g. first degree relative with lung cancer, or exposure to asbestos, radon, uranium) * if a nodule up to 8 mm is partly solid or is ground glass further follow-up is required after 24 months to exclude possible slow growing adenocarcinoma (CHAGO) SUBSOLID NODULES Solitary pure ground-glass nodule * nodule size <6 mm - no CT follow-up required * nodule size >=6 mm - follow-up CT at 6-12 months, then every 2 years until 5 years Solitary part-solid nodule * nodule size <6 mm - no CT follow-up required * nodule size >=6 mm - follow-up CT at 3-6 months. If unchanged, and solid component remains <6 mm, then annual follow-up for 5 years Multiple subsolid nodules * nodule size <6 mm - follow-up CT at 3-6 months, consider further follow-up at 2 and 4 years if stable * nodule size >=6 mm - follow-up CT at 3-6 months, subsequent management based on the most suspicious nodule(s) ACT 112: Negative or not required by law. Electronically signed by: Daron Sutherland M.D. 11/28/2024 3:52 PM Supervising Physician Co-Signing Physician Notes Patient presents with worsening chest pain and SOB within the past 3 days Shortness of breath is worse with activity Reports rash in UE in the past 3 days as well and PCP asked her to stop recently started prilosec On exam, General: Not in distress Eyes: PERRL, conjunctivae normal, not pale, anicteric sclerae, EOM intact bilaterally ENMT: +mild hearing deficits Respiratory: Not in resp distress, CTA b/l Cardiovascular: RRR S1 S2 Chest : Well healed surgical scar Gastrointestinal (Abdomen): Abdomen is not distended, soft, non-tender to palpation, normal bowel sounds Musculoskeletal: No pedal edema Neurologic: Alert and oriented x 3, No focal weakness, sensation grossly intact Psychiatric: Normal mood and affect Labs notable for DDimer of 7070 , BNP 278, Trop 52 CXR did not show acute abnormalities CT PE showed extensive bilateral PE with signs of right heart strain Acute bilateral pulm embolism with right heart strain Continue IV heparin drip Currently hemodynamically stable and on room air Monitor Pulm consult Had mitral valvular replacement in Apr (Mitral valve replacement with #31 epic bioprosthetic, tricuspid valve repair with Number 28 annuloplasty band) and was on warfarin till July Get TTE Get LE doppler b/l Will need ambulatory pulse ox to assess oxygen needs at time of discharge Other plans as detailed by Wanda NOVA
--- NOTE | 2024-11-28 17:55 | Ultrasound Report ---
EXAMINATION: Ultrasound venous Doppler lower extremity bilateral CLINICAL HISTORY: Extensive pulmonary embolism PRIORS: None TECHNIQUE: Bilateral ultrasound interrogation of the deep venous structures was performed with grayscale, color Doppler, compression and augmentation. FINDINGS: The bilateral common femoral, superficial femoral, saphenous, popliteal and tibial veins demonstrate normal compressibility, frequency and augmentation. IMPRESSION: No sonographic evidence of deep venous thrombosis in the bilateral lower extremities. Electronically signed by Akua Luna 11-28-2024 5:55 PM
[2024-11-28] MEDS: ACETAMINOPHEN 325 MG TAB PO PRN (20:20)
[2024-11-28] MEDS: METOPROLOL SUCC 25MG EXT REL TAB PO SCH (20:46)
[2024-11-28 23:59] LABS: ANTI-Xa, UFH(UnfractionatedHep 0.88 IU/ml (0.3-0.7)
[2024-11-29] MEDS ORDERED: Nursing to Pharmacy Communication SCH (00:15)
[2024-11-29 06:30] LABS: Hematocrit (blood only) 41.5 % (37.0-47.0); Hemoglobin 13.5 g/dl (12.0-16.0); Immature Granulocytes # (auto) 0.01 K/uL (0.01-0.20); Immature Granulocytes % (auto) 0.1 %; Mean Corpuscular Hemoglobin 29.6 pg (25.0-34.0); Mean Corpuscular Volume 91.0 fL (80.0-100.0); Platelet Count 253 K/uL (130-400); RDW Standard Deviation 43.8 fL (36.4-46.3); Red Blood Count 4.56 M/uL (4.20-5.40); White Blood Count 6.74 K/ul (4.8-10.8)
[2024-11-29 07:13] LABS: ANTI-Xa, UFH(UnfractionatedHep 0.56 IU/ml (0.3-0.7)
[2024-11-29] MEDS: ROSUVASTATIN CALCIUM 10 MG TAB PO SCH (08:20)
[2024-11-29] MEDS: FENOFIBRATE NANOCRYSTALLIZED 145 MG TABLET PO SCH (08:21)
[2024-11-29] MEDS: ESCITALOPRAM OXALATE 20 MG TAB PO SCH (08:22)
[2024-11-29] MEDS: DIGOXIN 0.125 MG TAB PO SCH (08:22)
[2024-11-29] MEDS: MAGNESIUM OXIDE 400 MG TAB PO SCH (08:39)
[2024-11-29] MEDS: ASPIRIN 81 MG ECTAB PO SCH (08:40)
[2024-11-29] MEDS: FAMOTIDINE 40 MG/5 ML 50ML BTL PO SCH (08:43)
[2024-11-29] MEDS ORDERED: FUROSEMIDE 40 MG TAB PO SCH (09:00)
[2024-11-29] MEDS ORDERED: ESCITALOPRAM OXALATE 20 MG TAB PO SCH (09:00)
[2024-11-29 09:04] LABS: Alanine Aminotransferase 17.0 U/L (7-52); Albumin Globulin Ratio 1.7 (0.9-2); Albumin Level 4.2 gm/dl (3.4-5.0); Alkaline Phosphatase 53.0 U/L (34-104); Anion Gap 9.0 (3-11); Bilirubin,Total 0.6 mg/dl (0.2-1.0); Blood Urea Nitrogen 16.0 mg/dl (6-23); Calcium 9.4 mg/dl (8.6-10.3); Carbon Dioxide 25.0 mmol/L (21-32); Chloride 106.0 mmol/L (98-107); Creatinine Clr Calc Pharmacy 38.1 ml/min; Globulin 2.5 gm/dl (2.5-4.0); Glucose 115.0 mg/dl (70-99(Fasting)); Magnesium 2.2 mg/dl (1.7-2.4); Potassium 3.5 mmol/L (3.5-5.1); Sodium 140.0 mmol/L (136-145); Total Protein 6.7 gm/dl (6.0-8.3)
--- NOTE | 2024-11-29 11:09 | XCELERA ---
[id number]
[2024-11-29 11:28] VITALS: TEMP 98.1
--- NOTE | 2024-11-29 12:19 | Pulmonary Consultation ---
Date of Consultation November 29, 2024 Assessment & Plan (1) SUAREZ (dyspnea on exertion): (2) Pulmonary embolism: (3) Right ventricular dysfunction: Plan Symptomatic extensive pulmonary emboli with severe right-ventricular dysfunction. Etiology of pulmonary emboli unclear at this time. The patient would, potentially, benefit from pulmonary-arterial thrombectomy. Recommend transfer to center with Vascular Surgery (or other) service that performs pulmonary-arterial thrombectomy. Above discussed with Dr. Thompson. History of Present Illness Reason for Consultation: ext b/l pulm emboli Attending Physician: Eloy Thompson MD History of Present Illness The patient is a very pleasant 74-year-old female who presented to the ED for evaluation of worsening shortness of breath and chest pain over several days. She reported that her symptoms, including dyspnea and chest discomfort with exertion, had been ongoing for several weeks but had acutely worsened over the preceding three days. She also described episodes of vomiting white frothy sputum but denied hemoptysis, leg swelling, or leg pain. Her history was notable for recent mitral valve replacement following severe mitral and tricuspid regurgitation, with prior echocardiography revealing an EF of 6569%. She had been hospitalized in April 2024 for cough and shortness of breath, at which time a BOUCHRA confirmed severe mitral regurgitation and she was transferred for surgical management. Postoperatively, she was managed with aspirin, metoprolol, fenofibrate, furosemide, digoxin, rosuvastatin, and a four- month course of Coumadin, which was discontinued in August 2024. Since her surgery, she continued to experience some shortness of breath, which she was told could be expected postoperatively, but noted a significant worsening in the three days prior to her ED visit. On arrival to the ED, laboratory evaluation revealed an elevated D-dimer of 7070 and troponin levels of 58 and 71 on repeat testing. Imaging with CT confirmed the presence of a pulmonary embolism, and she was started on IV heparin. Her past medical history included prediabetes, vitamin D deficiency, fibromyalgia, and severe mitral valve regurgitation. Today the patient continues to report significant dyspnea on exertion. Echo today showed severe impairment in RV function. Allergies Allergy/AdvReac Type Severity Reaction Status Date / Time Sulfa (Sulfonamide Allergy Mild Swelling Unverified 04/16/24 17:55 Antibiotics) of Lip/Tongue/Throat Home Medications Medication Instructions Recorded Confirmed Type amoxicillin 875 mg-potassium 1 tab PO BID 04/16/24 04/16/24 History clavulanate 125 mg tablet cholecalciferol (vitamin D3) 25 25 mcg PO DAILY 04/16/24 04/16/24 History mcg (1,000 unit) tablet (Vitamin D3) estradiol 10 mcg vaginal tablet 10 mcg vaginal 2XWK 04/16/24 04/16/24 History (Vagifem) levalbuterol tartrate 45 2 puff inhalation Q6H PRN Wheezing 04/16/24 04/16/24 History mcg/actuation aerosol inhaler potassium 99 mg tablet 99 mg PO DAILY 04/16/24 04/16/24 History rosuvastatin 10 mg tablet 10 mg PO QAM 04/16/24 11/28/24 History vitamin B complex 1 tab PO DAILY 04/16/24 04/16/24 History aspirin 81 mg chewable tablet 81 mg PO DAILY 11/28/24 11/28/24 History digoxin 125 mcg (0.125 mg) tablet 125 mcg PO DAILY 11/28/24 History escitalopram oxalate 10 mg tablet 10 mg PO DAILY 11/28/24 11/28/24 History famotidine 20 mg tablet (Pepcid) 20 mg PO DAILY 11/28/24 11/28/24 History fenofibrate nanocrystallized 145 145 mg PO DAILY 11/28/24 11/28/24 History mg tablet furosemide 40 mg tablet 40 mg PO DAILY 11/28/24 11/28/24 History metoprolol succinate 25 mg 25 mg PO BID 11/28/24 11/28/24 History tablet,extended release 24 hr Patient History Medical History Dizziness Social History Smoking Status: Never smoker Hx Alcohol Use: No Hx Substance Use: No Preferred Language: Bengali Communication Ability: Effective [employer] Required: No Beliefs That Will Affect Care: None Current Living Situation: Spouse Current Living Situation Comment: 1 story house Feels Safe at Home: Yes Assistive Devices: None Review of Systems Review of Systems: All systems reviewed & are unremarkable except as noted in HPI & below Physical Exam Physical Exam: Vitals and labs reviewed. General: In no acute distress, using Oxygenvia nasal cannula. Skin: Warm and dry to touch. Noobvious lesions. Sternotomy scar. Eyes: Anicteric.Noconjunctival hyperemia or exudates.No periorbital edema. ENT: No oral thrush. No oropharyngeal erythema or exudates Neck: No palpable masses or adenopathy. Respiratory: Diffusely decreased breath sounds, no wheezing or crackles. No use of accessory muscles and no prolonged exhalation. Cardiac: Distant sounds, regular rhythm, no murmurs, no gallops, no rubs; could not appreciate JV pulse elevation. GI: Soft, nontender. Extremities No clubbing,no cyanosis,no edema. Neuro: No gross motor deficits. Seems appropriate. Results & Data Results & Data Vital Signs (Past 12 Hours) Vital Signs Temp Pulse Pulse Resp BP Pulse Ox O2 Del Method 11/29/24 11:27 36.7 C 86 18 132/77 93 Nasal Cannula 11/29/24 08:30 Nasal Cannula 11/29/24 08:22 81 11/29/24 08:00 74 11/29/24 07:49 36.6 C 85 18 102/69 94 Nasal Cannula 11/29/24 02:48 36.3 C L 82 16 108/70 97 Nasal Cannula O2 Flow Rate 11/29/24 11:27 1.0 11/29/24 08:30 1 11/29/24 08:22 11/29/24 08:00 11/29/24 07:49 2.0 11/29/24 02:48 2 Laboratory Results 11/28/24 15:21 Urine Culture - Preliminary Urine,Clean Catch No growth - Less than 1,000 colonies/mL, Final report to follow. 11/29/24 11/28/24 11/28/24 06:03 22:47 16:20 WBC 6.74 RBC 4.56 Hgb 13.5 Hct 41.5 MCV 91.0 MCH 29.6 MCHC 32.5 RDW Std Deviation 43.8 RDW Coeff of Joselyn 13.2 Plt Count 253 MPV 10.4 Immature Gran % (Auto) 0.1 Neut % (Auto) 43.5 Lymph % (Auto) 43.2 [place] % (Auto) 8.3 Eos % (Auto) 4.0 Baso % (Auto) 0.9 Neut # (Auto) 2.93 Lymph # (Auto) 2.91 [place] # (Auto) 0.56 Eos # (Auto) 0.27 Baso # (Auto) 0.06 Immature Gran # (Auto) 0.01 PT INR APTT PTT Ratio D-Dimer Heparin Anti-Xa, Unfract 0.56 0.88 H* Sodium 140 Potassium 3.5 Chloride 106 Carbon Dioxide 25 Anion Gap 9 BUN 16 Creatinine 1.01 Est Cr Clr Drug Dosing 38.1 eGFR 58.05 BUN/Creatinine Ratio 15.8 Glucose 115 H Calcium 9.4 Magnesium 2.2 Total Bilirubin 0.6 AST 20 ALT 17 Alkaline Phosphatase 53 Troponin I High Sens 70.5 H* 71.6 H* D B-Natriuretic Peptide Total Protein 6.7 D Albumin 4.2 Globulin 2.5 Albumin/Globulin Ratio 1.7 Urine Color Urine Appearance Urine pH Ur Specific [place] Urine Protein Urine Glucose (UA) Urine Ketones Urine Blood Urine Nitrite Urine Bilirubin Urine Urobilinogen Ur Leukocyte Esterase Urine WBC (Auto) Urine RBC (Auto) U Hyaline Cast (Auto) U Epithel Cells (Auto) Urine Bacteria (Auto) Hyaline Casts Urine Comment SARS-CoV-2 (PCR) Influenza Type A (PCR) Influenza Type B (PCR) RSV (RT-PCR) 11/28/24 11/28/24 11/28/24 15:21 14:37 14:18 WBC RBC Hgb Hct MCV MCH MCHC RDW Std Deviation RDW Coeff of Joselyn Plt Count MPV Immature Gran % (Auto) Neut % (Auto) Lymph % (Auto) [place] % (Auto) Eos % (Auto) Baso % (Auto) Neut # (Auto) Lymph # (Auto) [place] # (Auto) Eos # (Auto) Baso # (Auto) Immature Gran # (Auto) PT INR APTT PTT Ratio D-Dimer Heparin Anti-Xa, Unfract Sodium Potassium Chloride Carbon Dioxide Anion Gap BUN Creatinine Est Cr Clr Drug Dosing eGFR BUN/Creatinine Ratio Glucose Calcium Magnesium Total Bilirubin AST ALT Alkaline Phosphatase Troponin I High Sens B-Natriuretic Peptide 278 H Total Protein Albumin Globulin Albumin/Globulin Ratio Urine Color Yellow Urine Appearance Clear Urine pH 7.5 Ur Specific [place] 1.025 Urine Protein 1+ H Urine Glucose (UA) Negative Urine Ketones Trace H Urine Blood Negative Urine Nitrite Negative Urine Bilirubin Negative Urine Urobilinogen Negative Ur Leukocyte Esterase 2+ H Urine WBC (Auto) 11-20 H Urine RBC (Auto) 6-10 H U Hyaline Cast (Auto) 6-10 H U Epithel Cells (Auto) 3-5 H Urine Bacteria (Auto) None Seen Hyaline Casts Present A Urine Comment SARS-CoV-2 (PCR) NEGATIVE Influenza Type A (PCR) Negative Influenza Type B (PCR) Negative RSV (RT-PCR) Negative 11/28/24 14:01 WBC 8.76 RBC 5.01 Hgb 15.6 Hct 46.0 MCV 91.8 MCH 31.1 MCHC 33.9 RDW Std Deviation 43.9 RDW Coeff of Joselyn 13.0 Plt Count 276 MPV 10.5 Immature Gran % (Auto) 0.3 Neut % (Auto) 72.5 Lymph % (Auto) 19.5 [place] % (Auto) 6.2 Eos % (Auto) 0.9 Baso % (Auto) 0.6 Neut # (Auto) 6.35 Lymph # (Auto) 1.71 [place] # (Auto) 0.54 Eos # (Auto) 0.08 Baso # (Auto) 0.05 Immature Gran # (Auto) 0.03 PT 11.0 INR 1.0 APTT 22 PTT Ratio 0.8 D-Dimer 7070 H* Heparin Anti-Xa, Unfract Sodium 142 Potassium 4.1 Chloride 104 Carbon Dioxide 27 Anion Gap 11 BUN 16 Creatinine 1.14 Est Cr Clr Drug Dosing 33.7 eGFR 50.20 BUN/Creatinine Ratio 14.0 Glucose 137 H Calcium 10.3 Magnesium 2.2 Total Bilirubin 0.8 AST 28 ALT 28 Alkaline Phosphatase 67 Troponin I High Sens 52.8 H* B-Natriuretic Peptide Total Protein 8.5 H Albumin 4.9 Globulin 3.6 Albumin/Globulin Ratio 1.4 Urine Color Urine Appearance Urine pH Ur Specific [place] Urine Protein Urine Glucose (UA) Urine Ketones Urine Blood Urine Nitrite Urine Bilirubin Urine Urobilinogen Ur Leukocyte Esterase Urine WBC (Auto) Urine RBC (Auto) U Hyaline Cast (Auto) U Epithel Cells (Auto) Urine Bacteria (Auto) Hyaline Casts Urine Comment SARS-CoV-2 (PCR) Influenza Type A (PCR) Influenza Type B (PCR) RSV (RT-PCR) Diagnostic Findings Chest X-Ray 11/28/24 13:58 XR chest 1V portable CLINICAL HISTORY: Dyspnea COMPARISON STUDY: 04/16/2024 FINDINGS: There is interval cardiac valve repair. Heart size and pulmonary vasculature are normal. Stable mildly hyperexpanded lungs. No consolidation or pleural effusion. No pneumothorax. IMPRESSION: No acute findings. ACT 112: Negative or not required by law. Electronically signed by: Rodrigo Aiken M.D. 11/28/2024 2:27 PM Chest CTA 11/28/24 15:21 CT ANGIOGRAM OF THE CHEST CLINICAL HISTORY: Dyspnea COMPARISON STUDY: Chest CT dated 04/16/2024. Chest x-ray dated 11/28/2024 FINDINGS: Thyroid: Imaged portions of the thyroid gland are normal in size and attenu ation. Thoracic aorta: There is atherosclerotic calcification of the thoracic aorta, which is normal in caliber and demonstrates standard 3-vessel arch anatomy. No dissection is seen. Pulmonary vasculature: The main pulmonary arteries are mildly dilated suggesting pulmonary artery hypertension. There is extensive bilateral pulmonary embolus. There is thrombus within the right main pulmonary artery which extends into the right upper, middle, and lower lobe pulmonary arteries and the segmental and subsegmental branches. There is also thrombus within the distal left main pulmonary artery. This extends into the left lower lobe pulmonary artery into segmental and subsegmental branches. Segmental and subsegmental pulmonary emboli are seen within branches of the left upper lobe and lingular pulmonary artery. Heart: The patient is status post midline sternotomy. There is evidence of previous tricuspid and mitral valve surgery. The heart is enlarged and without pericardial effusion. Flattening of the interventricular septum suggests right heart strain. Lungs and pleural spaces: Evaluation of the lung parenchyma is degraded by motion artifact. There is no airspace consolidation or pleural effusion. Mild scarring/atelectasis is noted at the lung bases. The trachea and central airways are clear. A 61 the right lower lobe pulmonary nodule on image #109 and a 5 mm right lower lobe pulmonary nodule on image #142 are unchanged, as is a 2 mm pleural-based nodule in the left lower lobe on image #113. Mediastinum: There is no mediastinal lymphadenopathy. Wendy: Clear. Axillae: There is no axillary lymphadenopathy. Upper abdomen: The liver is steatotic. Cholecystectomy clips are noted. There is a small hiatal hernia. Skeletal structures: The skeletal structures are osteopenic. No lytic or blastic bony lesions are seen. Arthritic change is seen in the shoulders. IMPRESSION: 1. Extensive bilateral pulmonary embolus as above. 2. Cardiomegaly. 3. Flattening of the interventricular septum suggests right heart strain. 4. There is no airspace consolidation or pleural effusion. 5. Scattered pulmonary nodules measure up to 6 mm. These are unchanged from 04/16/2024 and if warranted can be followed as per the Fleischner criteria. See below. 6. Hepatic steatosis. 7. Additional findings as above. Electronically signed by: Daron Sutherland M.D. 11/28/2024 3:52 PM Venous Doppler Study 11/28/24 16:52 EXAMINATION: Ultrasound venous Doppler lower extremity bilateral IMPRESSION: No sonographic evidence of deep venous thrombosis in the bilateral lower extremities. Electronically signed by Akua Luna 11-28-2024 5:55 PM Medications Administered Home Medications Medication Instructions Recorded Confirmed Last Taken amoxicillin 875 mg-potassium 1 tab PO BID 04/16/24 04/16/24 04/16/24 clavulanate 125 mg tablet cholecalciferol (vitamin D3) 25 25 mcg PO DAILY 04/16/24 04/16/24 04/15/24 mcg (1,000 unit) tablet (Vitamin D3) estradiol 10 mcg vaginal tablet 10 mcg vaginal 2XWK 04/16/24 04/16/24 Unknown (Vagifem) levalbuterol tartrate 45 2 puff inhalation Q6H PRN Wheezing 04/16/24 04/16/24 Unknown mcg/actuation aerosol inhaler potassium 99 mg tablet 99 mg PO DAILY 04/16/24 04/16/24 04/15/24 rosuvastatin 10 mg tablet 10 mg PO QAM 04/16/24 11/28/24 04/15/24 vitamin B complex 1 tab PO DAILY 04/16/24 04/16/24 04/15/24 aspirin 81 mg chewable tablet 81 mg PO DAILY 11/28/24 11/28/24 Unknown digoxin 125 mcg (0.125 mg) tablet 125 mcg PO DAILY 11/28/24 Unknown escitalopram oxalate 10 mg tablet 10 mg PO DAILY 11/28/24 11/28/24 Unknown famotidine 20 mg tablet (Pepcid) 20 mg PO DAILY 11/28/24 11/28/24 Unknown fenofibrate nanocrystallized 145 145 mg PO DAILY 11/28/24 11/28/24 Unknown mg tablet furosemide 40 mg tablet 40 mg PO DAILY 11/28/24 11/28/24 Unknown metoprolol succinate 25 mg 25 mg PO BID 11/28/24 11/28/24 Unknown tablet,extended release 24 hr Active Medications Generic Name Dose Route Start Last Admin Trade Name Freq PRN Reason Stop Dose Admin Acetaminophen 650 mg 11/28/24 18:32 11/29/24 08:20 Acetaminophen 325 Mg Tab PO 12/28/24 18:31 650 mg Q4H PRN Administration Pain or Fever Aspirin 81 mg 11/29/24 09:00 11/29/24 08:40 Aspirin 81 Mg Ectab PO 12/29/24 08:59 81 mg DAILY ALEA Administration Digoxin 0.125 mg 11/29/24 09:00 11/29/24 08:22 Digoxin 0.125 Mg Tab PO 12/29/24 08:59 0.125 mg DAILY ALEA Administration Escitalopram Oxalate 10 mg 11/29/24 09:00 11/29/24 08:22 Escitalopram Oxalate 20 Mg Tab PO 12/29/24 08:59 10 mg QAM ALEA Administration Famotidine 20 mg 11/29/24 09:00 11/29/24 08:43 Famotidine 40 Mg/5 Ml 50ml Btl PO 12/29/24 08:59 20 mg DAILY ALEA Administration Fenofibrate 145 mg 11/29/24 09:00 11/29/24 08:21 Fenofibrate Nanocrystallized 145 Mg Tablet PO 12/29/24 08:59 145 mg QAM ALEA Administration Heparin Sodium/Dextrose 25,000 units in 500 mls @ 17 mls/hr 11/28/24 16:00 11/29/24 06:59 Heparin 81221 Unit/500 Ml D5w IV 12/28/24 15:59 850 units/hr .Q24H ALEA 17 mls/hr Titration Protocol 850 UNITS/HR Magnesium Oxide 400 mg 11/29/24 09:00 11/29/24 08:39 Magnesium Oxide 400 Mg Tab PO 12/29/24 08:59 400 mg QAM ALEA Administration Metoprolol Succinate 25 mg 11/28/24 21:00 11/29/24 08:20 Metoprolol Succ 25mg Ext Rel Tab PO 12/28/24 20:59 25 mg BID ALEA Administration Rosuvastatin Calcium 10 mg 11/29/24 09:00 11/29/24 08:20 Rosuvastatin Calcium 10 Mg Tab PO 12/29/24 08:59 10 mg QAM ALEA Administration PG Care Time/CCT Total # of Minutes Spent Total Time Spent with Patient: Total time spent is greater than 50% in coordination of care (as documented) at patient's floor/unit and/or counseling patient: 65 Coding Level of Care Code 86806 IN/OBS CONSULT LVL 4,60M Diagnoses SUAREZ (dyspnea on exertion) R06.09 Pulmonary embolism I26.99 Right ventricular dysfunction I51.9 Time Spent (min) 65 Comment Review chart/ imaging studies, history/ physical, update patient, family, nurse, provider.
[2024-11-29 12:20] VITALS: BP 133/78; RESP 22; O2SAT 89
[2024-11-29] MEDS: ONDANSETRON INJ 2 MG/ML 2 ML VIAL IV STA (14:40)
--- NOTE | 2024-11-29 15:19 | Discharge Summary ---
Discharge Summary Date of Service November 29, 2024 Principal Dx & Hospital Course #1 = Principal Diagnosis (1) Elevated troponin I level: (2) Abnormal EKG: (3) SUAREZ (dyspnea on exertion): (4) Pulmonary embolism: (5) Pulmonary hypertension: (6) Mitral regurgitation: (7) Mitral valve prolapse: (8) Dizziness: Plan Patient is a 74-year-old female who presented to the ED on 11/28/2024 with complaints of worsening shortness of breath and chest pain found to have bilateral PE Extensive bilateral pulmonary emboli Noted in chest CTA, right heart strain also noted Check echo, trend troponin, slowly trending up No hypoxia noted, pulmonology consulted Check venous duplex bilateral lower extremities to rule out DVT Hx severe mitral valve regurg s/p valve repair April 2024: -Continue aspirin 81 mg, metoprolol, fenofibrate, digoxin Hx CHF/HLD: Continue furosemide A total of 55 minutes were spent on chart review/reviewing diagnostic d demario/facilitating plan of care/discussion with consultants Full code DVT prophylaxis: Heparin drip Notes For Next Care Provider 74-year-old female with a past medical history of prediabetes, vitamin D deficiency, fibromyalgia, severe mitral valve regurgitation who presented to the ED on 11/28/2024 with complaints of shortness of breath/dizziness/chest pain and some vomiting. Found to have large segmental, subsegmental PEs in right lobe, PE in left lobe, admitted to medicine. On medicine, pulmonology consulted and recommended discussion with IR regarding thrombectomy. Discussed with Felice IR, who recommended transfer for thrombectomy given high risk PE and imaging results with right heart strain. To do: Incidental Findings: hepatic steatosis, many pulmonary lung nodules that need follow up, osteopenia, hiatal hernia Medication Changes From Visit -see below Admission HPI Per Admitting Provider The patient is a 74-year-old female with a past medical history of prediabetes, vitamin D deficiency, fibromyalgia, severe mitral valve regurgitation who presented to the ED on 11/28/2024 with complaints of shortness of breath/dizziness/chest pain and some vomiting. The patient was recently hospitalized and April 2024 for cough and shortness of breath. She had an echocardiogram done at that time that showed a EF of 65 to 69% with severe mitral insufficiency. The patient was admitted due to abnormal echocardiogram, patient underwent BOUCHRA on 04/18/2024 that showed a ruptured chordae with a flail P2 scallop of the posterior mitral valve leaflet with severe mitral regurgitation. Severe tricuspid regurgitation was also noted. At this time the patient was transferred [place] [facility] [place] management by cardiology. MRI of the brain was done at that time that was negative She subsequently underwent mitral valve replacement at [facility] and her cardiac meds were adjusted. She was started on aspirin, metoprolol, fenofibrate, furosemide, digoxin, rosuvastatin and remained on Coumadin for 4 months until August 2024 postoperatively. She reports that she has had some shortness of breath ongoing since her surgery which she was told is normal postoperatively. She reported the shortness of breath continued to worsen especially over the past 3 days so she came to the ER. She denies any fever/chills. Denies any abdominal pain. Reports some vomiting over the past 24 hours On arrival to the ED, D-dimer was elevated at 7070, troponin was also elevated at 58, repeat 71 BNP mildly elevated at 278 Urinalysis was positive, patient asymptomatic Viral panel negative Chest x-ray was negative Chest CTA showed extensive bilateral pulmonary embolus, cardiomegaly, right heart strain: The main pulmonary arteries are mildly dilated suggesting pulmonary artery hypertension. There is extensive bilateral pulmonary embolus. There is thrombus within the right main pulmonary artery which extends into the right upper, middle, and lower lobe pulmonary arteries and the segmental and subsegmental b ranches. There is also thrombus within the distal left main pulmonary artery. This extends into the left lower lobe pulmonary artery into segmental and subsegmental branches. Segmental and subsegmental pulmonary emboli are seen within branches of the left upper lobe and lingular pulmonary artery. The patient remained hemodynamically stable and will be admitted for further management for PE, heparin drip was initiated in the ER, no hypoxia noted Discharge Exam Gen: A&O 3 NAD HEENT: NCAT, EOMI, not icteric. External ears normal. No rhinorrhea. Moist mucous membranes. Neck: Supple, full range of motion, no observable masses, No meningeal sign. Lungs: visibly short of breath CV: RRR, no edema. Abdomen: Soft, nondistended, No rebound tenderness. MSK: No joint swelling, no redness. Skin: No rashes, petechiae, lesions. Normal color per patient. Neuro: Normal Gait, Grossly intact. Psych: Appropriate for situation. Updated Medication List Medication Instructions Recorded Confirmed Type amoxicillin 875 mg-potassium 1 tab PO BID 04/16/24 04/16/24 History clavulanate 125 mg tablet cholecalciferol (vitamin D3) 25 25 mcg PO DAILY 04/16/24 04/16/24 History mcg (1,000 unit) tablet (Vitamin D3) estradiol 10 mcg vaginal tablet 10 mcg vaginal 2XWK 04/16/24 04/16/24 History (Vagifem) levalbuterol tartrate 45 2 puff inhalation Q6H PRN Wheezing 04/16/24 04/16/24 History mcg/actuation aerosol inhaler potassium 99 mg tablet 99 mg PO DAILY 04/16/24 04/16/24 History rosuvastatin 10 mg tablet 10 mg PO QAM 04/16/24 11/28/24 History vitamin B complex 1 tab PO DAILY 04/16/24 04/16/24 History aspirin 81 mg chewable tablet 81 mg PO DAILY 11/28/24 11/28/24 History digoxin 125 mcg (0.125 mg) tablet 125 mcg PO DAILY 11/28/24 History escitalopram oxalate 10 mg tablet 10 mg PO DAILY 11/28/24 11/28/24 History famotidine 20 mg tablet (Pepcid) 20 mg PO DAILY 11/28/24 11/28/24 History fenofibrate nanocrystallized 145 145 mg PO DAILY 11/28/24 11/28/24 History mg tablet furosemide 40 mg tablet 40 mg PO DAILY 11/28/24 11/28/24 History metoprolol succinate 25 mg 25 mg PO BID 11/28/24 11/28/24 History tablet,extended release 24 hr Hospital Stay Data Consultations 11/28/24 16:28 ED Decision to Admit Stat 11/28/24 18:32 Consult Pulmonology Routine 11/29/24 14:00 Radiology Transfer Of Images Stat Diagnostic Imagining Performed 11/28/24 15:21 CT angio chest PE protocol Stat 11/28/24 16:52 US venous doppler LE BI Routine Pending Results Patient Have Any Pending Studies at Discharge: No Discharge Instructions Given to Patient (Per Discharging Provider) Diagnosis: massive PE Follow Ups: PCP, IR Incidental Findings: hepatic steatosis, many pulmonary lung nodules that need follow up, osteopenia, hiatal hernia 1. Please follow up with PCP, IR 2. Transfer to [facility] for thrombectomy. Total Time Total Time Spent Total Time Spent (In Minutes): I spent a total of 35 minutes in direct patient care, including [id number] time with the patient and/or family, reviewing medical records, ordering and reviewing diagnostic tests, and coordinating care with other healthcare providers. This time includes: history taking, physical examination, medical decision making, counseling, ECG interpretation, imaging interpretation, lab interpretation, orders, and education, excluding time spent in the performance of separately billed services.
[2024-11-29 16:10] VITALS: PULSE 80
--- NOTE | 2024-11-30 22:06 | Electrocardiogram Report ---
Test Reason : Blood Pressure : */* mmHG Vent. Rate : 94 BPM Atrial Rate : 94 BPM P-R Int : 94 ms QRS Dur : 102 ms QT Int : 408 ms P-R-T Axes : -18 -16 -52 degrees QTcB Int : 511 ms Sinus rhythm with short NM Low voltage QRS Inferior infarct , age undetermined Prolonged QT Abnormal ECG When compared with ECG of 21-Apr-2024 08:37, QT has lengthened T wave inversion now evident in Anterolateral leads Confirmed by Dominic Gonzalez ([id number]) on 11/30/2024 10:06:05 PM Referred By: REFERRED SELF Confirmed By: Dominic Gonzalez
--- NOTE | 2024-11-30 22:08 | Electrocardiogram Report ---
Test Reason : Blood Pressure : */* mmHG Vent. Rate : 74 BPM Atrial Rate : 74 BPM P-R Int : 172 ms QRS Dur : 88 ms QT Int : 448 ms P-R-T Axes : 33 44 42 degrees QTcB Int : 498 ms Normal sinus rhythm Low voltage QRS Poor R wave progression, consider anterior ID vs. lead placement vs. LVH Prolonged QT Abnormal ECG When compared with ECG of 28-Nov-2024 13:47, VT interval has increased Criteria for Inferior infarct are no longer Present Nonspecific T wave abnormality, improved in Inferior leads T wave inversion more evident in Anterior leads Confirmed by Dominic Gonzalez ([id number]) on 11/30/2024 10:07:30 PM Referred By: REFERRED SELF Confirmed By: Dominic Gonzalez
== END 2024-11-29 16:10 | disposition short-term general hospital (02) | DRG 314 ==
LOC: ED 13:31 → SUATTDRO 16:47 → 2S 16:47